=== PATIENT | male | born 1955 | race Caucasian/White ===

== ENCOUNTER 2017-01-02 06:38 | Inpatient (IN) | payer OTHER, MEDICAID ==
[~2017-01-02] VITALS: Ht 172.7 cm; Wt 54.0 kg
[2017-01-02 07:00] VITALS: BP 134/68; PULSE 109; RESP 20; TEMP 97.2; O2SAT 94
--- NOTE | 2017-01-02 07:00 | NUR ---
PT IN ROOM #6 WITH BARREL WASHER, TRIAGED. REPORT GIVEN TO SHE
[2017-01-02] MEDS ORDERED: NACL 0.9% 1,000 ML IV SCH (07:03)
[2017-01-02] MEDS ORDERED: ONDANSETRON HCL 4 MG/2 ML VIAL IVP ONE (07:15)
--- NOTE | 2017-01-02 07:15 | NUR ---
Pt brought to ED c/o Vomiting since last evening as reported by caregiver.
--- NOTE | 2017-01-02 07:30 | NUR ---
Pt has wound care nurse for coccyx wound on M and F.
[2017-01-02 07:33] LABS: HEMATOCRIT 40.9 % (36-54); HEMOGLOBIN 13.8 g/dL (14.0-18.0); MEAN CORPUSCULAR HEMOGLOBIN 33 pg (27-31); MEAN CORPUSCULAR HGB CONC 34 % (32-36); MEAN CORPUSCULAR VOLUME 97 fL (79.0-98.0); PLATELET COUNT (AUTO) 340 K/uL (130-430); RED BLOOD CELL COUNT(AUTO) 4.22 MIL/uL (4.2-6.2); RED CELL DISTRIBUTION WIDTH 12.7 % (9.0-15.0); WHITE BLOOD COUNT (AUTO) 7.8 K/uL (4.8-10.8)
[2017-01-02 07:43] LABS: CALCIUM 8.6 mg/dL (8.4-11.0); CREATININE 0.41 mg/dL (0.55-1.30)
[2017-01-02 07:45] LABS: INR 1.1 (0.80-1.20); PROTHROMBIN TIME 11.6 SECS (9.5-12.5)
--- NOTE | 2017-01-02 07:45 | NUR ---
# 24 gauge angiocath placed to LH. Use of asceptic technique. Opsite placed over site. Blood for lab drawn from site. Flushed with 10 cc of normal saline. No evidence of infiltration noted. Patient tolerated well.
--- NOTE | 2017-01-02 07:50 | NUR ---
Pt tolerated medication well.
[2017-01-02] MEDS ORDERED: POTASSIUM CHLORIDE 20 MEQ TAB.PRT.SR PO ONE (08:00)
[2017-01-02] MEDS ORDERED: KCL 10 mEq in 50 mL (PREMIX) 50 ML IV ONE (08:00)
[2017-01-02 08:02] LABS: ALBUMIN 3.2 g/dL (3.4-4.8); POTASSIUM 2.7 mmol/L (3.5-5.1); TOTAL BILIRUBIN 0.4 mg/dL (0.0-1.0); TOTAL PROTEIN, SERUM 7.4 g/dL (6.4-8.3)
[2017-01-02 08:13] LABS: ATYPICAL LYMPHOCYTES % 0 % (0-0); BAND % (MANUAL) 0 % (0-6); BASOPHILS % (MANUAL) 0 % (0-2); EOSINOPHILS % (MANUAL) 0 % (0-7); LYMPHOCYTES % (MANUAL) 12 % (20-46); MONOCYTES % (MANUAL) 11 % (0-11)
[2017-01-02] MEDS ORDERED: LORazepam 2 MG/ML VIAL (FOR ER USE) IVP ONE (08:15)
--- NOTE | 2017-01-02 08:55 | NUR ---
Pt to CT w/ rad staff
--- NOTE | 2017-01-02 09:00 | NUR ---
PT returned from rad dept tolerated well.
[2017-01-02 09:25] LABS: BILIRUBIN,URINE NEGATIVE (NEGATIVE); BLOOD, URINE NEGATIVE (NEGATIVE); CLARITY/URINE HAZY (CLEAR); COLOR,URINE YELLOW (YELLOW); GLUCOSE,URINE NEGATIVE (NEGATIVE); KETONES,URINE NEGATIVE (NEGATIVE); LEUKOCYTE ESTERASE ,URINE NEGATIVE (NEGATIVE); NITRITE, URINE POSITIVE (NEGATIVE); PROTEIN URINE TRACE (NEGATIVE); UROBILINOGEN,URINE 0.2 (0.2-1.0)
[2017-01-02 09:39] LABS: BACTERIA,URINE MANY /HPF (None Seen); RBC,URINE 0-3 /HPF (0-3); WBC,URINE 0-3 /HPF (0-3)
[2017-01-02 09:40] LABS: MUCUS,URINE None Seen /LPF (None Seen)
[2017-01-02] MEDS ORDERED: TAMS0.4C96 PO (09:56)
[2017-01-02] MEDS ORDERED: MIRT30TA PO (09:56)
[2017-01-02] MEDS ORDERED: FINA1TAB17 PO (09:56)
[2017-01-02] MEDS ORDERED: NUC50 PO (09:56)
[2017-01-02] MEDS ORDERED: GABA-531 PO (09:56)
[2017-01-02] MEDS ORDERED: LANS30CA10 PO (09:56)
[2017-01-02] MEDS ORDERED: CLON1TAB4 PO (09:56)
[2017-01-02] MEDS ORDERED: ARIP20TA5 PO (09:56)
--- NOTE | 2017-01-02 09:57 | NUR ---
Medication reconciliation completed with information provided by caregiver. Any prior medication reconciliation on file was reviewed and corrected.
[2017-01-02] MEDS ORDERED: ACETAMINOPHEN 325 MG TABLET PO PRN (10:00)
[2017-01-02] MEDS ORDERED: ALBUTEROL SULFATE 0.083% 2.5 MG/3 ML VIAL.NEB INH PRN (10:00)
[2017-01-02] MEDS ORDERED: KCL 20 mEq in 0.45% NS 1000 mL 1,000 ML IV SCH (10:09)
--- NOTE | 2017-01-02 10:11 | NUR ---
Patient will be admitted to care of Dr. Merino. Admitted to Med/Surg unit. Will go to room 113B. Summary report printed. Report given to Admission RN.
[2017-01-02] MEDS ORDERED: NA PHOS,M-B/NA PHOS,DI-BA 118 ML (FLEET ENEMA) RC ONE (10:15)
--- NOTE | 2017-01-02 10:24 | NUR ---
ADMISSION NOTE Received patient from ER via gurney. Patient admitted with diagnosis of BOWEL IMPACTION. Patient is awake, alert, oriented X 2-3. Patient oriented to hospital room, call light, toileting, pain management and safety-teach back done. Patient informed that SUSAN will be THE nurse and that their room number is 113B. Personal belongings checked and Belongings List documented. Call light within reach.
[2017-01-02 10:40] VITALS: BP 118/75; PULSE 104; RESP 16; TEMP 98.7; O2SAT 94
--- NOTE | 2017-01-02 11:00 | NUR ---
INITIAL NOTES RECEIVED PATIENT ON BED AWAKE WITH GARBLED SPEECH WITH 2 CAREGIVERS AT BEDSIDE.BREATHING EVEN AND UNLABORED.WITH IV SALINE LOCK TO LEFT HAND;INTACT AND PATENT;NO SIGNS AND SYMPTOMS OF INFILTRATION.WITH CONDOM CATHETER INTACT DRAINING VERY SMALL AMOUNT OF YELLOW URINE.SAFETY AND FALL PRECAUTIONS IN PLACE.CALL LIGHT WITHIN REACH. Addendum: 01/02/17 at 1236 by Rianna Bella RN BODY CHECK DONE;WITH WOUND TO SACRAL MEASURING 4X5CM;WITH YELLOW SLOUGH AT THE CENTER AND PINK AROUND THE CENTER.WITH VERY MINIMAL YELLOWISH DRAINAGE
[2017-01-02 11:08] VITALS: BP 118/75; PULSE 104; RESP 16; TEMP 98.7; O2SAT 94
[2017-01-02] MEDS: ONDANSETRON HCL 4 MG/2 ML VIAL IVP PRN (12:20)
--- NOTE | 2017-01-02 12:20 | NUR ---
NOTES PATIENT VOMITED DURING PERICARE WHEN THE HEAD OF BED WAS DOWN;MODERATE IN AMOUNT;LIGHT BROWN FLUID.PLACED PATIENT ON HIS SIDE;ORAL CARE DONE;ZOFRAN ADMINISTERED ORDERED
[2017-01-02] MEDS ORDERED: NALOXONE HCL 0.4 MG/ML AMP (NARCAN) IVP PRN (14:00)
[2017-01-02] MEDS: ALBUTEROL SULFATE 0.083% 2.5 MG/3 ML VIAL.NEB INH SCH ×2 (14:34→19:51)
--- NOTE | 2017-01-02 14:48 | NUR ---
GI consult Order received for a consult with Dr Rey for fecal impaction. Call was placed to his office [phone], spoke with Justine at his office. Will f/u as needed.
[2017-01-02 15:37] VITALS: BP 139/75; PULSE 101; RESP 16; TEMP 99.1; O2SAT 95
[2017-01-02] MEDS: GABAPENTIN 300 MG CAPSULE PO SCH ×2 (15:46→21:43)
--- NOTE | 2017-01-02 16:00 | NUR ---
NOTES PATIENT HAS HAD 3X BOWEL MOVEMENT;MODERATE IN AMOUNT;BROWN SOFT;FOUL-SMELLING;PERICARE PROVIDED
[2017-01-02] MEDS: KCL 20 mEq in 0.45% NS 1000 mL 1,000 ML IV SCH (16:19)
[2017-01-02] MEDS: KCL 20 mEq in 100 mL (PREMIX) 100 ML IV SCH ×2 (16:19→16:57)
[2017-01-02] MEDS: clonazePAM 0.5 MG TABLET PO SCH ×2 (16:58→21:43)
[2017-01-02] MEDS: TAPENTADOL HYDROCHLORIDE 50 MG TABLET PO SCH ×2 (16:58→21:43)
[2017-01-02] MEDS ORDERED: BISACODYL 5 MG TABLET.DR (DULCOLAX) PO ONE (17:00)
[2017-01-02] MEDS: MIRTAZAPINE 15 MG TABLET PO SCH (17:00)
--- NOTE | 2017-01-02 17:15 | NUR ---
WOUND EVALUATION: Wound Consult received from Dr. Merino. Thank you, Dr. Merino, for the consult. Patient received in a [place] Bed with an Atmos-Air 9000 mattress, awake, alert, confused, limited verbal interaction. Patient is unable to turn independently. Fantasma Score is a 13. Past Medical History: No history available at this time. Recent Labs: WBC 7.8, RBC 4.22, Hgb 13.8, Hct 40.9, K 2.7, BUN 10, Creat 0.41, Gluc 109, Alb 3.2. Intrinsic factors that delay wound healing: Hypoalbuminemia. Extrinsic factors that delay wound healing: Immobility. Microbiology: Wound Culture in progress. Wound Assessment: 1) Coccyx: Unstageable Pressure Ulcer, present on admission. Wound bed is 5% black, 60% yellow, 5% pink, 30% terrazas slough. No odor, scant yellow drainage. Hubert-wound intact. Measures 4.3 cm x 4.2 cm x 0.8 cm. Recommend: Cleanse wound with normal saline. Put moisture barrier cream onto hubert-wound. Put Venelex ointment onto wound bed. Put TenderWet dressing into wound cavity. Cover with Sacral foam dressing. Perform wound care daily, and as needed for dressing soiling or dislodgement. 2) Left Buttock: Chronic Wound, present on admission. Extension of Coccygeal wound. 90% pink tissue, 10% yellow skin. No odor, no drainage. Measures 0.7 cm x 1.6 cm. Recommend: Cleanse wound with normal saline. Pat dry. Put moisture barrier cream onto wound and hubert-wound. Cover with Sacral foam dressing. Perform wound care daily, and as needed for dressing soiling or dislodgement. 3) Left Lateral Hip: Chronic Pressure Ulcer, prior unknown stage, present on admission. Wound bed is 100% pink tissue. No odor, no drainage. Hubert-wound intact. Measures 3.0 cm x 2.5 cm. Recommend: Cleanse wound with normal saline. Put moisture barrier cream onto hubert-wound. Put Venelex ointment onto wound bed. Cover with Sacral foam dressing. Perform wound care daily, and as needed for dressing soiling or dislodgement. Also recommend: Reposition patient side to side only every 2 hours with pillow support, and off-load pressure areas with pillows for pressure re-distribution. Offload, elevate and float bilateral heels with pillows. Perform skin care and monitor skin integrity Q shift. Use moisture barrier cream on buttocks and other moisture susceptible areas QID and as needed for soiling. Place patient on a low air-loss mattress. Recommend surgical consult.
[2017-01-02] MEDS ORDERED: GOLYTELY / COLYTE SOLUTION 4 LITERS PO ONE (18:00)
--- NOTE | 2017-01-02 18:30 | NUR ---
CLOSING NOTES PATIENT ON BED AWAKE WITH SISTER LOLI AND CAREGIVER AT BEDSIDE.BREATHING EVEN AND UNLABORED.NO ACUTE DISTRESS.IVF INFUSING WELL;K-RIDER INFUSING WELL;TOLERATING WELL;NO SIGNS AND SYMPTOMS OF INFILTRATION.SAFETY AND FALL PRECAUTIONS IN PLACE.CALL LIGHT WITHIN REACH.WILL ENDORSE TO NEXT SHIFT ACCORDINGLY
[2017-01-02 20:00] VITALS: BP 149/81; PULSE 71; RESP 18; TEMP 98.9; O2SAT 94
--- NOTE | 2017-01-02 20:00 | NUR ---
OPENING NOTE PATIENT IS A/OX3. VITAL SIGNS ARE STABLE. NO SIGNS OF DISTRESS. BREATHING IS NON LABORED. IV IS PATENT AND SHOWS NO SIGNS OF COMPLICATIONS. WOUND TO THE COCCYX IS NOTED. PATIENT HAS NO COMPLAINTS OF PAIN. PATIENT INSTRUCTED TO CALL FOR ASSISTANCE. CALL LIGHT IS WITHIN REACH. BED ALARM IS ON. SISTER IS AT BEDSIDE. WILL CONTINUE TO MONITOR.
--- NOTE | 2017-01-02 20:50 | NUR ---
PATIENT REFUSING TO DRINK GOLYTELY PATIENT DRANK 5 8OZ CUPS OF GOLYTELY. PATIENT REFUSED TO DRINK ANYMORE. PATIENT STATED THAT IS MAKES HIM NAUSEATED. PATIENT WAS EDUCATED ON THE IMPORTANCE OF DRINKING THE LAXATIVE. PATIENT REFUSED. WILL CONTINUE TO TRY TO GET PATIENT TO DRINK THE SOLUTION.
[2017-01-02] MEDS ORDERED: NON-FORMULARY MEDICATION (Lansoprazole (Prevacid) 30 MG) PO SCH (21:00)
[2017-01-02] MEDS: ARIPiprazole 5 MG TAB PO SCH (21:42)
--- NOTE | 2017-01-02 22:10 | NUR ---
PATIENT DRINK 1 8OZ CUP OF GOLYTELY. PATIENT REFUSES TO DRINK ANYMORE. PATIENT EDUCATED ON THE IMPORTANCE OF THE LAXATIVE. PATIENT REFUSED.
--- NOTE | 2017-01-02 23:20 | NUR ---
WOUND CARE WOUND CARE WAS PREFORMED PER WOUND CARE ORDER. PATIENT TOLERATED IT WELL.
[2017-01-03] MEDS: ALBUTEROL SULFATE 0.083% 2.5 MG/3 ML VIAL.NEB INH SCH ×4 (00:32→19:24)
[2017-01-03] MEDS: ONDANSETRON HCL 4 MG/2 ML VIAL IVP PRN ×4 (00:59→22:04)
--- NOTE | 2017-01-03 01:00 | NUR ---
PATIENT VOMITED PATIENT VOMITED AND WAS CLEANED. NO SIGNS OF DISTRESS. WILL GIVE PRN NAUSEA/VOMITING MEDICATION.
[2017-01-03 01:14] VITALS: BP 141/82; PULSE 99; RESP 18; TEMP 99.3; O2SAT 93
--- NOTE | 2017-01-03 03:00 | NUR ---
ROUNDS PATIENT WAS MOUTH WAS SUCTIONED.
[2017-01-03] MEDS: KCL 20 mEq in 0.45% NS 1000 mL 1,000 ML IV SCH ×5 (03:12→23:00)
[2017-01-03 04:33] VITALS: BP 138/85; PULSE 98; RESP 17; TEMP 98.4; O2SAT 95
--- NOTE | 2017-01-03 05:20 | NUR ---
TAP WATER ENEMA UNSUCCESSFUL PERFORMED TAP WATER ENEMA AND STOOL IS STILL FORMED. WILL CALL .
--- NOTE | 2017-01-03 06:28 | NUR ---
PATIENT VOMITED PATIENT VOMITED. WILL GIVE PRN NAUSEA/VOMITING MEDICATION.
[2017-01-03 06:55] LABS: BASOPHILS % (AUTO) 0.3 % (0.0-2.0); EOSINOPHILS % (AUTO) 0.2 % (0.0-4.0); HEMATOCRIT 37.5 % (36-54); LYMPHOCYTES # (AUTO) 0.9 K/uL (1.0-5.5); LYMPHOCYTES % (AUTO) 11.9 % (20.5-51.5); MEAN CORPUSCULAR HEMOGLOBIN 34 pg (27-31); MEAN CORPUSCULAR HGB CONC 35 % (32-36); MEAN CORPUSCULAR VOLUME 97 fL (79.0-98.0); MONOCYTES # (AUTO) 0.6 K/uL (0.0-1.0); MONOCYTES % (AUTO) 7.5 % (1.7-9.3); NEUTROPHILS # (AUTO) 6.3 K/uL (1.8-7.7); NEUTROPHILS % (AUTO) 80.1 % (40.0-70.0); PLATELET COUNT (AUTO) 332 K/uL (130-430); RED BLOOD CELL COUNT(AUTO) 3.87 MIL/uL (4.2-6.2); WHITE BLOOD COUNT (AUTO) 7.8 K/uL (4.8-10.8)
[2017-01-03] MEDS ORDERED: MAGNESIUM CITRATE 300 ML ORAL SOLUTION PO ONE (07:00)
--- NOTE | 2017-01-03 07:02 | NUR ---
SPOKE TO DOCTOR MILES SPOKE TO DOCTOR MILES REGARDING PATIENT DRINKING 1LITER OF GOLYTELY AND TAP WATER ENEMA UNSUCCESSFUL. MD ORDER MAG CITRATE. MD ALSO AWARE OF PATIENT VOMITING.
[2017-01-03 07:04] LABS: INR 1.2 (0.80-1.20); PROTHROMBIN TIME 12.6 SECS (9.5-12.5)
--- NOTE | 2017-01-03 07:10 | NUR ---
CLOSING NOTES PATIENT IS IN BED RESTING. NO SIGNS OF DISTRESS. BREATHING IS NON LABORED. IV IS PATENT AND SHOWS NO SIGNS OF COMPLICATIONS. WILL ENDORSE ALL CARE TO MORNING NURSE.
[2017-01-03 07:20] LABS: CREATININE 0.53 mg/dL (0.55-1.30); POTASSIUM 3.2 mmol/L (3.5-5.1); TOTAL BILIRUBIN 0.5 mg/dL (0.0-1.0); TOTAL PROTEIN, SERUM 6.8 g/dL (6.4-8.3)
--- NOTE | 2017-01-03 07:45 | NUR ---
AM ROUNDS PATIENT RESTING IN BED, AWAKE, ALERT AND ORIENTED X2 REORIENTED TO EVENT AND PLACE, PATIENT DENIES PAIN, ASSESSMENT COMPLETE, EDUCATED BASKET SORTER LIGHT SYSTEM AND TO CALL FOR ANY ASSISTANCE, PATIENT VERBALIZED UNDERSTANDING, PATIENT HAS TROUBLE WITH SPEAKING, AND IS HAVING ACTIVE VOMITING AT THIS TIME, IV ZOFRAN WAS GIVEN AT 0623 BY [facility] SHIFT NURSE, WILL CONTINUE TO MONITOR, BED IN LOWEST POSITION, THREE SIDE RAILS UP, BED ALARM ON, BED CLOSE TO NURSE'S STATION, FALL AND ASPIRATION PRECAUTIONS IN PLACE.
[2017-01-03 08:00] VITALS: BP 122/73; PULSE 96; RESP 14; TEMP 97.2; O2SAT 95
[2017-01-03] MEDS: GABAPENTIN 300 MG CAPSULE PO SCH ×3 (08:25→22:06)
[2017-01-03] MEDS: TAMSULOSIN HCL 0.4 MG CAP PO SCH (08:25)
[2017-01-03] MEDS: clonazePAM 0.5 MG TABLET PO SCH ×4 (08:25→22:05)
[2017-01-03] MEDS: BALSAM PERU/CASTOR OIL 60 GM OINT...G. TP SCH (08:26)
[2017-01-03] MEDS: TAPENTADOL HYDROCHLORIDE 50 MG TABLET PO SCH ×4 (08:26→22:06)
--- NOTE | 2017-01-03 08:40 | NUR ---
Nutrition Update Fantasma Scale 11 noted. Pt admitted for fecal impaction, N/V, hypokalemia. Diet: NPO BMI: 18.2 kg/m2 RD to follow per nutrition care standards.
[2017-01-03] MEDS ORDERED: PANTOPRAZOLE SODIUM 40 MG TAB PO SCH (09:00)
--- NOTE | 2017-01-03 09:15 | NUR ---
RN ROUNDS PATIENT RESTING IN BED, NO ACTIVE VOMITING AT THIS TIME, FAMILY AT BEDSIDE, PLAN OF CARE DISCUSSED, PATIENT IS STILL NPO FOR PROCEDURES TODAY, STOOL IS STILL NOT CLEARED FOR COLONOSCOPY, WILL CONTINUE TO MONITOR, BED IN LOWEST POSITION, THREE SIDE RAILS UP, BED ALARM ON, BED CLOSE TO NURSE'S STATION, FALL AND ASPIRATION PRECAUTIONS IN PLACE.
--- NOTE | 2017-01-03 10:00 | NUR ---
PATIENT OFF THE UNIT FOR HIDA SCAN, STABLE CONDITION, NO VOMITING AT THIS TIME.
--- NOTE | 2017-01-03 12:21 | NUR ---
PATIENT BACK ON THE UNIT STABLE CONDITION AT THIS TIME. NO ACTIVE VOMITING.
--- NOTE | 2017-01-03 13:05 | NUR ---
CANCELLED COLONOSCOPY INFORMED BY TERRI VASQUEZ THAT DR AQUINO WILL CANCEL COLONOSCOPY FOR NOW BECAUSE THE PATIENT'S STOOL IS NOT YET CLEAR, INQUIRED ABOUT DIET ORDER, TERRI VASQUEZ TO FOLLOW UP WITH DR AQUINO.
--- NOTE | 2017-01-03 13:05 | NUR ---
DR MART ROUNDS UPDATES GIVEN, WILL FOLLOW UP WITH ANY NEW ORDERS.
--- NOTE | 2017-01-03 13:28 | NUR ---
DR AQUINO SPOKE WITH TERRI VASQUEZ, DR AQUINO IN GI LAB ON A CONFERENCE CALL AT THIS TIME, TERRI VASQUEZ TO NOTIFY HIM TO CALL BACK, WILL FOLLOW UP.
--- NOTE | 2017-01-03 14:20 | NUR ---
S.T. CLOTH WORKER WAS NOTIFIED THIS PM OF A REFERRAL FOR VIDEO SWALLOW. CHECKED ON PT'S STATUS. PT IS CURRENTLY NPO FOR PENDING COLONOSCOPY. UNABLE TO PERFORM VIDEO SWALLOW. WILL FOLLOW TOMORROW. NRSG AWARE.
[2017-01-03] MEDS ORDERED: PANTOPRAZOLE SODIUM 40 MG/VIAL (PROTONIX) IVP ONE (14:30)
--- NOTE | 2017-01-03 14:35 | NUR ---
RN ROUNDS INFORMED BY CHARGE NURSE, TAVIA VASQUEZ, THAT DR AQUINO CAME TO SEE THE PATIENT AND SPOKE WITH THE FAMILY, PATIENT WILL BE KEPT NPO FOR NOW, PATIENT IS RESTING IN BED, EYES CLOSED, BREATHING IS EVEN AND UNLABORED, NO SIGNS OF DISTRESS, BED IN LOWEST POSITION, THREE SIDE RAILS UP, BED ALARM ON, FALL AND ASPIRATION PRECAUTIONS IN PLACE, CALL LIGHT NEXT TO THE PATIENT'S HAND, FAMILY AT THE BEDSIDE.
[2017-01-03] MEDS ORDERED: POTASSIUM CHLORIDE 40 MEQ in NS 250 ML IV ONE (14:45)
[2017-01-03 16:30] VITALS: BP 121/80; PULSE 112; RESP 18; TEMP 97.8; O2SAT 96
--- NOTE | 2017-01-03 16:30 | NUR ---
RN ROUNDS PATIENT RESTING IN BED, STILL REMAINS NOTHING BY MOUTH AT THIS TIME, FAMILY AT THE BEDSIDE, HAD 2 SMALL EPISODES OF VOMITING ACCORDING TO THE FAMILY, EDUCATED ON CONTINUING ASPIRATION PRECAUTIONS, FAMILY VERBALIZED UNDERSTANDING AT THIS TIME, NO OTHER NEEDS AT THIS TIME, BED IN LOWEST POSITION, THREE SIDE RAILS UP, BED ALARM ON, BED CLOSE TO NURSE'S STATION, FALL AND ASPIRATION PRECAUTIONS IN PLACE.
[2017-01-03] MEDS: MIRTAZAPINE 15 MG TABLET PO SCH (17:01)
--- NOTE | 2017-01-03 17:02 | NUR ---
RN ROUNDS/WOUND NOTE PATIENT RESTING IN BED, COMPLAINING OF NAUSEA, EDUCATED ON MEDICATION AND POTENTIAL SIDE EFFECTS, PATIENT STATED OK, TOLERATED WELL, IV SITE IS PATENT WOUND ASSESSMENT NOTE: 1) Coccyx: Unstageable Pressure Ulcer, present on admission. Wound bed is 5% black, 60% yellow, 5% pink, 30% terrazas slough. No odor, scant yellow drainage. Neda-wound intact. Measures 4.3 cm x 4.2 cm x 0.8 cm. 2) Left Buttock: Chronic Wound, present on admission. Extension of Coccygeal wound. 90% pink tissue, 10% yellow skin. No odor, no drainage. Measures 0.7 cm x 1.6 cm. 3) Left Lateral Hip: Chronic Pressure Ulcer, prior unknown stage, present on admission. Wound bed is 100% pink tissue. No odor, no drainage. Neda-wound intact. Measures 3.0 cm x 2.5 cm. TURNING THE PATIENT EVERY TWO HOURS AND NEEDED, ASPIRATION PRECAUTIONS IN PLACE, WILL ENDORSE WOUND CARE TO NOC SHIFT NURSE.
--- NOTE | 2017-01-03 18:21 | NUR ---
CLOSING NOTE PATIENT RESTING IN BED, DENIES PAIN, NO SIGNS OF DISTRESS, ALL NEEDS MET, WILL ENDORSE REPORT TO NOC SHIFT NURSE, BED IN LOWEST POSITION, TWO SIDE RAILS UP, FALL AND ASPIRATION PRECAUTIONS IN PLACE, CALL LIGHT NEXT TO THE PATIENT'S HAND, FAMILY AT THE BEDSIDE.
[2017-01-03] MEDS: HYDROmorphone 1 MG INJ. 1 MG/ML AMPUL IVP PRN ×2 (18:27→22:05)
--- NOTE | 2017-01-03 18:27 | NUR ---
PAIN MEDICATION PATIENT RESTING IN BED, FAMILY MEMBER STATES THAT PAIN IS NOW INCREASING HOWEVER THE PATIENT DENIED BEFORE, INQUIRED TO THE PATIENT IF HE HAS PAIN AND PATIENT NODDED NOW AT THIS TIME, EDUCATED THE PATIENT AND FAMILY MEMBER ON PAIN MEDICATION, BOTH VERBALIZED UNDERSTANDING AT THIS TIME, PATIENT TOLERATED WELL, NEW IV FLUID BAG ALSO HUNG AT THIS TIME, INFUSING WELL, NO OTHER NEEDS AT THIS TIME, BED IN LOWEST POSITION, THREE SIDE RAILS UP, BED ALARM ON, BED CLOSE TO NURSE'S STATION, CALL LIGHT NEXT TO THE PATIENT'S HAND, FALL AND ASPIRATION PRECAUTIONS IN PLACE, FAMILY AT THE BEDSIDE.
--- NOTE | 2017-01-03 19:30 | NUR ---
OPENING NOTES PATIENT IS A/OX3. NO SIGNS OF DISTRESS. BREATHING IS NON LABORED. VITAL SIGNS ARE STABLE. IV IS PATENT AND SHOWS NO SIGNS OF COMPLICATIONS. PATIENT INSTRUCTED TO CALL FOR ASSISTANCE. FAMILY IS AT BEDSIDE. SAFETY MEASURES ARE IN PLACE. WILL CONTINUE TO MONITOR.
[2017-01-03 20:28] VITALS: BP 132/79; PULSE 100; RESP 19; TEMP 98.9; O2SAT 95
--- NOTE | 2017-01-03 20:30 | NUR ---
WOUND CARE WOUND CARE WAS PERFORMED PER WOUND CARE ORDERS. PATIENT TOLERATED IS WELL.
[2017-01-03] MEDS: ARIPiprazole 5 MG TAB PO SCH (22:05)
--- NOTE | 2017-01-03 22:52 | NUR ---
ROUNDS PATIENT IS IN BED RESTING. NO SIGNS OF DISTRESS. BREATHING IS NON LABORED. WILL CONTINUE TO MONITOR.
--- NOTE | 2017-01-03 22:53 | NUR ---
ADAPTIVE CALL LIGHT WAS PLACE FOR PATIENT.
[2017-01-04 00:07] VITALS: BP 132/69; PULSE 80; RESP 17; TEMP 97.5; O2SAT 95
[2017-01-04] MEDS: ALBUTEROL SULFATE 0.083% 2.5 MG/3 ML VIAL.NEB INH SCH ×4 (01:08→20:46)
--- NOTE | 2017-01-04 01:25 | NUR ---
ROUNDS PATIENT WAS GIVEN A WARM BLANKET.
--- NOTE | 2017-01-04 03:18 | NUR ---
ROUNDS PATIENT IS IN BED SLEEPING. NO SIGNS OF DISTRESS. BREATHING IS NON LABORED. SAFETY MEASURES ARE IN PLACE. WILL CONTINUE TO MONITOR.
--- NOTE | 2017-01-04 04:30 | NUR ---
NEW IV PATIENT IV TO LEFT HAND BECAME INFILTRATED. NEW IV TO THE LOWER LEFT FORE 24GAUGE WAS INSERTED. PATIENT TOLERATED IT WELL.
[2017-01-04 05:00] VITALS: BP 144/84; PULSE 96; RESP 17; TEMP 97.9; O2SAT 95
[2017-01-04] MEDS: KCL 20 mEq in 0.45% NS 1000 mL 1,000 ML IV SCH ×2 (05:35→16:24)
--- NOTE | 2017-01-04 06:50 | NUR ---
PATIENT HAD 2 BOWEL MOVEMENTS. IN BOTH BOWEL MOVEMENTS THE STOOL WAS STILL FORMED.
--- NOTE | 2017-01-04 06:54 | NUR ---
CLOSING NOTES PATIENT IS IN BED SLEEPING. NO SIGNS OF DISTRESS. BREATHING IS NON LABORED. NO COMPLAINTS OF NAUSEA/VOMITING. IV IS PATENT AND SHOWS NO SIGNS OF COMPLICATION. SAFETY MEASURES ARE IN PLACE. WILL ENDORSE CARE TO THE MORNING NURSE. PATIENT HAD NO EPISODES OF VOMITING.
[2017-01-04 07:47] LABS: CALCIUM 7.8 mg/dL (8.4-11.0); CREATININE 0.51 mg/dL (0.55-1.30); POTASSIUM 4.1 mmol/L (3.5-5.1)
[2017-01-04 08:00] VITALS: BP 147/93; PULSE 96; RESP 18; TEMP 98.6; O2SAT 95
--- NOTE | 2017-01-04 08:00 | NUR ---
NOTE PT RESTLESSLY MOANING DUE TO GAS PAIN/DISCOMFORT. PT ABDOMEN WAS RUBBED AND PT STOPPED MOANING OUT LOUD. NO SOB/RESP DISTRESS NOTED AT THIS TIME. IVF'S INFUSING WELL THROUGH LEFT HAND IV SITE. CALL LIGHT WITHIN REACH.
[2017-01-04] MEDS: TAPENTADOL HYDROCHLORIDE 50 MG TABLET PO SCH ×4 (09:31→20:30)
[2017-01-04] MEDS: clonazePAM 0.5 MG TABLET PO SCH ×4 (09:31→20:30)
[2017-01-04] MEDS: GABAPENTIN 300 MG CAPSULE PO SCH ×3 (09:31→20:29)
[2017-01-04] MEDS: PANTOPRAZOLE SODIUM 40 MG/VIAL (PROTONIX) IVP SCH (09:32)
[2017-01-04] MEDS: TAMSULOSIN HCL 0.4 MG CAP PO SCH (09:32)
[2017-01-04] MEDS: BALSAM PERU/CASTOR OIL 60 GM OINT...G. TP SCH (09:32)
--- NOTE | 2017-01-04 10:00 | NUR ---
NOTE PT'S GRAIN ELEVATOR WORKER AT BEDSIDE SINCE 09AM. PT QUIET NOW THAT CAREGIVER IS AT BEDSIDE. NO NEEDS NOTED. PT NEXT TO NURSES' STATION ALL SHIFT FOR CLOSE OBSERVATION.
--- NOTE | 2017-01-04 12:00 | NUR ---
NOTE PT'S CAREGIVER GAVE PT HIS BOTTLE OF MAG CITRATE, WHICH THE PT DRANK WITHOUT ANY DIFFICULTY. PT ALSO NOW DRINKING CUPS OF KEZIA. CAREGIVER NOW LEAVING FOR THE DAY. PT'S SON WILL BE IN AROUND 1400. PT RESTING COMFORTABLE AND PO MEDICATIONS WERE GIVEN TO PT BY CAREGIVER. RN NEXT TP PT AND OBSERVED PT TOOK ALL PT MEDS WITHOUT INCIDENT AT THIS TIME. CALL LIGHT WITHIN REACH.
[2017-01-04 12:22] VITALS: BP 127/77; PULSE 112; RESP 19; TEMP 97.1; O2SAT 93
--- NOTE | 2017-01-04 14:00 | NUR ---
NOTE PT'S SON JOSE AT BEDSIDE AT THIS TIME. PT NOW CALM AND QUIET AT THIS TIME.
--- NOTE | 2017-01-04 14:15 | NUR ---
S.T. CHECKED ON PT'S STATUS (R/T VIDEO SWALLOW ORDER). PT IS CURRENTLY STILL NPO W/ PENDING COLONOSCOPY. CONFIRMED W/ NURSE BEVERLEY RE: PT'S STATUS. UNABLE TO PERFORM VFSS TODAY. SPOKE W/ RADIOLOGY RE: HOLD VFSS. S.T. WILL FOLLOW.
[2017-01-04 14:28] VITALS: Ht 172.7 cm; Wt 54.0 kg
--- NOTE | 2017-01-04 16:00 | NUR ---
WOUND RE-EVALUATION: Patient received in a [place] Bed with an Atmos-Air 9000 mattress, awake, alert, confused, limited verbal interaction. Patient is unable to turn independently. Fantasma Score is an 11. Intrinsic factors that delay wound healing: Hypoalbuminemia. Extrinsic factors that delay wound healing: Immobility. Microbiology: Wound Culture positive for Pseudomonas Aeruginosa. Wound Assessment: 1) Coccyx: Unstageable Pressure Ulcer, present on admission. Wound bed is 90% yellow slough, 10% red tssue. No odor, scant yellow drainage. Hubert-wound intact. Recommend continue: Cleanse wound with normal saline. Put moisture barrier cream onto hubert-wound. Put Venelex ointment onto wound bed. Put TenderWet dressing into wound cavity. Cover with Sacral foam dressing. Perform wound care daily, and as needed for dressing soiling or dislodgement. 2) Left Buttock: Chronic Wound, present on admission. Extension of Coccygeal wound. 90% pink tissue, 10% yellow skin. No odor, no drainage. Recommend continue: Cleanse wound with normal saline. Pat dry. Put moisture barrier cream onto wound and hubert-wound. Cover with Sacral foam dressing. Perform wound care daily, and as needed for dressing soiling or dislodgement. 3) Left Lateral Hip: Chronic Pressure Ulcer, prior unknown stage, present on admission. Wound bed is 100% pink tissue. No odor, no drainage. Hubert-wound intact. Recommend continue: Cleanse wound with normal saline. Put moisture barrier cream onto hubert-wound. Put Venelex ointment onto wound bed. Cover with Sacral foam dressing. Perform wound care daily, and as needed for dressing soiling or dislodgement. Also recommend continue: Reposition patient side to side only every 2 hours with pillow support, and off-load pressure areas with pillows for pressure re-distribution. Offload, elevate and float bilateral heels with pillows. Perform skin care and monitor skin integrity Q shift. Use moisture barrier cream on buttocks and other moisture susceptible areas QID and as needed for soiling. Maintain patient on a low air-loss mattress. Recommend surgical consult.
--- NOTE | 2017-01-04 16:00 | NUR ---
NOTE ASSESSMENT AND CHANGE OF PT'S COCCYX WOUND DONE BY TAHIRA COTTON WRINGER AND RN. PT HAS BEEN TURNED Q2' FORM SIDE TO SIDE. RIGHT HIP WOUND WAS CLEANED AND Z-GUARD WAS APPLIED WITH DRESSING AT THIS TIME. PT TOLERATED ASSESSMENT OF WOUND WELL. PT'S CAREGIVER LEFT THE ROOM WHILE WOUND CARE WAS BEING DONE. WAITING FOR JOSE TO RETURN FROM LUNCH. PT BEING OBSERVED FROM NURSES' STATION.
[2017-01-04 16:45] VITALS: BP 125/72; PULSE 110; RESP 18; TEMP 97.6; O2SAT 94
--- NOTE | 2017-01-04 18:00 | NUR ---
NOTE PT RESTING IN BED. PT'S 3 CAREGIVERS ARE AT BEDSIDE AT THIS TIME. DR MART CAME TO SEE PT AT 1820. ORDERS WRITTEN AT THIS TIME. PT WAS CHECKED ON Q1' AND PRN FOR NEEDS AND CARE. PT WAS MAINTAINED WITH SAFETY PRECAUTIONS ALL SHIFT. NO SOB/RESP DISTRESS OR PAIN/DISCOMFORT NOTED. LEFT FOREARM IV INTACT AND INFUSING IVF'S ALL SHIFT. NO NEEDS NOTED. CALL LIGHT WITHIN REACH.
[2017-01-04] MEDS: MIRTAZAPINE 15 MG TABLET PO SCH (18:06)
--- NOTE | 2017-01-04 18:30 | NUR ---
CONSULTATION PAGED REASON FOR CONSULTATION:COCCYX WOUND WAS CONSULT CALLED?Y PERSON WHO WAS NOTIFIED:SONJA CONSULTING PHYSICIAN:SHOSHANA FABIAN BARGAIN TABLE CLERK SPECIALTY:SURGEON BARGAIN TABLE CLERK PHONE NUMBER:[phone]
--- NOTE | 2017-01-04 19:55 | NUR ---
OPENING NOTE PATIENT IS A/OX2. NO SIGNS OF DISTRESS. BREATHING IS NON LABORED. IV IS PATENT AND SHOWS NO SIGNS OF COMPLICATION. VITAL SIGNS ARE STABLE. FAMILY IS AT BEDSIDE. PATIENT INSTRUCTED TO CALL FOR ASSISTANCE. ADAPTIVE CALL LIGHT IS WITHIN REACH. BED ALARM IS ON. WILL CONTINUE TO MONITOR.
[2017-01-04] MEDS: ARIPiprazole 5 MG TAB PO SCH (20:29)
[2017-01-04 20:35] VITALS: BP 128/65; PULSE 101; RESP 19; TEMP 99.3; O2SAT 96
--- NOTE | 2017-01-04 22:00 | NUR ---
ROUNDS PATIENT HAD A BOWEL MOVEMENT AND WAS CLEANED. PATIENT IS RESTING COMFORTABLE.
[2017-01-05] VITALS (7 sets, daily range): BP systolic 81–155; BP diastolic 50–88; PULSE 63–115; RESP 11–22; TEMP 96.6–99.9; O2SAT 92–99
[2017-01-05] MEDS: KCL 20 mEq in D5/0.45NS 1000mL 1,000 ML IV SCH ×3 (00:04→07:49)
--- NOTE | 2017-01-05 00:32 | NUR ---
ROUNDS PATIENT IS IN BED RESTING COMFORTABLE. NO SIGNS OF DISTRESS BREATHING IS NON LABORED. CALL LIGHT IS WITHIN REACH. WILL CONTINUE TO MONITOR.
[2017-01-05] MEDS: HYDROmorphone 1 MG INJ. 1 MG/ML AMPUL IVP PRN ×3 (02:18→16:58)
--- NOTE | 2017-01-05 02:22 | NUR ---
WOUND CARE WOUND CARE WAS PERFORMED PER WOUND CARE ORDER. PATIENT TOLERATED IT WELL.
[2017-01-05] MEDS: ALBUTEROL SULFATE 0.083% 2.5 MG/3 ML VIAL.NEB INH SCH ×4 (03:27→21:04)
--- NOTE | 2017-01-05 04:04 | NUR ---
ROUNDS PATIENT IS IN BED RESTING COMFORTABLY. NO SIGNS OF DISTRESS. BREATHING IS NON LABORED. CALL LIGHT IS WITHIN REACH. BED ALARM IS ON. WILL CONTINUE TO MONITOR.
--- NOTE | 2017-01-05 05:45 | NUR ---
ROUNDS PATIENT IS IN BED SLEEPING. NO SIGNS OF DISTRESS. BREATHING IS NON LABORED. CALL LIGHT IS WITHIN REACH. BED ALARM IS ON. WILL CONTINUE TO MONITOR.
[2017-01-05 07:10] LABS: BASOPHILS % (AUTO) 0.5 % (0.0-2.0); EOSINOPHILS # (AUTO) 0.1 K/uL (0.0-0.4); EOSINOPHILS % (AUTO) 1.4 % (0.0-4.0); HEMATOCRIT 34.1 % (36-54); HEMOGLOBIN 11.6 g/dL (14.0-18.0); LYMPHOCYTES # (AUTO) 1.5 K/uL (1.0-5.5); LYMPHOCYTES % (AUTO) 20.3 % (20.5-51.5); MEAN CORPUSCULAR HEMOGLOBIN 33 pg (27-31); MEAN CORPUSCULAR HGB CONC 34 % (32-36); MEAN CORPUSCULAR VOLUME 97 fL (79.0-98.0); MONOCYTES # (AUTO) 0.6 K/uL (0.0-1.0); MONOCYTES % (AUTO) 7.5 % (1.7-9.3); NEUTROPHILS # (AUTO) 5.2 K/uL (1.8-7.7); NEUTROPHILS % (AUTO) 70.3 % (40.0-70.0); PLATELET COUNT (AUTO) 305 K/uL (130-430); RED BLOOD CELL COUNT(AUTO) 3.52 MIL/uL (4.2-6.2); RED CELL DISTRIBUTION WIDTH 13.2 % (9.0-15.0); WHITE BLOOD COUNT (AUTO) 7.4 K/uL (4.8-10.8)
[2017-01-05 07:14] LABS: ALBUMIN 2.7 g/dL (3.4-4.8); CALCIUM 7.7 mg/dL (8.4-11.0); CREATININE 0.47 mg/dL (0.55-1.30); POTASSIUM 4.1 mmol/L (3.5-5.1); TOTAL BILIRUBIN 0.5 mg/dL (0.0-1.0)
--- NOTE | 2017-01-05 08:03 | NUR ---
DILAUDID 1MG NOT GIVEN. IV IS INFILTRATED. INFORMED MORNING NURSE DERECK.
--- NOTE | 2017-01-05 08:05 | NUR ---
CLOSING NOTES PATIENT IN BED RESTING. NO SIGNS OF DISTRESS. BREATHING IS NON LABORED. IV IS INFILTRATED. MORNING NURSE DERECK IS AWARE. CHARGE NURSE CARMEN IS AT BEDSIDE INSERTING A NEW IV. REPORT GIVEN TO MORNING NURSE.
--- NOTE | 2017-01-05 08:47 | NUR ---
OPENING NOTE RECEIVED REPORT FROM NIGHT NURSE, PATIENT IS RESTING IN BED WITH COMPLAINTS OF PAIN, IV INFILTRATED AND CHARGE NURSE IS PUTTING ANOTHER IV IN TO GIVE PAIN MEDICATION. PATIENT IS ALERT AND ORIENTED WITH SOME CONFUSION, PATIENT IS BED REST AND DR CEBALLOS WAS IN TO SEE THE PATIENT AND NEW ORDER FOR DEBRIDEMENT WAS NOTED AND WILL BE CALLING FOR CONSENT. CALL LIGHT IS WITHIN REACH AND WILL CONTINUE TO MONITOR. STUDENT AND TEACHER ARE PERFORMING WOUND CARE ON THE PATIENT'S COCCYX.
[2017-01-05] MEDS: TAPENTADOL HYDROCHLORIDE 50 MG TABLET PO SCH ×4 (09:00→20:24)
[2017-01-05] MEDS: GABAPENTIN 300 MG CAPSULE PO SCH ×3 (09:00→20:24)
[2017-01-05] MEDS: TAMSULOSIN HCL 0.4 MG CAP PO SCH (09:00)
[2017-01-05] MEDS: clonazePAM 0.5 MG TABLET PO SCH ×4 (10:12→20:24)
[2017-01-05] MEDS: BALSAM PERU/CASTOR OIL 60 GM OINT...G. TP SCH (10:12)
--- NOTE | 2017-01-05 10:30 | NUR ---
NOTE PATIENT IS RESTING IN BED COMFORTABLY WITH NO NOTED DISTRESS, DISCOMFORT OR SOB. FAMILY IS AT BEDSIDE AND SISTER WILL BE COMING TO SIGN CONSENT FOR DEBRIDEMENT THIS AFTERNOON. BED IS IN LOWEST POSITION AND PATIENT WAS REPOSITIONED AND TOLERATED WELL. CALL LIGHT IS WITHIN REACH AND WILL CONTINUE TO MONITOR.
--- NOTE | 2017-01-05 12:34 | NUR ---
NOTE PATIENT IS RESTING IN BED COMFORTABLY WITH NO NOTED DISTRESS, DISCOMFORT OR SOB. BED IS IN LOWEST POSITION AND COOK STARCH IS AT BEDSIDE. PATIENT WAS REPOSITIONED AND TOLERATED WELL. CALL LIGHT IS WITHIN REACH AND BED IS IN LOWEST POSITION. WILL CONTINUE TO MONITOR
--- NOTE | 2017-01-05 13:56 | NUR ---
NOTE PATIENT IS GOING TO SURGERY AND PREOP CHEST XRAY, EKG AND PT/INR AND PTT WAS ORDERED. PATIENT IS AWARE.
[2017-01-05] MEDS ORDERED: NS IRRIG SOLN 1000 ML IR ONE (14:00)
[2017-01-05] MEDS ORDERED: LR 1,000 ML IV.SOLN IV ONE (14:00)
[2017-01-05] MEDS ORDERED: SEVOFLURANE 15 MIN GAS INH ONE (14:00)
[2017-01-05] MEDS ORDERED: MIDAZOLAM HCL 5 MG/5 ML VIAL ONE (14:00)
[2017-01-05 14:43] LABS: INR 1.2 (0.80-1.20); PROTHROMBIN TIME 12.9 SECS (9.5-12.5)
--- NOTE | 2017-01-05 14:50 | NUR ---
NOTE PATIENT WAS TAKEN TO OR FOR DEBRIDEMENT AND WOUND VAC PLACEMENT, WILL RE ASSESS WHEN THE PATIENT RETURNS.
--- NOTE | 2017-01-05 15:17 | NUR ---
CALLED ID CONSULT TO DR ROTHMAN RE: DECUBITUS ULCER COCCYX. SPOKE TO REN
--- NOTE | 2017-01-05 15:19 | NUR ---
ID Consult: for Dr. See, regarding decubitus ulcer coccyx, ordered by Dr. Merino, spoke with Elida.
--- NOTE | 2017-01-05 15:20 | NUR ---
S.T. CHECKED ON PT'S STATUS THIS AM. COLONOSCOPY STILL PENDING. UNABLE TO PROCEED W/ VFSS. S.T. WILL FOLLOW.
[2017-01-05] MEDS ORDERED: LR 1,000 ML IV SCH (15:52)
[2017-01-05] MEDS ORDERED: MEPERIDINE HCL/PF 50 MG/ML AMP IVP PRN ×2 (16:00)
[2017-01-05] MEDS ORDERED: MEPERIDINE HCL/PF 25 MG/ML DISP.SYRIN IVP PRN (16:00)
[2017-01-05] MEDS ORDERED: ONDANSETRON HCL 4 MG/2 ML VIAL IVP PRN (16:00)
--- NOTE | 2017-01-05 16:33 | NUR ---
NOTE PATIENT RETURNED FROM OR IN STABLE CONDITION AND THE WOUND VAC WAS PLACED BUT THE MACHINE CANNOT BE CHARGED, SO THE DEHYDROGENATION OPERATOR WAS CALLED AND A NEW ONE WILL BE SENT TO US, BUT AT THE TIME THE MACHINE IS WORKING ON BATTERY. VITAL SIGNS WERE STARTED AND THE PATIENT WAS MOANING IN PAIN, SO PAIN MEDICATION WAS GIVEN AND THE PATIENT SEEMED ANXIOUS AND SO THE 1700 KLONOPIN WILL BE GIVEN WELL, THE BP IS ON THE ELEVATED SIDE. BED IS IN LOWEST POSITION, CALL LIGHT IS WITHIN REACH AND WILL CONTINUE TO MONITOR.
[2017-01-05] MEDS ORDERED: BISACODYL 5 MG TABLET.DR (DULCOLAX) PO ONE (17:00)
[2017-01-05] MEDS: PANTOPRAZOLE SODIUM 40 MG/VIAL (PROTONIX) IVP SCH (17:22)
[2017-01-05] MEDS ORDERED: GOLYTELY / COLYTE SOLUTION 4 LITERS PO ONE (18:00)
[2017-01-05] MEDS: MIRTAZAPINE 15 MG TABLET PO SCH (18:00)
[2017-01-05] MEDS: ONDANSETRON HCL 4 MG/2 ML VIAL IVP PRN (18:17)
--- NOTE | 2017-01-05 18:18 | NUR ---
CLOSING NOTE PATIENT IS RESTING COMFORTABLY IN BED WITH NO NOTED DISTRESS, DISCOMFORT OR SOB. PATIENT'S SISTER IS AT BEDSIDE AND SIGNED CONSENT FOR COLONOSCOPY FOR TOMORROW. GOLYGHTLY WAS STARTED AND FAMILY WAS EDUCATED THAT THE GOLYGHTLY WAS THE ONLY THING THAT THE PATIENT COULD DRINK AT THIS TIME. BED IS IN LOWEST POSITION AND PATIENT WAS REPOSITIONED AND TOLERATED WELL. CALL LIGHT IS WITHIN REACH AND WILL GIVE REPORT TO NIGHT NURSE.
--- NOTE | 2017-01-05 19:20 | NUR ---
INITIAL NOTES; BREATHING TXM GIVEN -Pt is a/ox2, resting in bed. Vital signs 154/83, 115, 22, o2lst=32% r/a. No s/s any pain or resp distress noted. Family is at bedside. Iv site of left hand, patent, no s/s any infiltration noted. Abdomen soft & distended, bs present. Alexsander pedis present but weak upon palp. Lung sounds anterior alexsander upper clear, alexsander posterior lower lobes diminished. Wound vac left hip in place w/ gravity. IVF D5 1/2NS + 20 MEQ KCL @ 100ml/hr. Discussed poc,all safety measures, pain mgmt with family, verbalized understanding. Side rail x3, bed low position, bed alarmed, place near Nurses' station. Air mattress in place. Fall precaution in place. Call light /win reach. Continue to monitor pt. Addendum: 01/06/17 at 0723 by Jayden Rm RN ADDITIONAL NOTES; ENDORSED BY MARIEL--'' BACLOFEN PUMP IMPLANTED'' OF LEFT SIDE OF LOWER ABDOMEN PER FAMILY'S STATEMENT.
--- NOTE | 2017-01-05 20:23 | NUR ---
WOUND VAC VICE PRESIDENT [employer] INSIGHTS CAME TO CHANGE A NEW WOUND VAC -NOW, WOUND VAC OF LEFT HIP WORKS WELL WITH GRAVITY IN PLACE. CONTINUE TO MONITOR PT.
[2017-01-05] MEDS: ARIPiprazole 5 MG TAB PO SCH (20:24)
[2017-01-05] MEDS: CEFTAZIDIME 1 GM in D5W 50 ML IV SCH (21:34)
--- NOTE | 2017-01-05 21:50 | NUR ---
ROUNDS-INCONTINENT OF URINE AND SMALL SOFT FORM BOWEL MOVT -ASSISTING TO DRINK MORE GOLYTELY. -CLEANED PT AND PROVIDED PERINEAL CARE. NOW, PT IS CLEANED AND DRY. NO VISITOR IS AT BEDSIDE THIS TIME. CALL LIGHT W/IN REACH. CONTINUE TO MONITOR PT.
--- NOTE | 2017-01-05 22:55 | NUR ---
ROUNDS-DRINK MORE GOLYTELY -ASSISTING TO DRINK MORE GOLYTELY 150ML. PT DIDN'T TOLERATE WELL. CONTINUE TO ENCOURAGE TO DRINK MORE. CALL LIGHT W/IN REACH. CONTINUE TO MONITOR PT.
[2017-01-05] MEDS: ACETAMINOPHEN 325 MG TABLET PO PRN (23:08)
--- NOTE | 2017-01-05 23:08 | NUR ---
TYLENOL 650MG PO GIVEN -Pt is moaning and screaming. Gave Tylenol 650mg po.
--- NOTE | 2017-01-05 23:35 | NUR ---
ROUNDS-INCONTINENT OF URINE AND SMALL LOOSE DARK GREEN BOWEL MOVT -CLEANED PT AND PROVIDED PERINEAL CARE. NOW, PT IS CLEANED AND DRY. ASSISTING TO DRINK GOLYTELY. NO VISITOR IS AT BEDSIDE THIS TIME. CALL LIGHT W/IN REACH. CONTINUE TO MONITOR PT.
--- NOTE | 2017-01-05 23:39 | NUR ---
paged for Dr Merino, dialed . s/w Sonia.
--- NOTE | 2017-01-05 23:39 | NUR ---
PAGED DR. MART REGARDING PT IS MOANING, SCREAMING AFTER GIVEN TYLENOL 650MG PO AT 2308. NOW, WAITING FOR MD TO RETURN CALLBACK.
--- NOTE | 2017-01-06 00:03 | NUR ---
second page for Dr Merino, dialed . s/w Evonne.
[2017-01-06 00:10] VITALS: BP 133/85; PULSE 71; RESP 18; TEMP 98.2; O2SAT 93
[2017-01-06] MEDS ORDERED: clonazePAM 0.5 MG TABLET PO ONE (00:15)
--- NOTE | 2017-01-06 00:15 | NUR ---
NOTIFIED DR. MART REGARDING PT IS SCREAMING AND MOANING. INFORMED MD THAT PT IS NOT TOLERATED WELL WITH GOLYTELY,DRANK ONLY 1/4 OF BOTTLE. ASKED IF CAN GET SOME MEDICATION FOR AGITATION/ANXIOUS. MD ORDERED KLONIPIN 1MG X1 PO AND TO INFORM DR. AQUINO REGARDING PT DIDN'T TOLERATE GOLYTELY MEDICATION. WILL PAGE NOW.
--- NOTE | 2017-01-06 00:16 | NUR ---
paged for Dr Rey, dialed . s/w Evonne.
--- NOTE | 2017-01-06 00:26 | NUR ---
KLONOPIN 1MG PO GIVEN FOR AGITATION
[2017-01-06] MEDS: KCL 20 mEq in D5/0.45NS 1000mL 1,000 ML IV SCH ×3 (01:06→22:20)
--- NOTE | 2017-01-06 01:20 | NUR ---
INCONTINENT OF URINE AND LARGE LOOSE YELLOW LIQUID BOWEL MOVT -CLEANED PT AND PROVIDED PERINEAL CARE. NOW, PT IS CLEANED AND DRY. ASSISTING TO DRINK GOLYTELY. NO VISITOR IS AT BEDSIDE THIS TIME. CALL LIGHT W/IN REACH. CONTINUE TO MONITOR PT.
--- NOTE | 2017-01-06 01:23 | NUR ---
second page for Dr Rey, dialed . s/w Evonne.
--- NOTE | 2017-01-06 03:20 | NUR ---
ROUNDS; -Pt is moaning and screaming. NO s/s any resp distress noted. All safety measures in place. Call light /win reach. Continue to monitor pt.
[2017-01-06 04:15] VITALS: BP 138/66; PULSE 75; RESP 18; TEMP 97.6; O2SAT 95
--- NOTE | 2017-01-06 04:45 | NUR ---
ROUNDS; -Pt is sleeping. NO s/s any resp distress noted. All safety measures in place. Call light /win reach. Continue to monitor pt.
[2017-01-06] MEDS: CEFTAZIDIME 1 GM in D5W 50 ML IV SCH ×3 (05:08→22:19)
--- NOTE | 2017-01-06 06:20 | NUR ---
TAP WATER ENEMA PERFORMED -Gave tap water enema 5 bags of water, still yellow loose stool. Pt didn't tolerated procedure well. Suctioned pt when vomited yellow fluid. Maintain oxy, r9gvv=72% r/a.
[2017-01-06] MEDS: ONDANSETRON HCL 4 MG/2 ML VIAL IVP PRN (06:22)
--- NOTE | 2017-01-06 06:23 | NUR ---
VOMITING-Zofran 4mg IVP -Pt vomit during tap water enema. Gave Zofran 4mg ivp.
--- NOTE | 2017-01-06 06:25 | NUR ---
paged for Dr Rey, dialed . s/w Jessica.
--- NOTE | 2017-01-06 06:26 | NUR ---
PAGED DR. AQUINO PAGED DR. AQUINO REGARDING AFTER TAP WATER ENEMA, STOOL IS STILL NOT CLEAR. NOW, WAITING FOR MD TO RETURN CALLBACK.
--- NOTE | 2017-01-06 06:44 | NUR ---
CLOSING NOTES; Breathing txm given -Pt is restless entire night. l8gna=07% r/a. No s/s any pain or resp distress noted. Iv site of left hand, patent, no s/s any infiltration noted. Wound vac left hip in place w/ gravity drains brown color urine 50ml total entire shift. IVF D5 1/2NS + 20 MEQ KCL @ 100ml/hr. Side rail x3, bed low position, bed alarmed, place near Nurses' station. Air mattress in place. Fall precaution in place. Call light /win reach. Will endorse on coming nurse to inform Dr. Rey regarding stool is still not clear, paged x3 already,no return callbacks.
--- NOTE | 2017-01-06 07:35 | NUR ---
INFORMED AND AWARED REGARDING STOOL NOT CLEAR AND NOT TOLERATED GOLYTELY. -INFORMED DR. AQUINO ON CELLPHONE REGARDING PT DIDN'T TOLERATE GOLYTELY WELL, DRANK 1800ML. AFTER TAP WATER ENEMA GIVEN STILL YELLOW LOOSE STOOL,NOT CLEAR AND DR. MART IS INFORMED AND AWARED AT MIDNIGHT REGARDING NOT TOLERATED GOLYTELY. -DR. AQUINO STATED,'' IT'S OKAY.'' GIVE MAGNESIUM CITRATE PO X1 BOTTLE NOW. ENDORSED TO MORENO VASQUEZ TO CARRY OUT NEW ORDER.
[2017-01-06] MEDS ORDERED: MAGNESIUM CITRATE 300 ML ORAL SOLUTION PO ONE (07:45)
--- NOTE | 2017-01-06 07:54 | NUR ---
ID CONSULT FOLLOW-UP Spoke with Cynthia regarding follow-up consult with Dr. See ([phone]) for reason: decubitis ulcer coccyx.
[2017-01-06 08:00] VITALS: BP 142/78; PULSE 78; RESP 22; TEMP 97; O2SAT 96
--- NOTE | 2017-01-06 08:05 | NUR ---
PATIENT IS AWAKE ALERT, SLURRED SPEECH. INFORMED THAT HE HAD TO GO TO COLONOSCOPY AND PATIENT SHOOK HIS HEAD. TRANSPORTED WITH [facility]
[2017-01-06] MEDS: ALBUTEROL SULFATE 0.083% 2.5 MG/3 ML VIAL.NEB INH SCH ×3 (08:30→20:28)
[2017-01-06] MEDS: BALSAM PERU/CASTOR OIL 60 GM OINT...G. TP SCH (09:00)
[2017-01-06 09:43] LABS: INR 1.2 (0.80-1.20); PROTHROMBIN TIME 12.9 SECS (9.5-12.5)
[2017-01-06 09:44] LABS: BILIRUBIN,DIRECT 0.2 mg/dL (0.0-0.3); CALCIUM 7.8 mg/dL (8.4-11.0); CREATININE 0.49 mg/dL (0.55-1.30); POTASSIUM 3.5 mmol/L (3.5-5.1); TOTAL BILIRUBIN 0.5 mg/dL (0.0-1.0); TOTAL PROTEIN, SERUM 6.5 g/dL (6.4-8.3)
--- NOTE | 2017-01-06 10:20 | NUR ---
patient returned from gi lab, x ray techs at bedside to take pt for barium x ray study
[2017-01-06] MEDS ORDERED: fentaNYL CITRATE/PF 100 MCG/2 ML AMP IVP ONE (10:34)
[2017-01-06] MEDS ORDERED: fentaNYL CITRATE/PF 100 MCG/2 ML AMP ONE (10:35)
[2017-01-06] MEDS ORDERED: MIDAZOLAM HCL 5 MG/5 ML VIAL IVP ONE (10:36)
[2017-01-06] MEDS ORDERED: MIDAZOLAM HCL 5 MG/5 ML VIAL ONE ×2 (10:36)
--- NOTE | 2017-01-06 11:55 | NUR ---
pt returned from x ray, per tech pt was unable to sit still for exam. will retry after klonopin admin
[2017-01-06 12:10] VITALS: BP 137/78; PULSE 72; RESP 18; TEMP 97.9; O2SAT 95
[2017-01-06] MEDS: TAPENTADOL HYDROCHLORIDE 50 MG TABLET PO SCH ×4 (12:37→22:07)
[2017-01-06] MEDS: PANTOPRAZOLE SODIUM 40 MG/VIAL (PROTONIX) IVP SCH (12:37)
[2017-01-06] MEDS: clonazePAM 0.5 MG TABLET PO SCH ×4 (12:37→22:06)
[2017-01-06] MEDS: TAMSULOSIN HCL 0.4 MG CAP PO SCH (12:38)
[2017-01-06] MEDS: GABAPENTIN 300 MG CAPSULE PO SCH ×3 (12:38→22:06)
[2017-01-06] MEDS: HYDROmorphone 1 MG INJ. 1 MG/ML AMPUL IVP PRN (12:39)
--- NOTE | 2017-01-06 12:58 | NUR ---
patient nephew is at bedside. no order for video swallow eval is in computer. dr loretta mora.
--- NOTE | 2017-01-06 13:43 | NUR ---
family is at bedside. swallow eval reordered
--- NOTE | 2017-01-06 14:00 | NUR ---
WOUND RE-EVALUATION: Late note for 1400 secondary to patient care. Patient received in a Odem Bed with an IsoFlex DELORES mattress with low air-loss therapy initiated, awake, alert, confused, limited verbal interaction. Patient is unable to turn independently. Fantasma Score is a 9. Intrinsic factors that delay wound healing: Hypoalbuminemia. Extrinsic factors that delay wound healing: Immobility. Wound Assessment: 1) Coccyx: Unstageable Pressure Ulcer, present on admission, Now Stage IV post surgical debridement. Wound Vac placed yesterday, and not due to be changed until Monday. Wound not visualized secondary to removal of Wound Vac would decrease wound temperature and retard wound healing rate. Recommend: Cleanse wound with normal saline. Put SurePrep onto hubert-wound. Put Venelex ointment onto wound bed. Put Silver Granufoam dressing into wound cavity. Cover with Vac Drape. Lay Vac Drape from wound to non-bony portion of thigh. Lay down bridge of granufoam from wound to thigh, and cover with Vac Drape. Attach suction attachment and run Vac at 75 mmHg, continuous. Perform wound care q Monday/Monday/Monday, and as needed for dressing soiling or dislodgement. 2) Left Buttock: Chronic Wound, present on admission. Extension of Coccygeal wound. Wound not visualized secondary to Wound Vac in place. Recommend continue: Cleanse wound with normal saline. Pat dry. Put moisture barrier cream onto wound and hubert-wound. Cover with foam dressing, then Vac Drape. Perform wound care daily, and as needed for dressing soiling or dislodgement. 3) Left Lateral Hip: Chronic Pressure Ulcer, prior unknown stage, present on admission. Wound bed is 100% pink tissue. No odor, no drainage. Hubert-wound intact. Recommend continue: Cleanse wound with normal saline. Put moisture barrier cream onto hubert-wound. Put Venelex ointment onto wound bed. Cover with Sacral foam dressing. Perform wound care daily, and as needed for dressing soiling or dislodgement. Also recommend continue: Reposition patient side to side only every 2 hours with pillow support, and off-load pressure areas with pillows for pressure re-distribution. Offload, elevate and float bilateral heels with pillows. Perform skin care and monitor skin integrity Q shift. Use moisture barrier cream on buttocks and other moisture susceptible areas QID and as needed for soiling. Maintain patient on a low air-loss mattress. Dr. Merino present and explained Wound Vac and treatment plan of care to patient's family member.
[2017-01-06] MEDS ORDERED: POTASSIUM CHLORIDE 40 MEQ in NS 250 ML IV ONE (15:00)
[2017-01-06] MEDS ORDERED: GOLYTELY / COLYTE SOLUTION 4 LITERS PO ONE (15:00)
[2017-01-06] MEDS ORDERED: BARIUM SULFATE 135 ML SUSP.RECON (E-Z-HD) PO ONE (15:13)
--- NOTE | 2017-01-06 15:41 | NUR ---
S.T. VIDEOFLUOROSCOPIC SWALLOW STUDY (VFSS) ORDERED BY DR. MART ON 01/02. S.T. WAS NOTIFIED OF ORDER ON 01/03. ATTEMPTS MADE FOR VFSS ON 01/03, 01/04, AND 01/05 - PT WAS NPO PENDING COLONOSCOPY. COLONOSCOPY COMPLETED THIS AM. VFSS COMPLETED THIS PM. SISTER PRESENT. PT PRESENTS W/ MOD OROPHARYNGEAL DYSPHAGIA W/ DELAYED BOLUS TRANSFER, PROLONGED MASTICATION, AND DELAYED SWALLOW. NO ASPIRATION. REC: [facility] SOFT FINELY CHOPPED DIET. THIN LIQUIDS OK. SISTER IN AGREEMENT W/ RESULTS AND REC. NURSE MORENO NOTIFIED. [id number] CK G8997 CK G8998 CK NOMS LEVEL 4
[2017-01-06 15:53] VITALS: BP 139/77; PULSE 80; RESP 18; TEMP 98.1; O2SAT 95
--- NOTE | 2017-01-06 16:51 | NUR ---
Nutrition F/U Admitting Diagnosis Fecal impaction, N/V, hypokalemia, moderate protein-calorie malnutrition Reviewed Pertinent Medical/Surgical Hx Patient Other Medical Record Friend Medical History Comment: Spastic quadriparesis, severe GERD, mental delay per MD notes Subjective Information Pt seen resting in bed w/ caregiver, Chano, at bedside. Pt had colonoscopy today which revealed fecal impaction reached the transverse colon; GI MD recommended barium enema and laxatives. Pt also had video swallow study today; ST rec: mechanical soft, finely chopped diet. Per EMR, I/O: 3000/50 (+2950 ml) per 12 hours. New diet order in place to start at dinner today. Food preferences noted; pt reports desire chocolate-flavored foods. RD notified [facility] staff. Pt is not yet meeting optimal nutritional needs. Pt is not appropriate for nutrition education. Current Diet Order/Nutrition Support Pureed Patient/Significant Other Unable To Verbalize Able To Verbalize Education Provided Not Indicated Pertinent Medications Reviewed ceftazidime/D5% IV at 100 ml/hr (408 kcal/day), KCl/D5%/NaCl IV at 100 ml/hr (408 kcal/day) Pertinent Labs Reviewed Height (Feet) 5 feet Height (Inches) 8.00 inches Weight (Pounds) 119 pounds Weight (Calculated Kilograms) 53.806264 kilograms Patient Weight 53.977 kg Body Mass Index 18.09 kg/m2 Usual Weight 123 lbs %UBW 97 %IBW 77 Dolliver/Adjusted Body Weight IBW: 154 lb, 70 kg Recent Weight Change No Weight Status Underweight Gastrointestinal Symptoms Constipation Last BM Jan 06, 2017 x6 (bowel prep) Difficulty With: Swallowing Chewing Usual Diet At Home Soft, blended foods Skin Integrity Comment: Fantasma scale of 9. Per Would Specialist note 01/04/17: 1) Coccyx: Unstageable Pressure Ulcer, present on admission. 2) Left Buttock: Chronic Wound, present on admission. 3) Left Lateral Hip: Chronic Pressure Ulcer, prior unknown stage, present on admission. Current % PO Negligible <25% Estimated Energy Expenditure (kcals/day) 2498-3412 kcal/day (30-35 kcal/kg IBW for wt gain promotion) Estimated Protein Required (g/day) 88-140 gm/day (1.25-1.5 gm/kg IBW for wt gain promotion) Estimated Fluid Required (l/day) 2-2.5 L/day (1 ml/kcal/day for maintenance) Problem/Etiology/Signs/Symptoms Complicated GI function related to fecal impaction as evidenced by constipation and need for GI workups. *ongoing Expected Outcomes/Goals - Monitor appetite and PO intakes w/ goal of pt meeting at least 75% of estimated nutritional needs, labs trending WNL, normal GI function, and skin integrity/wt maintenance Dietitian Recommendations * Recommend continuing pureed diet per MD (pureed diet comes standard w/ Boost Plus TID, providing an additional 1080 kcal/day and 42 gm protein/day) Follow Up High Risk: F/U in 2-3 days
[2017-01-06] MEDS: ACETAMINOPHEN 325 MG TABLET PO PRN ×3 (17:08→22:17)
[2017-01-06] MEDS: MIRTAZAPINE 15 MG TABLET PO SCH (17:40)
--- NOTE | 2017-01-06 18:05 | NUR ---
CLARITA REMAINS AT BEDSIDE. ASSISTED PT WITH URINAL. 300ML OF YELLOW URIN IN TO URINAL
[2017-01-06 19:15] VITALS: BP 135/19; PULSE 76; RESP 18; TEMP 98; O2SAT 95
--- NOTE | 2017-01-06 19:15 | NUR ---
INITIAL ROUNDS RECVD PT IN BED, A/A/O X1 WITH NEPHEW @ BEDSIDE. NO C/O PAIN AND NO DISTRESS NOTED @ THIS TIME. V/S 139/77,98.4,87,18,99% RA. IV NOTED TO R F/A G 22, NO INFILTRATE, WITH GOOD BLOOD RETURN. ALL EXTREMITIES ARE STRONG EXCEPT CELLULITIS WOUND TO LLE, DRESSING IS INTACT. DISCUSSED PLAN OF CARE WITH PT AND VERBALIZED UNDERSTANDING. CALL LIGHT WITHIN REACH, WILL CONT TO MONITOR.
--- NOTE | 2017-01-06 21:15 | NUR ---
PARTIAL BED BATH PARTIAL BED BATH PERFORM WITH TRAVIS GONZALES. LEFT BED IN LOW POSITION WITH CALL LIGHT WITHIN REACH. WILL CONT TO MONITOR.
[2017-01-06] MEDS ORDERED: ARIPiprazole 5 MG TAB ONE ×2 (21:42→21:44)
[2017-01-06] MEDS: ARIPiprazole 5 MG TAB PO SCH (22:06)
--- NOTE | 2017-01-06 23:15 | NUR ---
ROUNDS PT IS AWAKE @ THIS TIME. NO S/S O PAIN OR ANY DISTRESS. PERFORMED STACEY CARE WITH JAPANESE TUTOR. LEFT BED IN LOW POSITION WITH CALL LIGHT WITHIN REACH. WILL CONT TO MONITOR.
[2017-01-07] MEDS: ALBUTEROL SULFATE 0.083% 2.5 MG/3 ML VIAL.NEB INH SCH ×4 (00:03→19:25)
[2017-01-07 01:04] VITALS: BP 112/60; PULSE 90; RESP 19; TEMP 98; O2SAT 96
--- NOTE | 2017-01-07 01:15 | NUR ---
REPOSITION IN BED TURNED PT IN BED FOR COMFORT AND CIRCULATION. NO S/S OF PAIN OR ANY DISTRESS NOTED. BED IN LOW POSITION WITH CALL LIGHT WITHIN REACH, WILL CONT TO MONITOR.
--- NOTE | 2017-01-07 03:15 | NUR ---
ROUNDS TURNED IN BED FOR COMFORT. NO S/S O PAIN OR ANY DISTRESS. LEFT BED IN LOW POSITION WITH CALL LIGHT WITHIN REACH. WILL CONT TO MONITOR.
[2017-01-07 04:00] VITALS: BP 115/74; PULSE 98; RESP 18; TEMP 98; O2SAT 96
--- NOTE | 2017-01-07 05:15 | NUR ---
AM CARE PARTIAL BED BATH RENDERED TO PT WITH ASSISTANCE FROM TRAVIS GONZALES. NO S/S OF PAIN AND NO DISTRESS NOTED. BED IN LOW POSITION WITH CALL LIGHT WITHIN REACH; WILL CONT TO MONITOR.
[2017-01-07] MEDS: CEFTAZIDIME 1 GM in D5W 50 ML IV SCH ×3 (05:28→22:29)
[2017-01-07] MEDS: KCL 20 mEq in D5/0.45NS 1000mL 1,000 ML IV SCH ×2 (06:05→16:08)
--- NOTE | 2017-01-07 06:54 | NUR ---
FINAL ROUNDS PT IS RESTING @ THIS TIME. NO S/S OF PAIN OR ANY DISTRESS NOTED. V/S ARE WNL. ALL NEEDS MET AND ANTICIPATED BY NOC NURSES. BED IN LOW POSITION WITH CALL SIDE RAILS UP X2 FOR SAFETY. CALL LIGHT WITHIN REACH, ENDORSED.
[2017-01-07 07:06] LABS: CALCIUM 7.6 mg/dL (8.4-11.0); CREATININE 0.55 mg/dL (0.55-1.30); POTASSIUM 4.3 mmol/L (3.5-5.1)
--- NOTE | 2017-01-07 07:54 | NUR ---
INITIAL NOTES RECEIVED PATIENT ON BED AWAKE.BREATHING EVEN AND UNLABORED.NO ACUTE DISTRESS.IVF INFUSING WELL;NO SIGNS AND SYMPTOMS OF INFILTRATION.WOUND VAC INTACT;DRAINING MINIMAL SEROSANGUIONOUS DRAINAGE.SAFETY AND FALL PRECAUTIONS IN PLACE.CALL LIGHT WITHIN REACH
[2017-01-07 07:56] VITALS: BP 103/67; PULSE 99; RESP 19; TEMP 98; O2SAT 94
[2017-01-07] MEDS ORDERED: GOLYTELY / COLYTE SOLUTION 4 LITERS PO ONE ×2 (09:00→21:00)
[2017-01-07] MEDS: GABAPENTIN 300 MG CAPSULE PO SCH ×3 (09:04→22:15)
[2017-01-07] MEDS: PANTOPRAZOLE SODIUM 40 MG/VIAL (PROTONIX) IVP SCH (09:04)
[2017-01-07] MEDS: clonazePAM 0.5 MG TABLET PO SCH ×4 (09:05→22:15)
[2017-01-07] MEDS: TAPENTADOL HYDROCHLORIDE 50 MG TABLET PO SCH ×4 (09:05→22:14)
[2017-01-07] MEDS: TAMSULOSIN HCL 0.4 MG CAP PO SCH (09:05)
[2017-01-07] MEDS: BALSAM PERU/CASTOR OIL 60 GM OINT...G. TP SCH (09:08)
--- NOTE | 2017-01-07 10:45 | NUR ---
NOTES CHECKED PATIENT;NO ACUTE DISTRESS
[2017-01-07 12:34] VITALS: BP 98/57; PULSE 89; RESP 16; TEMP 96.7; O2SAT 95
--- NOTE | 2017-01-07 14:50 | NUR ---
NOTES CHECKED PATIENT;ASLEEP;NO ACUTE DISTRESS
--- NOTE | 2017-01-07 16:50 | NUR ---
NOTES PERICARE DONE BY MANAGER RN;TOLERATED WELL
[2017-01-07 16:58] VITALS: BP 94/62; PULSE 84; RESP 17; TEMP 98.7; O2SAT 95
[2017-01-07] MEDS: MIRTAZAPINE 15 MG TABLET PO SCH (17:25)
--- NOTE | 2017-01-07 18:17 | NUR ---
CLOSING NOTES PATIENT ON BED ASLEEP WITH CAREGIVER AT BEDSIDE.BREATHING EVEN AND UNLABORED.NO ACUTE DISTRESS.IVF INFUSING WELL;NO SIGNS AND SYMPTOMS OF INFILTRATION.WOUND VAC INTACT AND FUNCTIONING WELL.SAFETY AND FALL PRECAUTIONS IN PLACE.CALL LIGHT WITHIN REACH.WILL ENDORSE TO NEXT SHIFT ACCORDINGLY
[2017-01-07 19:10] VITALS: BP 107/62; PULSE 95; RESP 18; TEMP 97.8; O2SAT 99
--- NOTE | 2017-01-07 19:10 | NUR ---
INITIAL ROUNDS RECVD PT IN BED, A/A/O X1 WITH NEPHEW @ BEDSIDE. NO C/O PAIN AND NO DISTRESS NOTED @ THIS TIME. VS 107/62,97.8,95,18,99% RA. IV NOTED TO R F/A G 22, NO INFILTRATE, WITH GOOD BLOOD RETURN. ALL EXTREMITIES ARE WEAK IWTH CONTRACTIONS. NOTED WOUND VAC TO SACRAL WOUND, PATENT SEROSANGUINOUS FLUID IN THE BAG. DISCUSSED PLAN OF CARE WITH PT/FAMILY,AND VERBALIZED UNDERSTANDING. CALL LIGHT WITHIN REACH, WILL CONT TO MONITOR.
[2017-01-07] MEDS ORDERED: ARIPiprazole 5 MG TAB ONE ×2 (22:14→22:15)
[2017-01-07] MEDS: ARIPiprazole 5 MG TAB PO SCH (22:15)
[2017-01-07] MEDS: ACETAMINOPHEN 325 MG TABLET PO PRN (22:21)
[2017-01-07] MEDS: HYDROmorphone 1 MG INJ. 1 MG/ML AMPUL IVP PRN (22:49)
--- NOTE | 2017-01-07 22:50 | NUR ---
ADMIN DILAUDID ADMIN DILAUDID D/T PT SCREAMING OF BACK PAIN. WILL REASSESS AFTER 1 HOUR.
[2017-01-08] VITALS (7 sets, daily range): BP systolic 98–148; BP diastolic 63–95; PULSE 67–95; RESP 16–20; TEMP 97.5–98.4; O2SAT 91–98
[2017-01-08] MEDS: ALBUTEROL SULFATE 0.083% 2.5 MG/3 ML VIAL.NEB INH SCH ×4 (01:00→20:30)
--- NOTE | 2017-01-08 01:10 | NUR ---
ROUNDS PT IS RESTING COMFORTABLY IN BED @ THIS TIME. NO S/S OF PAIN AND NO DISTRESS NOTED. BED IN LOW POSITION WITH CALL LIGHT WITHIN REACH. WILL CONT TO MONITOR.
[2017-01-08] MEDS: KCL 20 mEq in D5/0.45NS 1000mL 1,000 ML IV SCH ×3 (02:42→23:00)
--- NOTE | 2017-01-08 03:15 | NUR ---
PARTIAL BED BATH PARTIAL BED BATH PERFORMED. NO C/O PAIN AND NO SOB NOTED. BED IN LOW POSITION WITH CALL LIGHT WITHIN REACH. WILL CONT TO MONITOR.
[2017-01-08] MEDS: HYDROmorphone 1 MG INJ. 1 MG/ML AMPUL IVP PRN (05:20)
[2017-01-08] MEDS: CEFTAZIDIME 1 GM in D5W 50 ML IV SCH ×4 (05:21→22:00)
[2017-01-08 07:28] LABS: ALBUMIN 2.5 g/dL (3.4-4.8); CALCIUM 7.9 mg/dL (8.4-11.0); CREATININE 0.42 mg/dL (0.55-1.30); POTASSIUM 4.5 mmol/L (3.5-5.1); TOTAL BILIRUBIN 0.2 mg/dL (0.0-1.0)
--- NOTE | 2017-01-08 07:45 | NUR ---
INITIAL ROUNDS RECEIVED PATIENT LYING IN BED, PATIENT IS A&0 1, PATIENT SHOWS NO SIGNS OF DISTRESS AT THIS TIME, ASSESSMENT COMPLETE, PATIENT HAS IV ON LEFT WRIST GAUGE 22 WITH FLUIDS RUNNING, NO SIGNS OF INFILTRATION, WOUND VAC TO SACRAL WOUND NOTED WITH DRAINAGE, HEELS ARE ELEVATED, HOB ELEVATED, BED IN LOWEST POSITION, BED ALARM ON, CALL LIGHT WITHIN REACH, FALL AND ASPIRATION PRECAUTIONS IN PLACE, WILL CONTINUE TO MONITOR PATIENT
[2017-01-08 07:59] LABS: HEMATOCRIT 36.2 % (36-54); HEMOGLOBIN 12.1 g/dL (14.0-18.0); MEAN CORPUSCULAR HEMOGLOBIN 33 pg (27-31); MEAN CORPUSCULAR HGB CONC 33 % (32-36); MEAN CORPUSCULAR VOLUME 99 fL (79.0-98.0); PLATELET COUNT (AUTO) 237 K/uL (130-430); RED BLOOD CELL COUNT(AUTO) 3.66 MIL/uL (4.2-6.2); RED CELL DISTRIBUTION WIDTH 13.6 % (9.0-15.0); WHITE BLOOD COUNT (AUTO) 6.7 K/uL (4.8-10.8)
[2017-01-08] MEDS: PANTOPRAZOLE SODIUM 40 MG/VIAL (PROTONIX) IVP SCH (08:55)
[2017-01-08] MEDS: TAMSULOSIN HCL 0.4 MG CAP PO SCH (08:55)
[2017-01-08] MEDS: GABAPENTIN 300 MG CAPSULE PO SCH ×3 (08:55→21:06)
[2017-01-08] MEDS: TAPENTADOL HYDROCHLORIDE 50 MG TABLET PO SCH ×4 (08:56→21:06)
[2017-01-08] MEDS: clonazePAM 0.5 MG TABLET PO SCH ×4 (08:56→21:05)
[2017-01-08] MEDS: BALSAM PERU/CASTOR OIL 60 GM OINT...G. TP SCH (09:00)
--- NOTE | 2017-01-08 09:10 | NUR ---
MEDICATIONS MORNING MEDICATIONS GIVEN TO PATIENT, PATIENT TOLERATED WELL, NO OTHER NEEDS AT THIS TIME, HOB ELEVATED, BED IN LOWEST POSITION, BED ALARM ON, CALL LIGHT WITHIN REACH, FALL AND ASPIRATION PRECAUTIONS IN PLACE, WILL CONTINUE TO MONITOR PATIENT
--- NOTE | 2017-01-08 10:00 | NUR ---
WOUND CARE WOUND RE-EVALUATION: Wound Assessment: 1) Coccyx: Stage IV pressure ulcer, wound vac in place, dressing due to be changed tomorrow, 01/09/17, wound not visualized 2) Left Buttock: Chronic Wound, wound vac in place, wound not visualized 3) Left Lateral Hip: Chronic Pressure Ulcer, Wound bed is 100% pink tissue. No odor, no drainage. Hubert-wound intact. Cleansed wound with normal saline. Put moisture barrier cream onto hubert-wound. Will continue to reposition patient side to side every 2 hours with pillow support, and will off-load pressure areas with pillows for pressure re-distribution. Offloaded, elevated and floated bilateral heels with pillows. Performed skin care and monitored skin integrity. Used moisture barrier cream on buttocks and other moisture susceptible areas, will maintain patient on a low air-loss mattress.
--- NOTE | 2017-01-08 10:25 | NUR ---
RN ROUNDS PATIENT IS CURRENTLY RESTING IN BED, NEPHEW IS AT BESIDE WITH PATIENT, NO SIGNS OF DISTRESS AT THIS TIME, EDUCATED FAMILY MEMBER ON IMPORTANCE OF PATIENT TAKING BOWEL PREP, PATIENT'S FAMILY VERBALIZED UNDERSTANDING, WILL CONTINUE TO ASSIST PATIENT TO DRINK BOWL PREP DRINK, HOB ELEVATED, BED IN LOWEST POSITION, BED ALARM ON, FALL, ASPIRATION, WILL CONTINUE TO MONITOR PATIENT.
[2017-01-08 11:03] LABS: ATYPICAL LYMPHOCYTES % 0 % (0-0); BAND % (MANUAL) 0 % (0-6); BASOPHILS % (MANUAL) 0 % (0-2); EOSINOPHILS % (MANUAL) 5 % (0-7); LYMPHOCYTES % (MANUAL) 28 % (20-46); MONOCYTES % (MANUAL) 7 % (0-11)
--- NOTE | 2017-01-08 12:15 | NUR ---
RN ROUNDS PATIENT IS CURRENTLY RESTING IN BED, NO SIGNS OF DISTRESS, CAREGIVER IS AT BEDSIDE, INSTRUCTED CAREGIVER ON IMPORTANCE OF HAVING BOWL PREP, CAREGIVER VERBALIZED UNDERSTANDING, DR. MART IS CURRENTLY ROUNDING ON PATIENT, ALSO SPOKE WITH PATIENT AND CAREGIVER ON IMPORTANCE OF PATIENT HAVING BOWL PREP, WILL CONTINUE TO ASSIST PATIENT TO DRINK BOWL PREP, HOB ELEVATED, BED IN LOWEST POSITION, THREE SIDE RAILS UP, BED ALARM ON, CALL SCHROEDER IN REACH, FALL AND ASPIRATION PRECAUTIONS IN PLACE, WILL CONTINUE TO MONITOR PLACE.
[2017-01-08 13:50] LABS: INR 1.2 (0.80-1.20); PROTHROMBIN TIME 12.7 SECS (9.5-12.5)
--- NOTE | 2017-01-08 14:10 | NUR ---
RN ROUNDS PATIENT IS CURRENTLY RESTING IN BED WITH EYES CLOSED, NO SIGNS OF DISTRESS, BREATHING IS EVEN AND UNLABORED, NEPHEW IS CURRENTLY AT BEDSIDE, HOB ELEVATED, BED IN LOWEST POSITION, THREE SIDE RAILS UP, BED ALARM ON, CALL SCHROEDER IN REACH, FALL AND ASPIRATION PRECAUTIONS IN PLACE, WILL CONTINUE TO MONITOR PLACE.
[2017-01-08] MEDS: GENTAMICIN 100 MG/ ISO-OSM 50 ML PREMIX IV SCH (14:36)
--- NOTE | 2017-01-08 16:35 | NUR ---
RN ROUNDS PATIENT IS CURRENTLY RESTING IN BED, NO SIGNS OF DISTRESS, CAREGIVER IS CURRENTLY AT BEDSIDE, CAREGIVER IS CURRENTLY HELPING PATIENT DRINK GOLYTELY, HOB ELEVATED, BED IN LOWEST POSITION, THREE SIDE RAILS UP, BED ALARM ON, CALL SCHROEDER IN REACH, FALL AND ASPIRATION PRECAUTIONS IN PLACE, WILL CONTINUE TO MONITOR PLACE.
--- NOTE | 2017-01-08 16:50 | NUR ---
PICC LINE CONSENT CALLED PATIENT'S SISTER, NOR[place] MAHER TO GET VERBAL CONSENT TO PATIENT TO RECEIVED PICC LINE PER MD REQUEST, PATIENT VERBALIZED THAT IT IS OKAY FOR PATIENT TO RECEIVED PICC LINE, VERBAL CONSENT VERIFIED WITH CHARGE NURSE IFTIKHAR VASQUEZ
--- NOTE | 2017-01-08 16:55 | NUR ---
NOTIFIED DR. FOX THAT PER DR. MART, PATIENT MAY NEED ADDITIONAL BOWEL PREP WHEN FINISHED WITH GOLYTELY, NOTIFIED HIM THAT PATIENT IS CURRENTLY NOT FINISHED WITH GOLYTELY, DR. FOX ORDERED FOR PATIENT TO HAVE 1 BOTTLE OF MAGNESIUM CITRATE AFTER GOLYTELY IF FINISHED,
[2017-01-08] MEDS: MIRTAZAPINE 15 MG TABLET PO SCH (17:31)
--- NOTE | 2017-01-08 18:50 | NUR ---
CLOSING NOTE PATIENT IS CURRENTLY RESTING IN BED, NO SIGNS OF DISTRESS, SISTER IS CURRENTLY AT BEDSIDE, SISTER IS ALSO HELPING CURRENTLY PATIENT DRINK GOLYTELY, WILL ENDORSE TO BATCH STILL OPERATOR NURSE TO CONTINUE GOLYTELY AND TO START PATIENT ON MAG CITRATE SOON HE FINISHES, HOB ELEVATED, BED IN LOWEST POSITION, THREE SIDE RAILS UP, BED ALARM ON, CALL SCHROEDER IN REACH, FALL AND ASPIRATION PRECAUTIONS IN PLACE.
--- NOTE | 2017-01-08 19:07 | NUR ---
OPENING NOTES CHANGE OF SHIFT REPORT GIVEN AT BEDSIDE. PATIENT SLEEPING COMFORTABLY. NO SIGNS OR SYMPTOMS OF RESPIRATORY DISTRESS NOTED. SISTER AT BEDSIDE. BED IN LOWEST POSITION, BED ALARM ON, ASPIRATION PRECAUTIONS IN PLACE. CALL LIGHT WITHIN REACH, PATIENTS ROOM ACROSS FROM NURSING STATION. WILL CONTINUE TO MONITOR FREQUENTLY.
[2017-01-08] MEDS ORDERED: MAGNESIUM CITRATE 300 ML ORAL SOLUTION PO ONE (21:00)
[2017-01-08] MEDS: ARIPiprazole 5 MG TAB PO SCH (21:07)
--- NOTE | 2017-01-08 21:25 | NUR ---
IV INFILTRATION NOTED LEFT HAND SWOLLEN, IV INFILTRATED. ANTIBIOTIC COULD NOT BE ADMINISTERED. FLUIDS STOPPED. PATIENT IS SCHEDULED FOR A PICC LINE TOMORROW MORNING.
--- NOTE | 2017-01-08 21:30 | NUR ---
REPOSITIONING PATIENT WAS CHANGED AFTER A SMALL BOWEL MOVEMENT AND REPOSITIONED. PATIENT WAS PROVIDED WITH PAIN MEDICATIONS PRIOR TO CHANGE AND REPOSITIONING. PATIENT GRIMACED THROUGHOUT. WHEN ASKED FOR PAIN LEVEL PATIENT RESPONDED A 9/10, ADDITIONAL PAIN MEDICATION WAS GIVEN. WILL CONTINUE TO MONITOR FREQUENTLY. HEAD OF THE BED IN SEMI-FOWLERS, ASPIRATION AND FALL PRECAUTIONS IN PLACE. WILL CONTINUE TO MONITOR CLOSELY.
[2017-01-08] MEDS: ACETAMINOPHEN 325 MG TABLET PO PRN (21:44)
--- NOTE | 2017-01-08 23:06 | NUR ---
ROUNDS PATIENT IS SLEEPING COMFORTABLY. HEAD OF THE BED IN SEMI-FOWLERS POSITION. ASPIRATION AND FALL PRECAUTIONS IN PLACE. PATIENT IN VIEW OF NURSES STATION. WILL CONTINUE TO MONITOR.
[2017-01-09 00:16] VITALS: BP 114/65; PULSE 93; RESP 17; TEMP 97.5; O2SAT 96
--- NOTE | 2017-01-09 01:00 | NUR ---
ROUNDS PATIENT SLEEPING, IN SEMI-FOWLERS POSITION. VISIBLE RISE AND FALL OF CHEST NOTED. NO SIGNS OR SYMPTOMS OF DISTRESS NOTED. ASPIRATION AND FALL RISK PRECAUTIONS IN PLACE. BED IN LOWEST POSITION, BED ALARM ON, CALL LIGHT WITHIN REACH. WILL CONTINUE TO MONITOR.
[2017-01-09] MEDS: ALBUTEROL SULFATE 0.083% 2.5 MG/3 ML VIAL.NEB INH SCH ×4 (01:30→19:39)
--- NOTE | 2017-01-09 02:20 | NUR ---
ROUNDS PATIENT CALLING OUT, ALL NEEDS WERE MET, REPOSITIONED, AND SUCTIONED MOUTH. FALL AND ASPIRATION PRECAUTIONS IN PLACE. WILL CONTINUE TO MONITOR.
[2017-01-09] MEDS: GENTAMICIN 100 MG/ ISO-OSM 50 ML PREMIX IV SCH ×2 (02:49→14:37)
--- NOTE | 2017-01-09 04:20 | NUR ---
ROUNDS PATIENT COUGHING IN SEMI-FOWLERS POSITION, MOUTH SUCTIONED. PATIENT RESTING. NO SIGNS OR SYMPTOMS OF DISTRESS NOTED. BED IN LOWEST POSITION, BED ALARM ON, CALL LIGHT WITHIN REACH. WILL CONTINUE TO MONITOR FREQUENTLY.
[2017-01-09 04:23] VITALS: BP 109/73; PULSE 99; RESP 16; TEMP 96.8; O2SAT 96
[2017-01-09] MEDS: CEFTAZIDIME 1 GM in D5W 50 ML IV SCH ×3 (05:37→23:48)
--- NOTE | 2017-01-09 06:54 | NUR ---
CLOSING NOTES PATIENT AWAKE AND ALERT. ASPIRATION AND FALL PRECAUTIONS IN PLACE. NO SIGNS OR SYMPTOMS OF DISTRESS NOTED. WILL ENDORSE CARE TO DAY SHIFT.
[2017-01-09 07:21] LABS: CALCIUM 8.7 mg/dL (8.4-11.0); CREATININE 0.56 mg/dL (0.55-1.30); POTASSIUM 4.4 mmol/L (3.5-5.1)
--- NOTE | 2017-01-09 08:00 | NUR ---
OPENING NOTE PATIENT IS AGITATED AND COMPLAINING OF BEING DIRTY, CLEANED OF STOOL AND URINE BY GROUP SOCIAL WORKER. FAMILY IS AT BEDSIDE.
[2017-01-09] MEDS: BALSAM PERU/CASTOR OIL 60 GM OINT...G. TP SCH (09:00)
--- NOTE | 2017-01-09 09:40 | NUR ---
PICC NURSE AT BEDSIDE FOR PICC INSERTION. FAMILY REMAINS AT BEDSIDE.
[2017-01-09] MEDS: TAMSULOSIN HCL 0.4 MG CAP PO SCH (11:07)
[2017-01-09] MEDS: clonazePAM 0.5 MG TABLET PO SCH ×4 (11:08→21:00)
[2017-01-09] MEDS: GABAPENTIN 300 MG CAPSULE PO SCH ×3 (11:08→21:00)
[2017-01-09] MEDS: PANTOPRAZOLE SODIUM 40 MG/VIAL (PROTONIX) IVP SCH (11:08)
[2017-01-09] MEDS: TAPENTADOL HYDROCHLORIDE 50 MG TABLET PO SCH ×4 (11:08→21:00)
--- NOTE | 2017-01-09 11:16 | NUR ---
DISCHARGE PLANNING DC Planning order for [facility] evaluation. Faxed DC Planning order to [facility] office [phone].
[2017-01-09] MEDS: KCL 20 mEq in D5/0.45NS 1000mL 1,000 ML IV SCH ×2 (11:36→23:48)
--- NOTE | 2017-01-09 11:40 | NUR ---
DC PLANNING Called & spoke w Dr Merino to discuss dc planning, states discussed w pt & sister. Plans for LTAC, gave ph order for LTAC Eval. Spoke w pt & cousin @ bedside, explained LTAC & gave list of LTAC's in area including: [facility], [facility], [place], [place], & [place]. Pt hard to understand able to nod head yes or no, cousin interpreted questions when I could not understand. Per pt agreeable w LTAC to call sister w location. Per cousin stated to call sister. Called & spoke w sister Brii, home ph [phone], agreeable w LTAC, states will go look @ [facility] [place]. 1st choice @ this time would be [facility] but wants to go see it first. Informed lillian Jain data processing systems project planner.
--- NOTE | 2017-01-09 12:00 | NUR ---
COUSIN AT BEDSIDE.
[2017-01-09 12:16] VITALS: BP 118/75; PULSE 101; RESP 16; TEMP 97.1; O2SAT 95
--- NOTE | 2017-01-09 13:48 | NUR ---
DR ALMENDAREZIL IN FOR CONSULT FOR POSSIBLE ILEOSTOMY. DR MART AT BEDSIDE.
[2017-01-09 16:37] VITALS: BP 147/7; PULSE 108; RESP 16; TEMP 97.2; O2SAT 94
[2017-01-09] MEDS: MIRTAZAPINE 15 MG TABLET PO SCH (18:00)
--- NOTE | 2017-01-09 18:02 | NUR ---
CAREGIVER REMAINS AT BEDSIDE. SISTER NOW AT BEDSIDE WELL.
--- NOTE | 2017-01-09 18:53 | NUR ---
WOUND VAC AND DRESSING CHANGED PER ORDERS. FAMILY ASSISTED. PATIENT TOLERATED WELL. REPOSITIONED TO RT WITH PILLOW UNDER LEFT HIP. FAMILY REMAINS AT BEDSIDE. AWAITING DR CEBALLOS TO SIGN CONSENT FOR ILEOSTOMY
[2017-01-09 20:20] VITALS: BP 112/79; PULSE 90; RESP 16; TEMP 97.8; O2SAT 92
--- NOTE | 2017-01-09 20:20 | NUR ---
OPENING NOTES PATIENT IS IN BED SLEEPING. RESPONDS TO LIGHT STIMULI AND PAIN, AND NAME VITAL SIGNS ARE STABLE. PICC LINE SHOWS NO SIGNS OF COMPLICATION. SCD'S ARE ON. PATIENT IS DROWSY. WOUND VAC IS NOTED. CALL LIGHT IS WITHIN REACH. SAFETY MEASURES ARE IN PLACE. WILL CONTINUE TO MONITOR.
--- NOTE | 2017-01-09 20:45 | NUR ---
DR. CEBALLOS ROUNDS DR. CEBALLOS AT BEDSIDE EXPLAIN DIVERTING ILEOSTOMY TO PATIENT SISTER.
[2017-01-09] MEDS: ARIPiprazole 5 MG TAB PO SCH (21:00)
--- NOTE | 2017-01-09 21:50 | NUR ---
CONSENT SIGNED BY SISTER FOR DIVERTING ILEOSTOMY.
[2017-01-10 00:05] VITALS: BP 125/56; PULSE 91; RESP 15; TEMP 98.2; O2SAT 93
--- NOTE | 2017-01-10 00:20 | NUR ---
INCONTINENT CARE PATIENT HAD BOWEL MOVEMENT. PATIENT WAS CLEANED AND IS RESTING COMFORTABLY.
[2017-01-10] MEDS: HYDROmorphone 1 MG INJ. 1 MG/ML AMPUL IVP PRN ×3 (01:04→13:48)
[2017-01-10] MEDS: ALBUTEROL SULFATE 0.083% 2.5 MG/3 ML VIAL.NEB INH SCH ×4 (01:20→19:50)
--- NOTE | 2017-01-10 02:45 | NUR ---
ROUNDS PATIENT IS IN BED SLEEPING. NO SIGNS OF DISTRESS. BREATHING IS NON LABORED. WILL CONTINUE TO MONITOR.
[2017-01-10] MEDS: GENTAMICIN 100 MG/ ISO-OSM 50 ML PREMIX IV SCH ×2 (02:57→16:42)
[2017-01-10 04:00] VITALS: BP 139/94; PULSE 91; RESP 17; TEMP 99; O2SAT 92
--- NOTE | 2017-01-10 04:50 | NUR ---
ROUNDS PATIENT IS IN BED SLEEPING. NO SIGNS OF DISTRESS. BREATHING IS NON LABORED. CALL LIGHT IS WITHIN REACH. WILL SAFETY MEASURES ARE IN PLACE. WILL CONTINUE TO MONITOR.
[2017-01-10] MEDS: CEFTAZIDIME 1 GM in D5W 50 ML IV SCH ×3 (05:11→22:33)
--- NOTE | 2017-01-10 06:40 | NUR ---
CLOSING NOTES PATIENT IS IN BED. NO SIGNS OF DISTRESS. BREATHING IS NON LABORED. PICC IS PATENT AND SHOWS NO SIGNS OF COMPLICATION. WILL ENDORSE ALL CARE TO THE MORNING NURSE.
[2017-01-10 07:06] LABS: EOSINOPHILS # (AUTO) 0.2 K/uL (0.0-0.4); HEMOGLOBIN 12.4 g/dL (14.0-18.0); LYMPHOCYTES # (AUTO) 1.7 K/uL (1.0-5.5); MONOCYTES # (AUTO) 0.5 K/uL (0.0-1.0); RED BLOOD CELL COUNT(AUTO) 3.72 MIL/uL (4.2-6.2)
[2017-01-10 07:15] LABS: BASOPHILS % (AUTO) 0.5 % (0.0-2.0); EOSINOPHILS % (AUTO) 2.7 % (0.0-4.0); HEMATOCRIT 36.7 % (36-54); LYMPHOCYTES % (AUTO) 23.6 % (20.5-51.5); MEAN CORPUSCULAR HEMOGLOBIN 33 pg (27-31); MEAN CORPUSCULAR HGB CONC 34 % (32-36); MEAN CORPUSCULAR VOLUME 99 fL (79.0-98.0); MONOCYTES % (AUTO) 6.9 % (1.7-9.3); NEUTROPHILS % (AUTO) 66.3 % (40.0-70.0); PLATELET COUNT (AUTO) 287 K/uL (130-430); RED CELL DISTRIBUTION WIDTH 13.6 % (9.0-15.0); WHITE BLOOD COUNT (AUTO) 7.4 K/uL (4.8-10.8)
--- NOTE | 2017-01-10 07:45 | NUR ---
AM ROUNDS Pt agitated, unable to comprehend what pt is saying..Pt has Cerebral palsy..Picc to YOKO w/IVF infusing well..Wound Vac to coccyx...Pt scheduled for procedure this morning...Will cont to monitor
--- NOTE | 2017-01-10 08:15 | NUR ---
CAREGIVER AT BEDSIDE..PT CALM AT THIS TIME
[2017-01-10 08:36] LABS: CALCIUM 8.4 mg/dL (8.4-11.0); CREATININE 0.48 mg/dL (0.55-1.30); POTASSIUM 4.5 mmol/L (3.5-5.1)
[2017-01-10 08:55] LABS: ALBUMIN 2.7 g/dL (3.4-4.8); TOTAL BILIRUBIN 0.3 mg/dL (0.0-1.0); TOTAL PROTEIN, SERUM 6.5 g/dL (6.4-8.3)
[2017-01-10] MEDS: GABAPENTIN 300 MG CAPSULE PO SCH ×3 (09:00→20:52)
[2017-01-10] MEDS: TAPENTADOL HYDROCHLORIDE 50 MG TABLET PO SCH ×4 (09:00→20:52)
[2017-01-10] MEDS: clonazePAM 0.5 MG TABLET PO SCH ×4 (09:00→20:53)
[2017-01-10] MEDS: TAMSULOSIN HCL 0.4 MG CAP PO SCH (09:00)
[2017-01-10] MEDS: PANTOPRAZOLE SODIUM 40 MG/VIAL (PROTONIX) IVP SCH (09:14)
--- NOTE | 2017-01-10 09:15 | NUR ---
SISTER AND FAMILY AT BEDSIDE
--- NOTE | 2017-01-10 10:57 | NUR ---
PT TRANSPORTED TO O.R. FOR PROCEDURE FAMILY ACCOMPANIED PT TO DEPARTMENT
[2017-01-10 12:00] VITALS: BP 124/74; PULSE 117; RESP 20; TEMP 97.6; O2SAT 95
[2017-01-10] MEDS ORDERED: HYDROmorphone 1 MG INJ. 1 MG/ML AMPUL IVP PRN (12:15)
[2017-01-10] MEDS ORDERED: fentaNYL CITRATE/PF 100 MCG/2 ML AMP IVP PRN (12:15)
[2017-01-10] MEDS ORDERED: MORPHINE SULFATE 10 MG/ML VIAL IVP ONE (13:00)
[2017-01-10] MEDS ORDERED: SEVOFLURANE 15 MIN GAS INH ONE (13:00)
[2017-01-10] MEDS ORDERED: ONDANSETRON HCL 4 MG/2 ML VIAL IVP ONE (13:00)
[2017-01-10] MEDS ORDERED: SUCCINYLCHOLINE CHLORIDE 20 MG/ML(QUELICIN) IVP ONE (13:00)
[2017-01-10] MEDS ORDERED: ROCURONIUM BROMIDE 10 MG/ML (ZEMURON) IV ONE (13:00)
[2017-01-10] MEDS ORDERED: DEXAMETHASONE SOD PHOSPHATE 4 MG/ML VIAL IVP ONE ×2 (13:00)
[2017-01-10] MEDS ORDERED: HYDROmorphone 1 MG INJ. 1 MG/ML AMPUL ONE (13:05)
--- NOTE | 2017-01-10 13:14 | NUR ---
PT STILL IN O.R...FAMILY WAITING IN PTS ROOM
--- NOTE | 2017-01-10 13:25 | NUR ---
WOUND RE-EVALUATION: Patient received in a [place] Bed with an IsoFlex DELORES mattress with low air-loss therapy initiated, awake, alert, confused, limited verbal interaction. Patient is unable to turn independently. Fantasma Score is a 12. Intrinsic factors that delay wound healing: Hypoalbuminemia. Extrinsic factors that delay wound healing: Immobility. Wound Assessment: 1) Coccyx: Unstageable Pressure Ulcer, present on admission, Now Stage IV post surgical debridement. Wound Vac not due to be changed until Monday. Wound not visualized secondary to removal of Wound Vac would decrease wound temperature and retard wound healing rate. Recommend continue: Cleanse wound with normal saline. Put SurePrep onto hubert-wound. Put Venelex ointment onto wound bed. Put Silver Granufoam dressing into wound cavity. Cover with Vac Drape. Lay Vac Drape from wound to non-bony portion of thigh. Lay down bridge of granufoam from wound to thigh, and cover with Vac Drape. Attach suction attachment and run Vac at 75 mmHg, continuous. Perform wound care q Monday/Monday/Monday, and as needed for dressing soiling or dislodgement. 2) Left Buttock: Chronic Wound, present on admission. Extension of Coccygeal wound. Wound not visualized secondary to Wound Vac in place. Recommend continue: Cleanse wound with normal saline. Pat dry. Put moisture barrier cream onto wound and hubert-wound. Cover with foam dressing, then Vac Drape. Perform wound care daily, and as needed for dressing soiling or dislodgement. 3) Left Lateral Hip: Chronic Pressure Ulcer, prior unknown stage, present on admission. Wound site not visualized, secondary to patient is in O.R for a procedure. Recommend continue: Cleanse wound with normal saline. Put moisture barrier cream onto hubert-wound. Put Venelex ointment onto wound bed. Cover with Sacral foam dressing. Perform wound care daily, and as needed for dressing soiling or dislodgement. Also recommend continue: Reposition patient side to side only every 2 hours with pillow support, and off-load pressure areas with pillows for pressure re-distribution. Offload, elevate and float bilateral heels with pillows. Perform skin care and monitor skin integrity Q shift. Use moisture barrier cream on buttocks and other moisture susceptible areas QID and as needed for soiling. Maintain patient on a low air-loss mattress. Spoke with family member this morning, she wanted to know how long it would take for wound to heal.
--- NOTE | 2017-01-10 13:30 | NUR ---
BACK TO ROOM FROM O.R
--- NOTE | 2017-01-10 13:45 | NUR ---
ROUNDS PT QUIET...ILEOSTOMY TO RLQ WITH SMALL AMOUNT OF WATERY FLUID IN BAG...FAMILY AT BEDSIDE...WILL MONITOR
[2017-01-10 13:55] VITALS: BP 137/86; PULSE 103; RESP 19; TEMP 98.3; O2SAT 92
[2017-01-10] MEDS ORDERED: LORazepam 2 MG/ML VIAL (FOR ER USE) IVP PRN (14:15)
--- NOTE | 2017-01-10 16:00 | NUR ---
ROUNDS PT STABLE..NO CHANGES...WOUND VAC REMAINS IN PLACE WITH GOOD SUCTION...SISTER AT BEDSIDE...WILL CONT TO MONITOR
[2017-01-10] MEDS: KCL 20 mEq in D5/0.45NS 1000mL 1,000 ML IV SCH (16:11)
[2017-01-10] MEDS ORDERED: COMMUNICATION ORDER XX ONE (16:15)
--- NOTE | 2017-01-10 16:25 | NUR ---
Nutrition F/U Admitting Diagnosis Fecal impaction, N/V, hypokalemia, moderate protein-calorie malnutrition Reviewed Pertinent Medical/Surgical Hx Patient Primary RN Medical History Comment: Spastic quadriparesis, severe GERD, mental delay per MD notes Subjective Information Pt seen resting in bed w/ sisterBrii at bedside. Pt had Sx today for diverting ileostomy; incidental appendectomy performed. Per SENIOR RELIABILITY ENGINEER, pt will remain NPO until tomorrow for clear liquid breakfast as per surgeon orders. Per EMR, abd is soft and non-distended w/ active bowel sounds. Pt is not yet meeting optimal nutritional needs. Pt is not appropriate for nutrition education. Current Diet Order/Nutrition Support NPO x1 day Patient/Significant Other Unable To Verbalize Able To Verbalize Education Provided Not Indicated Pertinent Medications Reviewed ceftazidime/D5% IV at 100 ml/hr (408 kcal/day), KCl/D5%/NaCl IV at 100 ml/hr (408 kcal/day) Pertinent Labs Reviewed Height (Feet) 5 feet Height (Inches) 8.00 inches Weight (Pounds) 119 pounds (admission) BEDSCALE WT: 131.5 kg/m2, 60 kg (01/10/17; unsure of accuracy) Weight (Calculated Kilograms) 53.994486 kilograms Patient Weight 53.977 kg Body Mass Index 18.09 kg/m2 Usual Weight 123 lbs %UBW 97 %IBW 77 [place]/Adjusted Body Weight IBW: 154 lb, 70 kg Recent Weight Change No Weight Status Underweight Gastrointestinal Symptoms Constipation Last BM Jan 10, 2017 x1 Difficulty With: Swallowing Chewing Usual Diet At Home Soft, blended foods Skin Integrity Comment: Fantasma scale of 9. Per Would Specialist note 01/06/17: 1) Coccyx: Unstageable Pressure Ulcer, present on admission, Now Stage IV post surgical debridement. Wound Vac placed yesterday, and not due to be changed until Monday. 2) Left Buttock: Chronic Wound, present on admission. Extension of Coccygeal wound. 3) Left Lateral Hip: Chronic Pressure Ulcer, prior unknown stage, present on admission. Current % PO Negligible <25% Estimated Energy Expenditure (kcals/day) 8258-2976 kcal/day (30-35 kcal/kg IBW for wt gain promotion and wound healing) Estimated Protein Required (g/day) 88-140 gm/day (1.25-1.5 gm/kg IBW for wt gain promotion and wound healing) Estimated Fluid Required (l/day) 2-2.5 L/day (1 ml/kcal/day for maintenance) Problem/Etiology/Signs/Symptoms Complicated GI function related to fecal impaction as evidenced by constipation and need for GI workups. *ongoing Expected Outcomes/Goals - Monitor appetite and PO intakes w/ goal of pt meeting at least 75% of estimated nutritional needs, labs trending WNL, normal GI function, and skin integrity/wt maintenance Dietitian Recommendations * Consider advance diet if/when medically appropriate (pureed diet) (pureed diet comes standard w/ Boost Plus TID, providing an additional 1080 kcal/day and 42 gm protein/day) Follow Up High Risk: F/U in 2-3 days
[2017-01-10] MEDS: MIRTAZAPINE 15 MG TABLET PO SCH (19:00)
--- NOTE | 2017-01-10 19:09 | NUR ---
ROUNDS PT STABLE...NO CHANGES...QUIET AND CALM...FAMILY AT BEDSIDE...WILLC ONT TO MONITOR
--- NOTE | 2017-01-10 19:40 | NUR ---
OPENING NOTES PATIENT IS A/OX2. RESPONSE TO PAIN AND LIGHT STIMULI. PATIENT IS AWAKE AND TALKING WITH FAMILY. VITAL SIGNS ARE STABLE. NO SIGNS OF DISTRESS. BREATHING IS NON LABORED. PICC LINE IS PATENT AND SHOWS NO SIGNS OF COMPLICATIONS. DRESSING TO THE ABDOMEN IS SLIGHTLY SOILED. OSTOMY BAG IS INTACT. PATIENT HAS NO COMPLAINTS OF PAIN. BED ALARM IS ON. WILL CONTINUE TO MONITOR.
[2017-01-10 19:42] VITALS: BP 123/77; PULSE 97; RESP 18; TEMP 98.9; O2SAT 93
[2017-01-10] MEDS: ARIPiprazole 5 MG TAB PO SCH (20:52)
--- NOTE | 2017-01-10 21:50 | NUR ---
STACEY CARE STACEY CARE WAS PERFORMED. PATIENT IS RESTING COMFORTABLY.
[2017-01-11] VITALS (7 sets, daily range): BP systolic 90–118; BP diastolic 55–71; PULSE 80–120; RESP 18; TEMP 96–98.4; O2SAT 94–97
--- NOTE | 2017-01-11 00:05 | NUR ---
ROUNDS PATIENT IS IN BED SLEEPING. NO SIGNS OF DISTRESS. BREATHING IS NON LABORED. WILL CONTINUE TO MONITOR.
[2017-01-11] MEDS: ALBUTEROL SULFATE 0.083% 2.5 MG/3 ML VIAL.NEB INH SCH ×4 (00:08→21:28)
[2017-01-11] MEDS: HYDROmorphone 1 MG INJ. 1 MG/ML AMPUL IVP PRN ×5 (01:29→20:31)
--- NOTE | 2017-01-11 02:10 | NUR ---
ROUNDS PATIENT IS IN BED SLEEPING. NO SIGNS OF DISTRESS. BREATHING IS NON LABORED. BED ALARM IS ON. CALL LIGHT IS WITHIN REACH. WILL CONTINUE TO MONITOR.
[2017-01-11] MEDS: KCL 20 mEq in D5/0.45NS 1000mL 1,000 ML IV SCH ×2 (03:01→13:31)
[2017-01-11] MEDS: GENTAMICIN 100 MG/ ISO-OSM 50 ML PREMIX IV SCH ×2 (03:02→17:08)
--- NOTE | 2017-01-11 04:15 | NUR ---
ROUNDS PATIENT WAS TURNED AND REPOSITIONED. PATIENT IS RESTING COMFORTABLY. NO SIGNS OF DISTRESS. BREATHING IS NON LABORED. WILL CONTINUE TO MONITOR.
[2017-01-11] MEDS: CEFTAZIDIME 1 GM in D5W 50 ML IV SCH ×3 (05:15→22:20)
--- NOTE | 2017-01-11 05:47 | NUR ---
ROUNDS PATIENT HAS COMPLAINTS OF PAIN. WILL GIVE PRN PAIN MEDICATION.
--- NOTE | 2017-01-11 06:36 | NUR ---
CLOSING NOTES PATIENT IS IN BED RESTING. BREATHING IS NON LABORED. NO SIGNS OF DISTRESS. PICC LINE IS PATENT AND SHOWS NO SIGNS OF COMPLICATIONS. WOUND VAC IS IN PLACE AND IS DRAINING. OSTOMY BAG IS IN PLACE. DRESSING TO THE ABDOMEN IS SLIGHTLY SOILED. WILL GIVE REPORT TO THE MORNING NURSE.
[2017-01-11 07:21] LABS: ALBUMIN 2.5 g/dL (3.4-4.8); CALCIUM 8.2 mg/dL (8.4-11.0); CREATININE 0.48 mg/dL (0.55-1.30); TOTAL BILIRUBIN 0.3 mg/dL (0.0-1.0); TOTAL PROTEIN, SERUM 6.1 g/dL (6.4-8.3)
--- NOTE | 2017-01-11 07:30 | NUR ---
AM ROUNDS Pt agitated, calms down when someone is in room with him..Pt with difficulty speaking due to Cerebral palsy..IVF infusing well to YOKO PICC..Ileostomy bag to RLQ with thin brown liquid..Wound Vac to coccyx working well with good suction...Call light w/in reach...Will cont to monitor
--- NOTE | 2017-01-11 08:00 | NUR ---
TOLERATED CLEAR LIQUIDS WELL WILL ADVANCE DIET PER MD ORDER
[2017-01-11 08:01] LABS: BASOPHILS % (AUTO) 0.2 % (0.0-2.0); EOSINOPHILS % (AUTO) 0.7 % (0.0-4.0); HEMATOCRIT 32.7 % (36-54); LYMPHOCYTES # (AUTO) 1.4 K/uL (1.0-5.5); LYMPHOCYTES % (AUTO) 21.3 % (20.5-51.5); MEAN CORPUSCULAR HEMOGLOBIN 33 pg (27-31); MEAN CORPUSCULAR HGB CONC 34 % (32-36); MONOCYTES # (AUTO) 0.6 K/uL (0.0-1.0); MONOCYTES % (AUTO) 9.2 % (1.7-9.3); NEUTROPHILS # (AUTO) 4.6 K/uL (1.8-7.7); NEUTROPHILS % (AUTO) 68.6 % (40.0-70.0); PLATELET COUNT (AUTO) 259 K/uL (130-430); RED BLOOD CELL COUNT(AUTO) 3.37 MIL/uL (4.2-6.2); RED CELL DISTRIBUTION WIDTH 13.6 % (9.0-15.0); WHITE BLOOD COUNT (AUTO) 6.6 K/uL (4.8-10.8)
[2017-01-11 08:09] LABS: MEAN CORPUSCULAR VOLUME 97 fL (79.0-98.0)
--- NOTE | 2017-01-11 08:30 | NUR ---
CAREGIVER AT BEDSIDE
[2017-01-11] MEDS: TAPENTADOL HYDROCHLORIDE 50 MG TABLET PO SCH ×3 (08:37→18:12)
[2017-01-11] MEDS: GABAPENTIN 300 MG CAPSULE PO SCH ×3 (08:38→20:32)
[2017-01-11] MEDS: clonazePAM 0.5 MG TABLET PO SCH ×4 (08:38→20:33)
[2017-01-11] MEDS: TAMSULOSIN HCL 0.4 MG CAP PO SCH (08:38)
[2017-01-11] MEDS: PANTOPRAZOLE SODIUM 40 MG/VIAL (PROTONIX) IVP SCH (08:59)
--- NOTE | 2017-01-11 09:00 | NUR ---
INCONTINENT OF URINE STACEY-CARE DONE
--- NOTE | 2017-01-11 09:15 | NUR ---
Pain medication given at this time. Pt educated on the medication and side effects, though he is unable to teach back, due to his condition cerebral palsy , but he nod his head yes in understanding. curing press maintainer at bedside, educated as well and verbalizes understanding.
--- NOTE | 2017-01-11 10:29 | NUR ---
SLEEPING PT SLEEPING..RESPIRATIONS EVEN AND UNLABORED...GOOD CHEST RISE...WILL CONT TO MONITR
--- NOTE | 2017-01-11 12:11 | NUR ---
STABLE. CALM PT QUIET AND CALM AT THIS TIME...COATER OPERATOR AT BEDSIDE....WILL CONT TO MONITOR
--- NOTE | 2017-01-11 14:43 | NUR ---
DISCHARGE PLANNING Received call from Kimberly patient accepted [facility]. Bed assignment will be requested upon discharge order. Charge Nurse Roxane made aware. Ordered Radiology CD. Placed transportation packet in nurses station. Spoke with patient daughter Brii Sebastian who was agreeable with discharge plan to [facility]. Brii requested for discharge to take place before dinner if going to discharge today or tomorrow morning. Brii made aware DCP will keep her informed upon MD discharge order and time ambulance will be arranged. Addendum: 01/11/17 at 1601 by Susy FREEDMAN DC order received. Notified Kimberly at [facility] who will obtain bed assignment. Kimberly made aware family request for early discharge.
--- NOTE | 2017-01-11 15:26 | NUR ---
DR MART AT BEDSIDE
--- NOTE | 2017-01-11 17:00 | NUR ---
PT STABLE..CALM QUIET CAREGIVER AT BEDSIDE...WILL CONT TO MONTIOR
[2017-01-11] MEDS: MIRTAZAPINE 15 MG TABLET PO SCH (18:12)
--- NOTE | 2017-01-11 19:00 | NUR ---
ROUNDS PT STABLE...AWAITING TRANSFER TO [facility]...FAMILY AT BEDSIDE
--- NOTE | 2017-01-11 20:00 | NUR ---
ROUNDS PATIENT RESTING COMFORTABLY IN BED, NOT IN DISTRESS, VITALS STABLE. NO PAIN AND DISCOMFORT AT THIS TIME. ASSESSMENT DONE AND DOCUMENTED. SEE FLOWSHEET. NEEDS ATTENDED TO. REPOSITIONED AND MADE COMFORTABLE. SAFETY MEASURES IN PLACED. WILL CONTINUE TO MONITOR.
[2017-01-11] MEDS: ARIPiprazole 5 MG TAB PO SCH (20:32)
--- NOTE | 2017-01-11 21:00 | NUR ---
MEDICATION DUE MEDICATIONS GIVEN ORDERED, TOLERATED WELL. WILL CONTINUE TO MONITOR.
[2017-01-12] VITALS (7 sets, daily range): BP systolic 97–132; BP diastolic 55–86; PULSE 77–118; RESP 17–20; TEMP 97.3–98.6; O2SAT 64–98
--- NOTE | 2017-01-12 | NUR ---
PATIENT RESTING: Patient resting quietly. No acute distress noted. Vital signs within normal range.
[2017-01-12] MEDS: KCL 20 mEq in D5/0.45NS 1000mL 1,000 ML IV SCH ×3 (00:15→23:00)
[2017-01-12] MEDS: ALBUTEROL SULFATE 0.083% 2.5 MG/3 ML VIAL.NEB INH SCH ×4 (00:49→20:35)
--- NOTE | 2017-01-12 04:15 | NUR ---
PATIENT RESTING: Patient resting quietly. No acute distress noted. Vital signs within normal range.
[2017-01-12] MEDS: GENTAMICIN 100 MG/ ISO-OSM 50 ML PREMIX IV SCH ×2 (05:26→14:44)
[2017-01-12] MEDS: HYDROmorphone 1 MG INJ. 1 MG/ML AMPUL IVP PRN ×4 (05:33→20:46)
[2017-01-12] MEDS: CEFTAZIDIME 1 GM in D5W 50 ML IV SCH ×2 (06:26→20:21)
--- NOTE | 2017-01-12 06:50 | NUR ---
CLOSING NOTES PATIENT STABLE, ALL NEEDS ATTENDED TO. SAFETY AND FALL PRECAUTION MEASURES MAINTAINED. WILL ENDORSE TO INCOMING SHIFT NURSE.
--- NOTE | 2017-01-12 08:00 | NUR ---
OPENING NOTES RECEIVED PT IN BED, PT IS AWAKE, ALERT, NO SOB, NO DISTRESS, PT ON SCD, WOUND VAC CONNECTED, PAPER CONE MAKER AT BEDSIDE, IV FLUIDS RUNNING WELL IN LEFT UA PICC, NO SWELLING IN THE AREA, BED IS ON LOW POSITON.
[2017-01-12] MEDS: ACETAMINOPHEN 325 MG TABLET PO PRN (08:43)
[2017-01-12] MEDS: GABAPENTIN 300 MG CAPSULE PO SCH ×3 (08:43→20:21)
[2017-01-12] MEDS: PANTOPRAZOLE SODIUM 40 MG/VIAL (PROTONIX) IVP SCH (08:43)
[2017-01-12] MEDS: TAMSULOSIN HCL 0.4 MG CAP PO SCH (08:44)
[2017-01-12] MEDS: clonazePAM 0.5 MG TABLET PO SCH ×4 (08:44→20:21)
[2017-01-12] MEDS: BALSAM PERU/CASTOR OIL 60 GM OINT...G. TP SCH (08:55)
--- NOTE | 2017-01-12 09:14 | NUR ---
DISCHARGE PLANNING Received voice message from patient sister Brii Sebastian who was requesting bed at [facility] that has window. Spoke with Kimberly who was given family request and currently working bed assignment to accommodate family requested. Addendum: 01/12/17 at 0922 by Susy Bhatti DP Returned call to patient sister Brii who was made aware pending bed availability next to window at [facility]. [facility] will keep Brii informed when bed will be available and time ambulance will be arranged.
--- NOTE | 2017-01-12 10:00 | NUR ---
NOTES PT REMAIN IN BED, NO SOB, NO DISTRESS, WOUND VAC GOING WELL, IV FLUIDS ONGOING, NO INFILTRATION NOTED. CALL LIGHT W/IN REACH, BED IN LOW POSITION, DOUGHNUT BATTER MIXER AT BEDSIDE, INSTRUCTED TO CALL FOR ASSIST OR PAIN MED.
--- NOTE | 2017-01-12 12:00 | NUR ---
NOTES PT IN BED, FIREWORKS ASSEMBLY SUPERVISOR AT BEDSIDE, PT C/O PAIN, VITALS WNL. BED IN LOW POSITION. TURNED AND REPOSITIONED PT. WILL PROVIDE PAIN MED REQUESTED BY PT.
--- NOTE | 2017-01-12 14:00 | NUR ---
NOTES, PT IN BED, NO C/O PAIN, NO SOB, NO DISTRESS, MEDICAL CHARGE ENTRY SPECIALIST AT BEDSIDE. BED ON LOW POSITION, CALL LIGHT IN REACH, WOUND VACC GOING WELL.
--- NOTE | 2017-01-12 16:00 | NUR ---
NOTES PT IN BED, NO DISTRESS, NO SOB, FOAM GUN OPERATOR AT BEDSIDE, PT ALERT, IV FLUIDS RUNNING OK, PICC INTACT. WOUND VAC RUNNING WELL. BED IN LOW POSITION. CALL LIGHT IN REACH.
--- NOTE | 2017-01-12 18:00 | NUR ---
CLOSING NOTES PT IN BED, NO DISTRESS, NO SOB, STITCH BONDING MACHINE OPERATOR AT BEDSIDE, PT ALERT, IV FLUIDS RUNNING OK, PICC INTACT. WOUND VAC RUNNING WELL. BED IN LOW POSITION. CALL LIGHT IN REACH. WILL ENDORSE TO NIGHT RN. Addendum: 01/12/17 at 1949 by Philip Stanley RN RECEIVED CALL FROM FOOD QUALITY TECHNICIAN AT 1815 WITH UPDATE NO BED AVAILABLE AFTER ALL. WOUND CARE ENDORSED TO VENDOR ANALYST DUE TO RECEIVING LATE NOTIFICATION.
[2017-01-12] MEDS: MIRTAZAPINE 15 MG TABLET PO SCH (18:20)
--- NOTE | 2017-01-12 19:50 | NUR ---
ROUNDS PATIENT AWAKE, NOT IN DISTRESS, VITALS STABLE, QUIET, NO SIGNS OF ANY PAIN AND DISCOMFORT NOTED. FAMILIES AT THE BEDSIDE. ASSESSMENT DONE AND DOCUMENTED. SEE FLOWSHEET. NEEDS ATTENDED TO. REPOSITIONED AND MADE COMFORTABLE. SAFETY AND FALL PRECAUTION MEASURES IN PLACED. BED IN LOW AND LOCKED POSITION. CALL LIGHT PLACED WITHIN REACH.
[2017-01-12] MEDS: ARIPiprazole 5 MG TAB PO SCH (20:21)
--- NOTE | 2017-01-12 21:15 | NUR ---
MEDICATIONS DUE MEDICATIONS GIVEN SCHEDULED, TOLERATED WELL. WILL CONTINUE TO MONITOR.
--- NOTE | 2017-01-12 22:39 | NUR ---
WOUND VAC PATIENT AWAKE, NOT IN DISTRESS, WOUND VAC DRESSING CHANGE DONE SCHEDULED. NO LEAKING NOTED, WOUND VAC PATENT. WILL CONTINUE TO MONITOR.
[2017-01-13] MEDS: ALBUTEROL SULFATE 0.083% 2.5 MG/3 ML VIAL.NEB INH SCH ×3 (01:00→13:19)
--- NOTE | 2017-01-13 02:00 | NUR ---
PATIENT RESTING: Patient resting quietly. No acute distress noted. Vital signs within normal range.
[2017-01-13] MEDS: GENTAMICIN 100 mg/50 mL NS 50 ML IV SCH ×2 (03:21→15:52)
[2017-01-13 03:42] VITALS: BP 104/54; PULSE 99; RESP 18; TEMP 98; O2SAT 94
--- NOTE | 2017-01-13 04:11 | NUR ---
PATIENT RESTING: Patient resting quietly. No acute distress noted. Vital signs within normal range.
--- NOTE | 2017-01-13 06:46 | NUR ---
CLOSING NOTES PATIENT STABLE, NEEDS ATTENDED TO, REPOSITIONED AND MADE COMFORTABLE. SAFETY AND FALL PRECAUTION MEASURES MAINTAINED. WILL ENDORSE TO INCOMING SHIFT NURSE.
[2017-01-13] MEDS: KCL 20 mEq in D5/0.45NS 1000mL 1,000 ML IV SCH ×2 (08:27→19:04)
[2017-01-13] MEDS: TAMSULOSIN HCL 0.4 MG CAP PO SCH (08:27)
[2017-01-13] MEDS: clonazePAM 0.5 MG TABLET PO SCH ×4 (08:27→20:57)
[2017-01-13] MEDS: PANTOPRAZOLE SODIUM 40 MG/VIAL (PROTONIX) IVP SCH (08:27)
[2017-01-13] MEDS: CEFTAZIDIME 1 GM in D5W 50 ML IV SCH ×2 (08:27→20:57)
[2017-01-13] MEDS: GABAPENTIN 300 MG CAPSULE PO SCH ×3 (08:28→20:57)
--- NOTE | 2017-01-13 08:30 | NUR ---
ROUNDS AND REPOSITION WITH MED PASS THIS HOUR. PATIENT ASSIST WITH MEAL. EMPTIED OSTOMY SITE AT THIS TIME, 300ML BROWN LIQUID IN BAG.
[2017-01-13] MEDS: BALSAM PERU/CASTOR OIL 60 GM OINT...G. TP SCH (08:38)
[2017-01-13 08:45] VITALS: BP 135/81; PULSE 109; RESP 18; TEMP 97.4; O2SAT 96
--- NOTE | 2017-01-13 08:48 | NUR ---
DISCHARGE PLANNING Spoke with [facility] who will follow up on window bed availability per family request. Kimberly will return call to [facility]/Nursing station once bed becomes available. Addendum: 01/13/17 at 1159 by Susy Bhatti DP spoke with Kimberly who stated waiting list at [facility] and will follow continue to follow up on bed availability even if not by window. [facility] will follow up.
--- NOTE | 2017-01-13 11:45 | NUR ---
CALL FROM CAREGIVER FOR SOMETHING FOR PAIN FOR PATIENT. DISCUSSED ATIVAN ANXIETY MAY BE SOME OF THE SYMPTOMS. PATIENT AND CAREGIVER AGREE ABLE WITH TYLENOL.
--- NOTE | 2017-01-13 12:10 | NUR ---
TYLENOL ADMIN TO PATIENT. CAREGIVER REQUEST FOR SOMETHING FOR COUGH. PRN NOT AVAILABLE WILL CALL .
[2017-01-13] MEDS: ACETAMINOPHEN 325 MG TABLET PO PRN (12:11)
--- NOTE | 2017-01-13 12:15 | NUR ---
EMPTIED OSTOMY BAG FOR 100 ML OF BROWN LIQUID WITH SEDIMENTS OF WHITE.
--- NOTE | 2017-01-13 12:26 | NUR ---
PROVIDER REQUESTS PATIENT TO BE TRANSFERED TO [facility]. NO ONE CALLED TO TELL HIM PATIENT DID NOT TRANSFER.
[2017-01-13 12:40] VITALS: BP 103/71; PULSE 96; RESP 19; TEMP 97.2; O2SAT 95
--- NOTE | 2017-01-13 12:50 | NUR ---
Nutrition F/U Nutrition F/U Admitting Diagnosis Fecal impaction, N/V, hypokalemia, moderate protein-calorie malnutrition Reviewed Pertinent Medical/Surgical Hx Medical record Patient's caregiver Medical History Comment: Spastic quadriparesis, severe GERD, mental delay per MD notes Subjective Information Pt seen resting in bed, +eyes closed, and caregiver at bedside. Lunch tray seen on bedside table, untouched. Caregiver stated that the cream soup was too hot for pt, and was allowing it to cool. Caregiver reported that pt has been eating better. Per nursing notes, ostomy bag had 100 ml of brown liquid w/ sediments. Per MD orders, pending transfer to [facility]. Per EMR, PO Intakes: 35% average x5 meals. Abd is soft and non-distended w/ active bowel sounds. I/O: 120/0 (+120 ml) per 12 hours. Pt is not yet meeting optimal nutritional needs. Consider advance to pureed diet. Pt is not appropriate for nutrition education. Current Diet Order/Nutrition Support Full liquid x2 days *Note that full liquid diet comes standard w/ Boost Plus TID, providing an additional 1080 kcal/day and 42 gm protein/day Patient/Significant Other Unable To Verbalize Education Provided Not Indicated Pertinent Medications Reviewed ceftazidime/D5% IV at 100 ml/hr (408 kcal/day), KCl/D5%/NaCl IV at 100 ml/hr (408 kcal/day) Pertinent Labs Reviewed Height (Feet) 5 feet Height (Inches) 8.00 inches Weight (Pounds) 119 pounds (admission) BEDSCALE WT: 131.5 kg/m2, 60 kg (01/10/17; unsure of accuracy) Weight (Calculated Kilograms) 53.684114 kilograms Patient Weight 53.977 kg Body Mass Index 18.09 kg/m2 Usual Weight 123 lbs %UBW 97 %IBW 77 [place]/Adjusted Body Weight IBW: 154 lb, 70 kg Recent Weight Change No Weight Status Underweight Last BM Jan 10, 2017 x1 Difficulty With: Swallowing Chewing Usual Diet At Home Soft, blended foods Skin Integrity Comment: Fantasma scale of 13. Per Would Specialist note 01/10/17: 1) Coccyx: Unstageable Pressure Ulcer, present on admission, Now Stage IV post surgical debridement. Wound Vac not due to be changed until Monday. 2) Left Buttock: Chronic Wound, present on admission. Extension of Coccygeal wound. 3) Left Lateral Hip: Chronic Pressure Ulcer, prior unknown stage, present on admission. Current % PO Poor Estimated Energy Expenditure (kcals/day) 9456-0285 kcal/day (30-35 kcal/kg IBW for wt gain promotion and wound healing) Estimated Protein Required (g/day) 88-140 gm/day (1.25-1.5 gm/kg IBW for wt gain promotion and wound healing) Estimated Fluid Required (l/day) 2-2.5 L/day (1 ml/kcal/day for maintenance) Problem/Etiology/Signs/Symptoms Complicated GI function related to fecal impaction as evidenced by constipation and need for GI workups. *ongoing Expected Outcomes/Goals - Monitor appetite and PO intakes w/ goal of pt meeting at least 75% of estimated nutritional needs, labs trending WNL, normal GI function, and skin integrity/wt maintenance Dietitian Recommendations * Consider advance to pureed diet if/when medically appropriate (pureed diet comes standard w/ Boost Plus TID, providing an additional 1080 kcal/day and 42 gm protein/day) Follow Up High Risk: F/U in 2-3 days
[2017-01-13] MEDS: PROMETHAZINE-DM 6.25 MG-15 MG/5 ML UDC PO PRN ×2 (14:07→20:58)
--- NOTE | 2017-01-13 15:10 | NUR ---
Patient rounds. Napping at this time.
--- NOTE | 2017-01-13 16:02 | NUR ---
Doctor Merino rounds to patient. IVPB up at this time. Patient tolerated po med. Radiology at bedside for portable oxygen. Diet will advance this pm.
[2017-01-13 16:09] VITALS: BP 108/60; PULSE 93; RESP 20; TEMP 97.7; O2SAT 95
[2017-01-13] MEDS: MIRTAZAPINE 15 MG TABLET PO SCH (17:48)
--- NOTE | 2017-01-13 17:54 | NUR ---
DC planning patient to be followed by Doctor Moisés Lopes at [facility] facility.
--- NOTE | 2017-01-13 17:57 | NUR ---
Patient rounds and patient sleeping at this time.
--- NOTE | 2017-01-13 18:50 | NUR ---
IV FLUID BAG CHANGE AT THIS TIME. NEEDS MET.
[2017-01-13] MEDS ORDERED: ACETAMINOPHEN 650 MG SUPP.RECT RC PRN (19:00)
--- NOTE | 2017-01-13 19:30 | NUR ---
OPENING NOTES RECEIVED REPORT AT BEDSIDE FROM DAY SHIFT NURSE. FAMILY AT BEDSIDE. PATIENT IN SEMI-BURNETT'S POSITION. IV FLUIDS RUNNING. WOUND VAC OPERATING CORRECTLY. ILEOSTOMY BAG CLEAN AND SECURED. NO SIGNS OR SYMPTOMS OF ACUTE DISTRESS NOTED. ASPIRATION AND FALL PRECAUTIONS IN PLACE. CALL LIGHT WITHIN REACH. WILL CONTINUE TO MONITOR FREQUENTLY.
[2017-01-13] MEDS: ARIPiprazole 5 MG TAB PO SCH (20:57)
--- NOTE | 2017-01-13 21:30 | NUR ---
ROUNDS FAMILY AT BEDSIDE WITH PATIENT. PATIENT IN SEMI-BURNETT'S POSITION. IV FLUIDS RUNNING. ILEOSTOMY BAG AFFIXED AND ONE-QUARTER OF THE WAY FULL AND SECURED. NO SIGNS OR SYMPTOMS OF ACUTE DISTRESS NOTED. ASPIRATION AND FALL PRECAUTIONS IN PLACE. CALL LIGHT WITHIN REACH. WILL CONTINUE TO MONITOR FREQUENTLY.
[2017-01-13 23:04] VITALS: BP 109/59; PULSE 106; RESP 22; TEMP 98.1; O2SAT 97
--- NOTE | 2017-01-13 23:30 | NUR ---
ROUNDS PATIENT SLEEPING COMFORTABLY IN SEMI-BURNETT'S POSITION. IV FLUIDS RUNNING. ILEOSTOMY BAG AFFIXED AND ONE-HALF OF THE WAY FULL AND SECURED. NO SIGNS OR SYMPTOMS OF ACUTE DISTRESS NOTED. ASPIRATION AND FALL PRECAUTIONS IN PLACE. CALL LIGHT WITHIN REACH. WILL CONTINUE TO MONITOR FREQUENTLY.
[2017-01-14] VITALS (7 sets, daily range): BP systolic 110–142; BP diastolic 70–92; PULSE 87–113; RESP 16–20; TEMP 97.4–98.4; O2SAT 94–96
[2017-01-14] MEDS: ALBUTEROL SULFATE 0.083% 2.5 MG/3 ML VIAL.NEB INH SCH ×4 (01:00→19:54)
--- NOTE | 2017-01-14 01:49 | NUR ---
ROUNDS EMPTIED PATIENTS ILEOSTOMY BAG, 450ML. PATIENT TOLERATED WELL. PATIENT REPOSITIONED. ASPIRATION AND FALL PRECAUTIONS IN PLACE. WILL CONTINUE TO MONITOR FREQUENTLY.
--- NOTE | 2017-01-14 03:45 | NUR ---
ROUNDS PATIENT IN SEMI-BURNETT'S POSITION RESTING, AWAKE. PATIENT CLEANED AND LINENS CHANGED. NO SIGNS OR SYMPTOMS OF ACUTE DISTRESS NOTED. ASPIRATION AND FALL PRECAUTIONS IN PLACE. CALL LIGHT WITHIN REACH. WILL CONTINUE TO MONITOR FREQUENTLY.
[2017-01-14] MEDS: GENTAMICIN 100 mg/50 mL NS 50 ML IV SCH ×2 (03:53→15:08)
[2017-01-14] MEDS: KCL 20 mEq in D5/0.45NS 1000mL 1,000 ML IV SCH (06:24)
--- NOTE | 2017-01-14 07:00 | NUR ---
CLOSING NOTES WILL ENDORSE CARE TO DAY SHIFT NURSE. PATIENT IS AWAKE AND RESTING IN SEMI-BURNETT'S POSITION. IV FLUIDS RUNNING. FALL AND ASPIRATION PRECAUTIONS IN PLACE. BED ALARM ON, CALL LIGHT WITHIN REACH.
[2017-01-14 07:23] LABS: BASOPHILS % (AUTO) 0.5 % (0.0-2.0); EOSINOPHILS # (AUTO) 0.2 K/uL (0.0-0.4); EOSINOPHILS % (AUTO) 2.8 % (0.0-4.0); HEMATOCRIT 34.3 % (36-54); HEMOGLOBIN 12.2 g/dL (14.0-18.0); LYMPHOCYTES # (AUTO) 1.2 K/uL (1.0-5.5); MEAN CORPUSCULAR HEMOGLOBIN 34 pg (27-31); MEAN CORPUSCULAR HGB CONC 36 % (32-36); MEAN CORPUSCULAR VOLUME 95 fL (79.0-98.0); MONOCYTES # (AUTO) 0.5 K/uL (0.0-1.0); MONOCYTES % (AUTO) 6.6 % (1.7-9.3); NEUTROPHILS # (AUTO) 5.3 K/uL (1.8-7.7); NEUTROPHILS % (AUTO) 73.1 % (40.0-70.0); PLATELET COUNT (AUTO) 283 K/uL (130-430); RED CELL DISTRIBUTION WIDTH 13.3 % (9.0-15.0); WHITE BLOOD COUNT (AUTO) 7.2 K/uL (4.8-10.8)
[2017-01-14 07:33] LABS: ALBUMIN 2.4 g/dL (3.4-4.8); CALCIUM 8.3 mg/dL (8.4-11.0); CREATININE 0.44 mg/dL (0.55-1.30); POTASSIUM 3.9 mmol/L (3.5-5.1); TOTAL BILIRUBIN 0.4 mg/dL (0.0-1.0); TOTAL PROTEIN, SERUM 6.4 g/dL (6.4-8.3)
[2017-01-14] MEDS: ACETAMINOPHEN 325 MG TABLET PO PRN (07:40)
[2017-01-14] MEDS: TAMSULOSIN HCL 0.4 MG CAP PO SCH (07:40)
[2017-01-14] MEDS: GABAPENTIN 300 MG CAPSULE PO SCH ×3 (07:40→20:55)
[2017-01-14] MEDS: CEFTAZIDIME 1 GM in D5W 50 ML IV SCH ×2 (07:41→21:06)
[2017-01-14] MEDS: clonazePAM 0.5 MG TABLET PO SCH ×4 (07:41→20:55)
[2017-01-14] MEDS: PANTOPRAZOLE SODIUM 40 MG/VIAL (PROTONIX) IVP SCH (07:41)
[2017-01-14] MEDS: BALSAM PERU/CASTOR OIL 60 GM OINT...G. TP SCH (07:42)
--- NOTE | 2017-01-14 07:55 | NUR ---
Request for patient pain med. Pain in FLACC score 2/10. Given prn and am meds.
--- NOTE | 2017-01-14 08:27 | NUR ---
Rounds for reposition. Talking with patient. Offered words of encouragement. Put care channel on for soothing music in the background.
--- NOTE | 2017-01-14 09:40 | NUR ---
Complete bedbath, reposition of patient. Patient oral care. Caregivers at bedside.
[2017-01-14] MEDS: PROMETHAZINE-DM 6.25 MG-15 MG/5 ML UDC PO PRN ×2 (09:47→14:07)
--- NOTE | 2017-01-14 12:04 | NUR ---
Patient tolerated 25% of meal and said he was full. Caregiver with patient at this time. Emptied ostomy bag for 300ml this am.
--- NOTE | 2017-01-14 13:51 | NUR ---
Patient assist in emptying ostomy bag and reposition. Monitored for skin breakdown. Heels floating on pillows.
--- NOTE | 2017-01-14 14:30 | NUR ---
Rounds with Doctor Merino to the patient bedside.
[2017-01-14] MEDS: BENZONATATE 100 MG CAPSULE (TESSALON) PO SCH ×2 (15:08→20:55)
[2017-01-14] MEDS: LORATADINE 10 MG TABLET PO SCH (15:08)
--- NOTE | 2017-01-14 15:38 | NUR ---
Given new medication regimen and IV fluids d/c. Will monitor for needs. Emptied 100ml from ostomy site.
--- NOTE | 2017-01-14 15:49 | NUR ---
DC PLANNING: CALLED KRISTAL-EDGARDOISON FROM [place], STILL NO BED AVAILABLE FROM [facility], WHERE FAMILY WANTS. SHE WILL CALL THE NURSE'S STATION IF THERE WILL BE A BED AVAILABLE TONIGHT.
[2017-01-14] MEDS: MIRTAZAPINE 15 MG TABLET PO SCH (17:02)
--- NOTE | 2017-01-14 17:44 | NUR ---
Rounds to patient for med pass. Caregiver present with patient. Emptied ostomy, 100mL. Wound vac intact no leaks detected. Suction at 75mmHg.
[2017-01-14] MEDS: ARIPiprazole 5 MG TAB PO SCH (20:54)
--- NOTE | 2017-01-14 21:00 | NUR ---
Medications Due medications administered as ordered. Tolerated po meds well.
--- NOTE | 2017-01-14 23:14 | NUR ---
Rounds Sleeping quietly, no apparent distress. Repositioned with pillow support. Call light within reach.
[2017-01-15] VITALS (7 sets, daily range): BP systolic 105–124; BP diastolic 73–93; PULSE 68–108; RESP 18–20; TEMP 97–99.4; O2SAT 94–99
[2017-01-15] MEDS: ALBUTEROL SULFATE 0.083% 2.5 MG/3 ML VIAL.NEB INH SCH ×4 (01:00→19:37)
--- NOTE | 2017-01-15 01:30 | NUR ---
Hygiene Incontinent of urine. Complete bed bath given by kiln furniture caster, turned and repositioned with pillow support. Ostomy bag changed, 250 cc liquid stool emptied.
--- NOTE | 2017-01-15 03:15 | NUR ---
Rounds Sleeping quietly, no apparent distress. No c/o pain or discomfort. Repositioned with pillow support. Call light within reach.
[2017-01-15] MEDS: GENTAMICIN 100 mg/50 mL NS 50 ML IV SCH ×2 (03:57→15:05)
[2017-01-15] MEDS: ACETAMINOPHEN 325 MG TABLET PO PRN (05:16)
--- NOTE | 2017-01-15 05:50 | NUR ---
Pain c/o abdominal pain. Tylenol given. Turned and repositioned with pillow support. Emptied ostomy bag with 100 cc liquid stool. Tolerated well.
--- NOTE | 2017-01-15 07:00 | NUR ---
Closing note Resting quietly, no apparent distress. No c/o pain. Requested repositioning. Turned and repositioned with pillow support. Wound vac in place, ostomy bag intact. All needs attended to. Call light within reach. Bed alarm on. Endorsed care to PEDRO Stanton via SBAR method.
--- NOTE | 2017-01-15 08:00 | NUR ---
NOTE PT RESTING IN BED. NO SOB/RESP DISTRESS OR PAIN/ NOTED AT THIS TIME. PICC IN LEFT UPPER ARM INTACT AND PATENT AT THIS TIME. WOUND VAC ATTACHED AND DRAINING AT THIS TIME. PT IS ON AN AIR MATTRESS. PT'S RIGHT SIDED COLOSTOMY INTACT AND DRAINING WELL. CALL LIGHT WITHIN REACH. PT NEXT TO NURSES' STATION AT THIS TIME.
[2017-01-15] MEDS: CEFTAZIDIME 1 GM in D5W 50 ML IV SCH ×2 (09:07→20:42)
[2017-01-15] MEDS: PANTOPRAZOLE SODIUM 40 MG/VIAL (PROTONIX) IVP SCH (09:08)
[2017-01-15] MEDS: TAMSULOSIN HCL 0.4 MG CAP PO SCH (09:08)
[2017-01-15] MEDS: GABAPENTIN 300 MG CAPSULE PO SCH ×3 (09:08→20:41)
[2017-01-15] MEDS: LORATADINE 10 MG TABLET PO SCH (09:08)
[2017-01-15] MEDS: BALSAM PERU/CASTOR OIL 60 GM OINT...G. TP SCH (09:08)
[2017-01-15] MEDS: clonazePAM 0.5 MG TABLET PO SCH ×4 (09:08→20:41)
[2017-01-15] MEDS: BENZONATATE 100 MG CAPSULE (TESSALON) PO SCH ×3 (10:15→20:41)
--- NOTE | 2017-01-15 12:00 | NUR ---
NOTE PT TURNED AND HYGIENE CARE GIVEN NEEDED BY NURSING STUDENTS AND DEBATE DIRECTOR AT THIS TIME. OSTOMY BAG EMPTIED AND CLEANED FREQUENTLY REQUESTED. NO NEEDS NOTED AT THIS TIME. PT'S CARE GIVERS ARE AT BEDSIDE ASSISTING PT TO EAT HIS PUREED DIET FOR BREAKFAST AND LUNCH. NO NEEDS NOTED AT THIS TIME.
--- NOTE | 2017-01-15 14:56 | NUR ---
DC PLANNING: CALLED KRISTAL-LIAISON FROM [facility], STILL NO BED AVAILABLE FROM [facility].
--- NOTE | 2017-01-15 16:00 | NUR ---
NOTE PT RESTING IN BED. PT TURNED AND PULLED UP IN BED FREQUENTLY AND NEEDED. PT'S COLOSTOMY BAG EMPTIED AND CLEANED AT THIS TIME WELL. PT TAKES HIS PO MEDICATIONS WHOLE AND ONE AT A TIME THIS SHIFT, WITHOUT DIFFICULTY. DR MART CAME TO FLOOR AND ASSESSMENT COMPLETED AT THIS TIME. CARE GIVERS AT BEDSIDE AT THIS TIME. CALL LIGHT WITHIN REACH.
[2017-01-15] MEDS: MIRTAZAPINE 15 MG TABLET PO SCH (17:25)
--- NOTE | 2017-01-15 18:10 | NUR ---
NOTE PT RESTING IN BED. PT'S OSTOMY BAG WAS EMPTIED AND CLEANED THROUGHOUT THE SHIFT. PT'S DRAINAGE WAS MOSTLY LOOSE AND FULL OF GAS. NO SOB/RESP DISTRESS OR PAIN/DISCOMFORT NOTED AT THIS TIME. PT HAS NON PRODUCTIVE COUGH, NO PHELEM NOTED. LEFT UPPER ARM INTACT AND PATENT AT THIS TIME. NO NEEDS NOTED. PT WAS CHECKED ON Q1' AND PRN FOR NEEDS AND CARE. PT WAS MAINTAINED WITH SAFETY PRECAUTIONS ALL SHIFT. CALL LIGHT WITHIN REACH. PT HAS BEEN ON AIR MATTRESS ALL SHIFT.
--- NOTE | 2017-01-15 20:00 | NUR ---
Initial note A/O x 1, no SOB, no chest pain, c/o general body ache, 2/10 but refused pain med at this time. Crackles lung souns upper lobes and diminished lung sounds lower lobes. Patient had some non-productive cough. Skin warm to touch, PICC line at L upper arm. Ileostomy at R ABD with some liquid stool noted. One incision at mid ABD, one lump (per family is Baclofen pump) at L ABD. Pressure ulcer III at coccxy, wound VAC in use, about 200 ml brown drainage in the canister. Quadriparesis, painful to move his arms/legs. SCD in use. Bed at lowest, bed alarm in use, closed to nursing station, call light within reach, will continue to monitor patient.
[2017-01-15] MEDS: ARIPiprazole 5 MG TAB PO SCH (21:11)
[2017-01-15] MEDS: PROMETHAZINE-DM 6.25 MG-15 MG/5 ML UDC PO PRN (21:14)
--- NOTE | 2017-01-15 21:15 | NUR ---
Phenergan PO given for cough.
--- NOTE | 2017-01-15 22:00 | NUR ---
Rounds Resting in bed, no SOB, no chest pain, no grimacing. Skin warm to touch, PICC line at L upper arm. Ileostomy at R ABD with some liquid stool noted. One incision at mid ABD, one lump (per family is Baclofen pump) at L ABD. Pressure ulcer III at coccxy, wound VAC in use, 200 ml brown drainage in the canister. SCD in use. Bed at lowest, bed alarm in use, closed to nursing station, call light within reach, will continue to monitor patient.
--- NOTE | 2017-01-16 | NUR ---
Rounds Resting/sleeping in bed, no SOB, no chest pain, no grimacing. Skin warm to touch, PICC line at L upper arm. Ileostomy at R ABD with some liquid stool noted. Wound VAC running at 125 mmHg continuously for pressure ulcer at coccyx. 200 ml brown drainage in the canister. SCD in use. Bed at lowest, bed alarm in use, closed to nursing station, call light within reach, will continue to monitor patient.
[2017-01-16] MEDS: ALBUTEROL SULFATE 0.083% 2.5 MG/3 ML VIAL.NEB INH SCH ×2 (00:20→19:48)
--- NOTE | 2017-01-16 02:00 | NUR ---
Rounds Awake in bed, no SOB, no chest pain, no grimacing. Skin warm to touch. Emptied 175 ml liquid stool from ileostomy. Performed perineal care. Wound VAC in use. SCD in use. Bed at lowest, bed alarm in use, closed to nursing station, call light within reach, will continue to monitor patient.
[2017-01-16] MEDS: GENTAMICIN 100 mg/50 mL NS 50 ML IV SCH ×2 (02:58→15:06)
[2017-01-16 04:07] VITALS: BP 107/63; PULSE 97; RESP 18; TEMP 97.2; O2SAT 94
--- NOTE | 2017-01-16 04:10 | NUR ---
Rounds Sleeping in bed, no SOB, no chest pain, no grimacing. Skin warm to touch. Ileostomy bag in place. Wound VAC in use. SCD in place. Bed at lowest, bed alarm in use, closed to nursing station, call light within reach, will continue to monitor patient.
--- NOTE | 2017-01-16 06:30 | NUR ---
Rounds Sleeping in bed, no SOB, no chest pain, no grimacing. Skin warm to touch. Ileostomy bag in place, emptied 400 ml liquid BM. Wound VAC in use. SCD in place. Bed at lowest, bed alarm in use, closed to nursing station, call light within reach, will give report to incoming nurse.
--- NOTE | 2017-01-16 07:30 | NUR ---
AM ROUNDS: PATIENT ON THE BED. SPEECH LANGUAGE SPECIALIST AT BEDSIDE. WITH IV TO TKO AT LEFT UPPER ARM PICCLINE DRESSING DRY AND IN SITU. ON AIR LOSS MATTRESS BED. WITH BILATERAL SCD,S ON LE. SACRAL WOUND ATTACHED TO WOUND VAC INTACT. NO DISTRESS. STABLE.
[2017-01-16 09:33] VITALS: BP 108/71; PULSE 110; RESP 19; TEMP 97.2; O2SAT 96
[2017-01-16] MEDS: PANTOPRAZOLE SODIUM 40 MG/VIAL (PROTONIX) IVP SCH (09:36)
[2017-01-16] MEDS: TAMSULOSIN HCL 0.4 MG CAP PO SCH (09:36)
[2017-01-16] MEDS: CEFTAZIDIME 1 GM in D5W 50 ML IV SCH ×2 (09:36→21:35)
[2017-01-16] MEDS: GABAPENTIN 300 MG CAPSULE PO SCH ×3 (09:36→21:22)
[2017-01-16] MEDS: clonazePAM 0.5 MG TABLET PO SCH ×4 (09:36→21:22)
[2017-01-16] MEDS: BENZONATATE 100 MG CAPSULE (TESSALON) PO SCH ×3 (09:37→21:22)
--- NOTE | 2017-01-16 09:51 | NUR ---
meds: well tolerated po meds with assistance. customer care specialist at bedside.
[2017-01-16] MEDS: BALSAM PERU/CASTOR OIL 60 GM OINT...G. TP SCH (09:58)
[2017-01-16] MEDS: LORATADINE 10 MG TABLET PO SCH (09:58)
--- NOTE | 2017-01-16 10:30 | NUR ---
DC PLANNING: F/U on bed assignment with Kimberly at [facility]: she stated still no bed available in any [facility] facilities today. Requested Kimberly to provide bed as soon as possible since the pt. has been waiting for 6 days already. Duyen made aware and Cm to f/u again in pm.
--- NOTE | 2017-01-16 11:00 | NUR ---
ROUNDS: RESTING. WOUND VAC IN SITU.
--- NOTE | 2017-01-16 12:05 | NUR ---
Nutrition F/U Admitting Diagnosis Fecal impaction, N/V, hypokalemia, moderate protein-calorie malnutrition Reviewed Pertinent Medical/Surgical Hx Medical record Patient's caregiver Medical History Comment: Spastic quadriparesis, severe GERD, mental delay per MD notes Subjective Information Pt seen resting in bed w/ caregiver at bedside. She reported that pt has been eating better, and no c/o difficulty chewing/swallowing current pureed diet. Pt noted on low air loss mattress. Per EMR, PO Intakes: 33% average x6 meals. I/O: 390/575 (-185 ml) per 12 hours. Current pureed diet is appropriate, though pt is not yet meeting optimal nutritional needs. Pt is not appropriate for nutrition education. Current Diet Order/Nutrition Support Pureed, high protein x3 day Patient/Significant Other Unable To Verbalize Education Provided Not Indicated Pertinent Medications Reviewed ceftazidime/D5% IV at 100 ml/hr (408 kcal/day) Pertinent Labs Reviewed Height (Feet) 5 feet Height (Inches) 8.00 inches Weight (Pounds) 119 pounds (admission) BEDSCALE WT: 131.5 kg/m2, 60 kg (01/10/17; unsure of accuracy); 125.7 lb, 57 kg (01/16/17; unsure of accuracy) Weight (Calculated Kilograms) 53.622263 kilograms Patient Weight 53.977 kg Body Mass Index 18.09 kg/m2 Usual Weight 123 lbs %UBW 97 %IBW 77 Hutchinson/Adjusted Body Weight IBW: 154 lb, 70 kg Recent Weight Change No Weight Status Underweight Last BM January 16, 2017; Output (stool): 575 ml 01/16/17 Difficulty With: Swallowing Chewing Usual Diet At Home Soft, blended foods Skin Integrity Comment: Fantasma scale of 11. Per Would Specialist note 01/10/17: 1) Coccyx: Unstageable Pressure Ulcer, present on admission, Now Stage IV post surgical debridement. Wound Vac not due to be changed until Monday. 2) Left Buttock: Chronic Wound, present on admission. Extension of Coccygeal wound. 3) Left Lateral Hip: Chronic Pressure Ulcer, prior unknown stage, present on admission. Current % PO Poor Estimated Energy Expenditure (kcals/day) 5181-5402 kcal/day (30-35 kcal/kg IBW for wt gain promotion and wound healing) Estimated Protein Required (g/day) 88-140 gm/day (1.25-1.5 gm/kg IBW for wt gain promotion and wound healing) Estimated Fluid Required (l/day) 2-2.5 L/day (1 ml/kcal/day for maintenance) Problem/Etiology/Signs/Symptoms Complicated GI function related to fecal impaction as evidenced by constipation and need for GI workups. *ongoing Expected Outcomes/Goals - Monitor appetite and PO intakes w/ goal of pt meeting at least 75% of estimated nutritional needs, labs trending WNL, normal GI function, and skin integrity/wt maintenance Dietitian Recommendations * Recommend pureed, 100 gm protein diet (pureed diet comes standard w/ Boost Plus TID, providing an additional 1080 kcal/day and 42 gm protein/day) * Recommend encourage increase PO intakes Follow Up Moderate Risk: F/U in 3-5 days
[2017-01-16 12:31] VITALS: BP 113/77; PULSE 109; RESP 16; TEMP 97.2; O2SAT 93
--- NOTE | 2017-01-16 13:20 | NUR ---
ROUNDS: DUE PO MEDS GIVEN. WELL TOLERATED. SE PT ON UP RIGHT POSITION PRIOR TO GIVING MEDS.
--- NOTE | 2017-01-16 13:52 | NUR ---
DISCHARGE PLANNING NOTE: OXYGEN EQUIPMENT TECHNICIAN called and left a voice mail for Kimberly White ([phone]), to follow up regarding pt's acceptance. OXYGEN EQUIPMENT TECHNICIAN requested a call back.
--- NOTE | 2017-01-16 15:00 | NUR ---
WOUND RE-EVALUATION: Patient received in a Aida Bed with an IsoFlex DELORES mattress with low air-loss therapy initiated, awake, alert, confused, limited verbal interaction. Patient is unable to turn independently. Fantasma Score is an 11. Intrinsic factors that delay wound healing: Hypoalbuminemia. Extrinsic factors that delay wound healing: Immobility. Wound Assessment: 1) Coccyx: Unstageable Pressure Ulcer, present on admission, Now Stage IV post surgical debridement. Wound bed is 65% yellow tissue, 35% red tissue. No odor, no drainage. 100% undermining present, deepest 2.4 cm at 7 o'clock. Wound measures 3.7 cm x 5.0 cm x 2.5 cm. Recommend continue: Cleanse wound with normal saline. Put SurePrep onto neda-wound. Put Venelex ointment onto wound bed. Put Black Granufoam dressing into wound cavity. Cover with Vac Drape. Lay Vac Drape from wound to non-bony portion of thigh. Lay down bridge of granufoam from wound to thigh, and cover with Vac Drape. Attach suction attachment and run Vac at 75 mmHg, continuous. Perform wound care q Monday/Monday/Monday, and as needed for dressing soiling or dislodgement. 2) Left Buttock: Chronic Wound, present on admission. Extension of Coccygeal wound. 100% red tissue. No odor, no drainage. Neda-wound intact. Recommend continue: Cleanse wound with normal saline. Pat dry. Put moisture barrier cream onto wound and neda-wound. Cover with foam dressing, then Vac Drape. Perform wound care daily, and as needed for dressing soiling or dislodgement. 3) Left Lateral Hip: Chronic Pressure Ulcer, prior unknown stage, present on admission. Scar tissue present. No odor, no drainage. Recommend continue: Cleanse wound with normal saline. Put moisture barrier cream onto site. Cover with foam dressing. Perform site care daily, and as needed for dressing soiling or dislodgement. Also recommend continue: Reposition patient side to side only every 2 hours with pillow support, and off-load pressure areas with pillows for pressure re-distribution. Offload, elevate and float bilateral heels with pillows. Perform skin care and monitor skin integrity Q shift. Use moisture barrier cream on buttocks and other moisture susceptible areas QID and as needed for soiling. Maintain patient on a low air-loss mattress.
--- NOTE | 2017-01-16 15:00 | NUR ---
WOUND VAC CARE: CLEANSE NS SACRAL AREA,VENELEX OINTMENT APPLIED TO WOUND BED,SURE PREP ON STACEY WOUND AREA,BLACK FOAM DRESSING ATTACHED AND CONNECTED TO WOUND VAC. PLACED OPTI FOAM GENTLE ON BONY PROMINENCE AT LEFT HIP.
[2017-01-16] MEDS: HYDROmorphone 1 MG INJ. 1 MG/ML AMPUL IVP PRN (15:02)
[2017-01-16 16:49] VITALS: BP 122/71; PULSE 106; RESP 17; TEMP 97.8; O2SAT 93
[2017-01-16] MEDS: MIRTAZAPINE 15 MG TABLET PO SCH (17:50)
--- NOTE | 2017-01-16 17:51 | NUR ---
MEAL: CAREGIVER FEEDING THE PATIENT DURING ROUNDS.
--- NOTE | 2017-01-16 18:44 | NUR ---
CLOSING NOTES: STABLE. SHIP'S CAPTAIN AT BEDSIDE. SACRAL WOUND VAC IN PLACED. ILEOSTOMY INTACT. CONTINUE TO MONITOR.
[2017-01-16 20:00] VITALS: BP 93/65; PULSE 111; RESP 18; TEMP 97.4; O2SAT 94
--- NOTE | 2017-01-16 20:07 | NUR ---
Rounds Received patient lying in bed resting, denies of any pain, no acute distress noted. IV site checked intact, IV fluid TKO. Wound vac in place, intact and patent. water filter cleaner at the bedside.
[2017-01-16] MEDS: ARIPiprazole 5 MG TAB PO SCH (21:40)
--- NOTE | 2017-01-16 22:10 | NUR ---
Rounds Patient resting quietly, no s/s of any pain, no acute distress noted. repositioned patient to side with pillow support. call light within reach.
[2017-01-17] VITALS: BP 102/65; PULSE 100; RESP 16; TEMP 97; O2SAT 96
[2017-01-17] MEDS: ALBUTEROL SULFATE 0.083% 2.5 MG/3 ML VIAL.NEB INH SCH ×3 (00:39→13:48)
--- NOTE | 2017-01-17 00:48 | NUR ---
Rounds Patient resting quietly, no s/s of any pain, no acute distress noted. repositioned patient to side with pillow support. call light within reach.
[2017-01-17] MEDS: HYDROmorphone 1 MG INJ. 1 MG/ML AMPUL IVP PRN ×4 (01:57→18:10)
[2017-01-17] MEDS: GENTAMICIN 100 mg/50 mL NS 50 ML IV SCH (01:57)
--- NOTE | 2017-01-17 02:52 | NUR ---
Rounds Patient resting quietly, no s/s of any pain, no acute distress noted. repositioned patient to side with pillow support. pain medication given earlier with effective result noted. call light within reach.
[2017-01-17 04:00] VITALS: BP 100/55; PULSE 91; RESP 16; TEMP 96.9; O2SAT 95
--- NOTE | 2017-01-17 05:08 | NUR ---
Rounds Patient resting quietly, no s/s of any pain, no acute distress noted. repositioned patient to side with pillow support. call light within reach.
--- NOTE | 2017-01-17 06:32 | NUR ---
Closing notes Patient resting quietly, pain medication given with effective result noted. call light within reach.
[2017-01-17 07:30] LABS: CALCIUM 8.6 mg/dL (8.4-11.0); CREATININE 0.53 mg/dL (0.55-1.30); POTASSIUM 4.3 mmol/L (3.5-5.1)
--- NOTE | 2017-01-17 07:30 | NUR ---
am rounds: patient awake during rounds. report given at bedside. wound vac at sacral area in placed. with ileostomy at right quadrant area ,moderate yellowish soft stools noted. piccline at left upper arm intact. no distress.
[2017-01-17 07:46] LABS: BASOPHILS % (AUTO) 0.4 % (0.0-2.0); EOSINOPHILS # (AUTO) 0.3 K/uL (0.0-0.4); HEMATOCRIT 38.5 % (36-54); HEMOGLOBIN 12.7 g/dL (14.0-18.0); LYMPHOCYTES # (AUTO) 1.7 K/uL (1.0-5.5); LYMPHOCYTES % (AUTO) 18.2 % (20.5-51.5); MEAN CORPUSCULAR HEMOGLOBIN 32 pg (27-31); MEAN CORPUSCULAR HGB CONC 33 % (32-36); MEAN CORPUSCULAR VOLUME 98 fL (79.0-98.0); MONOCYTES # (AUTO) 0.7 K/uL (0.0-1.0); MONOCYTES % (AUTO) 7.2 % (1.7-9.3); NEUTROPHILS # (AUTO) 6.5 K/uL (1.8-7.7); NEUTROPHILS % (AUTO) 71.2 % (40.0-70.0); PLATELET COUNT (AUTO) 280 K/uL (130-430); RED BLOOD CELL COUNT(AUTO) 3.95 MIL/uL (4.2-6.2); RED CELL DISTRIBUTION WIDTH 13.3 % (9.0-15.0); WHITE BLOOD COUNT (AUTO) 9.2 K/uL (4.8-10.8)
[2017-01-17 08:38] VITALS: BP 97/53; RESP 22; TEMP 98.4; O2SAT 93
[2017-01-17] MEDS: TAMSULOSIN HCL 0.4 MG CAP PO SCH (08:40)
[2017-01-17] MEDS: LORATADINE 10 MG TABLET PO SCH (08:40)
[2017-01-17] MEDS: BENZONATATE 100 MG CAPSULE (TESSALON) PO SCH ×2 (08:40→15:14)
[2017-01-17] MEDS: CEFTAZIDIME 1 GM in D5W 50 ML IV SCH (08:40)
[2017-01-17] MEDS: GABAPENTIN 300 MG CAPSULE PO SCH ×2 (08:40→15:14)
[2017-01-17] MEDS: clonazePAM 0.5 MG TABLET PO SCH ×3 (08:41→18:07)
[2017-01-17] MEDS: PANTOPRAZOLE SODIUM 40 MG/VIAL (PROTONIX) IVP SCH (08:41)
[2017-01-17] MEDS: BALSAM PERU/CASTOR OIL 60 GM OINT...G. TP SCH (08:54)
--- NOTE | 2017-01-17 09:07 | NUR ---
DC PLANNING: F/U on bed assignment with Kimberly at [facility]: she stated still no bed available in any [facility] facilities. She will be meeting with her administration regarding this matter. She will call back by noon with the answer. CM/ASSET PROTECTION OFFICER to f/u. Addendum: 01/17/17 at 1343 by Nicholas Rodriguez RN >> F/u with Kimberly, stated " Dr. Javier accepted the pt and is waiting for bed assignment for the pt. which she will get it today." >> Spoke with the pt's sister, Brii via phone # [phone] that the pt. is possibly be transfer to [facility] today to any available bed. The pt. can be moved to a bed closer to window later when there is one available. Brii is agreeable with the transfer, possibly after 7 pm to any bed at [facility] today. >> LM the above info with US Jay Jay for Liyah VASQUEZ , and to make sure to update the pt.'s dc package, and to call the ambulance when ready to transfer.
--- NOTE | 2017-01-17 09:20 | NUR ---
rounds: no problem. sacral wound vac in placed.
--- NOTE | 2017-01-17 11:40 | NUR ---
pain meds: patient moaning and due iv pain meds given per request.
[2017-01-17 12:25] VITALS: BP 98/67; PULSE 117; RESP 18; TEMP 97.4; O2SAT 93
[2017-01-17 13:50] VITALS: BP 98/67; PULSE 110
[2017-01-17] MEDS ORDERED: GENTAMICIN 100 mg/50 mL NS 50 ML IV SCH (15:00)
--- NOTE | 2017-01-17 15:46 | NUR ---
DC planning: Rec'd call from Kimberly at [facility]--pt can go to Rm 206B [facility] at 7pm tonight--call [phone] for report--MIGUELINA Rothman will arrange S transport for [id number] tonight--UNA VASQUEZ
--- NOTE | 2017-01-17 16:00 | NUR ---
rounds: with primary care coordinator at bedside. no distress.
--- NOTE | 2017-01-17 16:19 | NUR ---
As per Duyen CASE, arranged S ambulance transport with [facility] ([phone]) for 6:30pm to [facility] room 206B. Nurse to nurse # is [phone]. SUGARCANE PLANTER phoned and notified patient's sister, Brii [phone], of above. Up to date packet placed in nurses' station.
[2017-01-17 17:13] VITALS: BP 100/68; PULSE 114; RESP 18; TEMP 97.2; O2SAT 93
--- NOTE | 2017-01-17 17:40 | NUR ---
piccline dressing: piccline dressing changed aseptically.
[2017-01-17] MEDS: MIRTAZAPINE 15 MG TABLET PO SCH (18:07)
--- NOTE | 2017-01-17 19:07 | NUR ---
wound care/photos: stopped wound vac at sacral wound area.cleanse ns sacral wound area,venelex and tender wets x1 applied and cover with optifoam gentle.photos taken at sacral wound prior to wound care.
--- NOTE | 2017-01-17 19:20 | NUR ---
add notes: will endorsed to night nurse,rn needs to give report to [facility] lindo.
--- NOTE | 2017-01-17 19:22 | NUR ---
closing notes: patient ready for transfer. sister at bedside. alfredo piccline dressing dry and intact. ileostomy emptied.called for report but [facility] staff not available this time will call back for the report.patient stable.
--- NOTE | 2017-01-17 19:35 | NUR ---
AMBULANCE TRANSFER PATIENT LEFT THE UNIT WITH [facility]. GAVE REPORT TO AMBULANCE PERSONNEL. LAST VITALS WERE BP 107/67, HR 113, O2 95%, R18, T 97.1F. PATIENT WAS STABLE, NO ACUTE SIGNS OR SYMPTOMS OF DISTRESS NOTED. FAMILY AT BEDSIDE. 1939 ATTEMPTED TO CALL IN REPORT TO COMFORT HERNANDEZ TO GIVE REPORT. NO ANSWER AT THIS TIME. WILL ATTEMPT TO CALL AGAIN.
[2017-01-17] MEDS ORDERED: CEFTAZIDIME 1 GM in D5W 50 ML IV SCH (21:00)
[2017-01-18] MEDS ORDERED: PANTOPRAZOLE SODIUM 40 MG TAB PO SCH (09:00)
== END 2017-01-17 19:58 | DRG 329 ==
LOC: SED 06:38 → SMU 09:57
PROVIDERS: ADMIT Internal Medicine; ATTEND Internal Medicine
PROC: 0DJD8ZZ Inspection of Lower Intestinal Tract, Via Natural or Artificial Opening Endoscopic (ICD-10-PCS; principal; 2017-01-06 10:30)
PROC: 02H633Z Insertion of Infusion Device into Right Atrium, Percutaneous Approach (ICD-10-PCS; 2017-01-09)
PROC: B244ZZZ Ultrasonography of Right Heart (ICD-10-PCS; 2017-01-09)
PROC: 0DTJ0ZZ Resection of Appendix, Open Approach (ICD-10-PCS; 2017-01-10)
PROC: 0D1B0Z4 Bypass Ileum to Cutaneous, Open Approach (ICD-10-PCS; 2017-01-10)
PROC: 0QB10ZZ Excision of Sacrum, Open Approach (ICD-10-PCS; 2017-01-10)
DX: K56.41 Fecal impaction (principal); L89.154 Pressure ulcer of sacral region, stage 4; G82.50 Quadriplegia, unspecified; E44.1 Mild protein-calorie malnutrition; M46.28 Osteomyelitis of vertebra, sacral and sacrococcygeal region; N39.0 Urinary tract infection, site not specified; E87.6 Hypokalemia; R13.10 Dysphagia, unspecified; F41.1 Generalized anxiety disorder; K21.9 Gastro-esophageal reflux disease without esophagitis; J45.909 Unspecified asthma, uncomplicated; K80.20 Calculus of gallbladder without cholecystitis without obstruction; G80.9 Cerebral palsy, unspecified; B96.5 Pseudomonas (aeruginosa) (mallei) (pseudomallei) as the cause of diseases classified elsewhere; Z86.010 Personal history of colon polyps; Z93.2 Ileostomy status; Z87.01 Personal history of pneumonia (recurrent); Z79.899 Other long term (current) drug therapy
CPT/HCPCS: 36415; 45378; 71010; 72192-TC; 74000-TC; 74020-TC; 74230; 76700-TC; 78226; 80048; 80053; 80076; 80170-TC; 81000-TC; 83605; 83690-TC; 84484; 85007; 85025; 85027; 85610-TC; 85730-TC; 87070-TC; 87081; 87186-TC; 88302; 88304; 92611-GN; 93005; 94640; 94760; 96374; 96375; 99285; A5061; A6550; A9537; C1751; C9113; J0330; J0713; J1100; J1170; J1580; J2060; J2250; J2270; J2405; J3010; J3480; J7030; J7050; J7060; J7120

== ENCOUNTER 2017-03-06 19:42 | Inpatient (IN) | payer OTHER, MEDICAID ==
[~2017-03-06] VITALS: Ht 162.6 cm; Wt 44.5 kg
[~2017-03-06 19:42] MED LIST: ARIP20TA5 PO; CLON1TAB4 PO; FINA1TAB17 PO; GABA-531 PO; LANS30CA10 PO; MIRT30TA PO; NUC50 PO; TAMS0.4C96 PO
--- NOTE | 2017-03-06 23:10 | NUR ---
ADMIT NOTE Late entry due to pt. care. Pt. received via tammieer/manuel from ambulance. Belongings accounted for. Family present at bedside. Will continue to monitor.
--- NOTE | 2017-03-06 23:12 | NUR ---
WOUND CARE/PHOTOS Late entry due to pt. care. Wounds cleansed with NS and foam dressings applied to sacral, bilateral hip, and bilateral knees for protection of bony prominences. Ostomy bags placed to lower mid abdominal areas due to yellow greenish leakage. Photos taken and placed in chart. Seizure pads placed for safety. Will continue to monitor.
[2017-03-07] VITALS (10 sets, daily range): BP systolic 85–126
--- NOTE | 2017-03-07 00:21 | NUR ---
OPENING NOTE Pt. received as a direct admit from [facility] via stretcher/gurney from ambulance. Pt. and sister, Brii and cousin, Zenon with patient. Received pt. with left upper arm PICC, botello catheter, wound to sacrum, bilateral hips. Bruise noted to right upper arm. Abdomen oozing with yellow-green drainage connected to botello bag for drainage. Safety precautions in place. Room near nurses station. Bed alarm on. Will continue to monitor.
--- NOTE | 2017-03-07 00:29 | NUR ---
PAGED PAGED MARC JASON AT [phone] SPOKE WITH TRI.
--- NOTE | 2017-03-07 00:33 | NUR ---
PAGING DR. MART Paging Dr. Mart to obtain orders. Will wait for MD to call back.
--- NOTE | 2017-03-07 01:03 | NUR ---
SPOKE TO DR. MART Spoke to Dr. Mart. Pt. to be admitted, [facility] inpatient. New orders received.
[2017-03-07] MEDS ORDERED: NACL 0.9% 1,000 ML IV SCH (01:15)
--- NOTE | 2017-03-07 01:15 | NUR ---
CONSULTATION PAGED REASON FOR CONSULTATION:SEPSIS WAS CONSULT CALLED?Y PERSON WHO WAS NOTIFIED:TRI CONSULTING PHYSICIAN:ERVIN ARREDONDO BISQUE KILN PLACER SPECIALTY:INFECTIOUS DISEASE BISQUE KILN PLACER PHONE NUMBER:[phone]
--- NOTE | 2017-03-07 01:19 | NUR ---
CONSULTATION PAGED REASON FOR CONSULTATION:FISTULA WAS CONSULT CALLED?Y PERSON WHO WAS NOTIFIED:TRI CONSULTING PHYSICIAN:SHOSHANA FABIAN BUS DRIVER SUPERVISOR SPECIALTY:SURGEON BUS DRIVER SUPERVISOR PHONE NUMBER:[phone]
[2017-03-07] MEDS: HYDROmorphone 1 MG INJ. 1 MG/ML AMPUL IVP PRN ×3 (01:50→21:45)
--- NOTE | 2017-03-07 01:57 | NUR ---
PAIN Pt. given Dilaudid 1mg IVP as ordered PRN for severe pain by PEDRO Raphael, charge nurse. See EMAR. Educated pt. regarding medication and s/e but unable to assess pt.'s response to teaching. Safety precautions in place. Bed alarm on. Room near nurses station. Will continue to monitor.
--- NOTE | 2017-03-07 02:04 | NUR ---
SPOKE TO LAB Spoke to Maria R from lab regarding pt.'s orders for lactic acid and blood cultures. Maria R said she was aware.
[2017-03-07] MEDS ORDERED: ONDA4TAB5 IVP (02:23)
[2017-03-07] MEDS ORDERED: LOVI40 SQ (02:25)
[2017-03-07] MEDS ORDERED: ONDANSETRON 4 MG ODT TAB JT SCH (02:30)
[2017-03-07] MEDS ORDERED: METOCLOPRAMIDE HCL 10 MG TABLET JT PRN (02:30)
[2017-03-07] MEDS ORDERED: ALBUTEROL SULFATE 0.083% 2.5 MG/3 ML VIAL.NEB INH PRN (02:30)
[2017-03-07] MEDS ORDERED: POLY15DR56 OP (02:51)
[2017-03-07] MEDS ORDERED: PROM5SYR PO (02:51)
[2017-03-07] MEDS ORDERED: BENZ150C4 PO (02:51)
[2017-03-07] MEDS ORDERED: METO-290 IVP (02:51)
[2017-03-07] MEDS ORDERED: HYDR-3109 PO (02:51)
[2017-03-07] MEDS ORDERED: PROI40 IV (02:51)
[2017-03-07] MEDS ORDERED: PIPE3.379 IV (02:51)
[2017-03-07] MEDS ORDERED: ATII2 IVP (02:51)
[2017-03-07] MEDS ORDERED: ACET325C PO (02:51)
[2017-03-07] MEDS ORDERED: ALBU2.5V7 INH (02:51)
[2017-03-07] MEDS ORDERED: ARIP20TA10 PO (02:51)
[2017-03-07] MEDS ORDERED: TAMS0.4C96 PO (02:51)
[2017-03-07] MEDS ORDERED: MIRT30TA7 PO (02:51)
[2017-03-07] MEDS ORDERED: HYDR1AMP2 INJ (02:51)
[2017-03-07] MEDS ORDERED: GABA300S PO (02:51)
[2017-03-07] MEDS ORDERED: VANC750P5 IV (02:51)
[2017-03-07] MEDS ORDERED: MINE473O2 PO (02:51)
[2017-03-07] MEDS ORDERED: CLON0.5T4 PO (02:51)
[2017-03-07] MEDS ORDERED: HYDROcodone/ACETAMIN 10-325 MG TAB PO PRN (03:45)
[2017-03-07] MEDS ORDERED: PROMETHAZINE 6.25 MG/ CODEINE 10 MG/ 5 ML PO PRN (03:45)
[2017-03-07 04:05] LABS: BILIRUBIN,URINE NEGATIVE (NEGATIVE); BLOOD, URINE 3+ (NEGATIVE); CLARITY/URINE CLOUDY (CLEAR); COLOR,URINE YELLOW (YELLOW); GLUCOSE,URINE NEGATIVE (NEGATIVE); KETONES,URINE NEGATIVE (NEGATIVE); LEUKOCYTE ESTERASE ,URINE 1+ (NEGATIVE); NITRITE, URINE NEGATIVE (NEGATIVE); PROTEIN URINE 1+ (NEGATIVE); UROBILINOGEN,URINE 0.2 (0.2-1.0)
[2017-03-07] MEDS ORDERED: ACETAMINOPHEN 325 MG TABLET PO PRN (04:30)
[2017-03-07] MEDS ORDERED: ONDA2VIA2 IVP (04:36)
[2017-03-07] MEDS ORDERED: REGI10 IVP (04:36)
[2017-03-07] MEDS: LORazepam 2 MG/ML VIAL IVP PRN (04:49)
[2017-03-07 05:05] LABS: BACTERIA,URINE MANY /HPF (None Seen); WBC,URINE >100 /HPF (0-3)
[2017-03-07 05:06] LABS: MUCUS,URINE None Seen /LPF (None Seen); YEAST,URINE Moderate /HPF (None Seen)
--- NOTE | 2017-03-07 05:38 | NUR ---
TYLENOL/ATIVAN Ativan given as ordered PRN for agitation d/t pt. yelling and being restless. Tylenol 650mg given crushed with applesauce, as ordered PRN for fever. Pt.'s temp 102F. Pt. tolerated well. Aspiration precautions in place. Will continue to monitor.
[2017-03-07] MEDS ORDERED: PIPERACILLIN/TAZOBACTAM 3.375 GM/VIAL (ZOSYN) IV ONE (05:59)
[2017-03-07] MEDS: PIPERACILLIN/TAZO 3.375/DEX-IS 50 ML IV SCH ×4 (06:00→23:38)
[2017-03-07 06:26] LABS: BASOPHILS # (AUTO) 0.1 K/uL (0.0-0.2); EOSINOPHILS % (AUTO) 0.3 % (0.0-4.0)
[2017-03-07 06:44] LABS: ALBUMIN 2.9 g/dL (3.4-4.8); CALCIUM 8.9 mg/dL (8.4-11.0); CREATININE 1.28 mg/dL (0.55-1.30); POTASSIUM 3.5 mmol/L (3.5-5.1); TOTAL BILIRUBIN 0.9 mg/dL (0.0-1.0); TOTAL PROTEIN, SERUM 8.1 g/dL (6.4-8.3)
[2017-03-07 06:45] LABS: BASOPHILS % (AUTO) 0.5 % (0.0-2.0); HEMATOCRIT 41.3 % (36-54); HEMOGLOBIN 13.2 g/dL (14.0-18.0); LYMPHOCYTES % (AUTO) 7.6 % (20.5-51.5); MEAN CORPUSCULAR HEMOGLOBIN 31 pg (27-31); MEAN CORPUSCULAR HGB CONC 32 % (32-36); MEAN CORPUSCULAR VOLUME 98 fL (79.0-98.0); MONOCYTES # (AUTO) 0.6 K/uL (0.0-1.0); MONOCYTES % (AUTO) 4.8 % (1.7-9.3); NEUTROPHILS # (AUTO) 11.4 K/uL (1.8-7.7); NEUTROPHILS % (AUTO) 86.8 % (40.0-70.0); PLATELET COUNT (AUTO) 298 K/uL (130-430); RED BLOOD CELL COUNT(AUTO) 4.24 MIL/uL (4.2-6.2); RED CELL DISTRIBUTION WIDTH 13.1 % (9.0-15.0); WHITE BLOOD COUNT (AUTO) 13.1 K/uL (4.8-10.8)
--- NOTE | 2017-03-07 06:56 | NUR ---
CLOSING NOTES All needs met. Pt. is resting quietly in bed with eyes closed. Respirations are even and unlabored with visible chest rise and fall. Safety and fall precautions in place. Bed alarm on. Call light to right hand. Will endorse care to oncoming day shift nurse.
--- NOTE | 2017-03-07 07:44 | NUR ---
Nutrition Update Fantasma Scale 11 noted. Pt admitted for abd pain r/o leaking fistula sepsis. Diet: NPO BMI: 20.1 kg/m2 RD to follow per nutrition care standards.
--- NOTE | 2017-03-07 07:45 | NUR ---
AM ROUNDS PATIENT RESTING IN BED, AWAKE, ALERT AND ORIENTED X1- REORIENTED TO PLACE, TIME AND EVENT, PATIENT NODDED IN UNDERSTANDING, PATIENT DENIES PAIN, ASSESSMENT COMPLETE, PATIENT HAS TWO OSTOMY BAGS ON THE RIGHT LOWER ABDOMEN, HOYT CATHETER IN PLACE, DRAINING TO GRAVITY, PICC LINE ON THE LEFT UPPER ARM, FLUSHING WELL, PATIENT BED CLOSE TO NURSE'S STATION, BED ALARM ON, BED IN LOWEST POSITION, THREE SIDE RAILS UP, WILL CONTINUE TO MONITOR.
--- NOTE | 2017-03-07 07:48 | NUR ---
DR. TUCKER Burden called with new orders for CBC, CMP, PT/INR, PTT, CXR AND EKG. Oncoming nurse, Cameron, RN also made aware.
[2017-03-07 08:26] LABS: INR 1.3 (0.80-1.20); PROTHROMBIN TIME 14.2 SECS (9.5-12.5)
[2017-03-07] MEDS ORDERED: *TPN PER PHARMACY XX PRN (08:45)
[2017-03-07] MEDS: ENOXAPARIN SODIUM 40 MG/0.4 ML SYRINGE SQ SCH (08:46)
[2017-03-07] MEDS ORDERED: KCL 20 mEq in D5W 1000 mL 1,000 ML IV SCH (08:46)
[2017-03-07] MEDS: PANTOPRAZOLE SODIUM 40 MG/VIAL (PROTONIX) IV SCH ×2 (08:51→21:36)
[2017-03-07] MEDS: GABAPENTIN 300 MG CAPSULE PO SCH ×3 (08:51→21:00)
[2017-03-07] MEDS: BENZONATATE 100 MG CAPSULE (TESSALON) PO SCH ×2 (08:51→14:53)
--- NOTE | 2017-03-07 08:51 | NUR ---
RN ROUNDS PATIENT RESTING IN BED, AWAKE, DENIES PAIN, EDUCATED ON MEDICATION AND POTENTIAL SIDE EFFECTS, PATIENT NODDED IN UNDERSTANDING AT THIS TIME, FAMILY IS AT THE BEDSIDE, CRUSHED MEDICATIONS AND PLACED IN APPLE SAUCE, PATIENT TOLERATED WELL AT THIS TIME, BED IN LOWEST POSITION, THREE SIDE RAILS UP, BED ALARM ON, FALL AND ASPIRATION PRECAUTIONS IN PLACE, BED CLOSE TO NURSE'S STATION, WILL CONTINUE TO MONITOR.
[2017-03-07] MEDS: MINERAL OIL 30 ML UDC PO SCH ×2 (09:00→21:00)
[2017-03-07] MEDS ORDERED: [UNRECOGNIZED DRUG - OTHER] IV SCH (09:00)
[2017-03-07] MEDS ORDERED: VANCOMYCIN HCL IN DEXTROSE IV SCH (09:00)
[2017-03-07] MEDS ORDERED: VANCOMYCIN HCL 750 MG in NS 250 ML IV SCH (09:00)
[2017-03-07] MEDS ORDERED: FLUCONAZOLE 200 mg/ NS 100 ML IV SCH (09:00)
[2017-03-07] MEDS ORDERED: clonazePAM 0.5 MG TABLET PO SCH ×2 (09:00)
[2017-03-07] MEDS ORDERED: TAMSULOSIN HCL 0.4 MG CAP PO SCH (09:00)
--- NOTE | 2017-03-07 09:08 | NUR ---
GI CONSULT Spoke with Justine regarding request for consultation with Dr. Ochoa ([phone]) for reason: vomiting.
--- NOTE | 2017-03-07 10:56 | NUR ---
RN ROUNDS PATIENT RESTING IN BED, COMPLAINING OF SEVERE PAIN, EDUCATED THE PATIENT AND FAMILY ON PAIN MEDICATION, IV FLUIDS, AND IV ANTIBIOTIC AND POTENTIAL SIDE EFFECTS, PATIENT VERBALIZED UNDERSTANDING AT THIS TIME, PICC LINE IS PATENT AND INFUSING WELL, BED IN LOWEST POSITION, THREE SIDE RAILS UP, BED ALARM ON, BED CLOSE TO NURSE'S STATION, FALL AND ASPIRATION PRECAUTIONS IN PLACE, WILL CONTINUE TO MONITOR.
--- NOTE | 2017-03-07 11:26 | NUR ---
DR HUGHES ASSESSING THE PATIENT AT BEDSIDE, STATED TO TAKE OUT THE HOYT CATHETER THAT THE PATIENT CAME UP AND REPLACE WITH A NEW CONDOM CATHETER, WILL FOLLOW UP.
--- NOTE | 2017-03-07 11:30 | NUR ---
RN ROUNDS/DC HOYT PATIENT RESTING IN BED, FAMILY AT BEDSIDE, INFORMED THE FAMILY THAT DR HUGHES WOULD LIKE US TO REMOVE THE [facility]T THAT WAS [facility] AND REPLACE IT WITH A CONDOM CATHETER, FAMILY MEMBER VERBALIZED UNDERSTANDING, PATIENT TOLERATED PROCEDURE WELL.
--- NOTE | 2017-03-07 12:38 | NUR ---
DR MART SPOKE WITH DR HOPSON, FAMILY MEMBER STATED THEY DO NOT WANT DR CEBALLOS TO DO THE SURGERY ON THE PATIENT, DR MART STATED THAT DR CEBALLOS WILL NEED TO SPEAK WITH THE FAMILY IN REGARDS TO THIS, WILL FOLLOW UP.
--- NOTE | 2017-03-07 13:58 | NUR ---
DR CEBALLOS/DR MART BOTH HERE TO SEE THE PATIENT, SPOKE WITH FAMILY REGARDING SURGERY, FAMILY IS AGREEABLE.
--- NOTE | 2017-03-07 14:34 | NUR ---
PULMONARY CONSULT Spoke with Elizabeth regarding request for consultation with Dr. Gupta ([phone]) for reason: Post OP management - surgery 4 PM.
--- NOTE | 2017-03-07 14:47 | NUR ---
SPOKE WITH DR HUGHES TO CLARIFY IF THERE ARE ANY ANTIBIOTICS THE PATIENT NEEDS PRIOR TO SURGERY, PER DR MART, NO NEW ORDERS.
--- NOTE | 2017-03-07 14:58 | NUR ---
DR SHAH HERE TO SEE THE PATIENT AT THIS TIME, WILL FOLLOW UP WITH ANY NEW ORDERS.
[2017-03-07] MEDS ORDERED: MIDAZOLAM HCL 5 MG/5 ML VIAL IVP ONE (15:20)
[2017-03-07] MEDS ORDERED: KETOROLAC TROMETHAMINE 30 MG VIAL IVP ONE (15:20)
[2017-03-07] MEDS ORDERED: ONDANSETRON HCL 4 MG/2 ML VIAL IVP ONE (15:20)
[2017-03-07] MEDS ORDERED: PROPOFOL 200MG/ 20ML VIAL (DIPRIVAN) IV ONE (15:20)
[2017-03-07] MEDS ORDERED: DEXAMETHASONE SOD PHOSPHATE 4 MG/ML VIAL IVP ONE (15:20)
[2017-03-07] MEDS ORDERED: KETAMINE HCL 500 MG/10 ML VIAL IVP ONE (15:20)
[2017-03-07] MEDS ORDERED: ROCURONIUM BROMIDE 10 MG/ML (ZEMURON) IV ONE (15:20)
[2017-03-07] MEDS ORDERED: fentaNYL CITRATE 250 MCG/5 ML AMP IV ONE (15:20)
[2017-03-07] MEDS ORDERED: NS IRRIG SOLN 1000 ML IR ONE (15:20)
[2017-03-07] MEDS ORDERED: NS 1000 ML BAG IV ONE (15:20)
--- NOTE | 2017-03-07 15:30 | NUR ---
PATIENT OFF THE UNIT TO OPERATING ROOM, STABLE CONDITION AT THIS TIME.
[2017-03-07] MEDS ORDERED: MEPERIDINE HCL/PF 25 MG/ML DISP.SYRIN IVP PRN (15:45)
[2017-03-07] MEDS ORDERED: LR 1,000 ML IV SCH (15:45)
[2017-03-07] MEDS ORDERED: HYDROmorphone 1 MG INJ. 1 MG/ML AMPUL IVP PRN (15:45)
[2017-03-07] MEDS ORDERED: HYDROmorphone 2 MG/ML VIAL IVP PRN ×2 (15:45)
--- NOTE | 2017-03-07 15:45 | NUR ---
Wound Evaluation: Attempted to evaluate patient's wounds, but patient was in the operating room and is going to have surgical debridement. Will follow up on next treatment day for wound care orders. Per PEDRO Barnes, Dr. Burden was planning on surgical debridement with wound VAC placement.
[2017-03-07 16:48] LABS: PHOSPHORUS 5.7 mg/dL (2.7-4.5)
--- NOTE | 2017-03-07 17:02 | NUR ---
REPORT TO ICU NURSE PEDRO BARTLETT TO RECEIVE PATIENT AFTER SURGERY.
[2017-03-07] MEDS ORDERED: POTASSIUM CHLORIDE IV SCH ×8 (18:00)
[2017-03-07] MEDS ORDERED: TPN CENTRAL IV SCH ×8 (18:00)
[2017-03-07] MEDS ORDERED: [UNRECOGNIZED DRUG - OTHER] IV SCH ×8 (18:00)
[2017-03-07] MEDS ORDERED: SODIUM ACETATE IV SCH ×8 (18:00)
--- NOTE | 2017-03-07 18:30 | NUR ---
ADMISSION: RECEIVED PT FROM PACU IN STABLE CONDITION, S/P EX LAP REPAIR OF ENTERO-CUTANEOUS FISTULA WITH BOWEL RESECTION, RIGHT SIDE COLOSTOMY, ORLY DRAIN WITH MODERATE AMT OF SEROSANGUINEOUS DRAINAGE, DEBRIDEMENT OF SACRAL WOUND WITH WOUND VAC IN PLACE, PICC LINE TO RIGHT UPPER ARM PATENT, CLEAN DRY AND INTACT, 4L O2 VIA T-BAR, BREATH SOUNDS CLEAR, BREATHING UNLABORED, VS WNL, NO INDICATION OF PAIN OR DISCOMFORT, WILL CONT' TO MONITOR AND ASSESS.
--- NOTE | 2017-03-07 18:45 | NUR ---
GLUCOSE MONITORING: BLOOD SUGAR [id number], NO COVERAGE REQUIRED.
--- NOTE | 2017-03-07 18:45 | NUR ---
HOYT CATH INSERTED 16 FR, USING ASEPTIC TECHNIQUE, TOLERATED WELL, WILL CONT' WITH PLAN OF CARE.
[2017-03-07] MEDS: FAT EMULSIONS 250 ML IV SCH (18:58)
[2017-03-07 19:21] LABS: BLOOD GAS PH 7.373 (7.350-7.450)
[2017-03-07 19:22] LABS: ABG TOTAL HEMOGLOBIN 12.5 G/dL (12.0-18.0); BLOOD GAS BASE EXCESS -2.8 mmol/L (-3.0-3.0); BLOOD GAS COHb% 0.6 % (0.5-1.5); BLOOD GAS HHB 1.2 % (0.0-6.0); BLOOD O2Hb% 97.8 % (94.0-97.0)
--- NOTE | 2017-03-07 19:30 | NUR ---
Call dr. Gupta exchange [address] Gupta
--- NOTE | 2017-03-07 19:54 | NUR ---
1845 PLACED PT ON T-PIECE @ 4LPM. ABG AFTER 30 MINS. RESULTS REPORTED TO TANJA. AWAITING CALL FROM PULM CONSULT.
--- NOTE | 2017-03-07 20:00 | NUR ---
PM round Pt eye closed. Pt on T-bar 36%. Breathing symmetrically. Non labored breathing. PICC noted on the left upper arm, dressing need to changed on the 03/08/17 every Monday. IV infusing 20meq potassium D5 80ml/hr, lipid at 10ml/hr, and TPN at 42ml/hr. patent. DVT prophylaxis bilateral scd's on the lower extremities. HOB elevated for aspiration precaution. Wound vac on the sacral noted, intact. multiple wounds noted, covered with dressing. Repositioned to comfort. on the left. Safety precaution in place. Bed in the lowest positioned, locked. Will continue to monitor
--- NOTE | 2017-03-07 20:29 | NUR ---
Dr. hinds called back spoke to charge nurse to place pt on SIMV 10, TV 450, FIO2 40%, PS 10.
--- NOTE | 2017-03-07 20:40 | NUR ---
Pt was placed on vent. Pt spo2 at 100%.
[2017-03-07] MEDS ORDERED: ARIPiprazole 5 MG TAB PO SCH (21:00)
[2017-03-07] MEDS ORDERED: ARIPIPRAZOLE 20 MG PO SCH (21:00)
[2017-03-07] MEDS ORDERED: MIRTAZAPINE 15 MG TABLET PO SCH (21:00)
[2017-03-07] MEDS ORDERED: NS 500 ML IV ONE (21:30)
--- NOTE | 2017-03-07 21:31 | NUR ---
DR ROYCE Brown notified regarding low systolic BP, orders received. Normal Saline IV 500ML bolus
--- NOTE | 2017-03-07 23:10 | NUR ---
Spoke to Dr. Merino. aware of blood pressure levels. New order given for bolus 1000ml and 0.45% NS at 120ml/hr. carried out
[2017-03-07] MEDS ORDERED: NACL 0.9% 1,000 ML IV ONE (23:15)
[2017-03-07] MEDS: 0.45% NACL 1,000 ML IV SCH (23:27)
[2017-03-08] VITALS (25 sets, daily range): BP systolic 90–155
[2017-03-08] MEDS: LORazepam 2 MG/ML VIAL IVP PRN ×3 (02:30→20:41)
--- NOTE | 2017-03-08 02:30 | NUR ---
Pt appeared to be distressed. Facial grimacing noted. Ativan 0.5 IVP administered. will monitor
[2017-03-08] MEDS: HYDROmorphone 1 MG INJ. 1 MG/ML AMPUL IVP PRN ×3 (03:13→19:48)
[2017-03-08 06:29] LABS: BASOPHILS % (AUTO) 0.1 % (0.0-2.0); HEMATOCRIT 28.4 % (36-54); HEMOGLOBIN 9.2 g/dL (14.0-18.0); LYMPHOCYTES # (AUTO) 0.5 K/uL (1.0-5.5); LYMPHOCYTES % (AUTO) 4.8 % (20.5-51.5); MEAN CORPUSCULAR HEMOGLOBIN 32 pg (27-31); MEAN CORPUSCULAR HGB CONC 33 % (32-36); MEAN CORPUSCULAR VOLUME 98 fL (79.0-98.0); MONOCYTES # (AUTO) 0.2 K/uL (0.0-1.0); MONOCYTES % (AUTO) 2.2 % (1.7-9.3); NEUTROPHILS # (AUTO) 10.1 K/uL (1.8-7.7); NEUTROPHILS % (AUTO) 92.9 % (40.0-70.0); PLATELET COUNT (AUTO) 172 K/uL (130-430); RED BLOOD CELL COUNT(AUTO) 2.88 MIL/uL (4.2-6.2); RED CELL DISTRIBUTION WIDTH 13.6 % (9.0-15.0); WHITE BLOOD COUNT (AUTO) 10.8 K/uL (4.8-10.8)
[2017-03-08] MEDS: PIPERACILLIN/TAZO 3.375/DEX-IS 50 ML IV SCH ×4 (06:29→23:56)
--- NOTE | 2017-03-08 06:55 | NUR ---
closing note Pt eye closed. Pt awake to voice stimuli. Pt Blood pressure 94/57, pulse 81, 98% spo2. will enodrsed to the day shift to continue care.
[2017-03-08 07:02] LABS: ALBUMIN 1.8 g/dL (3.4-4.8); CALCIUM 7.4 mg/dL (8.4-11.0); CREATININE 1.15 mg/dL (0.55-1.30); PHOSPHORUS 2.5 mg/dL (2.7-4.5); POTASSIUM 3.7 mmol/L (3.5-5.1); TOTAL BILIRUBIN 0.2 mg/dL (0.0-1.0); TOTAL PROTEIN, SERUM 5.3 g/dL (6.4-8.3)
--- NOTE | 2017-03-08 07:25 | NUR ---
MD ROUNDING: Dr. Angelique MCADAMS at bedside examining patient, updated on patient condition.New orders received.
--- NOTE | 2017-03-08 07:30 | NUR ---
BEGINNING OF SHIFT: Received patient awake,alert,oriented x 3, appears anxious, non-verbal, intubated. Clear lung sounds heard on auscultation. PICC line on left upper arm is patent,flushable with blood return,dressing clean,dry and intact.Currently he is receiving 1/2 NS at rate of 120 mls/hr, TPN @ rate of 42 mls/hr and Lipids at rate of 10 mls/hr.Wound vac seal tight and ORLY, no drainage noted. Dressings are clean and intact. No signs of distress, vss noted at this time. Patient bed in locked, lowest position, upper side rails x 2 up, call light within easy reach. Dr. Skinner at bedside examining patient. Patient continues to be monitored closely.
--- NOTE | 2017-03-08 08:00 | NUR ---
MD COMMUNICATION: Dr. Gupta Patient appears restless, facial grimacing noted. Spoke with MD, received order for Lorazepam 1mg/0.5 ml IVP x 1 now.
[2017-03-08] MEDS ORDERED: METOCLOPRAMIDE HCL 10 MG/2 ML VIAL IVP PRN (08:15)
[2017-03-08] MEDS ORDERED: ONDANSETRON HCL 4 MG/2 ML VIAL IVP PRN (08:15)
[2017-03-08] MEDS ORDERED: ACETAMINOPHEN 325 MG TABLET NG PRN (08:15)
[2017-03-08 08:22] LABS: ABG TOTAL HEMOGLOBIN 10.4 G/dL (12.0-18.0); BLOOD GAS BASE EXCESS -3.7 mmol/L (-3.0-3.0); BLOOD GAS COHb% 0.3 % (0.5-1.5); BLOOD O2Hb% 96.3 % (94.0-97.0)
[2017-03-08] MEDS ORDERED: LORazepam 2 MG/ML VIAL IVP ONE (08:45)
--- NOTE | 2017-03-08 08:45 | NUR ---
MD ROUNDING: DR. MILES MCADAMS at bedside examining patient, updated on patient condition.
[2017-03-08] MEDS: 0.45% NACL 1,000 ML IV SCH (09:10)
[2017-03-08] MEDS: PANTOPRAZOLE SODIUM 40 MG/VIAL (PROTONIX) IV SCH ×2 (09:11→20:41)
[2017-03-08] MEDS: ENOXAPARIN SODIUM 40 MG/0.4 ML SYRINGE SQ SCH (09:11)
--- NOTE | 2017-03-08 10:10 | NUR ---
MD ROUNDING: Dr. Candy MCADAMS at bedside examining patient, updated on patient condition.
[2017-03-08] MEDS: D5/0.45 NS 1,000 ML IV SCH (10:37)
--- NOTE | 2017-03-08 10:40 | NUR ---
IV FLUIDS CHANGED IV fluids changed to D5 1/2 NS at rate of 50 mls/hr as ordered. No signs of distress, vss. Patient turned, repositioned and suctioned. Patient continues to be monitored closely.
[2017-03-08 10:55] LABS: ABG TOTAL HEMOGLOBIN 10.3 G/dL (12.0-18.0); BLOOD GAS BASE EXCESS -2.5 mmol/L (-3.0-3.0); BLOOD GAS COHb% 0.3 % (0.5-1.5); BLOOD GAS HHB 2.2 % (0.0-6.0); BLOOD GAS PH 7.419 (7.350-7.450)
[2017-03-08] MEDS: ALBUTEROL SULFATE 0.083% 2.5 MG/3 ML VIAL.NEB INH SCH ×4 (11:01→23:54)
--- NOTE | 2017-03-08 12:30 | NUR ---
PT UPDATE: Patient suctioned, turned and repositioned, provided oral care.No signs of distress, vss noted.
--- NOTE | 2017-03-08 13:00 | NUR ---
PT CARE: CHG bath given, changed linen, patient tolerated well, no signs of distress, vss. Will continue to monitor closely.
--- NOTE | 2017-03-08 13:30 | NUR ---
DRESSING CHANGE PICC line dressing changed using sterile technique.Dressing is clean,dry and intact. Addendum: 03/08/17 at 1419 by Emile Santana RN Patient tolerated well.No signs of distress, vss. Patient turned, repositioned, and suctioned.
--- NOTE | 2017-03-08 14:30 | NUR ---
MD COMMUNICATION: DR. ELLEN MCADAMS paged for lab value results. Waiting for MD to return call.
--- NOTE | 2017-03-08 16:10 | NUR ---
Extubation Pt awake alert and shaking head side to side. VSS. SR on monitor. HOB up. RT at bedside and extubated pt. Lots of celar oral secretions suctioned prior to extubation. Pt moaning upon extubation. 02 2L NC applied. Sats 99% and RR 26. Will monitor.
--- NOTE | 2017-03-08 16:10 | NUR ---
PT EXTUBATED AT THIS TIME AND PLACED ON 2LPM OF O2 VIA NASAL CANNULA WITH CAPNOGRAPHY ATTACHED TO MONITOR PT RESPIRATIONS AFTER EXTUBATION, NO RESP DISTRESS NTD, SAT LEVELS OF 100% NOTED ON MONITOR
--- NOTE | 2017-03-08 16:31 | NUR ---
Dr Cheek Second call out to Dr. Cheek regarding yeast in urine. No call back yet.
--- NOTE | 2017-03-08 17:10 | NUR ---
MD ROUNDING: DR. ELLEN MCADAMS at bedside examining patient, updated on patient condition.Received new orders.
[2017-03-08] MEDS: FAT EMULSIONS 250 ML IV SCH (17:35)
[2017-03-08] MEDS ORDERED: TPN CENTRAL IV SCH ×19 (18:00)
[2017-03-08] MEDS ORDERED: POTASSIUM CHLORIDE IV SCH ×19 (18:00)
[2017-03-08] MEDS ORDERED: SODIUM ACETATE IV SCH ×19 (18:00)
[2017-03-08] MEDS ORDERED: [UNRECOGNIZED DRUG - OTHER] IV SCH ×19 (18:00)
--- NOTE | 2017-03-08 19:15 | NUR ---
CLOSING NOTE: Endorsed care to PEDRO Bishop. Report given at bedside.Diflucan not given during shift, not available in pyxsis.Endorsed to PEDRO Bishop to give Medication when available.
--- NOTE | 2017-03-08 19:45 | NUR ---
PM ASSESSMENT Patient alert and oriented. Patient with PICC line on [place], intact and no sign of infection noted. D5 1/2 NS running @ 50ml/hr; TPN @ 42ml/hr and lipid at 10ml/hr. Ileostomy on RLQ intact. No redness or swelling noted on surrounding area. Wound Vac on sacrum with dressing, clean, dry and intact. Craig Catheter in place, draining yellow,clear urine. Patient in 2L O2 via NC. O2 sat at 98%. ORLY drain on LLQ, draining serosanguineous fluid. No sign of distress noted. Will continue to monitor.
--- NOTE | 2017-03-08 19:50 | NUR ---
PAIN Patient shouting, restless and facial grimacing noted. RN asked patient if he was having pain and the patient nodded. Dilaudid given to address pain. Will continue to monitor.
[2017-03-08] MEDS: FLUCONAZOLE 200 mg/ NS 100 ML IV SCH (19:54)
--- NOTE | 2017-03-08 20:30 | NUR ---
RESTLESS Pt. restless. Repositioned for comfort and all needs met. Will continue to monitor.
[2017-03-09] VITALS (17 sets, daily range): BP systolic 96–147
--- NOTE | 2017-03-09 | NUR ---
RESTLESS: Patient very restless and agitated. Repositioned for comfort. All needs met. Call light within reach. Encouraged to rest. Vital signs stable. Will continue to monitor.
[2017-03-09] MEDS: LORazepam 2 MG/ML VIAL IVP PRN ×4 (00:11→12:06)
--- NOTE | 2017-03-09 03:24 | NUR ---
Patient agitated and restless. All needs met. Repositioned for comfort. Ativan given. Will continue to monitor.
[2017-03-09] MEDS: ALBUTEROL SULFATE 0.083% 2.5 MG/3 ML VIAL.NEB INH SCH ×6 (03:56→23:00)
[2017-03-09] MEDS: HYDROmorphone 1 MG INJ. 1 MG/ML AMPUL IVP PRN ×3 (04:23→21:20)
--- NOTE | 2017-03-09 05:30 | NUR ---
XRAY XRAY TAKEN AT THIS TIME.
[2017-03-09] MEDS: PIPERACILLIN/TAZO 3.375/DEX-IS 50 ML IV SCH ×3 (06:20→17:20)
[2017-03-09 06:33] LABS: BASOPHILS % (AUTO) 0.3 % (0.0-2.0); EOSINOPHILS % (AUTO) 0.3 % (0.0-4.0); HEMATOCRIT 30.4 % (36-54); HEMOGLOBIN 9.8 g/dL (14.0-18.0); LYMPHOCYTES # (AUTO) 0.8 K/uL (1.0-5.5); LYMPHOCYTES % (AUTO) 9.4 % (20.5-51.5); MEAN CORPUSCULAR HEMOGLOBIN 32 pg (27-31); MEAN CORPUSCULAR HGB CONC 32 % (32-36); MEAN CORPUSCULAR VOLUME 99 fL (79.0-98.0); MONOCYTES # (AUTO) 0.2 K/uL (0.0-1.0); MONOCYTES % (AUTO) 2.8 % (1.7-9.3); NEUTROPHILS # (AUTO) 7.9 K/uL (1.8-7.7); NEUTROPHILS % (AUTO) 87.2 % (40.0-70.0); PLATELET COUNT (AUTO) 156 K/uL (130-430); RED BLOOD CELL COUNT(AUTO) 3.08 MIL/uL (4.2-6.2); RED CELL DISTRIBUTION WIDTH 13.1 % (9.0-15.0); WHITE BLOOD COUNT (AUTO) 8.9 K/uL (4.8-10.8)
[2017-03-09] MEDS: D5/0.45 NS 1,000 ML IV SCH (06:56)
[2017-03-09 07:00] LABS: CALCIUM 7.7 mg/dL (8.4-11.0); CREATININE 0.81 mg/dL (0.55-1.30); TOTAL BILIRUBIN 0.2 mg/dL (0.0-1.0); TOTAL PROTEIN, SERUM 5.8 g/dL (6.4-8.3)
--- NOTE | 2017-03-09 07:30 | NUR ---
AM ROUNDS RECEIVED PT UP IN BED. AWAKE, ALERT, RESPONDS TO NAME. GARBLES WORDS. RESPONDS TO SIMPLE COMMANDS APPROPRIATELY. BREATHING IS EVEN AND UNLABORED ON RA. F/C DRAINING CLEAR LAKISHA URINE. DRESSING TO ABD IS CDI. ILEOSTOMY WITH SMALL AMT DARK BROWN LIQUID. ORLY DRAIN TO LEFT ABD WITH SCANT SEROSANGUINEOUS DRAINAGE. PICC TO YOKO WITH IVF AND TPN INFUSING. PT IS ON AIR MATTRESS WITH WD VAC TO SACRUM.
[2017-03-09] MEDS: PANTOPRAZOLE SODIUM 40 MG/VIAL (PROTONIX) IV SCH ×2 (08:54→21:20)
[2017-03-09] MEDS: ENOXAPARIN SODIUM 40 MG/0.4 ML SYRINGE SQ SCH (08:54)
[2017-03-09] MEDS ORDERED: POTASSIUM CHLORIDE 40 MEQ in NS 250 ML IV ONE (11:30)
--- NOTE | 2017-03-09 12:10 | NUR ---
Wound Evaluation: Attempted to evaluate patient's wound, but wound VAC was in place and not due to be changed until 03/10/17. Dressing not removed for assessment, because doing so would wound temperature and retard wound healing rate. Wound was staged as a Stage IV Pressure Ulcer by Dr. Burden post surgical debridement. Will assess on next available visit.
--- NOTE | 2017-03-09 12:40 | NUR ---
MD VISIT: DR. TUCKER CEBALLOS HERE TO SEE PATIENT, WITH ORDERS CARRIED OUT.
--- NOTE | 2017-03-09 13:15 | NUR ---
MD VISIT: DR. MART SEEN AND EXAMINED BY DR. MART, WITH ORDERS CARRIED OUT. SPOKE WITH FAMILY RE: PLAN OF CARE.
--- NOTE | 2017-03-09 13:35 | NUR ---
MD VISIT: DR. ALYSSA SHAH HERE TO SEE PATIENT.
[2017-03-09] MEDS ORDERED: HYDROcodone/ACETAMIN 10-325 MG TAB PO PRN (13:45)
[2017-03-09] MEDS ORDERED: TAMSULOSIN HCL 0.4 MG CAP PO ONE (14:00)
[2017-03-09] MEDS: clonazePAM 0.5 MG TABLET PO SCH ×2 (14:43→21:19)
--- NOTE | 2017-03-09 15:58 | NUR ---
TRANSFER PT TRANSFERRED TO TELEMETRY BED 106-B. REPORT GIVEN TO PEDRO BATEMAN. PCG HERE, AWARE OF TRANSFER.
--- NOTE | 2017-03-09 16:01 | NUR ---
ICU TRANSFER: REPORT GIVEN BY BARI ICU NURSE.RECEIVED PATIENT FROM ICU- TO ROOM 106B,VIA GURNEY. PLACED ON TELEMETRY. VITAL SIGNS TAKEN,AFEBRILE.SPORTS MEDIA AT BEDSIDE. PATIENT SITUATED.
[2017-03-09] MEDS: GABAPENTIN 300 MG CAPSULE PO SCH ×2 (16:57→21:19)
[2017-03-09] MEDS: FLUCONAZOLE 200 mg/ NS 100 ML IV SCH (17:20)
[2017-03-09] MEDS: FAT EMULSIONS 250 ML IV SCH (17:21)
--- NOTE | 2017-03-09 17:46 | NUR ---
ACCUCHECK NOTES: BLOOD SUGAR TAKEN,NO INSULIN COVERAGE ORDERED.CHECK BLOOD SUGAR WHILE ON TPN ORDERED.
[2017-03-09] MEDS ORDERED: SODIUM ACETATE IV SCH ×10 (18:00)
[2017-03-09] MEDS ORDERED: TPN CENTRAL IV SCH ×10 (18:00)
[2017-03-09] MEDS ORDERED: CALCIUM GLUCONATE IV SCH ×10 (18:00)
[2017-03-09] MEDS ORDERED: [UNRECOGNIZED DRUG - OTHER] IV SCH ×10 (18:00)
[2017-03-09] MEDS ORDERED: K PHOS IV SCH ×10 (18:00)
--- NOTE | 2017-03-09 18:59 | NUR ---
CLOSING NOTES: PATIENT RESTING. STUDENT ASSISTANT AT BEDSIDE AND FED PATIENT DURING DINNER. EMPTIED ORLY DRAIN AND ILEOSTOMY,RECORDED.WOUND VAC IN PLACED.HOYT IN SITU.MID ABD INCISION,TRANSPARENT DRESSING INTACT.WITH LEFT ARM PICCLINE INTACT.TPN AND LIPIDS RUNNING.MAIN IVF WITH IVPB ANTIBIOTICS GIVEN ORDERED. CONTINUE TO MONITOR.
--- NOTE | 2017-03-09 20:15 | NUR ---
OPENING NOTES PATIENT IS A/OX2. NO SIGNS OF DISTRESS. VITAL SIGNS ARE STABLE. BREATHING IS NON LABORED. PICC LINE TO LEFT UPPER ARM IS PATENT AND CLEAN, DRY, AND INTACT. DRESSING TO THE MID ABDOMEN IS CLEAN, DRY, AND INTACT. HOYT CATHETER IS PATENT. WOUND VAC IS NOTED. PATIENT IS IN BED RESTING COMFORTABLY. PATIENT SISTER IS AT BEDSIDE. CALL LIGHT IS WITHIN REACH. SAFETY MEASURES ARE IN PLACE. WILL CONTINUE TO MONITOR.
[2017-03-09] MEDS: ARIPiprazole 5 MG TAB PO SCH (21:18)
[2017-03-09] MEDS: MIRTAZAPINE 15 MG TABLET PO SCH (21:20)
--- NOTE | 2017-03-09 21:45 | NUR ---
ROUNDS PATIENT IS IN BED SLEEPING COMFORTABLY. NO SIGNS OF DISTRESS. BREATHING IS NON LABORED. SAFETY MEASURES ARE IN PLACE. WILL CONTINUE TO MONITOR.
[2017-03-10] VITALS (7 sets, daily range): BP systolic 94–107
[2017-03-10] MEDS: PIPERACILLIN/TAZO 3.375/DEX-IS 50 ML IV SCH ×3 (00:15→11:04)
--- NOTE | 2017-03-10 01:45 | NUR ---
HYGIENE PATIENT WAS GIVEN A BED BATH. JANET BHAT ASSISTED. PATIENT TOLERATED IT WELL. PATIENT IS IN RESTING COMFORTABLY. WILL CONTINUE TO MONITOR.
[2017-03-10] MEDS: ALBUTEROL SULFATE 0.083% 2.5 MG/3 ML VIAL.NEB INH SCH ×6 (03:00→23:00)
--- NOTE | 2017-03-10 03:09 | NUR ---
ROUNDS PATIENT IS IN BED SLEEPING. NO SIGNS OF DISTRESS. BREATHING IS NON LABORED. SAFETY MEASURES ARE IN PLACE. CALL LIGHT IS WITHIN REACH. WILL CONTINUE TO MONITOR.
--- NOTE | 2017-03-10 04:51 | NUR ---
ROUNDS PATIENT IS IN BED SLEEPING. NO SIGNS OF DISTRESS. BREATHING IS NON LABORED. CALL LIGHT IS WITHIN REACH. SAFETY MEASURES ARE IN PLACE. WILL CONTINUE TO MONITOR.
[2017-03-10] MEDS: D5/0.45 NS 1,000 ML IV SCH (05:07)
[2017-03-10] MEDS: HYDROmorphone 1 MG INJ. 1 MG/ML AMPUL IVP PRN ×4 (05:31→21:13)
--- NOTE | 2017-03-10 06:43 | NUR ---
OSTOMY CARE OSTOMY BAG WAS CHANGED. PATIENT TOLERATED IT WELL.
--- NOTE | 2017-03-10 07:30 | NUR ---
Am assessment Received Pt awake, alert, orientated x2 to self and . Pt has episode of forgetfulness and confusion. Reorientated Pt to place, time, and situation. Pt breathing even and unlabored. O2 sat @ 99% room air. Pt denies pain or discomfort. Abd auscultated, bowel sounds noted throughout all quadrant. Abd soft and non distended. Abd. incision noted. Dressing has green drainage noted. Lung sounds auscultated, lung sounds clear throughout all lobes. IV access noted left upper arm double lumen PICC line, patent with blood return. No s/s of infiltration or inflammation noted. Craig cath noted. Craig cath draining clear yellow urine. Safety measures and fall precaution in placed. Pt is Assessment done, plan of care discussed with Pt, call light within easy reach, bed at lowest position, will continue to monitor.
--- NOTE | 2017-03-10 08:18 | NUR ---
CLOSING NOTES PATIENT IS IN BED SLEEPING. NO SIGNS OF DISTRESS. BREATHING IS NON LABORED. PICC LINE IS PATENT. CATHETER IS PATENT. CALL LIGHT WITHIN REACH. SAFETY MEASURES ARE IN PLACE. REPORT GIVEN TO MORNING NURSE.
[2017-03-10] MEDS: PANTOPRAZOLE SODIUM 40 MG/VIAL (PROTONIX) IV SCH ×2 (08:33→21:04)
[2017-03-10] MEDS: clonazePAM 0.5 MG TABLET PO SCH ×3 (08:33→21:05)
[2017-03-10] MEDS: TAMSULOSIN HCL 0.4 MG CAP PO SCH (08:33)
[2017-03-10] MEDS: GABAPENTIN 300 MG CAPSULE PO SCH ×3 (08:33→21:05)
[2017-03-10] MEDS: ENOXAPARIN SODIUM 40 MG/0.4 ML SYRINGE SQ SCH (08:33)
[2017-03-10 09:36] LABS: BASOPHILS % (AUTO) 0.2 % (0.0-2.0); EOSINOPHILS # (AUTO) 0.3 K/uL (0.0-0.4); EOSINOPHILS % (AUTO) 3.7 % (0.0-4.0); HEMATOCRIT 27.9 % (36-54); HEMOGLOBIN 9.1 g/dL (14.0-18.0); LYMPHOCYTES # (AUTO) 1.2 K/uL (1.0-5.5); LYMPHOCYTES % (AUTO) 13.9 % (20.5-51.5); MEAN CORPUSCULAR HEMOGLOBIN 32 pg (27-31); MEAN CORPUSCULAR HGB CONC 33 % (32-36); MEAN CORPUSCULAR VOLUME 98 fL (79.0-98.0); MONOCYTES # (AUTO) 0.4 K/uL (0.0-1.0); MONOCYTES % (AUTO) 4.4 % (1.7-9.3); NEUTROPHILS % (AUTO) 77.8 % (40.0-70.0); PLATELET COUNT (AUTO) 150 K/uL (130-430); RED BLOOD CELL COUNT(AUTO) 2.84 MIL/uL (4.2-6.2); RED CELL DISTRIBUTION WIDTH 12.7 % (9.0-15.0); WHITE BLOOD COUNT (AUTO) 8.9 K/uL (4.8-10.8)
[2017-03-10 09:50] LABS: ALBUMIN 1.8 g/dL (3.4-4.8); CALCIUM 7.6 mg/dL (8.4-11.0); CREATININE 0.67 mg/dL (0.55-1.30); POTASSIUM 3.5 mmol/L (3.5-5.1); TOTAL BILIRUBIN 0.2 mg/dL (0.0-1.0); TOTAL PROTEIN, SERUM 5.5 g/dL (6.4-8.3)
--- NOTE | 2017-03-10 12:00 | NUR ---
Pt awake. Pt eating lunch with assistance. HOB elevated 90 degrees. Pt tolerating meals. No s/s of pain, discomfort, or SOB. Call light within easy reach, bed at lowest position, will continue to monitor.
--- NOTE | 2017-03-10 16:24 | NUR ---
DISCHARGE PLANNING Per Gerry Harris liaison [phone] will accept patient back and will need to evaluate patient for bed assignment. Note left for weekend CM to follow up. Pending discharge order.
--- NOTE | 2017-03-10 16:31 | NUR ---
Nutrition F/U: Admitting Diagnosis Abd pain, r/o leaking fistula, sepsis Reviewed Pertinent Medical/Surgical Hx Patient Other Medical Record Family Member Medical History Comment: Cerebral palsy, spastic quadriparesis, severe GERD per MD notes 03/09/17 per MD notes: BLL pneumonia, aspiration induced, GNR, Enterocutaneous Fistula s/p repair, UTI, Candiduria, MR, Balanitis, Infected sacral decub ulcer Subjective Information Pt seen resting in bed, +intubated on vent w/ TPN infusing as per MD orders. Pt appeared to have thin upper and lower extremities, indicative of possible fat/muscle wasting. Pt is POD 2 s/p total colectomy, revision of ileostomy, resection of jejunal fistula with [id number] anastomosis, lysis of dense adhesions, excisional debridement of sacral decubitus ulcer stage 4 w/ wound VAC application per surgeon. Pt's caregiver/nephew at bedside provided reported pt consumed 40% from lunch. Per nursing notes: pt refused to eat breakfast today. Per EMR, TPN Intakes: 572 ml 03/09/17. Abd is soft and non-distended w/ active bowel sounds. I/O: 1222/1150 (+72ml) per 12 hours 03/09/17 Current TPN support is adequate and appropriate at this time. Pt is not appropriate for nutrition education. Current Diet Order/Nutrition Support Full Liquid diet day & TPN D40%, AA8.5% at 42 ml/hr, IL20% at 10 ml/hr daily Patient/Significant Other Unable To Verbalize Education Provided Not Indicated Pertinent Medications reglan, zofran, piperacillin/tazobactam, norco, ativan inj Pertinent Labs BG 136 H, POC BG 127H, ALB 1.8L (03/10), H/H 9.1L/27.9L Height (Feet) 5 feet Height (Inches) 4.00 inches Weight (Pounds) 98 pounds Weight (Calculated Kilograms) 44.613508 kilograms Patient Weight 44.452 kg Body Mass Index 16.82 kg/m2 Usual Weight 117 lbs %UBW 100 %IBW 90 [place]/Adjusted Body Weight IBW: 130 lb, 59 kg Recent Weight Change Yes - Possible 19 lb wt loss based on last week's wt compared to admission wt Weight Status Underweight Food Allergies No Usual Diet At Home Pureed diet w/ occasional Ensure Last BM: March 09, 2017 x1 Skin Integrity Comment: Fantasma scale: 13 (03/10/17). Per nursing notes, pt w/ multiple wounds to L/R hip, R buttocks, and sacrum Estimated Energy Expenditure (kcals/day) 1314 kcal/day ([place] equation d/t critical illness on vent support) Estimated Protein Required (g/day) 89-118 gm/day (1.5-2 gm/jg IBW for sepsis, surgical healing) Estimated Fluid Required (l/day) 1.6-1.9 L/day (30-35 ml/kg IBW for maintenance) Problem/Etiology/Signs/Symptoms Increased nutritional needs related to metabolic demands as evidenced by elevated lactic acid level and estimated nutritional requirements for sepsis. Expected Outcomes/Goals - Monitor tolerance to TPN support w/ goal of pt meeting at least 75% of estimated nutritional needs, labs trending WNL, normal GI function, and skin integrity/wt maintenance Dietitian Recommendations * Continue: TPN D40%, AA10% at 42 ml/hr, IL20% at 10 ml/hr daily via central line Final Concentration: D20%, AA5% at 42 ml/hr (goal rate), IL20% at 10 ml/hr daily via central line Provides: 1369 kcal/day, 50 gm protein/day, 1248 ml total volume/day, and GIR: 2.6 gm CHO/kg/min Meets: 104% of estimated caloric needs and 56% of lower end of estimated protein needs * Consider advancement of diet to Pureed if/when medically appropriate Monitor/Evaluation Comment RD called and s/w pharmacy at 03/10/17 1600 regarding continuation of TPN prescription. Follow Up High Risk: F/U in 2-3days Follow Up By March 13, 2017 Alert Indicated Body Fat Depletion (Non-Severe) Mild Depletion Muscle Mass (Non-Severe) Mild Depletion (Moderate) Is there a minimum of two criteria selected? Yes
--- NOTE | 2017-03-10 17:00 | NUR ---
Wound care, wound pic documentation, wound vac changed, abd incision dressing changed, colostomy bag changed. Pt awake. Pt breathing even and unlabored. Dr. Burden at the bedside evaluating surgical incision site. Pain medication was administered prior to care. Pt denies pain or discomfort. Abd. dressing changed. Abd incision is well approximated. No s/s of drainage, inflammation, or odor noted. Incision was cleanse with NS, pat dry with 4x4 applied dry 4x4 and Tegaderm, ORLY drainage intact. ORLY bulb closed to suction. Colostomy bag changed. Dark greenish bile noted. Stoma is beefy red. Stoma site is intact. New ostomy bag placed on Pt. Sacral wound vac changed. Wound bed is 5% white, 5% red, 90% pinkish, Tunneling noted at 2 o'clock and 11 o'clock, Edge/ boarder of wound is 70% white, 20% pink, 10% dark brownish/ terrazas, around wound skin is 5% white, 5% red, and 90% pinkish. No s/s of drainage or odor noted. Wound cleans with NS, pat dry with 4x4 and wound vac placed. No leakage noted on wound vac. Right healed hip wound noted. Skin is intact. Wound is 70% pink, 20 % dark terrazas brownish color, and 10% white. Wound was cleanse with NS, pat dry with 4x4, applied z guard, and foam dressing. Pt tolerated care. Call light within easy reach, bed at lowest position, will continue to monitor.
[2017-03-10] MEDS: FAT EMULSIONS 250 ML IV SCH (18:29)
[2017-03-10] MEDS: TPN CENTRAL IV SCH ×10 (18:33)
[2017-03-10] MEDS: [UNRECOGNIZED DRUG - OTHER] IV SCH ×10 (18:33)
[2017-03-10] MEDS: SODIUM ACETATE IV SCH ×10 (18:33)
[2017-03-10] MEDS: CALCIUM GLUCONATE IV SCH ×10 (18:33)
[2017-03-10] MEDS: K PHOS IV SCH ×10 (18:33)
[2017-03-10] MEDS: LEVOFLOXACIN 500 MG/D5W 100 ML IV SCH (18:34)
--- NOTE | 2017-03-10 19:45 | NUR ---
Pt awake. Pt's family at the bedside. No s/s of pain, discomfort, or SOB. IVF, TPN, Lipids currently infusing. V/S stable, will endorse all care to oncoming RN.
[2017-03-10] MEDS: FLUCONAZOLE 200 mg/ NS 100 ML IV SCH (20:21)
[2017-03-10] MEDS: ARIPiprazole 5 MG TAB PO SCH (21:05)
[2017-03-10] MEDS: MIRTAZAPINE 15 MG TABLET PO SCH (21:06)
--- NOTE | 2017-03-10 21:30 | NUR ---
INITIAL NOTES: RECEIVED REPORT FROM ([facility] [place] .PATIENT IS AWAKE , ALERT , CONFUSED. NO SIGNS OF DISTRESS NOTED . VITAL SIGNS ARE STABLE. BREATHING IS NON LABORED. PICC LINE TO LEFT UPPER ARM IS PATENT AND CLEAN, DRY, AND INTACT, GOOD BLOOD RETURN NOTED . DRESSING TO THE MID ABDOMEN IS CLEAN, DRY, AND INTACT.ORLY DRAIN NOTED TO THE LEFT LOWER ABDOMEN , DRAINING SANGUINOUS DRAINAGE ;ILEOSTOMY NOTED TO THE R ABDOMEN , BAG WITH LOOSE BROWN BM ; HOYT CATHETER IS PATENT AND DRAINING TO GRAVITY . WOUND VAC IS NOTED TO THE SACRUM AT 125 . PATIENT IS IN BED RESTING COMFORTABLY. PATIENT SISTER IS AT BEDSIDE. CALL LIGHT IS WITHIN REACH. SAFETY MEASURES ARE IN PLACE. WILL CONTINUE TO MONITOR.
[2017-03-10] MEDS: LORazepam 2 MG/ML VIAL IVP PRN (23:29)
--- NOTE | 2017-03-10 23:30 | NUR ---
ATIVAN: PT IS AGITATED AND MAKING SOUNDS; ATIVAN GIVEN PER ORDER . BS 117 . NO INSULIN COVERAGE NEEDED . WILL CONTINUE TO MONITOR.
[2017-03-11] VITALS (7 sets, daily range): BP systolic 95–137
--- NOTE | 2017-03-11 01:00 | NUR ---
RN ROUNDS: PT IS SLEEPING COMFORTABLY ; NOT IN ANY ACUTE DISTRESS; WILL CONTINUE TO MONITOR.
[2017-03-11] MEDS: ALBUTEROL SULFATE 0.083% 2.5 MG/3 ML VIAL.NEB INH SCH ×6 (03:00→23:17)
--- NOTE | 2017-03-11 03:42 | NUR ---
RN ROUNDS: PT IS SLEEPING , NOT IN ANY ACUTE DISTRESS; TPN AND LIPIDS ARE INFUSING PER ORDER . PT IS COMFORTABLE . WILL CONTINUE TO MONITOR.
[2017-03-11] MEDS: D5/0.45 NS 1,000 ML IV SCH (05:26)
[2017-03-11] MEDS: HYDROmorphone 1 MG INJ. 1 MG/ML AMPUL IVP PRN ×4 (07:02→21:38)
--- NOTE | 2017-03-11 07:05 | NUR ---
CLOSING NOTES: PT WAS MOANING , GIVEN DILAUDID PER ORDER ; NO SIGNIFICANT CHANGES IN THE CONDITION . TPN AT 44.33CC/HR , LIPIDS AT 10 CC /HR AND IV FLUID AT 30 CC /HR IS INFUSING WELL; WILL CONTINUE TO MONITOR AND WILL ENDORSE TO NEXT SHIFT RN .
[2017-03-11 08:05] LABS: CALCIUM 7.7 mg/dL (8.4-11.0); CREATININE 0.73 mg/dL (0.55-1.30); POTASSIUM 4.1 mmol/L (3.5-5.1)
--- NOTE | 2017-03-11 08:35 | NUR ---
Opening Note Report received form Andressa VASQUEZ. Patient is in bed. He is nonverbal, however, responds to light stimuli. RUE PICC line is running D51/2NS@30, TPN@44.3, and lipids@10. Wound vac is attached to sacral wound and is draining green fluid. Abdominal incision is nathaniel and intact. ORLY drain is draining red fluid. Ileostomy bag is in place. Will continue to monitor.
[2017-03-11] MEDS: GABAPENTIN 300 MG CAPSULE PO SCH ×3 (09:46→21:38)
[2017-03-11] MEDS: PANTOPRAZOLE SODIUM 40 MG/VIAL (PROTONIX) IV SCH ×2 (09:46→21:39)
[2017-03-11] MEDS: TAMSULOSIN HCL 0.4 MG CAP PO SCH (09:47)
[2017-03-11] MEDS: ENOXAPARIN SODIUM 40 MG/0.4 ML SYRINGE SQ SCH (09:47)
[2017-03-11] MEDS: clonazePAM 0.5 MG TABLET PO SCH ×3 (09:47→21:38)
--- NOTE | 2017-03-11 10:40 | NUR ---
Rounds Patient is currently resting in bed. Family is at the bedside.
--- NOTE | 2017-03-11 12:41 | NUR ---
Rounds Patient is currently resting in bed. Family is at the bedside.
--- NOTE | 2017-03-11 14:10 | NUR ---
Called Dr. Merino called for low BP. Dr. Hodges is consulting sales manager. Waiting for a call back.
--- NOTE | 2017-03-11 14:23 | NUR ---
PAGED DR MART [phone], CYNDI ELIZABETH
--- NOTE | 2017-03-11 14:43 | NUR ---
[address]ND PAGE FOR DR MART [phone], CYNDI AKINS
--- NOTE | 2017-03-11 15:44 | NUR ---
Rounds Son is at the bedside. Son was upset because he wanted his father to be turned to the left side. it was explained to him that his father was just turned from the left side to the right side and that it is imperative hor him to be turned to prevent skin breakdown. He still was very upset and he turned his father himself. Will continue to monitor.
[2017-03-11 16:04] LABS: BASOPHILS # (AUTO) 0.1 K/uL (0.0-0.2); BASOPHILS % (AUTO) 0.9 % (0.0-2.0); EOSINOPHILS # (AUTO) 0.4 K/uL (0.0-0.4); EOSINOPHILS % (AUTO) 3.8 % (0.0-4.0); HEMATOCRIT 30.2 % (36-54); HEMOGLOBIN 9.8 g/dL (14.0-18.0); LYMPHOCYTES % (AUTO) 10.3 % (20.5-51.5); MEAN CORPUSCULAR HEMOGLOBIN 32 pg (27-31); MEAN CORPUSCULAR HGB CONC 32 % (32-36); MEAN CORPUSCULAR VOLUME 99 fL (79.0-98.0); MONOCYTES # (AUTO) 0.3 K/uL (0.0-1.0); MONOCYTES % (AUTO) 2.6 % (1.7-9.3); NEUTROPHILS # (AUTO) 8.1 K/uL (1.8-7.7); NEUTROPHILS % (AUTO) 82.4 % (40.0-70.0); PLATELET COUNT (AUTO) 178 K/uL (130-430); RED BLOOD CELL COUNT(AUTO) 3.06 MIL/uL (4.2-6.2); RED CELL DISTRIBUTION WIDTH 13.1 % (9.0-15.0); WHITE BLOOD COUNT (AUTO) 9.9 K/uL (4.8-10.8)
[2017-03-11] MEDS: SODIUM ACETATE IV SCH ×10 (16:09)
[2017-03-11] MEDS: TPN CENTRAL IV SCH ×10 (16:09)
[2017-03-11] MEDS: [UNRECOGNIZED DRUG - OTHER] IV SCH ×10 (16:09)
[2017-03-11] MEDS: K PHOS IV SCH ×10 (16:09)
[2017-03-11] MEDS: CALCIUM GLUCONATE IV SCH ×10 (16:09)
[2017-03-11] MEDS: FAT EMULSIONS 250 ML IV SCH (17:05)
[2017-03-11] MEDS: LEVOFLOXACIN 500 MG/D5W 100 ML IV SCH (17:15)
[2017-03-11] MEDS: FLUCONAZOLE 200 mg/ NS 100 ML IV SCH (17:23)
--- NOTE | 2017-03-11 18:08 | NUR ---
Closing Note Patient is in stable condition and currently resting in bed. Relative is at the bedside. PICC line is on the LUE running D51/2NS@30, TPN@44.3, and Lipids@10ml/hr. Craig catheter is to gravity draining clear yellow urine. ORLY is draining red fluid. Ileostomy bag is draining loose stool. Will give report to the oncoming nurse.
--- NOTE | 2017-03-11 19:10 | NUR ---
OPENING NOTES PATIENT IS AWAKE, ALERT, AND ORIENTED X3. PT IS IN SEMI-BURNETT'S POSITION, RESPIRATIONS EVEN AND UNLABORED. TPN, LIPIDS, AND IV FLUIDS RUNNING. PICC LINE SHOWS NO SIGNS OF INFILTRATION. BLOOD PRESSURE IS LOW, 96/47, WILL CONTINUE TO MONITOR. ASPIRATION, SEIZURE, AND FALL PRECAUTIONS IN PLACE. SISTER AT BEDSIDE. CALL LIGHT WITHIN REACH.
--- NOTE | 2017-03-11 21:00 | NUR ---
PAIN PATIENT COMPLAINED OF PAIN 8/10. NO S/S OF ACUTE DISTRESS NOTED. ASPIRATION, FALL, AND SEIZURE PRECAUTIONS IN PLACE. CALL LIGHT WITHIN REACH WILL CONTINUE TO MONITOR.
[2017-03-11] MEDS: metroNIDAZOLE 250 mg/NS 50 ML IV SCH (21:37)
[2017-03-11] MEDS: ARIPiprazole 5 MG TAB PO SCH (21:38)
[2017-03-11] MEDS: MIRTAZAPINE 15 MG TABLET PO SCH (21:38)
--- NOTE | 2017-03-11 23:00 | NUR ---
OPENING NOTES PATIENT IS AWAKE, ALERT, AND ORIENTED X3. PT IS IN SEMI-BURNETT'S POSITION, RESPIRATIONS EVEN AND UNLABORED. TPN, LIPIDS, AND IV FLUIDS RUNNING. PICC LINE SHOWS NO SIGNS OF INFILTRATION. ASPIRATION, SEIZURE, AND FALL PRECAUTIONS IN PLACE. CALL LIGHT WITHIN REACH.
--- NOTE | 2017-03-12 01:00 | NUR ---
RN NOTES PATIENT IS AWAKE AND GROANING. PT IS IN SEMI-BURNETT'S POSITION, RESPIRATIONS EVEN AND UNLABORED. TPN, LIPIDS, AND IV FLUIDS RUNNING. PICC LINE SHOWS NO SIGNS OF INFILTRATION. BLOOD PRESSURE CONTINUES TO RUN LOW AT 94/54. MET THE NEEDS OF THE PATIENT. WILL CONTINUE TO MONITOR. ASPIRATION, SEIZURE, AND FALL PRECAUTIONS IN PLACE. SISTER AT BEDSIDE. CALL LIGHT WITHIN REACH.
[2017-03-12 01:24] VITALS: BP_SYST 90
--- NOTE | 2017-03-12 02:00 | NUR ---
ORLY DRAIN EMPTIED 50ML, RED IN COLOR WITH SEDIMENT.
--- NOTE | 2017-03-12 02:00 | NUR ---
ILEOSTOMY BAG NOTED THAT IT HAD 50ML OF WASTE, BUT FULL OF GAS. WILL ENDORSE TO DAYSHIFT NURSE.
[2017-03-12] MEDS: D5/0.45 NS 1,000 ML IV SCH (02:30)
[2017-03-12] MEDS: ALBUTEROL SULFATE 0.083% 2.5 MG/3 ML VIAL.NEB INH SCH ×6 (02:43→23:00)
[2017-03-12] MEDS: HYDROmorphone 1 MG INJ. 1 MG/ML AMPUL IVP PRN (03:22)
--- NOTE | 2017-03-12 04:00 | NUR ---
RN ROUNDS PATIENT IS SLEEPING COMFORTABLY, RESPIRATIONS EVEN AND UNLABORED. TPN, LIPIDS, AND IV FLUIDS RUNNING. PICC LINE SHOWS NO SIGNS OF INFILTRATION. BLOOD PRESSURE REMAINS LOW, 91/48. WILL CONTINUE TO MONITOR. ASPIRATION, SEIZURE, AND FALL PRECAUTIONS IN PLACE. CALL LIGHT WITHIN REACH.
--- NOTE | 2017-03-12 05:00 | NUR ---
ORLY DRAIN EMPTIED 25ML, RED IN COLOR WITH SEDIMENT.
[2017-03-12 06:28] VITALS: BP_SYST 87
--- NOTE | 2017-03-12 06:30 | NUR ---
RN ROUNDS PATIENT IS SLEEPING COMFORTABLY, RESPIRATIONS EVEN AND UNLABORED. ANTIBIOTICS ADMINISTERED THROUGH PIGGYBACK ,TPN, LIPIDS, AND IV FLUIDS RUNNING. PICC LINE SHOWS NO SIGNS OF INFILTRATION. BLOOD SUGAR CHECKED. BLOOD PRESSURE REMAINS LOW, 81/45. WILL CONTINUE TO MONITOR. ASPIRATION, SEIZURE, AND FALL PRECAUTIONS IN PLACE. CALL LIGHT WITHIN REACH.
[2017-03-12] MEDS: metroNIDAZOLE 250 mg/NS 50 ML IV SCH ×3 (06:33→22:04)
--- NOTE | 2017-03-12 07:00 | NUR ---
CLOSING NOTES PROVIDED REPORT TO DAYSHIFT NURSE AT BEDSIDE. BP REMAINS LOW AT 81/45. WILL ENDORSE CONTINUING LOW TREND OF BP TO DAYSHIFT NURSE TO PAGE THE DR. PATIENT IS ALERT AND AWAKE MOTIONING AND GROANING TO BE READJUSTED ON THE PILLOW. PATIENTS NEEDS WERE MET THROUGHOUT THE SHIFT. WILL ENDORSE CARE TO DAYSHIFT NURSE.
--- NOTE | 2017-03-12 07:09 | NUR ---
ATTENDING MD, DR PANDYA, CALLED RE: LOW, DROPPING BP. SPOKE TO JACK
--- NOTE | 2017-03-12 07:18 | NUR ---
Opening Note Report received from Hannah VASQUEZ. Current BP is 72/48, 100%O2 2l. Patient is very lethargic and difficult to arouse. Dr. Hodges called. Will continue to monitor.
[2017-03-12 07:21] VITALS: BP_SYST 74
[2017-03-12 07:31] LABS: CALCIUM 7.9 mg/dL (8.4-11.0); CREATININE 0.59 mg/dL (0.55-1.30); POTASSIUM 4.4 mmol/L (3.5-5.1)
--- NOTE | 2017-03-12 07:31 | NUR ---
DR. PANDYA RETURNED CALL RECEIVED ORDERS FOR 1L BOLUS NS AND TO RESUME FLUIDS OF D5 1/2NS AT 150ML/HR. WILL ENDORSE TO DAYSHIFT NURSE.
--- NOTE | 2017-03-12 07:32 | NUR ---
Spoke with Spoke with Dr. Hodges. Orders to bolus with one liter of NS were received. Will continue to monitor.
[2017-03-12 07:43] VITALS: BP_SYST 94
[2017-03-12] MEDS ORDERED: D5/0.45 NS 1,000 ML IV SCH (07:45)
[2017-03-12] MEDS ORDERED: NACL 0.9% 1,000 ML IV ONE (07:45)
[2017-03-12] MEDS: clonazePAM 0.5 MG TABLET PO SCH ×3 (09:00→22:05)
[2017-03-12] MEDS: ENOXAPARIN SODIUM 40 MG/0.4 ML SYRINGE SQ SCH (09:52)
[2017-03-12] MEDS: PANTOPRAZOLE SODIUM 40 MG/VIAL (PROTONIX) IV SCH ×2 (09:52→22:05)
[2017-03-12] MEDS: TAMSULOSIN HCL 0.4 MG CAP PO SCH (09:52)
[2017-03-12] MEDS: GABAPENTIN 300 MG CAPSULE PO SCH ×3 (09:53→22:05)
--- NOTE | 2017-03-12 10:00 | NUR ---
Rounds Patient continues to have a low blood pressure, however, he is more awake at the moment.
--- NOTE | 2017-03-12 12:20 | NUR ---
Rounds Patient is awake. No changes in blood pressure.
[2017-03-12 12:30] VITALS: BP_SYST 130
--- NOTE | 2017-03-12 14:37 | NUR ---
Rounds Patient is awake. Current blood pressure is 107/48. Will give routine medications.
[2017-03-12] MEDS: NACL 0.9% 1,000 ML IV SCH (15:55)
[2017-03-12] MEDS: CALCIUM GLUCONATE IV SCH ×10 (15:59)
[2017-03-12] MEDS: [UNRECOGNIZED DRUG - OTHER] IV SCH ×10 (15:59)
[2017-03-12] MEDS: K PHOS IV SCH ×10 (15:59)
[2017-03-12] MEDS: TPN CENTRAL IV SCH ×10 (15:59)
[2017-03-12] MEDS: SODIUM ACETATE IV SCH ×10 (15:59)
[2017-03-12 16:38] VITALS: BP_SYST 107
--- NOTE | 2017-03-12 16:40 | NUR ---
Rounds Patient is resting in bed. Family is at the bedside. Patient seems less agitated.
[2017-03-12] MEDS: FLUCONAZOLE 200 mg/ NS 100 ML IV SCH (17:19)
[2017-03-12] MEDS: LEVOFLOXACIN 500 MG/D5W 100 ML IV SCH (17:19)
[2017-03-12] MEDS: FAT EMULSIONS 250 ML IV SCH (17:33)
--- NOTE | 2017-03-12 18:55 | NUR ---
Closing Note Patient is awake. RUE PICC line is running NS@70, TPN@44.3, lipids@10. Wound vac is in place. Sacral dressing was changed. Craig catheter is to gravity draining clear yellow urine. ORLY is draining red fluid. Ileostomy is draining liquid stool. Current blood pressure is within range. Will give report to the oncoming nurse.
--- NOTE | 2017-03-12 19:10 | NUR ---
OPENING NOTES RECEIVED REPORT AT BEDSIDE FROM DAY SHIFT NURSE. PATIENT IS IN SEMI-BURNETT'S. IV, TPN, LIPIDS RUNNING. PICC LINE DRESSING DRY AND INTACT. RESPIRATIONS EVEN AND UNLABORED. BLOOD PRESSURE IS 111/70. NO S/S OF ACUTE DISTRESS NOTED. WOUND VAC WITH PROPER SUCTION, ORLY DRAIN AND ILEOSTOMY BAG FROM ABDOMEN IN PLACE, DRESSING ON ABDOMEN DRY AND INTACT. HOYT CATHETER IN PLACE AND DRAINING. BED IN LOWEST POSITION, CALL LIGHT WITHIN REACH. SISTER AT BEDSIDE.
--- NOTE | 2017-03-12 21:57 | NUR ---
RN ROUNDS PT BLOOD PRESSURE IS 111/70. WILL PROVIDE PAIN MEDICATION FOR PAIN 07/25.
--- NOTE | 2017-03-12 21:59 | NUR ---
PAIN MEDICATION HELD BEFORE ADMINISTRATION OF PAIN MEDICATION BP WAS CHECKED AGAIN AND WAS 96/48. PAIN MEDICATION WAS WITHELD AND WASTED.
[2017-03-12] MEDS: ARIPiprazole 5 MG TAB PO SCH (22:05)
[2017-03-12] MEDS: MIRTAZAPINE 15 MG TABLET PO SCH (22:05)
--- NOTE | 2017-03-12 23:00 | NUR ---
RN ROUNDS PATIENT IS SLEEPING COMFORTABLY, RISE AND FALL OF CHEST NOTED. FLUIDS, TPN, LIPIDS, ANTIBIOTICS INFUSING. WOUND VAC HAS GOOD SUCTION. HOYT CATHETER DRAINING, CHOLY BAG EMPTIED WITH 250ML. ORLY DRAINED, 10ML. PLAN OF CARE DISCUSSED WITH PATIENT. BED IN LOWEST POSITION, FALL, ASPIRATION, AND SEIZURE PRECAUTIONS IN PLACE.CALL LIGHT WITHIN REACH.
[2017-03-13] VITALS (7 sets, daily range): BP systolic 92–112
--- NOTE | 2017-03-13 00:15 | NUR ---
RN ROUNDS PT WAS GROANING AND CRYING OUT FOR HELP. PT WAS ADJUSTED, ALL NEEDS MET. WILL CONTINUE TO MONITOR.
--- NOTE | 2017-03-13 02:15 | NUR ---
PT. MOANING LOUDLY. CHOLY BAG FULL AND FILLED WITH GAS. BAG EMPTIED AND PATIENT ADJUSTED IN BED. PATIENT RENTING COMFORTABLY. FALL, ASPIRATION, AND SEIZURE PRECAUTIONS IN PLACE. WILL CONTINUE TO MONITOR. CALL LIGHT WITHIN REACH.
[2017-03-13] MEDS: ALBUTEROL SULFATE 0.083% 2.5 MG/3 ML VIAL.NEB INH SCH ×6 (02:24→23:00)
[2017-03-13] MEDS: NACL 0.9% 1,000 ML IV SCH ×2 (02:33→11:47)
--- NOTE | 2017-03-13 04:50 | NUR ---
PAIN PATIENT IS GROANING IN PAIN AND REQUESTING PAIN MEDICATION. BLOOD PRESSURE WAS TAKEN AND STILL AT 95/43. PAIN MEDICATION WITHELD. PATIENT WAS EDUCATED ON THE POSSIBLE COMPLICATIONS OF PROVIDING PAIN MEDICATION IV WITH A BLOOD PRESSURE SO LOW.
[2017-03-13] MEDS: metroNIDAZOLE 250 mg/NS 50 ML IV SCH ×3 (06:31→22:42)
--- NOTE | 2017-03-13 06:47 | NUR ---
CLOSING NOTES PATIENT IS SLEEPING COMFORTABLY, RISE AND FALL OF CHEST NOTED. PICC LINE DRESSING DRY AND INTACT, PATENT WITH GOOD BLOOD RETURN. FLUIDS, TPN, LIPIDS, ANTIBIOTICS INFUSING. WOUND VAC HAS GOOD SUCTION. HOYT CATHETER DRAINING, CHOLY BAG EMPTIED WITH 250ML. ORLY DRAINED, 50ML. DRESSING ON ABDOMEN DRY AND INTACT. NO S/S OF ACUTE DISTRESS NOTED. PLAN OF CARE DISCUSSED WITH PATIENT. BED IN LOWEST POSITION, CALL LIGHT WITHIN REACH. ALL NEEDS MET THROUGHOUT THE SHIFT. FALL, ASPIRATION, AND SEIZURE PRECAUTIONS IN PLACE. WILL ENDORSE CARE TO DAYSHIFT NURSE.
[2017-03-13 07:02] LABS: ALBUMIN 1.7 g/dL (3.4-4.8); CALCIUM 8.2 mg/dL (8.4-11.0); CREATININE 0.72 mg/dL (0.55-1.30); PHOSPHORUS 3.2 mg/dL (2.7-4.5); POTASSIUM 4.4 mmol/L (3.5-5.1); TOTAL BILIRUBIN 0.1 mg/dL (0.0-1.0); TOTAL PROTEIN, SERUM 6.6 g/dL (6.4-8.3)
--- NOTE | 2017-03-13 08:00 | NUR ---
OPENING NOTE: RECEIVED REPORT FROM NIGHT NURSE. PATIENT IS RESTING COMFORTABLY IN BED. NO S/S OF DISTRESS OR SOB. PATIENT IS SLEEPING. VITAL SIGNS WNL, ASSESSMENT COMPLETE. WOUND VAC IS IN PLACE. ORLY DRAIN WITH NO DRAINAGE. PICC LINE IS PATENT AND INFUSING. PATIENT ON LOW AIR MATTRESS. CALL LIGHT IN REACH, BED IN LOWEST POSITION, AND WILL CONTINUE TO MONITOR.
--- NOTE | 2017-03-13 08:34 | NUR ---
DR. TUCKER CEBALLOS MAKING ROUNDS; REMOVED ORLY DRAIN. NO DRAINAGE NOTED.
[2017-03-13] MEDS: TAMSULOSIN HCL 0.4 MG CAP PO SCH (09:28)
[2017-03-13] MEDS: PANTOPRAZOLE SODIUM 40 MG/VIAL (PROTONIX) IV SCH ×2 (09:28→22:43)
[2017-03-13] MEDS: GABAPENTIN 300 MG CAPSULE PO SCH ×3 (09:28→22:43)
[2017-03-13] MEDS: ENOXAPARIN SODIUM 40 MG/0.4 ML SYRINGE SQ SCH (09:28)
[2017-03-13] MEDS: clonazePAM 0.5 MG TABLET PO SCH ×3 (09:28→22:43)
--- NOTE | 2017-03-13 10:00 | NUR ---
NOTE: PATIENT IS RESTING COMFORTABLY IN BED. NO S/S OF DISTRESS OR SOB. BLOOD PRESSURE IS STABLE. BROTHER WAS VISITING AND FED HIM BREAKFAST. NO DRAINING NOTED FROM REMOVAL OF ORLY DRAIN. CALL LIGHT IN REACH, BED IN LOWEST POSITION, AND WILL CONTINUE TO MONITOR.
--- NOTE | 2017-03-13 12:00 | NUR ---
NOTE: PATIENT IS RESTING COMFORTABLY IN BED. NO S/S OF DISTRESS OR SOB. PATIENT IS AWAKE AND ALERT. PATIENTS NEPHEW IS IN THE ROOM. CALL LIGHT IN REACH, BED IN LOWEST POSITION, AND WILL CONTINUE TO MONITOR.
--- NOTE | 2017-03-13 14:00 | NUR ---
NOTE: PATIENT IS RESTING COMFORTABLY IN BED. NO S/S OF DISTRESS OR SOB. PATIENT IS AWAKE AND ALERT. FAMILY IS AT BEDSIDE. CALL LIGHT IN REACH, BED IN LOWEST POSITION, AND WILL CONTINUE TO MONITOR.
[2017-03-13] MEDS: HYDROmorphone 1 MG INJ. 1 MG/ML AMPUL IVP PRN (14:49)
--- NOTE | 2017-03-13 15:52 | NUR ---
WOUND VAC CHANGE WOUND VAC DRESSING WAS CHANGED. PAIN MEDICATION ADMINISTERED BEFORE PROCEDURE. PATIENT AWAKE. WOUND IS 3.3 CM WIDE AND 3.4 CM LONG. UNDERMINING PRESENT AT 6 OCLOCK WITH 2.5 CM DEPTH. WOUND BED IS 5% WHITE, 95% PINK. PERIWOUND IS WHITE. NO DRAINAGE OR ODOR NOTED. WOUND WAS CLEANED WITH NORMAL SALINE AND PAT DRY WITH STERILE GAUZE, AND BRIDGE WAS CREATED. WOUND VAC RESTARTED, NO DRAINAGE OR LEAKS NOTED.
[2017-03-13] MEDS: SODIUM ACETATE IV SCH ×10 (16:46)
[2017-03-13] MEDS: CALCIUM GLUCONATE IV SCH ×10 (16:46)
[2017-03-13] MEDS: K PHOS IV SCH ×10 (16:46)
[2017-03-13] MEDS: [UNRECOGNIZED DRUG - OTHER] IV SCH ×10 (16:46)
[2017-03-13] MEDS: TPN CENTRAL IV SCH ×10 (16:46)
[2017-03-13] MEDS: FLUCONAZOLE 200 mg/ NS 100 ML IV SCH (17:42)
--- NOTE | 2017-03-13 18:00 | NUR ---
CLOSING NOTE: PATIENT IS RESTING COMFORTABLY IN BED. NO S/S OF DISTRESS OR SOB. PATIENT IS AWAKE AND ALERT. FAMILY IS AT BEDSIDE. IV IS PATENT AND INFUSING. WOUND VAC IS ONE. ALL NEEDS MET DURING SHIFT. CALL LIGHT IN REACH, BED IN LOWEST POSITION, AND WILL GIVE REPORT TO NIGHT NURSE.
[2017-03-13] MEDS: FAT EMULSIONS 250 ML IV SCH (18:01)
[2017-03-13] MEDS: LEVOFLOXACIN 500 MG/D5W 100 ML IV SCH (18:46)
--- NOTE | 2017-03-13 19:20 | NUR ---
OPENING NOTES PATIENT IS AWAKE, ALERT, AND ORIENTED X3. PT IS IN SEMI-BURNETT'S POSITION, RESPIRATIONS EVEN AND UNLABORED. TPN, LIPIDS, AND IV FLUIDS RUNNING. PICC LINE SHOWS NO SIGNS OF INFILTRATION. SISTER AT BEDSIDE. ASPIRATION, SEIZURE, AND FALL PRECAUTIONS IN PLACE. CALL LIGHT WITHIN REACH.
--- NOTE | 2017-03-13 21:20 | NUR ---
RN ROUNDS NO CHANGE IN CONDITION, SISTER AT BEDSIDE. CALL LIGHT WITHIN REACH.
[2017-03-13] MEDS: MIRTAZAPINE 15 MG TABLET PO SCH (22:42)
[2017-03-13] MEDS: ARIPiprazole 5 MG TAB PO SCH (22:43)
--- NOTE | 2017-03-13 23:00 | NUR ---
RN ROUNDS SISTER AT BEDSIDE. PATIENT IS ASKING FOR PAIN MEDICATION, BP IS 96/47, PAIN MEDICATION WITHHELD. EDUCATED PATIENT AND SISTER ON THE DANGER OF GIVING PAIN MEDICATION WITH BP THAT LOW. PT'S FAMILY MEMBER VERBALIZED UNDERSTANDING. RESPIRATIONS EVEN AND UNLABORED. TPN, LIPIDS, AND IV FLUIDS RUNNING. PICC LINE SHOWS NO SIGNS OF INFILTRATION. ASPIRATION, SEIZURE, AND FALL PRECAUTIONS IN PLACE. CALL LIGHT WITHIN REACH.
[2017-03-14] VITALS: BP_SYST 111
--- NOTE | 2017-03-14 00:30 | NUR ---
BLOOD PRESSURE PT'S BLOOD PRESSURE WAS 110/72, PATIENT IS REQUESTING PAIN MEDICATION.
--- NOTE | 2017-03-14 00:56 | NUR ---
OUTPUT PATIENT'S CHOLY BAG WAS EMPTIED, 275ML. BAG WAS 50% FULL OF GAS.
--- NOTE | 2017-03-14 01:42 | NUR ---
RN ROUNDS PATIENT SLEEPING COMFORTABLY. NO S/S OF ACUTE DISTRESS NOTED. FALL, ASPIRATION, SEIZURE PRECAUTIONS IN PLACE.
[2017-03-14] MEDS: ALBUTEROL SULFATE 0.083% 2.5 MG/3 ML VIAL.NEB INH SCH ×5 (02:31→23:25)
[2017-03-14] MEDS: NACL 0.9% 1,000 ML IV SCH (03:16)
--- NOTE | 2017-03-14 03:35 | NUR ---
RN ROUNDS PATIENT SLEEPING COMFORTABLY. NO S/S OF ACUTE DISTRESS NOTED. FALL, ASPIRATION, SEIZURE PRECAUTIONS IN PLACE.
[2017-03-14 04:42] VITALS: BP_SYST 108
[2017-03-14] MEDS: HYDROmorphone 1 MG INJ. 1 MG/ML AMPUL IVP PRN ×3 (04:56→17:36)
[2017-03-14] MEDS: metroNIDAZOLE 250 mg/NS 50 ML IV SCH ×3 (06:39→21:45)
[2017-03-14 07:08] LABS: BASOPHILS % (AUTO) 0.4 % (0.0-2.0); EOSINOPHILS # (AUTO) 0.4 K/uL (0.0-0.4); EOSINOPHILS % (AUTO) 3.7 % (0.0-4.0); HEMATOCRIT 30.6 % (36-54); HEMOGLOBIN 10.2 g/dL (14.0-18.0); LYMPHOCYTES # (AUTO) 1.8 K/uL (1.0-5.5); LYMPHOCYTES % (AUTO) 18.1 % (20.5-51.5); MEAN CORPUSCULAR HEMOGLOBIN 32 pg (27-31); MEAN CORPUSCULAR HGB CONC 34 % (32-36); MEAN CORPUSCULAR VOLUME 96 fL (79.0-98.0); MONOCYTES # (AUTO) 0.5 K/uL (0.0-1.0); MONOCYTES % (AUTO) 5.1 % (1.7-9.3); NEUTROPHILS # (AUTO) 7.1 K/uL (1.8-7.7); NEUTROPHILS % (AUTO) 72.7 % (40.0-70.0); PLATELET COUNT (AUTO) 286 K/uL (130-430); RED BLOOD CELL COUNT(AUTO) 3.18 MIL/uL (4.2-6.2); RED CELL DISTRIBUTION WIDTH 13.1 % (9.0-15.0); WHITE BLOOD COUNT (AUTO) 9.8 K/uL (4.8-10.8)
[2017-03-14 07:21] LABS: CREATININE 0.64 mg/dL (0.55-1.30); POTASSIUM 4.3 mmol/L (3.5-5.1)
--- NOTE | 2017-03-14 07:45 | NUR ---
CLOSING NOTES PATIENT IS AWAKE, ALERT, AND ORIENTED X3. PT IS IN SEMI-BURNETT'S POSITION, RESPIRATIONS EVEN AND UNLABORED. TPN, LIPIDS, AND IV FLUIDS RUNNING. PICC LINE SHOWS NO SIGNS OF INFILTRATION. ILEOSTOMY BAG CLEAN AND DRY. ABDOMINAL DRESSING CLEAN, DRY, AND INTACT. WOUND VAC SEALED WITH NO AIR LEAKS. BANDAGES ON BILATERAL HIPS DRY AND INTACT. ASPIRATION, SEIZURE, AND FALL PRECAUTIONS IN PLACE. WILL ENDORSE CARE TO DAYSHIFT NURSE.
[2017-03-14 08:00] VITALS: BP_SYST 121
--- NOTE | 2017-03-14 08:00 | NUR ---
delma initial notes rec patient awake , alert and moaning . noted with contracted upper and lower extremities. piccline on the left upper arm intact. double lumen. no infiltration noted. tpn lipids and ns infusing well. resp easy and unlabored. abdominal dressing intact. pt also with ileostomy and draining to liquid mucoid stool. resp easy and unlabored. bed in low position and side rails up and locked. caregiver at the bedside.
--- NOTE | 2017-03-14 08:19 | NUR ---
RN ROUNDS PATIENT IS SLEEPING, NO S/S OF ACUTE DISTRESS NOTED. RESPIRATIONS EVEN AND UNLABORED. FALL AND ASPIRATION PRECAUTIONS IN PLACE. CALL LIGHT WITHIN REACH.
[2017-03-14] MEDS: TAMSULOSIN HCL 0.4 MG CAP PO SCH (09:03)
[2017-03-14] MEDS: GABAPENTIN 300 MG CAPSULE PO SCH ×3 (09:03→21:34)
[2017-03-14] MEDS: clonazePAM 0.5 MG TABLET PO SCH ×3 (09:03→21:40)
[2017-03-14] MEDS: ENOXAPARIN SODIUM 40 MG/0.4 ML SYRINGE SQ SCH (09:04)
[2017-03-14] MEDS: PANTOPRAZOLE SODIUM 40 MG/VIAL (PROTONIX) IV SCH (09:05)
[2017-03-14] MEDS: 0.45% NACL 1,000 ML IV SCH ×2 (09:30→19:43)
[2017-03-14 11:29] VITALS: BP_SYST 94
--- NOTE | 2017-03-14 12:00 | NUR ---
rounds no hypo hyperglycemic reaction noted. resting comfortably. no acute distress noted.
--- NOTE | 2017-03-14 13:36 | NUR ---
rounds dr burgos at the bedside and took out dressing on the abdomen. looks dry and clean except for a small drainage on the lower part of the incision. will observe for any further drainage.
--- NOTE | 2017-03-14 14:31 | NUR ---
consult for dr. marques called spoke to becky dialed [phone]
--- NOTE | 2017-03-14 14:57 | NUR ---
DISCHARGE PLANNING DC planning order to arrange home health and DME for air loss mattress and seat cushion. Called patient residential child care counselor leeanne [phone] who advised DCP to call patient sister Brii. Called Brii Sebastian [phone] left voice message requesting return call back. Per SSW Lorna Teresa is on her way to visit with patient today, DCP will discuss DCP upon her arrival. Addendum: 03/14/17 at 1529 by Susy FREEDMAN Called and spoke with Karley in intake dept at [facility] confirmed able to staff wound care w/vac and TPN. Karley stated hospital will need to arrange TPN and unable to staff same day patient would need Picc placement. Addendum: 03/14/17 at 1550 by Susy FREEDMAN Faxed [facility] order to [phone] [phone]. Addendum: 03/14/17 at 1708 by Susy FREEDMAN Met with patient sister Brii Sebastian at patient bedside regarding discharge plan. Brii stated patient request to return home and confirmed patient has been on home health services with [facility]. Brii confirmed patient has [place] size hospital bed at home and is needing Air Loss Mattress and will pay privately should there be difference in Twin/Jenkins size mattress. Brii also stated Cushion is for patient to use with his wheelchair. [facility] provided Brii with list Non-Medical transport list and will get lovelace quotes and make transport arrangements. Brii was agreeable with patient to be evaluated by [facility] due to patient needed 24Hr licensed nurse care. Brii also made [facility] aware patient receives care thru [facility] and she will notify them of patient needs for 24Hr licensed nurse care. Spoke with Risa at [facility] [phone] scheduled evaluation to take place tomorrow between 11-11:30am which is when Brii is available. Brii did not have any further questions or concerns.
[2017-03-14 15:46] VITALS: BP_SYST 100
--- NOTE | 2017-03-14 16:00 | NUR ---
rounds sleeping at intervals. caregiver at the bedside and will call for assistance when needing help.pt able to verbalize needs even with his slurred speech. no acute distress noted.
[2017-03-14] MEDS: LEVOFLOXACIN 500 MG/D5W 100 ML IV SCH (17:33)
[2017-03-14] MEDS: [UNRECOGNIZED DRUG - OTHER] IV SCH ×10 (17:42)
[2017-03-14] MEDS: TPN CENTRAL IV SCH ×10 (17:42)
[2017-03-14] MEDS: CALCIUM GLUCONATE IV SCH ×10 (17:42)
[2017-03-14] MEDS: K PHOS IV SCH ×10 (17:42)
[2017-03-14] MEDS: SODIUM ACETATE IV SCH ×10 (17:42)
[2017-03-14] MEDS: FAT EMULSIONS 250 ML IV SCH (17:43)
[2017-03-14] MEDS: FLUCONAZOLE 200 mg/ NS 100 ML IV SCH (17:44)
--- NOTE | 2017-03-14 18:45 | NUR ---
closing notes sleeping at this time. no sob noted. will endorsed re condom cath. picc line intact on the l arm double lumen and no infiltration noted. turned repositioned for comfort. stable, needs attended.
[2017-03-14 20:00] VITALS: BP_SYST 95
--- NOTE | 2017-03-14 20:00 | NUR ---
Assumed care of pt this pm/shift mechanic;Assess as charted,no signs/symptoms of acute distress observed
[2017-03-14] MEDS: PANTOPRAZOLE SODIUM 40 MG TAB PO SCH (21:34)
[2017-03-14] MEDS: ARIPiprazole 5 MG TAB PO SCH (21:39)
[2017-03-14] MEDS: MIRTAZAPINE 15 MG TABLET PO SCH (21:45)
--- NOTE | 2017-03-14 22:30 | NUR ---
Pt care rounds conducted;pt awake,denies pain,no signs/symptoms of acute distress evident
[2017-03-15] VITALS (7 sets, daily range): BP systolic 92–109
[2017-03-15] MEDS: HYDROmorphone 1 MG INJ. 1 MG/ML AMPUL IVP PRN ×3 (00:31→22:36)
--- NOTE | 2017-03-15 01:20 | NUR ---
RESUMED CARE FROM [facility]-REGISTRY NURSE -Pt is resting. No s/s any acute distress noted. PICC Line of YOKO patent,no s/s any infiltration noted. IVF 1/2NS @ 30ml/hr, Lipid 20% @ 10ml/hr, and TPN @ 42ml/hr infusing. Wound vac in place light brownish drainage output from sacral site. Pain pump of left lower abdominal site. Alexsander hips drsg cdi with optifoam. Condom catheter in place drains yellow urine output. Surgical site of midline abdomen dry and well approx. Ileostomy site of rt lower abdominal site drains liquid stool output-250ml emptied. All safety measures in place. Call light w/in reach. Continue to monitor pt.
--- NOTE | 2017-03-15 01:25 | NUR ---
Report given & care surrendered to PEDRO Zimmer
[2017-03-15] MEDS: ALBUTEROL SULFATE 0.083% 2.5 MG/3 ML VIAL.NEB INH SCH ×6 (03:00→23:00)
--- NOTE | 2017-03-15 03:03 | NUR ---
ROUNDS; -Pt is resting. No s/s any acute distress noted. PICC Line of YOKO patent,no s/s any infiltration noted. IVF 1/2NS @ 30ml/hr, Lipid 20% @ 10ml/hr, and TPN @ 42ml/hr infusing. Wound vac in place light brownish drainage output from sacral site. All safety measures in place. Call light w/in reach. Continue to monitor pt.
[2017-03-15] MEDS: metroNIDAZOLE 250 mg/NS 50 ML IV SCH ×3 (05:18→20:55)
--- NOTE | 2017-03-15 05:21 | NUR ---
ROUNDS;BLOOD SUGAR-121 -Pt is resting. No s/s any acute distress noted. PICC Line of YOKO patent,no s/s any infiltration noted. IVF 1/2NS @ 30ml/hr, Lipid 20% @ 10ml/hr, and TPN @ 42ml/hr infusing. Infusing Antibotic. Wound vac in place light brownish drainage output from sacral site. All safety measures in place. Call light w/in reach. Continue to monitor pt.
[2017-03-15 06:33] LABS: ANION GAP 5 (5-15); CALCIUM 7.8 mg/dL (8.4-11.0); CHLORIDE 103 mmol/L (98-107); CREATININE 0.66 mg/dL (0.55-1.30); GLUCOSE 129 mg/dL (70-99); POTASSIUM 4.3 mmol/L (3.5-5.1); SODIUM SERUM 137 mmol/L (136-145); UREA NITROGEN, BLOOD 14 mg/dL (8-21)
--- NOTE | 2017-03-15 06:50 | NUR ---
CLOSING NOTES; -Pt is resting. Pt's condition remains stable. No s/s any acute distress noted. PICC Line of YOKO patent,no s/s any infiltration noted. IVF 1/2NS @ 30ml/hr, Lipid 20% @ 10ml/hr, and TPN @ 42ml/hr infusing. Wound vac in place light brownish drainage output from sacral site. Pain pump of left lower abdominal site. Alexsander hips drsg cdi with optifoam. Condom catheter in place drains yellow urine output. Surgical site of midline abdomen dry and well approx. Ileostomy site of rt lower abdominal site drains liquid stool output. All safety measures in place. Call light w/in reach. Will endorse to oncoming nurse to continue care.
--- NOTE | 2017-03-15 08:00 | NUR ---
Opening notes Seen patient in bed, pt is alert and awake, maria luisa speech, no sob, no distress. bedbound, condom cath out and replaced, turned and reposition. noted pt is wet with yellow urine on chucks, wound vac draining well, no leak, pic line on r upper arm intact and patent, infusing well. no sob, no distress. safety precaution in place, bed alarm on, call light in reach, bed in low position. will cont to monitor.
[2017-03-15] MEDS: PANTOPRAZOLE SODIUM 40 MG TAB PO SCH ×2 (09:47→20:55)
[2017-03-15] MEDS: TAMSULOSIN HCL 0.4 MG CAP PO SCH (09:47)
[2017-03-15] MEDS: clonazePAM 0.5 MG TABLET PO SCH ×3 (09:47→20:54)
[2017-03-15] MEDS: GABAPENTIN 300 MG CAPSULE PO SCH ×3 (09:47→20:55)
[2017-03-15] MEDS: ENOXAPARIN SODIUM 40 MG/0.4 ML SYRINGE SQ SCH (09:50)
--- NOTE | 2017-03-15 10:00 | NUR ---
rounding notes, patient in bed, no sob no distress, all am meds offered and taken by patient. safety precaution in place. will cont to monitor.
--- NOTE | 2017-03-15 11:30 | NUR ---
WOUND EVALUATION: Wound Consult received from Dr. Merino. Thank you, Dr. Merino, for the consult. Patient received in a [place] Bed with an Atmos-Air 9000 mattress, awake, alert, confused, limited verbal interaction. Patient is unable to turn independently. Fantasma Score is a 13. Past Medical History: Spastic Quadriparesis, severe Gastroesophageal Reflux Disease, chronic Constipation, history of Colon Polyps, Bowel Obstruction, Esophagitis, Laparotomy and right bowel obstructions, Colostomy, Colostomy takedown, history of Stage IV Decubitus Ulcer (still needs definitive Plastic Surgery), Bronchitis, Pneumonia, and BPH. Recent Labs: WBC 9.8, RBC 3.18, Hgb 10.2, Hct 30.6, Gluc 129, Ca 7.8, Alb 1.7, PT 14.2, INR 1.3. Intrinsic factors that delay wound healing: Hypoalbuminemia. Extrinsic factors that delay wound healing: Immobility. Microbiology: Blood culture 2 negative, MRSA screen negative, Trach culture positive for Pseudomonas Aeruginosa. Wound Assessment: 1) Sacral-Coccygeal Are: Stage IV Pressure Ulcer, present on admission. Wound was recently debrided by Dr. Burden with subsequent negative pressure wound therapy treatment. Wound bed is 30% yellow tissue, 70% red tissue. No odor, no drainage. Hubert-wound macerated, and has 100% undermining, deepest 2.7 cm at 5:00. Surrounding tissue has scar tissue. Measures 4.0 cm x 2.5 cm x 1.0 cm. Recommend: Cleanse wound with normal saline. Put sure prep onto hubert-wound and surrounding tissue. Put hydrogel onto wound bed. Put black granufoam dressing into wound bed. Place a nonadhesive foam dressing over scar tissue inferior to wound. Cover with all dressing materials with VAC drape. Place VAC drape on skin from wound to non-bony portion of thigh. Cut a hole in wound granufoam and attach black granufoam dressing. Lay granufoam dressing over VAC drape. Cover with more VAC drape. Attached to suction attachment, and set wound VAC for 125 mmHg, continuous. Perform wound care daily Monday, Monday, Monday, and as needed for dressing soiling or dislodgement. 2) Left Lateral Hip: Scar tissue, present on admission. 100% pink tissue. No odor, no drainage. 3) Left Lateral Hip: Scar tissue, present on admission. 100% pink tissue. No odor, no drainage. Recommend: Cover with foam dressing. Perform site care daily, and as needed for dressing soiling or dislodgement. Also recommend: Reposition patient side to side only every 2 hours with pillow support, and off-load pressure areas with pillows for pressure re-distribution. Offload, elevate and float bilateral heels with pillows. Perform skin care and monitor skin integrity Q shift. Use moisture barrier cream on buttocks and other moisture susceptible areas QID and as needed for soiling. Maintain patient on a low air-loss mattress.
--- NOTE | 2017-03-15 12:05 | NUR ---
Rounding notes ; fs bs = 133 Pt in bed, awake, family at bedside, no s/sx pain, no sob, no distress. call light in reach, bed in low position. safety precautiion in place. furniture refinisher Kristian , changed wound vac dressing earlier (1130am).
--- NOTE | 2017-03-15 12:30 | NUR ---
DC PLANNING: Met with Brii at bedside while she was talking with Risa and Glen, representatives from [employer] Per Glen, the equipment and shift care arrangement will take 2 to 6 weeks set up and home safety inspection and approval by [facility] district office . With Brii acknowledgement and agreement that the pt. will be transferrd to a [facility] facility while waiting for the set up. Choice of vendor / 2nd Medicare IM discussed, the forms to sign later. Brii want to visit [facility] facilities:[facility]. [facility], [facility]. [facility]. Brii made aware that for pain consultation was notified to see the pt. serenity >> Kimberly made aware and she will see Brii today for reassessment. Addendum: 03/15/17 at 1427 by Nicholas Rodriguez RN >> Notified via phone of the above info. The okayed with transfer pt. to [facility] when bed available after the dr. Morley consultation and recommendation about the pain pump: to refill the pump as out patient vs to do it prior to transferring. -- PEDRO Palacios made aware and to f/u with Dr. Morley plan.
--- NOTE | 2017-03-15 14:00 | NUR ---
Rounding notes; patient in bed, resting comfortably in bed. safety precaution in place. will cont to monitor.
--- NOTE | 2017-03-15 16:24 | NUR ---
Nutrition F/U Admitting Diagnosis Abd pain, r/o leaking fistula, sepsis Reviewed Pertinent Medical/Surgical Hx Patient Medical Record Family Member Medical History Comment: Cerebral palsy, spastic quadriparesis, severe GERD per MD notes 03/09/17 per MD notes: BLL pneumonia, aspiration induced, GNR, Enterocutaneous Fistula s/p repair, UTI, Candiduria, MR, Balanitis, Infected sacral decub ulcer Subjective Information Pt seen resting in bed, +nasal cannula w/ TPN infusing as per MD orders. Pt is POD 8 s/p total colectomy, revision of ileostomy, resection of jejunal fistula with oynb-mw-sylf anastomosis, lysis of dense adhesions, excisional debridement of sacral decubitus ulcer stage 4 w/ wound VAC application per surgeon. Pt's nephew/caregiver at bedside stated that pt's appetite has been improving, and pt tends to eat at least 50% of each meal tray, alongside 100% of Boost Plus supplement drink. Per EMR, PO Intakes: 30% average x12 meals. TPN Intakes: 260 ml 03/15/17. Abd is soft and non-distended w/ active bowel sounds. I/O: 120/120 (+0 ml) per 12 hours. Current PO diet and TPN support is adequate and appropriate at this time. Pt is not appropriate for nutrition education. Current Diet Order/Nutrition Support Puree diet x4 days & TPN D40%, AA10% at 42 ml/hr, IL20% at 10 ml/hr daily via central line Patient/Significant Other Able To Verbalize Education Provided Not Indicated Pertinent Medications reglan, zofran Pertinent Labs BG 129 H, POC BG 133 H, ALB 1.7 L, H/H 10.2 L/30.6 L Height (Feet) 5 feet Height (Inches) 4.00 inches Weight (Pounds) 98 pounds (admission) BEDSCALE WT: 119 lb, 54 kg (03/15/17) -- likely inaccurate as bedscale may not have been calibrated Weight (Calculated Kilograms) 44.859717 kilograms Patient Weight 44.452 kg Body Mass Index 16.82 kg/m2 Usual Weight 117 lbs %UBW 100 %IBW 90 [place]/Adjusted Body Weight IBW: 130 lb, 59 kg Recent Weight Change Yes - Possible 19 lb wt loss based on last week's wt compared to admission wt (refer to initial assessment notes) Weight Status Underweight Food Allergies No Usual Diet At Home Pureed diet w/ occasional Ensure Last BM Output (stool): 1300 03/14/17 Skin Integrity Comment: Fantasma scale: 13 (03/10/17). Per nursing notes, pt w/ multiple wounds to L/R hip, R buttocks, and sacrum NEW Estimated Energy Expenditure (kcals/day) 4080-2649 kcal/day (30-35 kcal/kg CBW for surgical healing) NEW Estimated Protein Required (g/day) 66-88 gm/day (1.5-2 gm/kg CBW for surgical healing) Estimated Fluid Required (l/day) 1.3-1.5 L/day (1 ml/kcal/day for maintenance) Problem/Etiology/Signs/Symptoms (modified) Increased nutritional needs related to metabolic demands as evidenced by elevated lactic acid level and estimated nutritional requirements for sepsis, and surgical healing. *ongoing -- met w/ current PO diet and TPN regimen Expected Outcomes/Goals - Monitor tolerance to TPN support w/ goal of pt meeting at least 75% of estimated nutritional needs, labs trending WNL, normal GI function, and skin integrity/wt maintenance Dietitian Recommendations * Recommend continuing TPN D40%, AA10% at 42 ml/hr, IL20% at 10 ml/hr daily via central line Final Concentration: D20%, AA5% at 42 ml/hr (goal rate), IL20% at 10 ml/hr daily via central line Provides: 1369 kcal/day, 50 gm protein/day, 1248 ml total volume/day, and GIR: 2.6 gm CHO/kg/min Meets: 104% of estimated caloric needs and 76% of lower end of estimated protein needs * Recommend continuing pureed diet per MD (oral supplement comes standard w/ diet; provides an additional 1080 kcal/day and 42 gm protein/day) Monitor/Evaluation Comment RD spoke w/ pharmacist regarding continuation of current TPN support Follow Up High Risk: F/U in 3-5 days Addendum: 03/15/17 at [address] CORRECTION: Follow Up Moderate: F/U in 3-5 days
[2017-03-15] MEDS: CALCIUM GLUCONATE IV SCH ×10 (17:08)
[2017-03-15] MEDS: TPN CENTRAL IV SCH ×10 (17:08)
[2017-03-15] MEDS: [UNRECOGNIZED DRUG - OTHER] IV SCH ×10 (17:08)
[2017-03-15] MEDS: K PHOS IV SCH ×10 (17:08)
[2017-03-15] MEDS: SODIUM ACETATE IV SCH ×10 (17:08)
[2017-03-15] MEDS: FAT EMULSIONS 250 ML IV SCH (17:21)
[2017-03-15] MEDS: FLUCONAZOLE 200 mg/ NS 100 ML IV SCH (17:22)
--- NOTE | 2017-03-15 18:00 | NUR ---
ROUNDING NOTES, PT IN BED, EATING DINNER WITH CARE TAKE. PT IS ALERT ORIENTED WITH NO PAIN. NO SOB, CALL LIGHT IN REACH. BED IN LOW POSITION. WILL ENDORSE TO NIGHT NURSE.
--- NOTE | 2017-03-15 18:48 | NUR ---
SPOKE TO DR CHERYL RAMIREZ PAIN PUMP, SAID HE WILL ABLE TO SEE PATIENT IN AM ONLY AND IF PT IS DC TO [facility] HE CAN SEE PATIENT THERE AND PROBABLU TAKE CARE OF THE PAIN PUMP THERE. SAID HE WILL CALL DR MART .
[2017-03-15] MEDS: LEVOFLOXACIN 500 MG/D5W 100 ML IV SCH (18:56)
--- NOTE | 2017-03-15 19:20 | NUR ---
CLOSING NOTES, CARE ENDORSED TO NIGHT RN. FAMILY REMAINED AT BEDSIDE. NO UNTOWARD INCIDENT THIS SHIFT. ENDORSED TO NIGHT RN TO PLEASE CHANGE DRESSING OF PICC.
--- NOTE | 2017-03-15 19:30 | NUR ---
ROUNDS; -Pt awakes, resting. Sister is at bedside. No s/s any pain,sob,or any acute distress noted. PICC Line of YOKO patent,no s/s any infiltration noted. IVF 1/2NS @ 30ml/hr, Lipid 20% @ 10ml/hr, and TPN @ 42ml/hr infusing. Wound vac in place light brownish drainage output from sacral site. Pain pump of left lower abdominal site. Alexsander hips drsg cdi with optifoam. Condom catheter in place drains yellow urine output. Surgical site of midline abdomen dry and well approx. Ileostomy site of rt lower abdominal site drains liquid stool output with a bag in place. All safety measures in place. Call light w/in reach. Continue to monitor pt.
--- NOTE | 2017-03-15 19:30 | NUR ---
CORRECTION-IT'S INITIAL NOTES; NOT ROUNDS;
--- NOTE | 2017-03-15 20:54 | NUR ---
NOTES; -Pt awakes, resting. Cousin is at bedside. Gave all night scheduled po medications with sips of water, pt tolerated well. No s/s any pain,sob,or any acute distress noted. PICC Line of YOKO patent,no s/s any infiltration noted. IVF 1/2NS @ 30ml/hr, Lipid 20% @ 10ml/hr, and TPN @ 42ml/hr infusing. Wound vac in place light brownish drainage output from sacral site. Pain pump of left lower abdominal site. Alexsander hips drsg cdi with optifoam. Condom catheter in place drains yellow urine output. Surgical site of midline abdomen dry and well approx. Ileostomy site of rt lower abdominal site drains liquid stool output with a bag in place. All safety measures in place. Call light w/in reach. Continue to monitor pt.
[2017-03-15] MEDS: MIRTAZAPINE 15 MG TABLET PO SCH (20:55)
[2017-03-15] MEDS: ARIPiprazole 5 MG TAB PO SCH (20:55)
--- NOTE | 2017-03-15 22:10 | NUR ---
G BATH PROVIDED -Pt tolerated well. -Pt awakes, no s/s any acute distress noted. All safety measures in place. Call light w/in reach. Continue to monitor pt.
--- NOTE | 2017-03-15 22:15 | NUR ---
PICC LINE DRSG CHANGED UNDER STERILE TECHNIQUE
--- NOTE | 2017-03-15 22:36 | NUR ---
PAIN MEDICATION GIVEN -Pt is restless, moaning, and screaming. Gave Dilaudid 1mg IVP. See EMAR for pain reassessment. Call light w/in reach. Continue to monitor pt.
[2017-03-16] VITALS (7 sets, daily range): BP systolic 94–108
--- NOTE | 2017-03-16 01:37 | NUR ---
ROUNDS; -Pt is resting. No s/s any pain,sob,or any acute distress noted. All safety measures in place. Call light w/in reach. Continue to monitor pt.
[2017-03-16] MEDS: ALBUTEROL SULFATE 0.083% 2.5 MG/3 ML VIAL.NEB INH SCH ×4 (03:00→20:18)
--- NOTE | 2017-03-16 03:04 | NUR ---
ROUNDS; -Pt is resting. No s/s any pain,sob,or any acute distress noted. IVF 1/2NS @ 30ml/hr, Lipid 20% @ 10ml/hr, and TPN @ 42ml/hr infusing. Wound vac in place light brownish drainage output from sacral site. Condom catheter in place drains yellow urine output. Ileostomy site of rt lower abdominal site drains liquid stool output with a bag in place. All safety measures in place. Call light w/in reach. Continue to monitor pt.
[2017-03-16] MEDS: metroNIDAZOLE 250 mg/NS 50 ML IV SCH ×3 (05:04→21:15)
[2017-03-16] MEDS: HYDROmorphone 1 MG INJ. 1 MG/ML AMPUL IVP PRN ×4 (05:05→21:18)
--- NOTE | 2017-03-16 05:06 | NUR ---
ROUNDS;PAIN MEDICATION ADMINISTERED -Pt is c/o abdominal pain sharp, gave Dilaudid 2mg IVP. All safety measures in place. Call light w/in reach. Continue to monitor pt.
[2017-03-16] MEDS: 0.45% NACL 1,000 ML IV SCH (05:49)
--- NOTE | 2017-03-16 06:58 | NUR ---
DR. KRISHNA CALLED AND INFORMED THAT HE WILL COME TO WRITE A PRESCRIPTION OF BACLOFEN PUMP FOR PHARMACIST -ALSO, HE STATED THAT ONCE PHARMACY HAS THIS MEDICATION AVAILABLE, TO HAVE PHARMACIST TO NOTIFY HIM. -HE STATED,''DON'T CALL DR. KRISHNA, JUST CALL DR. MART OR ANIMAL SCIENCE INSTRUCTOR.''
[2017-03-16 07:03] LABS: ALBUMIN 1.9 g/dL (3.4-4.8); CREATININE 0.65 mg/dL (0.55-1.30); POTASSIUM 4.2 mmol/L (3.5-5.1); TOTAL BILIRUBIN 0.1 mg/dL (0.0-1.0); TOTAL PROTEIN, SERUM 6.6 g/dL (6.4-8.3)
--- NOTE | 2017-03-16 07:10 | NUR ---
CLOSING NOTES; -Pt is resting. No s/s any pain,sob,or any acute distress noted. PICC Line of YOKO patent,no s/s any infiltration noted. IVF 1/2NS @ 30ml/hr, Lipid 20% @ 10ml/hr, and TPN @ 42ml/hr infusing. Wound vac in place light brownish drainage output from sacral site. Pain pump of left lower abdominal site. Condom catheter in place drains yellow urine output. Surgical site of midline abdomen dry and well approx. Ileostomy site of rt lower abdominal site drains liquid stool output with a bag in place. All safety measures in place. Call light w/in reach. Endorsed to [facility]-nurse to continue care.
--- NOTE | 2017-03-16 07:12 | NUR ---
DR. KRISHNA IS AT NURSE'S STATION -DR. KRISHNA IS AT NURSE'S STATION AND IS GIVING A PRESCRIPTION BACLOFEN FOR BACLOFEN PUMP TO GIVE A PHARMACIST. ENDORSED TO APOLINAR-NURSE TO GIVE TO [facility]-PHARMACIST ONCE AVAILABLE, TO INFORM PHARMACIST TO NOTIFY DR. KRISHNA.
[2017-03-16 07:58] LABS: IRON (SERUM) 55 mcg/dL (59-158); TOTAL IRON BIND. CAPACITY 183 ug/dL (250-450)
--- NOTE | 2017-03-16 08:00 | NUR ---
RN opening note patient lying on bed open eyes, vital signs are stable, patient was assessed< IVF and TPN and lipids runs are prescribed will follow up
[2017-03-16] MEDS: GABAPENTIN 300 MG CAPSULE PO SCH ×3 (08:37→21:15)
[2017-03-16] MEDS: clonazePAM 0.5 MG TABLET PO SCH ×3 (08:38→21:15)
[2017-03-16] MEDS: ENOXAPARIN SODIUM 40 MG/0.4 ML SYRINGE SQ SCH (08:38)
[2017-03-16] MEDS: PANTOPRAZOLE SODIUM 40 MG TAB PO SCH ×2 (08:38→21:15)
[2017-03-16] MEDS: TAMSULOSIN HCL 0.4 MG CAP PO SCH (08:38)
--- NOTE | 2017-03-16 08:47 | NUR ---
DISCHARGE PLANNING Spoke with Gerry Harris who was made aware of family requested for placement at [facility] or [facility]. Marline will follow up and request for bed assignment once approved. EVIE Peterson made aware. Addendum: 03/16/17 at 1011 by Susy Bhatti DP Ordered Radiology CD. Placed transportation packet in nurses station. Addendum: 03/16/17 at 1207 by Susy Bhatti DP Spoke with Gerry Harris patient denied at [facility], and [facility] has a long waiting list with no estimated discharges. EVIE Peterson was updated and will discuss [place] location and again Junito Payton. Addendum: 03/16/17 at 1242 by Nicholas Rodriguez RN >> Notified Brii via phone regarding pt. not accepting at [facility], and [facility]. Brii expressed that "it is absolutely not going to the [place] location.The pt. is fearful returning there." Brii stated she will visit the [place] location today. -- CM will f/u.
--- NOTE | 2017-03-16 10:00 | NUR ---
RN Rounds patient lying on bed, ileostomy bag was emptied, patient skin was cleaned will follow up
--- NOTE | 2017-03-16 15:00 | NUR ---
DC PLANNING: Met with Brii and the pt. 's social media project manager/Angelica from [facility] office # [phone] . F/U on her visiting to [facility], per Brii, she did not visit the facility [facility] has 1 star rating found on internet. She does not want the pt. to transfer there. Since Brii does not like any of the [place] facility except [facility] and [place] locations where are not accepting the patient, this cm offered more [facility] facilities for her consideration as follows, [facility] @ [facility], [place] and [place], [facility], [facility] or other locations of her finding. Cm will assist with the referral process. Brii acknowledged and received the above [facility] address and phone list. Brii stated she would like the pt. transferring to LTAC closer to [facility] because of the conveniences for family and the pt travelling for md appointments there. Also, informed again to Brii about the IM letter from medicare which she understood and signed. The copy put on the pt.'s chart. Discussed with Brii about a possible payment may not cover by her insurance for ambulance transportation to [place]. Brii stated she will assume responsibility as necessary. >> Brii requested to speak with Kimberly again for second consideration for the pt. transferring to [facility] or [facility]. This cm arranged for them to speak over the phone which concluded that Kimberly would speak with her administration and would give Brii the answer in am.
[2017-03-16] MEDS: [UNRECOGNIZED DRUG - OTHER] IV SCH ×10 (17:29)
[2017-03-16] MEDS: TPN CENTRAL IV SCH ×10 (17:29)
[2017-03-16] MEDS: K PHOS IV SCH ×10 (17:29)
[2017-03-16] MEDS: SODIUM ACETATE IV SCH ×10 (17:29)
[2017-03-16] MEDS: CALCIUM GLUCONATE IV SCH ×10 (17:29)
[2017-03-16] MEDS: FAT EMULSIONS 250 ML IV SCH (17:35)
[2017-03-16] MEDS: FLUCONAZOLE 200 mg/ NS 100 ML IV SCH (17:37)
[2017-03-16] MEDS: LEVOFLOXACIN 500 MG/D5W 100 ML IV SCH (17:38)
--- NOTE | 2017-03-16 19:40 | NUR ---
INITIAL NOTES; -Pt awakes, resting. Sister is at bedside. No s/s any pain,sob,or any acute distress noted. PICC Line of YOKO patent,no s/s any infiltration noted. IVF 1/2NS @ 30ml/hr, Lipid 20% @ 10ml/hr, and TPN @ 42ml/hr infusing. Wound vac in place light brownish drainage output from sacral site. Pain pump of left lower abdominal site. Alexsander hips drsg cdi with optifoam. Condom catheter in place drains yellow urine output. Surgical site of midline abdomen dry and well approx. Ileostomy site of rt lower abdominal site drains liquid stool output with a bag in place. All safety measures in place. Discussed poc,all safety measures, daughter verbalized understanding. Call light w/in reach. Continue to monitor pt.
[2017-03-16] MEDS: ARIPiprazole 5 MG TAB PO SCH (21:15)
[2017-03-16] MEDS: MIRTAZAPINE 15 MG TABLET PO SCH (21:15)
--- NOTE | 2017-03-16 21:22 | NUR ---
ROUNDS;PAIN MEDICATION ADMINISTERED -Pt is c/o abdominal pain sharp, gave Dilaudid 2mg IVP. All safety measures in place. Call light w/in reach. Continue to monitor pt. Addendum: 03/16/17 at 2255 by Jayden Rm RN CORRECTION-DILAUDID 1MG IVP GIVEN; NOT DILAUDID 2MG
[2017-03-17] MEDS: LORazepam 2 MG/ML VIAL IVP PRN (00:21)
--- NOTE | 2017-03-17 00:22 | NUR ---
ANXIOUS/AGITATION -Gave ativan 0.5mg ivp. Pt is screaming and restless. Continue to monitor pt.
--- NOTE | 2017-03-17 01:35 | NUR ---
ROUNDS;EMPTIED 300 ML OF ILEOSTOMY BAG -Pt is resting. No s/s any pain,sob,or any acute distress noted. IVF 1/2NS @ 30ml/hr, Lipid 20% @ 10ml/hr, and TPN @ 42ml/hr infusing. Wound vac in place light brownish drainage output from sacral site. Condom catheter in place drains yellow urine output. Ileostomy site of rt lower abdominal site drains liquid stool output with a bag in place. All safety measures in place. Call light w/in reach. Continue to monitor pt.
--- NOTE | 2017-03-17 03:21 | NUR ---
ROUNDS; -Pt is resting. No s/s any pain,sob,or any acute distress noted. IVF 1/2NS @ 30ml/hr, Lipid 20% @ 10ml/hr, and TPN @ 42ml/hr infusing. Wound vac in place light brownish drainage output from sacral site. Condom catheter in place drains yellow urine output. All safety measures in place. Call light w/in reach. Continue to monitor pt.
[2017-03-17 03:44] VITALS: BP_SYST 100
[2017-03-17] MEDS: metroNIDAZOLE 250 mg/NS 50 ML IV SCH ×2 (05:23→13:55)
--- NOTE | 2017-03-17 05:25 | NUR ---
ROUNDS;BLOOD ECTWA=[id number] -Pt is resting. No s/s any pain,sob,or any acute distress noted. IVF 1/2NS @ 30ml/hr, Lipid 20% @ 10ml/hr, and TPN @ 42ml/hr infusing. Wound vac in place light brownish drainage output from sacral site. Condom catheter in place drains yellow urine output. All safety measures in place. Call light w/in reach. Continue to monitor pt. Addendum: 03/17/17 at 0528 by Jayden Rm RN EMPTIED ILEOSTOMY BHI=[id number]
--- NOTE | 2017-03-17 06:43 | NUR ---
CLOSING NOTES; -Pt is resting. No s/s any acute distress noted. PICC Line of YOKO patent,no s/s any infiltration noted. IVF 1/2NS @ 30ml/hr, Lipid 20% @ 10ml/hr, and TPN @ 42ml/hr infusing. Wound vac in place light brownish drainage output from sacral site. Pain pump of left lower abdominal site. Condom catheter in place drains yellow urine output. Surgical site of midline abdomen dry and well approx. Ileostomy site of rt lower abdominal site drains liquid stool output with a bag in place. All safety measures in place. Call light w/in reach. Will endorse to oncoming nurse to continue care.
[2017-03-17] MEDS: ALBUTEROL SULFATE 0.083% 2.5 MG/3 ML VIAL.NEB INH SCH ×4 (07:33→19:00)
[2017-03-17 08:00] VITALS: BP_SYST 102
--- NOTE | 2017-03-17 08:00 | NUR ---
NOTE PT RESTING IN BED. NO SOB/RESP DISTRESS OR PAIN/DISCOMFORT NOTED AT THIS TIME. IVF'S, TPN AND LIPIDS INFUSING WELL THROUGH LEFT UPPER ARM PICC AT THIS TIME. WOUND VAC ON RIGHT BUTTOCK REGION INTACT AND DRAINING WELL. RIGHT ILEOSTOMY ATTACHED AND DRAINING AT THIS TIME. CONDOM CATH LEAKING AND PENIS IS IRRITATED AT THIS TIME. CONDOM CATH SLIPPED OFF AND KEPT OFF. PT NEAR NURSES' STATION FOR CLOSE OBSERVATION.
[2017-03-17] MEDS: PANTOPRAZOLE SODIUM 40 MG TAB PO SCH (09:35)
[2017-03-17] MEDS: ENOXAPARIN SODIUM 40 MG/0.4 ML SYRINGE SQ SCH (09:35)
[2017-03-17] MEDS: TAMSULOSIN HCL 0.4 MG CAP PO SCH (09:36)
[2017-03-17] MEDS: clonazePAM 0.5 MG TABLET PO SCH ×2 (09:36→15:12)
[2017-03-17] MEDS: GABAPENTIN 300 MG CAPSULE PO SCH ×2 (09:36→15:12)
[2017-03-17] MEDS: 0.45% NACL 1,000 ML IV SCH (09:43)
--- NOTE | 2017-03-17 10:00 | NUR ---
NOTE PT'S RIGHT ILEOSTOMY CHANGED AND CLEANED AT THIS TIME. PT TURNED WITH PILLOW SUPPORT AT THIS TIME WELL. PT WAS ASSISTED WITH EATING HIS PUREED DIET BY SALES REPRESENTATIVE RURAL [employer]OWER. NO NEEDS NOTED. CALL LIGHT WITHIN REACH AND PT CHECKED Q1' AND PRN FOR NEEDS AND CARE.
--- NOTE | 2017-03-17 11:00 | NUR ---
DC Planning: Per Kimberly after she consulted with her administration for reconsideration for admitting at [place] or [place] location, [place] denied the request. The pt. may go to [facility] where is accepting the pt. Kimberly will notify Brii today. Addendum: 03/17/17 at 1423 by Nicholas Rodriguez RN >> Called Brii at # [phone], f/u on her decision and finding a new LTAC of choice. Brii stated that she went to visit [facility] and was very happy about the facility with the updated equipment, nice and clean. She was happy about the nutrition plan and wound care plan would be provided for the pt. Brii consented and agreed to transfer the pt. to [facility]. She stated she should listen to the recommendation and visit the facility so we can avoid this frustration. She was appreciative for the case management team for being patient and accommodating with her needs. Brii made aware that the pt may be transferred this evening or possible after 8 pm. She was informed that dr. Braswell will be the pcp at [place] per dr. Merino's recommendation. Dr. Braswell made olivares and accepting the pt. kavita Bright [place] [facility] made aware.
[2017-03-17 12:00] VITALS: BP_SYST 104
--- NOTE | 2017-03-17 12:00 | NUR ---
NOTE PT'S CHIEF ACCOUNTANT AT BEDSIDE AT THIS TIME. PT HAS CALMED DOWN AND FELL ASLEEP FOR SOMETIME. PT'S CAREGIVER WILL ASSIST PT IN EATING HIS LUNCH. PT ABLE TO TAKE HIS PO MEDICATIONS CRUSHED WITH APPLE SAUCE WITH NO DIFFICULTY THIS AM. PT SITTING UP IN BED FOR LUNCH TRAY ACROSS HIM AT THIS TIME. CALL LIGHT WITHIN REACH.
--- NOTE | 2017-03-17 14:30 | NUR ---
NOTE CAREGIVER JELANI INFORMED RN THAT PT WAS ACCEPTED BY [facility] AND PT'S SISTER WAS NOTIFIED AND PT'S SISTER AGREED [facility]. PT AND CAREGIVER ALSO INFORMED OF TRANSFER AT THIS TIME. CALL LIGHT WITHIN REACH.
--- NOTE | 2017-03-17 16:03 | NUR ---
DISCHARGE PLANING Spoke with Gerry Horan patient assigned to room 237A at [facility] RN to report [phone] bed available after 7pm today. PEDRO Stanton made aware. Called [facility] [phone] spoke with Vicente torres BLS transport chicken picker 9pm. EVIE Peterson made aware and will updated patient family. Addendum: 03/17/17 at 1625 by Nicholas Rodriguez RN >> Spoke with Esau, telephone clerks supervisor RN at [facility] to reassure that the pt. will be there at 9 pm and to make sure there is TPN and Lipid ready for the pt. Per Esau, pharmacy at [place] open 24 hr that there will be the formula available for the pt tonight. Teresa made aware of the discharge time and the arrangement of TPN/Lipid infusion.
--- NOTE | 2017-03-17 16:15 | NUR ---
WOUND RE-EVALUATION: Patient received in a Aida Bed with an Isoflex DELORES mattress with low air loss therapy initiated, awake, alert, confused, limited verbal interaction. Patient is unable to turn independently. Fantasma Score is a 13. Intrinsic factors that delay wound healing: Hypoalbuminemia. Extrinsic factors that delay wound healing: Immobility. Wound VAC dressing not removed for assessment. Discharge planning for 2100 p.m. tonight. Per PEDRO Stanton, discharge is pending facility's ability to provide TPN and lipids upon receipt of patient. Romy said she would do wound care, or endorse to night auditor Wound Assessment: 1) Sacral-Coccygeal Area: Stage IV Pressure Ulcer, present on admission. Wound was recently debrided by Dr. Burden. Recommend continue at transfer facility and today if patient is not transferred: Cleanse wound with normal saline. Put sure prep onto hubert-wound and surrounding tissue. Put hydrogel onto wound bed. Put black granufoam dressing into wound bed. Place a nonadhesive foam dressing over scar tissue inferior to wound. Cover with all dressing materials with VAC drape. Place VAC drape on skin from wound to non-bony portion of thigh. Cut a hole in wound granufoam and attach black granufoam dressing. Lay granufoam dressing over VAC drape. Cover with more VAC drape. Attached to suction attachment, and set wound VAC for 125 mmHg, continuous. Perform wound care daily Monday, Monday, Monday, and as needed for dressing soiling or dislodgement. For today if patient is transferred: Moist wound dressing to be applied including hydrogel and tender wet dressings and Z guard on periwound and foam dressing. Photos will be taken prior to discharge. 2) Left Lateral Hip: Scar tissue, present on admission. 3) Left Lateral Hip: Scar tissue, present on admission. Recommend continue: Cover with foam dressing. Perform site care daily, and as needed for dressing soiling or dislodgement. Also recommend continue: Reposition patient side to side only every 2 hours with pillow support, and off-load pressure areas with pillows for pressure re-distribution. Offload, elevate and float bilateral heels with pillows. Perform skin care and monitor skin integrity Q shift. Use moisture barrier cream on buttocks and other moisture susceptible areas QID and as needed for soiling. Maintain patient on a low air-loss mattress.
[2017-03-17] MEDS: HYDROmorphone 1 MG INJ. 1 MG/ML AMPUL IVP PRN ×2 (16:24→21:26)
[2017-03-17 16:29] VITALS: BP_SYST 105
--- NOTE | 2017-03-17 16:55 | NUR ---
NOTE PT'S CAREGIVER AT BEDSIDE ATTENDING TO PT'S NEEDS. PT IS GOING TO BE SHAVED BY HIS STAFF NURSE AT BEDSIDE. PT WAS GIVEN PAIN MEDICATION IVP, PT STATED HE WAS IN PAIN AND CAREGIVER NOTIFIED RN WHO AT BEDSIDE AND PAIN MEIDCATION WAS GIVEN. PT'S SISTER SHARMILA WAS NOTIFIED BY [employer] LIFT ATTENDANT JELANI AND PT'S PRIVATE TRAIN PLANNER OF PT'S DISCHARGE TO [facility]. PT RESTING COMFORTABLY AT THIS TIME. NO NEEDS NOTED. CALL LIGHT WITHIN REACH.
[2017-03-17] MEDS: TPN CENTRAL IV SCH ×10 (17:00)
[2017-03-17] MEDS: SODIUM ACETATE IV SCH ×10 (17:00)
[2017-03-17] MEDS: K PHOS IV SCH ×10 (17:00)
[2017-03-17] MEDS: CALCIUM GLUCONATE IV SCH ×10 (17:00)
[2017-03-17] MEDS: [UNRECOGNIZED DRUG - OTHER] IV SCH ×10 (17:00)
[2017-03-17] MEDS: FAT EMULSIONS 250 ML IV SCH (17:51)
[2017-03-17] MEDS: FLUCONAZOLE 200 mg/ NS 100 ML IV SCH (17:52)
--- NOTE | 2017-03-17 18:30 | NUR ---
NOTE PT RESTING IN BED. RIGHT ILEOSTOMY CHANGED AGAIN, THERE WAS LEAKAGE AND COLOSTOMY BAG WAS COMING OFF. PT HAS HIS SISTER AND GANG KNIFE FISH CHOPPER AT BEDSIDE AT THIS TIME. IVF'S AND TPN/LIPIDS INFUSING WELL THROUGH LEFT UPPER ARM PICC. PT WAS CHECKED ON Q1' AND PRN FOR NEEDS AND CARE. NO NEEDS NOTED. CALL LIGHT WITHIN REACH. WOUND VAC INTACT AND DRAINING WELL.
[2017-03-17 20:00] VITALS: BP_SYST 104
--- NOTE | 2017-03-17 21:47 | NUR ---
D/C [facility] TOOK PATIENT AT 2147, TO [facility].
--- NOTE | 2017-03-17 21:49 | NUR ---
D/C Patient Patient given medication reconciliation form and D/C instructions. Exit Care provided. Patient verbalized understanding. MD discussed with patient the results and treatment provided. Patient in stable condition, ID band removed. PICC flushed and locked. no active bleeding. Wound vac removed and wound dressed. Ileostomy drained and intact. Patient educated on pain management. All belongings sent with patient.
== END 2017-03-17 22:24 | DRG 853 ==
LOC: SMU 23:15 → SIC 03-07 17:05 → STU 03-09 16:00 → SMU 03-14 14:54
PROVIDERS: ADMIT Internal Medicine; ATTEND Internal Medicine
PROC: 0DNE0ZZ Release Large Intestine, Open Approach (ICD-10-PCS; 2017-03-07)
PROC: 0DN80ZZ Release Small Intestine, Open Approach (ICD-10-PCS; 2017-03-07)
PROC: 0WJP0ZZ Inspection of Gastrointestinal Tract, Open Approach (ICD-10-PCS; 2017-03-07)
PROC: 0WJJ0ZZ Inspection of Pelvic Cavity, Open Approach (ICD-10-PCS; 2017-03-07)
PROC: 0JB70ZZ Excision of Back Subcutaneous Tissue and Fascia, Open Approach (ICD-10-PCS; 2017-03-07)
PROC: 0DBA0ZZ Excision of Jejunum, Open Approach (ICD-10-PCS; 2017-03-07)
PROC: 0D1B0Z4 Bypass Ileum to Cutaneous, Open Approach (ICD-10-PCS; 2017-03-07)
PROC: 0DTE0ZZ Resection of Large Intestine, Open Approach (ICD-10-PCS; principal; 2017-03-07 14:45)
PROC: 5A1935Z Respiratory Ventilation, Less than 24 Consecutive Hours (ICD-10-PCS; 2017-03-08)
DX: A41.9 Sepsis, unspecified organism (principal); E43 Unspecified severe protein-calorie malnutrition; G80.0 Spastic quadriplegic cerebral palsy; J69.0 Pneumonitis due to inhalation of food and vomit; L89.154 Pressure ulcer of sacral region, stage 4; G82.50 Quadriplegia, unspecified; E87.0 Hyperosmolality and hypernatremia; F11.20 Opioid dependence, uncomplicated; K59.31 Toxic megacolon; K63.2 Fistula of intestine; M46.28 Osteomyelitis of vertebra, sacral and sacrococcygeal region; N39.0 Urinary tract infection, site not specified; Z68.1 Body mass index [BMI] 19.9 or less, adult; F79 Unspecified intellectual disabilities; K21.9 Gastro-esophageal reflux disease without esophagitis; K66.0 Peritoneal adhesions (postprocedural) (postinfection); N48.1 Balanitis; Z86.010 Personal history of colon polyps; Z87.01 Personal history of pneumonia (recurrent); Z74.01 Bed confinement status
CPT/HCPCS: 36415; 36600; 71010; 80048; 80053; 81000-TC; 82803-TC; 82962; 83540-TC; 83550-TC; 83605; 83735-TC; 84100-TC; 84478-TC; 85025; 85610-TC; 85730-TC; 87040-TC; 87070-TC; 87081; 87086; 87186-TC; 87205-TC; 88307; 88309; 93005; 94002; 94003; 94640; 94760; A5061; A6550; C9113; J0610; J1100; J1170; J1450; J1650; J1885; J1956; J2060; J2250; J2405; J2543; J2704; J2765; J3010; J3370; J3475; J3480; J3490; J7030; J7040; J7042; J7050

== ENCOUNTER 2017-05-21 18:52 | Inpatient (IN) | payer OTHER, MEDICAID ==
[~2017-05-21] VITALS: Ht 172.7 cm; Wt 41.3 kg
[2017-05-21 18:52] VITALS: BP_SYST 113
[~2017-05-21 18:52] MED LIST changes: +ACET325C PO; +ALBU2.5V7 INH; +ARIP20TA10 PO; +ATII2 IVP; +BENZ150C4 PO; +CLON0.5T4 PO; -CLON1TAB4 PO; +GABA300S PO; +HYDR-3109 PO; +HYDR1AMP2 INJ; +LOVI40 SQ; +MINE473O2 PO; +MIRT30TA7 PO; +ONDA2VIA2 IVP; +PIPE3.379 IV; +POLY15DR56 OP; +PROI40 IV; +PROM5SYR PO; +REGI10 IVP; +VANC750P5 IV
[2017-05-21 19:19] LABS: BASOPHILS # (AUTO) 0.1 K/uL (0.0-0.2); BASOPHILS % (AUTO) 0.8 % (0.0-2.0); EOSINOPHILS # (AUTO) 0.2 K/uL (0.0-0.4); HEMATOCRIT 36.1 % (36-54); HEMOGLOBIN 11.7 g/dL (14.0-18.0); LYMPHOCYTES # (AUTO) 1.3 K/uL (1.0-5.5); LYMPHOCYTES % (AUTO) 18.9 % (20.5-51.5); MEAN CORPUSCULAR HEMOGLOBIN 31 pg (27-31); MEAN CORPUSCULAR HGB CONC 32 % (32-36); MEAN CORPUSCULAR VOLUME 96 fL (79.0-98.0); MONOCYTES # (AUTO) 0.2 K/uL (0.0-1.0); MONOCYTES % (AUTO) 3.1 % (1.7-9.3); NEUTROPHILS # (AUTO) 5.3 K/uL (1.8-7.7); NEUTROPHILS % (AUTO) 74.2 % (40.0-70.0); PLATELET COUNT (AUTO) 441 K/uL (130-430); RED BLOOD CELL COUNT(AUTO) 3.76 MIL/uL (4.2-6.2); RED CELL DISTRIBUTION WIDTH 15.4 % (9.0-15.0); WHITE BLOOD COUNT (AUTO) 7.1 K/uL (4.8-10.8)
[2017-05-21 19:22] LABS: ABG TOTAL HEMOGLOBIN 12.4 G/dL (12.0-18.0); BLOOD GAS BASE EXCESS 2.6 mmol/L (-3.0-3.0); BLOOD GAS COHb% 0.1 % (0.5-1.5); BLOOD GAS HHB 6.8 % (0.0-6.0); BLOOD GAS PH 7.463 (7.350-7.450); BLOOD O2Hb% 92.9 % (94.0-97.0)
[2017-05-21] MEDS ORDERED: QUET400T PO (19:24)
[2017-05-21 19:28] LABS: CALCIUM 8.9 mg/dL (8.4-11.0); CREATININE 0.58 mg/dL (0.55-1.30); POTASSIUM 4.3 mmol/L (3.5-5.1)
[2017-05-21] MEDS ORDERED: NACL 0.9% 1,000 ML IV ONE (19:30)
[2017-05-21 19:32] LABS: INR 1.1 (0.80-1.20); PROTHROMBIN TIME 11.8 SECS (9.5-12.5)
[2017-05-21 19:33] LABS: ALBUMIN 2.5 g/dL (3.4-4.8); TOTAL BILIRUBIN 0.2 mg/dL (0.0-1.0); TOTAL PROTEIN, SERUM 7.6 g/dL (6.4-8.3)
[2017-05-21 20:32] LABS: BILIRUBIN,URINE NEGATIVE (NEGATIVE); CLARITY/URINE CLEAR (CLEAR); COLOR,URINE YELLOW (YELLOW); GLUCOSE,URINE NEGATIVE (NEGATIVE); KETONES,URINE NEGATIVE (NEGATIVE); LEUKOCYTE ESTERASE ,URINE NEGATIVE (NEGATIVE); NITRITE, URINE POSITIVE (NEGATIVE); PH,URINE 5.5 (5.0-8.0); PROTEIN URINE NEGATIVE (NEGATIVE); UROBILINOGEN,URINE 0.2 (0.2-1.0)
[2017-05-21 20:36] LABS: BLOOD, URINE TRACE (NEGATIVE)
[2017-05-21 21:00] LABS: BACTERIA,URINE MODERATE /HPF (None Seen)
[2017-05-21] MEDS ORDERED: LEVOFLOXACIN 500 MG/D5W 100 ML IV ONE (21:00)
[2017-05-21 22:30] VITALS: BP_SYST 103
[2017-05-21] MEDS: D5NS 1,000 ML IV SCH (23:55)
[2017-05-22 03:49] VITALS: BP_SYST 94
[2017-05-22 07:29] LABS: POTASSIUM 3.6 mmol/L (3.5-5.1)
[2017-05-22 07:30] LABS: CREATININE 0.47 mg/dL (0.55-1.30)
[2017-05-22 08:00] VITALS: BP_SYST 105
[2017-05-22] MEDS: ALBUTEROL SULFATE 0.083% 2.5 MG/3 ML VIAL.NEB INH SCH ×3 (09:00→21:43)
[2017-05-22 09:25] VITALS: BP_SYST 94
[2017-05-22] MEDS: clonazePAM 0.5 MG TABLET PO SCH ×4 (09:29→21:43)
[2017-05-22] MEDS: OXYCODONE/ACETAMINOPHEN *10*mg/325 mg TABLET PO SCH ×2 (09:29→21:49)
[2017-05-22] MEDS: TAMSULOSIN HCL 0.4 MG CAP PO SCH (09:29)
[2017-05-22] MEDS: GABAPENTIN 300 MG CAPSULE PO SCH ×2 (09:29→21:43)
[2017-05-22] MEDS: PANTOPRAZOLE SODIUM 40 MG TAB PO SCH (09:29)
[2017-05-22] MEDS: D5NS 1,000 ML IV SCH ×3 (09:30→18:11)
[2017-05-22] MEDS: TOBRAMYCIN SULFATE 0.3% EYE DROPS 5 ML OP SCH ×4 (11:00→22:31)
[2017-05-22] MEDS: FLUTICASONE PROPIONATE 50 mCg/SPRAY 16 GM NS SCH (11:00)
[2017-05-22 11:26] VITALS: BP_SYST 110
[2017-05-22 15:53] VITALS: BP_SYST 93
[2017-05-22] MEDS: MIRTAZAPINE 15 MG TABLET PO SCH (17:23)
[2017-05-22 20:00] VITALS: BP_SYST 93
[2017-05-22] MEDS: QUEtiapine FUMARATE 100 MG TABLET PO SCH (21:00)
[2017-05-22] MEDS ORDERED: LEVOFLOXACIN 500 MG/D5W 100 ML IV ONE (22:24)
[2017-05-22] MEDS: KCL 20 mEq in D5NS 1000 mL 1,000 ML IV SCH (22:33)
[2017-05-22] MEDS: LEVOFLOXACIN 500 MG/D5W 100 ML IV SCH (22:34)
[2017-05-23] VITALS (7 sets, daily range): BP systolic 93–104
[2017-05-23] MEDS: TOBRAMYCIN SULFATE 0.3% EYE DROPS 5 ML OP SCH ×5 (05:16→21:59)
[2017-05-23 06:20] LABS: CALCIUM 8.2 mg/dL (8.4-11.0); CREATININE 0.52 mg/dL (0.55-1.30); POTASSIUM 3.9 mmol/L (3.5-5.1)
[2017-05-23 06:58] LABS: IRON (SERUM) 52 mcg/dL (59-158); TOTAL IRON BIND. CAPACITY 189 ug/dL (250-450)
[2017-05-23] MEDS: ALBUTEROL SULFATE 0.083% 2.5 MG/3 ML VIAL.NEB INH SCH ×3 (07:24→23:15)
[2017-05-23] MEDS: clonazePAM 0.5 MG TABLET PO SCH ×4 (08:37→21:59)
[2017-05-23] MEDS: PANTOPRAZOLE SODIUM 40 MG TAB PO SCH (08:37)
[2017-05-23] MEDS: OXYCODONE/ACETAMINOPHEN *10*mg/325 mg TABLET PO SCH ×2 (08:40→21:58)
[2017-05-23] MEDS: FLUTICASONE PROPIONATE 50 mCg/SPRAY 16 GM NS SCH (08:42)
[2017-05-23] MEDS: GABAPENTIN 300 MG CAPSULE PO SCH ×2 (08:42→21:58)
[2017-05-23] MEDS: TAMSULOSIN HCL 0.4 MG CAP PO SCH (08:45)
[2017-05-23] MEDS: KCL 20 mEq in D5NS 1000 mL 1,000 ML IV SCH ×4 (08:50→22:29)
[2017-05-23] MEDS: MIRTAZAPINE 15 MG TABLET PO SCH (17:28)
[2017-05-23] MEDS: LEVOFLOXACIN 500 MG/D5W 100 ML IV SCH (20:57)
[2017-05-23] MEDS: QUEtiapine FUMARATE 100 MG TABLET PO SCH (21:58)
[2017-05-24] VITALS (7 sets, daily range): BP systolic 86–105
[2017-05-24] MEDS: TOBRAMYCIN SULFATE 0.3% EYE DROPS 5 ML OP SCH ×5 (05:56→23:21)
[2017-05-24 07:33] LABS: BASOPHILS % (AUTO) 0.3 % (0.0-2.0); EOSINOPHILS # (AUTO) 0.2 K/uL (0.0-0.4); EOSINOPHILS % (AUTO) 2.8 % (0.0-4.0); HEMATOCRIT 27.1 % (36-54); HEMOGLOBIN 8.8 g/dL (14.0-18.0); LYMPHOCYTES % (AUTO) 15.1 % (20.5-51.5); MEAN CORPUSCULAR HEMOGLOBIN 32 pg (27-31); MEAN CORPUSCULAR HGB CONC 33 % (32-36); MEAN CORPUSCULAR VOLUME 97 fL (79.0-98.0); MONOCYTES # (AUTO) 0.3 K/uL (0.0-1.0); MONOCYTES % (AUTO) 4.2 % (1.7-9.3); NEUTROPHILS # (AUTO) 5.3 K/uL (1.8-7.7); NEUTROPHILS % (AUTO) 77.6 % (40.0-70.0); PLATELET COUNT (AUTO) 267 K/uL (130-430); RED CELL DISTRIBUTION WIDTH 16.3 % (9.0-15.0); WHITE BLOOD COUNT (AUTO) 6.8 K/uL (4.8-10.8)
[2017-05-24 07:43] LABS: CALCIUM 8.3 mg/dL (8.4-11.0); CREATININE 0.56 mg/dL (0.55-1.30); POTASSIUM 3.9 mmol/L (3.5-5.1)
[2017-05-24] MEDS: ALBUTEROL SULFATE 0.083% 2.5 MG/3 ML VIAL.NEB INH SCH ×3 (08:02→21:07)
[2017-05-24] MEDS: FLUTICASONE PROPIONATE 50 mCg/SPRAY 16 GM NS SCH (09:17)
[2017-05-24] MEDS: GABAPENTIN 300 MG CAPSULE PO SCH ×2 (09:17→22:44)
[2017-05-24] MEDS: clonazePAM 0.5 MG TABLET PO SCH ×4 (09:17→22:43)
[2017-05-24] MEDS: PANTOPRAZOLE SODIUM 40 MG TAB PO SCH (09:17)
[2017-05-24] MEDS: TAMSULOSIN HCL 0.4 MG CAP PO SCH (09:17)
[2017-05-24] MEDS: OXYCODONE/ACETAMINOPHEN *10*mg/325 mg TABLET PO SCH ×2 (09:18→22:45)
[2017-05-24] MEDS: KCL 20 mEq in D5NS 1000 mL 1,000 ML IV SCH (17:29)
[2017-05-24] MEDS: MIRTAZAPINE 15 MG TABLET PO SCH (17:50)
[2017-05-24] MEDS: QUEtiapine FUMARATE 100 MG TABLET PO SCH (22:45)
[2017-05-24] MEDS ORDERED: cefTRIAXone 1 GM IVPB PREMIX 0 ML IV ONE (23:41)
[2017-05-24] MEDS ORDERED: cefTRIAXone 1 GM VIAL ONE (23:52)
[2017-05-25 04:31] VITALS: BP_SYST 84
[2017-05-25] MEDS: TOBRAMYCIN SULFATE 0.3% EYE DROPS 5 ML OP SCH ×5 (06:21→21:41)
[2017-05-25 07:22] LABS: BASOPHILS % (AUTO) 0.3 % (0.0-2.0); EOSINOPHILS # (AUTO) 0.2 K/uL (0.0-0.4); EOSINOPHILS % (AUTO) 3.6 % (0.0-4.0); HEMATOCRIT 26.4 % (36-54); HEMOGLOBIN 8.4 g/dL (14.0-18.0); LYMPHOCYTES # (AUTO) 1.3 K/uL (1.0-5.5); LYMPHOCYTES % (AUTO) 19.5 % (20.5-51.5); MEAN CORPUSCULAR HEMOGLOBIN 31 pg (27-31); MEAN CORPUSCULAR HGB CONC 32 % (32-36); MEAN CORPUSCULAR VOLUME 98 fL (79.0-98.0); MONOCYTES # (AUTO) 0.3 K/uL (0.0-1.0); MONOCYTES % (AUTO) 5.2 % (1.7-9.3); NEUTROPHILS # (AUTO) 4.8 K/uL (1.8-7.7); NEUTROPHILS % (AUTO) 71.4 % (40.0-70.0); PLATELET COUNT (AUTO) 225 K/uL (130-430); RED CELL DISTRIBUTION WIDTH 16.9 % (9.0-15.0); WHITE BLOOD COUNT (AUTO) 6.6 K/uL (4.8-10.8)
[2017-05-25] MEDS: ALBUTEROL SULFATE 0.083% 2.5 MG/3 ML VIAL.NEB INH SCH ×3 (07:25→20:23)
[2017-05-25 08:00] VITALS: BP_SYST 98
[2017-05-25] MEDS: FLUTICASONE PROPIONATE 50 mCg/SPRAY 16 GM NS SCH (08:20)
[2017-05-25] MEDS: clonazePAM 0.5 MG TABLET PO SCH ×4 (08:20→21:22)
[2017-05-25] MEDS: PANTOPRAZOLE SODIUM 40 MG TAB PO SCH (08:20)
[2017-05-25] MEDS: GABAPENTIN 300 MG CAPSULE PO SCH ×2 (08:21→21:17)
[2017-05-25] MEDS: TAMSULOSIN HCL 0.4 MG CAP PO SCH (08:21)
[2017-05-25] MEDS: OXYCODONE/ACETAMINOPHEN *10*mg/325 mg TABLET PO SCH ×2 (08:21→21:19)
[2017-05-25] MEDS: KCL 20 mEq in D5NS 1000 mL 1,000 ML IV SCH ×3 (08:22→21:37)
[2017-05-25 08:26] LABS: CALCIUM 8.3 mg/dL (8.4-11.0); CREATININE 0.53 mg/dL (0.55-1.30); TOTAL BILIRUBIN 0.1 mg/dL (0.0-1.0); TOTAL PROTEIN, SERUM 5.9 g/dL (6.4-8.3)
[2017-05-25 12:33] VITALS: BP_SYST 90
[2017-05-25 16:50] VITALS: BP_SYST 91
[2017-05-25] MEDS: MIRTAZAPINE 15 MG TABLET PO SCH (17:03)
[2017-05-25] MEDS ORDERED: CEFAZOLIN 1 GM IVPB PREMIX 50 ML IV ONE (18:30)
[2017-05-25 19:50] VITALS: BP_SYST 96
[2017-05-25] MEDS: QUEtiapine FUMARATE 100 MG TABLET PO SCH (21:22)
[2017-05-26 02:00] VITALS: BP_SYST 86
[2017-05-26 03:59] VITALS: BP_SYST 92
[2017-05-26] MEDS: TOBRAMYCIN SULFATE 0.3% EYE DROPS 5 ML OP SCH ×5 (06:29→22:13)
[2017-05-26] MEDS: ALBUTEROL SULFATE 0.083% 2.5 MG/3 ML VIAL.NEB INH SCH ×3 (07:00→21:30)
[2017-05-26 07:15] LABS: INR 1.1 (0.80-1.20)
[2017-05-26 08:45] VITALS: BP_SYST 102
[2017-05-26] MEDS: TAMSULOSIN HCL 0.4 MG CAP PO SCH (09:00)
[2017-05-26] MEDS: GABAPENTIN 300 MG CAPSULE PO SCH (09:00)
[2017-05-26] MEDS: clonazePAM 0.5 MG TABLET PO SCH ×2 (09:00→13:00)
[2017-05-26] MEDS: PANTOPRAZOLE SODIUM 40 MG TAB PO SCH (09:00)
[2017-05-26] MEDS: OXYCODONE/ACETAMINOPHEN *10*mg/325 mg TABLET PO SCH (09:00)
[2017-05-26] MEDS: KCL 20 mEq in D5NS 1000 mL 1,000 ML IV SCH (10:10)
[2017-05-26] MEDS: MIDAZOLAM HCL 5 MG/5 ML VIAL ONE ×5 (11:50→11:58)
[2017-05-26] MEDS: MEPERIDINE HCL/PF 100 MG/ML AMP ONE ×3 (11:50→12:00)
[2017-05-26 16:37] VITALS: BP_SYST 98
[2017-05-26] MEDS: FLUTICASONE PROPIONATE 50 mCg/SPRAY 16 GM NS SCH (17:55)
[2017-05-26] MEDS: MIRTAZAPINE 15 MG TABLET GT SCH (18:00)
[2017-05-26 20:00] VITALS: BP_SYST 115
[2017-05-26] MEDS: MULTIVITAMINS,THERAPEUTIC 5 ML UDC GT SCH (21:00)
[2017-05-26] MEDS: FERROUS SULFATE 300 MG/5 ML UDC GT SCH (21:40)
[2017-05-26] MEDS: clonazePAM 0.5 MG TABLET GT SCH (21:41)
[2017-05-26] MEDS: OXYCODONE/ACETAMINOPHEN *10*mg/325 mg TABLET GT SCH (21:45)
[2017-05-26] MEDS: GABAPENTIN 300 MG CAPSULE GT SCH (21:45)
[2017-05-26] MEDS: QUEtiapine FUMARATE 100 MG TABLET GT SCH (21:45)
[2017-05-26] MEDS ORDERED: APIXABAN 2.5 MG TABLET PO ONE (22:00)
[2017-05-27] MEDS: KCL 20 mEq in D5NS 1000 mL 1,000 ML IV SCH ×3 (00:13→14:01)
[2017-05-27 00:56] VITALS: BP_SYST 94
[2017-05-27 05:24] VITALS: BP_SYST 88
[2017-05-27 06:31] LABS: BASOPHILS # (AUTO) 0.1 K/uL (0.0-0.2); BASOPHILS % (AUTO) 0.8 % (0.0-2.0); EOSINOPHILS # (AUTO) 0.3 K/uL (0.0-0.4); EOSINOPHILS % (AUTO) 4.9 % (0.0-4.0); HEMATOCRIT 25.2 % (36-54); HEMOGLOBIN 8.5 g/dL (14.0-18.0); LYMPHOCYTES # (AUTO) 1.3 K/uL (1.0-5.5); LYMPHOCYTES % (AUTO) 19.9 % (20.5-51.5); MEAN CORPUSCULAR HEMOGLOBIN 33 pg (27-31); MEAN CORPUSCULAR HGB CONC 34 % (32-36); MEAN CORPUSCULAR VOLUME 97 fL (79.0-98.0); MONOCYTES # (AUTO) 0.3 K/uL (0.0-1.0); MONOCYTES % (AUTO) 4.4 % (1.7-9.3); NEUTROPHILS # (AUTO) 4.4 K/uL (1.8-7.7); PLATELET COUNT (AUTO) 216 K/uL (130-430); RED BLOOD CELL COUNT(AUTO) 2.61 MIL/uL (4.2-6.2); RED CELL DISTRIBUTION WIDTH 16.5 % (9.0-15.0); WHITE BLOOD COUNT (AUTO) 6.4 K/uL (4.8-10.8)
[2017-05-27 07:20] LABS: ALBUMIN 1.9 g/dL (3.4-4.8); CALCIUM 8.2 mg/dL (8.4-11.0); CREATININE 0.53 mg/dL (0.55-1.30); POTASSIUM 3.9 mmol/L (3.5-5.1); TOTAL BILIRUBIN 0.1 mg/dL (0.0-1.0)
[2017-05-27] MEDS: ALBUTEROL SULFATE 0.083% 2.5 MG/3 ML VIAL.NEB INH SCH ×3 (07:46→22:30)
[2017-05-27 08:00] VITALS: BP_SYST 99
[2017-05-27] MEDS: FERROUS SULFATE 300 MG/5 ML UDC GT SCH ×3 (09:35→21:01)
[2017-05-27] MEDS: clonazePAM 0.5 MG TABLET GT SCH ×4 (09:36→21:03)
[2017-05-27] MEDS: GABAPENTIN 300 MG CAPSULE GT SCH ×2 (09:36→21:03)
[2017-05-27] MEDS: OXYCODONE/ACETAMINOPHEN *10*mg/325 mg TABLET GT SCH ×2 (09:37→21:03)
[2017-05-27] MEDS: PANTOPRAZOLE GRANULES PACKET 40 MG GT SCH (09:37)
[2017-05-27] MEDS: FLUTICASONE PROPIONATE 50 mCg/SPRAY 16 GM NS SCH (09:38)
[2017-05-27] MEDS: APIXABAN 2.5 MG TABLET PO SCH ×2 (09:39→21:01)
[2017-05-27] MEDS: TOBRAMYCIN SULFATE 0.3% EYE DROPS 5 ML OP SCH ×4 (09:45→21:05)
[2017-05-27] MEDS: MULTIVITAMINS,THERAPEUTIC 5 ML UDC GT SCH ×2 (10:00→21:01)
[2017-05-27 12:52] VITALS: BP_SYST 81
[2017-05-27 16:53] VITALS: BP_SYST 91
[2017-05-27] MEDS: MIRTAZAPINE 15 MG TABLET GT SCH (17:49)
[2017-05-27 20:00] VITALS: BP_SYST 113
[2017-05-27] MEDS: QUEtiapine FUMARATE 100 MG TABLET GT SCH (21:01)
[2017-05-27] MEDS: MUPIROCIN 2% TOPICAL OINTMENT 22 GM TP SCH (21:03)
[2017-05-27] MEDS ORDERED: cefTRIAXone 1 GM VIAL ONE (21:05)
[2017-05-28] VITALS (7 sets, daily range): BP systolic 87–115
[2017-05-28] MEDS: KCL 20 mEq in D5NS 1000 mL 1,000 ML IV SCH (02:55)
[2017-05-28] MEDS: TOBRAMYCIN SULFATE 0.3% EYE DROPS 5 ML OP SCH ×5 (06:20→20:42)
[2017-05-28] MEDS: ALBUTEROL SULFATE 0.083% 2.5 MG/3 ML VIAL.NEB INH SCH ×3 (07:45→22:28)
[2017-05-28] MEDS: PANTOPRAZOLE GRANULES PACKET 40 MG GT SCH (09:24)
[2017-05-28] MEDS: GABAPENTIN 300 MG CAPSULE GT SCH ×2 (09:24→20:41)
[2017-05-28] MEDS: FERROUS SULFATE 300 MG/5 ML UDC GT SCH ×3 (09:24→20:39)
[2017-05-28] MEDS: APIXABAN 2.5 MG TABLET PO SCH ×2 (09:24→20:40)
[2017-05-28] MEDS: MULTIVITAMINS,THERAPEUTIC 5 ML UDC GT SCH ×2 (09:24→20:40)
[2017-05-28] MEDS: clonazePAM 0.5 MG TABLET GT SCH ×4 (09:25→20:41)
[2017-05-28] MEDS: MUPIROCIN 2% TOPICAL OINTMENT 22 GM TP SCH ×2 (09:25→20:42)
[2017-05-28] MEDS: FLUTICASONE PROPIONATE 50 mCg/SPRAY 16 GM NS SCH (09:25)
[2017-05-28] MEDS: OXYCODONE/ACETAMINOPHEN *10*mg/325 mg TABLET GT SCH ×2 (09:25→20:41)
[2017-05-28] MEDS: MIRTAZAPINE 15 MG TABLET GT SCH (18:13)
[2017-05-28] MEDS: QUEtiapine FUMARATE 100 MG TABLET GT SCH (20:41)
[2017-05-29] VITALS (7 sets, daily range): BP systolic 91–118
[2017-05-29] MEDS: KCL 20 mEq in D5NS 1000 mL 1,000 ML IV SCH ×2 (00:45→16:25)
[2017-05-29] MEDS: TOBRAMYCIN SULFATE 0.3% EYE DROPS 5 ML OP SCH ×5 (05:14→22:45)
[2017-05-29] MEDS: ALBUTEROL SULFATE 0.083% 2.5 MG/3 ML VIAL.NEB INH SCH ×3 (07:42→21:30)
[2017-05-29] MEDS: FERROUS SULFATE 300 MG/5 ML UDC GT SCH ×3 (09:11→22:43)
[2017-05-29] MEDS: MULTIVITAMINS,THERAPEUTIC 5 ML UDC GT SCH ×2 (09:11→22:44)
[2017-05-29] MEDS: PANTOPRAZOLE GRANULES PACKET 40 MG GT SCH (09:11)
[2017-05-29] MEDS: OXYCODONE/ACETAMINOPHEN *10*mg/325 mg TABLET GT SCH ×2 (09:13→22:45)
[2017-05-29] MEDS: APIXABAN 2.5 MG TABLET PO SCH ×2 (09:13→22:44)
[2017-05-29] MEDS: clonazePAM 0.5 MG TABLET GT SCH ×4 (09:13→22:45)
[2017-05-29] MEDS: FLUTICASONE PROPIONATE 50 mCg/SPRAY 16 GM NS SCH (09:14)
[2017-05-29] MEDS: GABAPENTIN 300 MG CAPSULE GT SCH ×2 (09:14→22:45)
[2017-05-29] MEDS: MUPIROCIN 2% TOPICAL OINTMENT 22 GM TP SCH ×2 (09:15→22:46)
[2017-05-29] MEDS: MIRTAZAPINE 15 MG TABLET GT SCH (18:43)
[2017-05-29] MEDS: QUEtiapine FUMARATE 100 MG TABLET GT SCH (22:44)
[2017-05-30] MEDS: KCL 20 mEq in D5NS 1000 mL 1,000 ML IV SCH ×2 (03:20→05:51)
[2017-05-30 03:42] VITALS: BP_SYST 92
[2017-05-30] MEDS: TOBRAMYCIN SULFATE 0.3% EYE DROPS 5 ML OP SCH ×3 (05:21→14:45)
[2017-05-30 06:29] LABS: CALCIUM 8.3 mg/dL (8.4-11.0); CREATININE 0.59 mg/dL (0.55-1.30); POTASSIUM 3.8 mmol/L (3.5-5.1)
[2017-05-30 06:37] LABS: BASOPHILS % (AUTO) 0.7 % (0.0-2.0); EOSINOPHILS # (AUTO) 0.3 K/uL (0.0-0.4); EOSINOPHILS % (AUTO) 4.7 % (0.0-4.0); HEMATOCRIT 26.2 % (36-54); HEMOGLOBIN 8.6 g/dL (14.0-18.0); LYMPHOCYTES # (AUTO) 1.6 K/uL (1.0-5.5); LYMPHOCYTES % (AUTO) 27.5 % (20.5-51.5); MEAN CORPUSCULAR HEMOGLOBIN 32 pg (27-31); MEAN CORPUSCULAR HGB CONC 33 % (32-36); MEAN CORPUSCULAR VOLUME 97 fL (79.0-98.0); MONOCYTES # (AUTO) 0.4 K/uL (0.0-1.0); MONOCYTES % (AUTO) 6.3 % (1.7-9.3); NEUTROPHILS # (AUTO) 3.5 K/uL (1.8-7.7); NEUTROPHILS % (AUTO) 60.8 % (40.0-70.0); PLATELET COUNT (AUTO) 227 K/uL (130-430); WHITE BLOOD COUNT (AUTO) 5.8 K/uL (4.8-10.8)
[2017-05-30] MEDS: ALBUTEROL SULFATE 0.083% 2.5 MG/3 ML VIAL.NEB INH SCH ×2 (07:17→15:30)
[2017-05-30 08:00] VITALS: BP_SYST 101
[2017-05-30] MEDS: OXYCODONE/ACETAMINOPHEN *10*mg/325 mg TABLET GT SCH (08:17)
[2017-05-30] MEDS: GABAPENTIN 300 MG CAPSULE GT SCH (08:17)
[2017-05-30] MEDS: FERROUS SULFATE 300 MG/5 ML UDC GT SCH ×2 (08:17→15:00)
[2017-05-30] MEDS: APIXABAN 2.5 MG TABLET PO SCH (08:18)
[2017-05-30] MEDS: clonazePAM 0.5 MG TABLET GT SCH ×3 (08:18→16:46)
[2017-05-30] MEDS: PANTOPRAZOLE GRANULES PACKET 40 MG GT SCH (08:19)
[2017-05-30] MEDS: MUPIROCIN 2% TOPICAL OINTMENT 22 GM TP SCH (08:19)
[2017-05-30] MEDS: FLUTICASONE PROPIONATE 50 mCg/SPRAY 16 GM NS SCH (08:31)
[2017-05-30] MEDS: MULTIVITAMINS,THERAPEUTIC 5 ML UDC GT SCH (09:00)
[2017-05-30 11:54] VITALS: BP_SYST 114
[2017-05-30 16:56] VITALS: BP_SYST 101
[2017-05-30 17:04] VITALS: BP_SYST 112
[2017-05-30] MEDS: MIRTAZAPINE 15 MG TABLET GT SCH (17:09)
== END 2017-05-30 18:40 | disposition home health service (06) | DRG 682 ==
LOC: SED 18:52 → SMU 21:30
PROVIDERS: ADMIT Internal Medicine; ATTEND Internal Medicine
PROC: 0DH63UZ Insertion of Feeding Device into Stomach, Percutaneous Approach (ICD-10-PCS; principal; 2017-05-26 14:50)
DX: N17.9 Acute kidney failure, unspecified (principal); E43 Unspecified severe protein-calorie malnutrition; G93.41 Metabolic encephalopathy; R64 Cachexia; L89.159 Pressure ulcer of sacral region, unspecified stage; K56.7 Ileus, unspecified; E86.0 Dehydration; N39.0 Urinary tract infection, site not specified; F33.9 Major depressive disorder, recurrent, unspecified; F11.20 Opioid dependence, uncomplicated; F13.20 Sedative, hypnotic or anxiolytic dependence, uncomplicated; Z68.1 Body mass index [BMI] 19.9 or less, adult; K21.9 Gastro-esophageal reflux disease without esophagitis; L08.89 Other specified local infections of the skin and subcutaneous tissue; B95.62 Methicillin resistant Staphylococcus aureus infection as the cause of diseases classified elsewhere; F41.9 Anxiety disorder, unspecified; L08.9 Local infection of the skin and subcutaneous tissue, unspecified; B96.1 Klebsiella pneumoniae [K. pneumoniae] as the cause of diseases classified elsewhere; H10.9 Unspecified conjunctivitis; N40.0 Benign prostatic hyperplasia without lower urinary tract symptoms; G80.9 Cerebral palsy, unspecified; F41.1 Generalized anxiety disorder; D64.9 Anemia, unspecified; N31.9 Neuromuscular dysfunction of bladder, unspecified; Z87.440 Personal history of urinary (tract) infections; Z88.6 Allergy status to analgesic agent; Z93.2 Ileostomy status; Z86.010 Personal history of colon polyps; Z90.49 Acquired absence of other specified parts of digestive tract; Z88.8 Allergy status to other drugs, medicaments and biological substances
CPT/HCPCS: 36415; 36600; 43246; 71010; 74000-TC; 76770; 80048; 80053; 81000-TC; 82803-TC; 83540-TC; 83550-TC; 83605; 84134; 84484; 85025; 85610-TC; 85730-TC; 87040-TC; 87070-TC; 87075-TC; 87081; 87086; 87186-TC; 87230-TC; 93005; 93971; 94640; 94760; 96361; 96365; 99285; A4409; A5061; J0690; J0696; J1956; J2175; J2250; J7030; J7042; J7060

== ENCOUNTER 2017-07-23 07:46 | Inpatient (IN) | payer OTHER, MEDICAID ==
[~2017-07-23] VITALS: Ht 172.7 cm; Wt 40.8 kg
[~2017-07-23 07:46] MED LIST changes: -ACET325C PO; -ALBU2.5V7 INH; -ARIP20TA10 PO; -ARIP20TA5 PO; -ATII2 IVP; -BENZ150C4 PO; -FINA1TAB17 PO; -GABA300S PO; -HYDR-3109 PO; -HYDR1AMP2 INJ; -LOVI40 SQ; -MINE473O2 PO; -MIRT30TA7 PO; -NUC50 PO; -ONDA2VIA2 IVP; -PIPE3.379 IV; -POLY15DR56 OP; -PROI40 IV; -PROM5SYR PO; +QUET400T PO; -REGI10 IVP; -VANC750P5 IV
[2017-07-23 07:56] VITALS: BP_SYST 128
[2017-07-23] MEDS ORDERED: MORPHINE 4 MG/ML INJ. SYRINGE IVP ONE ×2 (08:45→11:15)
[2017-07-23] MEDS ORDERED: ONDANSETRON HCL 4 MG/2 ML VIAL IVP ONE (08:45)
[2017-07-23] MEDS ORDERED: LORazepam 2 MG/ML VIAL (FOR ER USE) IVP ONE (08:45)
[2017-07-23 08:53] LABS: BASOPHILS % (AUTO) 0.3 % (0.0-2.0); EOSINOPHILS % (AUTO) 0.1 % (0.0-4.0); HEMATOCRIT 42.1 % (36-54); HEMOGLOBIN 13.1 g/dL (14.0-18.0); LYMPHOCYTES # (AUTO) 0.8 K/uL (1.0-5.5); LYMPHOCYTES % (AUTO) 10.5 % (20.5-51.5); MEAN CORPUSCULAR HEMOGLOBIN 29 pg (27-31); MEAN CORPUSCULAR HGB CONC 31 % (32-36); MEAN CORPUSCULAR VOLUME 94 fL (79.0-98.0); MONOCYTES # (AUTO) 0.3 K/uL (0.0-1.0); MONOCYTES % (AUTO) 3.7 % (1.7-9.3); NEUTROPHILS # (AUTO) 6.8 K/uL (1.8-7.7); NEUTROPHILS % (AUTO) 85.4 % (40.0-70.0); PLATELET COUNT (AUTO) 302 K/uL (130-430); RED BLOOD CELL COUNT(AUTO) 4.47 MIL/uL (4.2-6.2); WHITE BLOOD COUNT (AUTO) 7.9 K/uL (4.8-10.8)
[2017-07-23 08:58] LABS: CALCIUM 9.4 mg/dL (8.4-11.0); CREATININE 0.53 mg/dL (0.55-1.30); POTASSIUM 3.8 mmol/L (3.5-5.1)
[2017-07-23 09:02] LABS: INR 1.1 (0.80-1.20); PROTHROMBIN TIME 11.2 SECS (9.5-12.5)
[2017-07-23 09:03] LABS: ALBUMIN 3.3 g/dL (3.4-4.8); TOTAL BILIRUBIN 0.4 mg/dL (0.0-1.0)
[2017-07-23 09:30] LABS: BILIRUBIN,URINE NEGATIVE (NEGATIVE); BLOOD, URINE 2+ (NEGATIVE); CLARITY/URINE CLEAR (CLEAR); COLOR,URINE YELLOW (YELLOW); GLUCOSE,URINE NEGATIVE (NEGATIVE); KETONES,URINE NEGATIVE (NEGATIVE); LEUKOCYTE ESTERASE ,URINE 2+ (NEGATIVE); NITRITE, URINE NEGATIVE (NEGATIVE); PROTEIN URINE 1+ (NEGATIVE); UROBILINOGEN,URINE 0.2 (0.2-1.0)
[2017-07-23 09:47] LABS: BACTERIA,URINE MODERATE /HPF (None Seen); MUCUS,URINE None Seen /LPF (None Seen)
[2017-07-23 11:47] VITALS: BP_SYST 115
[2017-07-23] MEDS ORDERED: FLU VACC QS 2017-18(36MOS+)/PF 0.5 ML/SYR SYRINGE I.M. PRN (12:15)
[2017-07-23] MEDS ORDERED: LEVOFLOXACIN 500 MG/D5W 100 ML IV ONE (14:00)
[2017-07-23] MEDS ORDERED: ONDANSETRON HCL 4 MG/2 ML VIAL IVP PRN (14:45)
[2017-07-23] MEDS ORDERED: FAMOTIDINE PF 20 MG/2 ML VIAL IVP ONE (14:45)
[2017-07-23] MEDS: POTASSIUM CHLORIDE 10 MEQ in NACL 0.9% 1,000 ML IV SCH (14:52)
[2017-07-23] MEDS: cefTRIAXone 1 GM in D5W 50 ML IV SCH (14:53)
[2017-07-23] MEDS: DIPHENHYDRAMINE INJ 50 MG/ML VIAL IVP SCH ×2 (15:11→21:39)
[2017-07-23] MEDS: MORPHINE 4 MG/ML INJ. SYRINGE IVP PRN ×2 (15:13→19:45)
[2017-07-23 16:08] VITALS: BP_SYST 108
[2017-07-23] MEDS: clonazePAM 0.5 MG TABLET PO SCH ×2 (18:33→21:41)
[2017-07-23] MEDS: MIRTAZAPINE 15 MG TABLET PO SCH (18:33)
[2017-07-23 19:39] VITALS: BP_SYST 145
[2017-07-23] MEDS: QUEtiapine FUMARATE 100 MG TABLET PO SCH (21:40)
[2017-07-23] MEDS: GABAPENTIN 300 MG CAPSULE PO SCH (21:40)
[2017-07-23] MEDS: FAMOTIDINE PF 20 MG/2 ML VIAL IVP SCH (21:40)
[2017-07-23] MEDS: MORPHINE 2 MG/ML INJ. SYRINGE IVP PRN (23:07)
[2017-07-24] VITALS (8 sets, daily range): BP systolic 94–142
[2017-07-24] MEDS: MORPHINE 4 MG/ML INJ. SYRINGE IVP PRN (00:17)
[2017-07-24] MEDS: POTASSIUM CHLORIDE 10 MEQ in NACL 0.9% 1,000 ML IV SCH ×3 (00:17→21:49)
[2017-07-24] MEDS: DIPHENHYDRAMINE INJ 50 MG/ML VIAL IVP SCH ×4 (02:39→21:46)
[2017-07-24 07:20] LABS: BASOPHILS % (AUTO) 0.4 % (0.0-2.0); EOSINOPHILS # (AUTO) 0.1 K/uL (0.0-0.4); HEMATOCRIT 35.5 % (36-54); HEMOGLOBIN 11.9 g/dL (14.0-18.0); LYMPHOCYTES # (AUTO) 1.2 K/uL (1.0-5.5); LYMPHOCYTES % (AUTO) 20.3 % (20.5-51.5); MEAN CORPUSCULAR HEMOGLOBIN 32 pg (27-31); MEAN CORPUSCULAR HGB CONC 34 % (32-36); MEAN CORPUSCULAR VOLUME 94 fL (79.0-98.0); MONOCYTES # (AUTO) 0.5 K/uL (0.0-1.0); MONOCYTES % (AUTO) 8.7 % (1.7-9.3); NEUTROPHILS # (AUTO) 4.3 K/uL (1.8-7.7); NEUTROPHILS % (AUTO) 69.6 % (40.0-70.0); PLATELET COUNT (AUTO) 220 K/uL (130-430); RED BLOOD CELL COUNT(AUTO) 3.79 MIL/uL (4.2-6.2); RED CELL DISTRIBUTION WIDTH 13.9 % (9.0-15.0); WHITE BLOOD COUNT (AUTO) 6.1 K/uL (4.8-10.8)
[2017-07-24] MEDS: TAMSULOSIN HCL 0.4 MG CAP PO SCH (08:23)
[2017-07-24] MEDS: FAMOTIDINE PF 20 MG/2 ML VIAL IVP SCH ×2 (08:23→21:46)
[2017-07-24] MEDS: PANTOPRAZOLE SODIUM 40 MG TAB PO SCH (08:23)
[2017-07-24] MEDS: GABAPENTIN 300 MG CAPSULE PO SCH ×2 (08:23→21:47)
[2017-07-24] MEDS: clonazePAM 0.5 MG TABLET PO SCH ×4 (08:23→21:47)
[2017-07-24 08:58] LABS: CALCIUM 8.9 mg/dL (8.4-11.0); CREATININE 0.52 mg/dL (0.55-1.30); POTASSIUM 3.8 mmol/L (3.5-5.1)
[2017-07-24 09:10] LABS: ALBUMIN 2.7 g/dL (3.4-4.8); TOTAL BILIRUBIN 0.3 mg/dL (0.0-1.0)
[2017-07-24] MEDS: MORPHINE 2 MG/ML INJ. SYRINGE IVP PRN ×2 (12:25→18:37)
[2017-07-24] MEDS: MUPIROCIN 2% TOPICAL OINTMENT 22 GM NS SCH ×2 (13:19→21:47)
[2017-07-24] MEDS: cefTRIAXone 1 GM in D5W 50 ML IV SCH (13:21)
[2017-07-24] MEDS: MIRTAZAPINE 15 MG TABLET PO SCH (17:19)
[2017-07-24] MEDS: QUEtiapine FUMARATE 100 MG TABLET PO SCH (21:48)
[2017-07-25 04:01] VITALS: BP_SYST 98
[2017-07-25] MEDS: DIPHENHYDRAMINE INJ 50 MG/ML VIAL IVP SCH ×4 (04:15→22:42)
[2017-07-25] MEDS: MORPHINE 2 MG/ML INJ. SYRINGE IVP PRN (04:18)
[2017-07-25 07:28] LABS: BASOPHILS % (AUTO) 0.4 % (0.0-2.0); EOSINOPHILS # (AUTO) 0.1 K/uL (0.0-0.4); HEMATOCRIT 34.3 % (36-54); HEMOGLOBIN 11.2 g/dL (14.0-18.0); LYMPHOCYTES % (AUTO) 13.7 % (20.5-51.5); MEAN CORPUSCULAR HEMOGLOBIN 31 pg (27-31); MEAN CORPUSCULAR HGB CONC 33 % (32-36); MEAN CORPUSCULAR VOLUME 96 fL (79.0-98.0); MONOCYTES # (AUTO) 0.4 K/uL (0.0-1.0); MONOCYTES % (AUTO) 5.4 % (1.7-9.3); NEUTROPHILS # (AUTO) 5.9 K/uL (1.8-7.7); NEUTROPHILS % (AUTO) 79.5 % (40.0-70.0); PLATELET COUNT (AUTO) 234 K/uL (130-430); RED BLOOD CELL COUNT(AUTO) 3.58 MIL/uL (4.2-6.2); RED CELL DISTRIBUTION WIDTH 14.2 % (9.0-15.0); WHITE BLOOD COUNT (AUTO) 7.4 K/uL (4.8-10.8)
[2017-07-25 08:00] VITALS: BP_SYST 97
[2017-07-25 08:09] LABS: CALCIUM 8.6 mg/dL (8.4-11.0); CREATININE 0.52 mg/dL (0.55-1.30); POTASSIUM 3.9 mmol/L (3.5-5.1)
[2017-07-25] MEDS ORDERED: DEXTROSE 50% JECT 50 ML DISP.SYRIN IVP PRN (08:30)
[2017-07-25] MEDS ORDERED: DEXTROSE 50% JECT 50 ML DISP.SYRIN ONE (08:57)
[2017-07-25] MEDS: MUPIROCIN 2% TOPICAL OINTMENT 22 GM NS SCH ×2 (09:00→22:40)
[2017-07-25] MEDS: GABAPENTIN 300 MG CAPSULE PO SCH ×2 (09:00→22:41)
[2017-07-25] MEDS: clonazePAM 0.5 MG TABLET PO SCH ×4 (09:00→22:40)
[2017-07-25] MEDS: TAMSULOSIN HCL 0.4 MG CAP PO SCH (09:00)
[2017-07-25] MEDS: PANTOPRAZOLE SODIUM 40 MG TAB PO SCH (09:00)
[2017-07-25] MEDS: FAMOTIDINE PF 20 MG/2 ML VIAL IVP SCH ×2 (09:00→22:42)
[2017-07-25] MEDS: D5LR 1,000 ML IV SCH ×2 (13:02→22:39)
[2017-07-25] MEDS: cefTRIAXone 1 GM in D5W 50 ML IV SCH (13:05)
[2017-07-25] MEDS: MORPHINE 4 MG/ML INJ. SYRINGE IVP PRN ×2 (13:06→20:02)
[2017-07-25 13:31] VITALS: BP_SYST 97
[2017-07-25 16:13] VITALS: BP_SYST 130
[2017-07-25] MEDS: MIRTAZAPINE 15 MG TABLET PO SCH (17:26)
[2017-07-25 19:55] VITALS: BP_SYST 147
[2017-07-25 20:00] VITALS: BP_SYST 147
[2017-07-25] MEDS: QUEtiapine FUMARATE 100 MG TABLET PO SCH (22:41)
[2017-07-26] VITALS (8 sets, daily range): BP systolic 101–130
[2017-07-26] MEDS: DIPHENHYDRAMINE INJ 50 MG/ML VIAL IVP SCH ×4 (04:55→21:04)
[2017-07-26 07:29] LABS: BASOPHILS % (AUTO) 0.4 % (0.0-2.0); EOSINOPHILS # (AUTO) 0.2 K/uL (0.0-0.4); EOSINOPHILS % (AUTO) 3.5 % (0.0-4.0); HEMATOCRIT 33.7 % (36-54); HEMOGLOBIN 11.7 g/dL (14.0-18.0); LYMPHOCYTES # (AUTO) 1.4 K/uL (1.0-5.5); LYMPHOCYTES % (AUTO) 28.3 % (20.5-51.5); MEAN CORPUSCULAR HEMOGLOBIN 32 pg (27-31); MEAN CORPUSCULAR HGB CONC 35 % (32-36); MEAN CORPUSCULAR VOLUME 94 fL (79.0-98.0); MONOCYTES # (AUTO) 0.4 K/uL (0.0-1.0); MONOCYTES % (AUTO) 8.4 % (1.7-9.3); NEUTROPHILS # (AUTO) 2.8 K/uL (1.8-7.7); NEUTROPHILS % (AUTO) 59.4 % (40.0-70.0); PLATELET COUNT (AUTO) 219 K/uL (130-430); RED CELL DISTRIBUTION WIDTH 13.9 % (9.0-15.0); WHITE BLOOD COUNT (AUTO) 4.8 K/uL (4.8-10.8)
[2017-07-26 07:34] LABS: CALCIUM 8.6 mg/dL (8.4-11.0); CREATININE 0.51 mg/dL (0.55-1.30)
[2017-07-26] MEDS: clonazePAM 0.5 MG TABLET PO SCH ×4 (09:00→21:06)
[2017-07-26] MEDS: GABAPENTIN 300 MG CAPSULE PO SCH ×2 (09:00→21:07)
[2017-07-26] MEDS: TAMSULOSIN HCL 0.4 MG CAP PO SCH (09:00)
[2017-07-26] MEDS: PANTOPRAZOLE SODIUM 40 MG TAB PO SCH (09:00)
[2017-07-26] MEDS: FAMOTIDINE PF 20 MG/2 ML VIAL IVP SCH (09:07)
[2017-07-26] MEDS: D5LR 1,000 ML IV SCH (09:07)
[2017-07-26] MEDS: MUPIROCIN 2% TOPICAL OINTMENT 22 GM NS SCH ×2 (09:07→21:05)
[2017-07-26] MEDS ORDERED: POTASSIUM CHLORIDE 40 MEQ, LIDOCAINE JECT 2% PF 100 MG 50 MG in NS 250 ML IV ONE (13:15)
[2017-07-26] MEDS ORDERED: SIMETHICONE 40 MG/0.6 ML ML ONE (13:35)
[2017-07-26] MEDS ORDERED: MIDAZOLAM HCL 5 MG/5 ML VIAL ONE (13:45)
[2017-07-26] MEDS ORDERED: MEPERIDINE HCL/PF 100 MG/ML AMP ONE (13:45)
[2017-07-26] MEDS: cefTRIAXone 1 GM in D5W 50 ML IV SCH (15:48)
[2017-07-26] MEDS: BALSAM PERU/CASTOR OIL 60 GM OINT...G. TP SCH (15:48)
[2017-07-26] MEDS: MIRTAZAPINE 15 MG TABLET PO SCH (18:11)
[2017-07-26] MEDS: MORPHINE 4 MG/ML INJ. SYRINGE IVP PRN (19:35)
[2017-07-26] MEDS: POTASSIUM CHLORIDE 20 MEQ/PKT PACKET PO SCH (21:05)
[2017-07-26] MEDS: QUEtiapine FUMARATE 100 MG TABLET PO SCH (21:07)
[2017-07-27] MEDS: DIPHENHYDRAMINE INJ 50 MG/ML VIAL IVP SCH ×3 (02:56→14:36)
[2017-07-27 03:58] VITALS: BP_SYST 106
[2017-07-27 07:10] LABS: CALCIUM 9.3 mg/dL (8.4-11.0); CREATININE 0.52 mg/dL (0.55-1.30)
[2017-07-27 08:59] VITALS: BP_SYST 111
[2017-07-27] MEDS: TAMSULOSIN HCL 0.4 MG CAP PO SCH (10:42)
[2017-07-27] MEDS: clonazePAM 0.5 MG TABLET PO SCH ×3 (10:42→18:21)
[2017-07-27] MEDS: MUPIROCIN 2% TOPICAL OINTMENT 22 GM NS SCH (10:43)
[2017-07-27] MEDS: PANTOPRAZOLE SODIUM 40 MG TAB PO SCH (10:43)
[2017-07-27] MEDS: BALSAM PERU/CASTOR OIL 60 GM OINT...G. TP SCH (10:43)
[2017-07-27] MEDS: GABAPENTIN 300 MG CAPSULE PO SCH (10:43)
[2017-07-27] MEDS: POTASSIUM CHLORIDE 20 MEQ/PKT PACKET PO SCH (10:50)
[2017-07-27 12:39] VITALS: BP_SYST 106
[2017-07-27 16:30] VITALS: BP_SYST 135
[2017-07-27] MEDS: MIRTAZAPINE 15 MG TABLET PO SCH (18:21)
[2017-07-27 20:19] VITALS: BP_SYST 107
[2017-07-27] MEDS: MORPHINE 4 MG/ML INJ. SYRINGE IVP PRN (20:20)
== END 2017-07-27 21:20 | disposition home health service (06) | DRG 391 ==
LOC: SED 07:46 → STU 10:58 → SMU 07-24 22:07
PROVIDERS: ADMIT Internal Medicine; ATTEND Internal Medicine
PROC: 0DB68ZX Excision of Stomach, Via Natural or Artificial Opening Endoscopic, Diagnostic (ICD-10-PCS; principal; 2017-07-26 14:00)
DX: K29.00 Acute gastritis without bleeding (principal); L89.154 Pressure ulcer of sacral region, stage 4; E44.1 Mild protein-calorie malnutrition; E87.1 Hypo-osmolality and hyponatremia; R13.10 Dysphagia, unspecified; Z93.1 Gastrostomy status; N39.0 Urinary tract infection, site not specified; Z68.1 Body mass index [BMI] 19.9 or less, adult; E16.2 Hypoglycemia, unspecified; F32.9 Major depressive disorder, single episode, unspecified; K21.9 Gastro-esophageal reflux disease without esophagitis; K31.7 Polyp of stomach and duodenum; K80.20 Calculus of gallbladder without cholecystitis without obstruction; F79 Unspecified intellectual disabilities; K44.9 Diaphragmatic hernia without obstruction or gangrene; G80.9 Cerebral palsy, unspecified; Z79.899 Other long term (current) drug therapy; Z88.8 Allergy status to other drugs, medicaments and biological substances; Z93.2 Ileostomy status
CPT/HCPCS: 36415; 43239; 78226; 80048; 80053; 81000-TC; 82150-TC; 82962; 83690-TC; 83735-TC; 85025; 85610-TC; 85730-TC; 87081; 87086; 88305; 88312; 88313; 96374; 96375; 96376; 99285; A4409; A6209; A9537; J0696; J1200; J1956; J2175; J2250; J2270; J2405; J3480; J3490; J7030; J7050; J7060; J7120; Q2037

== ENCOUNTER 2017-10-18 02:39 | Inpatient (IN) | payer OTHER, MEDICAID ==
[~2017-10-18] VITALS: Ht 167.6 cm; Wt 47.6 kg
[~2017-10-18 02:39] MED LIST changes: +ALBU2.5V7 INH; +AMOX-423 PO; +CLON0.5T4 GT; -CLON0.5T4 PO; +CLON1TAB4 GT; +GABA-531 GT; -GABA-531 PO; +IPRA0.2S6 INH; +KLO.5 PO; +LANS30CA10 GT; -LANS30CA10 PO; +LIDP TP; +MAGN400T10 GT; +MIRT30TA GT; -MIRT30TA PO; +MORL GT; +MORP30TA59 PO; +NEU300 GT; +POTA20PA3 PO; -QUET400T PO; +REM15 GT; +SER100 PO; -TAMS0.4C96 PO; +TAPE250T GT; +VEN2 GT
[2017-10-18 02:53] VITALS: BP_SYST 123
[2017-10-18] MEDS ORDERED: NACL 0.9% 1,000 ML IV ONE (03:32)
[2017-10-18] MEDS ORDERED: ONDANSETRON HCL 4 MG/2 ML VIAL IVP ONE (03:45)
[2017-10-18 04:07] LABS: BASOPHILS # (AUTO) 0.4 K/uL (0.0-0.2); BASOPHILS % (AUTO) 3.4 % (0.0-2.0); EOSINOPHILS % (AUTO) 0.2 % (0.0-4.0); HEMATOCRIT 39.3 % (36-54); HEMOGLOBIN 13.1 g/dL (14.0-18.0); LYMPHOCYTES # (AUTO) 0.4 K/uL (1.0-5.5); LYMPHOCYTES % (AUTO) 3.4 % (20.5-51.5); MEAN CORPUSCULAR HEMOGLOBIN 33 pg (27-31); MEAN CORPUSCULAR HGB CONC 33 % (32-36); MEAN CORPUSCULAR VOLUME 99 fL (79.0-98.0); MONOCYTES # (AUTO) 0.4 K/uL (0.0-1.0); NEUTROPHILS # (AUTO) 11.2 K/uL (1.8-7.7); PLATELET COUNT (AUTO) 272 K/uL (130-430); RED BLOOD CELL COUNT(AUTO) 3.98 MIL/uL (4.2-6.2); RED CELL DISTRIBUTION WIDTH 14.5 % (9.0-15.0); WHITE BLOOD COUNT (AUTO) 12.4 K/uL (4.8-10.8)
[2017-10-18 04:09] LABS: CALCIUM 9.4 mg/dL (8.4-11.0); CREATININE 0.43 mg/dL (0.55-1.30)
[2017-10-18 04:12] LABS: INR 1.1 (0.80-1.20); PROTHROMBIN TIME 11.2 SECS (9.5-12.5)
[2017-10-18 04:14] LABS: ALBUMIN 3.2 g/dL (3.4-4.8); TOTAL BILIRUBIN 0.6 mg/dL (0.0-1.0)
[2017-10-18 06:26] LABS: BILIRUBIN,URINE NEGATIVE (NEGATIVE); BLOOD, URINE 3+ (NEGATIVE); CLARITY/URINE CLEAR (CLEAR); COLOR,URINE YELLOW (YELLOW); GLUCOSE,URINE NEGATIVE (NEGATIVE); KETONES,URINE NEGATIVE (NEGATIVE); LEUKOCYTE ESTERASE ,URINE 1+ (NEGATIVE); NITRITE, URINE POSITIVE (NEGATIVE); PROTEIN URINE 2+ (NEGATIVE); UROBILINOGEN,URINE 0.2 (0.2-1.0)
[2017-10-18 06:35] LABS: BACTERIA,URINE MODERATE /HPF (None Seen); RBC,URINE 20-50 /HPF (0-3)
[2017-10-18] MEDS ORDERED: ONDANSETRON HCL 4 MG/2 ML VIAL IVP PRN (07:15)
[2017-10-18] MEDS ORDERED: IBUPROFEN 600 MG TABLET PO PRN (07:15)
[2017-10-18] MEDS ORDERED: LIDOCAINE PATCH 5% 1 EA TP PRN (07:30)
[2017-10-18] MEDS ORDERED: MORPHINE SULFATE 10 MG/5 ML ORAL SOL. UDC GT PRN (07:30)
[2017-10-18] MEDS: NACL 0.9% 1,000 ML IV SCH ×3 (07:40→23:16)
[2017-10-18] MEDS ORDERED: QUEtiapine FUMARATE 100 MG TABLET PO SCH (09:00)
[2017-10-18] MEDS ORDERED: GABAPENTIN 300 MG CAPSULE GT SCH (09:00)
[2017-10-18] MEDS ORDERED: POTASSIUM CHLORIDE 20 MEQ/PKT PACKET PO SCH (09:00)
[2017-10-18] MEDS ORDERED: NON-FORMULARY MEDICATION (Lansoprazole (Prevacid) 30 MG) GT SCH (09:00)
[2017-10-18] MEDS ORDERED: MAGNESIUM OXIDE 400 MG TABLET GT SCH (09:00)
[2017-10-18] MEDS ORDERED: MORPHINE 4 MG/ML INJ. SYRINGE IVP PRN (09:00)
[2017-10-18] MEDS ORDERED: MORPHINE SULFATE 30 MG TABLET.SA PO SCH (09:00)
[2017-10-18] MEDS: PANTOPRAZOLE SODIUM 40 MG/VIAL (PROTONIX) IVP SCH (10:00)
[2017-10-18] MEDS ORDERED: cefTRIAXone 2 GM VIAL ONE (10:15)
[2017-10-18] MEDS ORDERED: ALBUTEROL SULFATE 0.083% 2.5 MG/3 ML VIAL.NEB INH SCH ×2 (13:00)
[2017-10-18] MEDS: clonazePAM 0.5 MG TABLET PO SCH ×2 (14:00→23:15)
[2017-10-18] MEDS: LEVOFLOXACIN 500 MG/D5W 100 ML IV SCH (16:35)
[2017-10-18 16:53] VITALS: BP_SYST 126
[2017-10-18 17:15] VITALS: BP_SYST 129
[2017-10-18 20:00] VITALS: BP_SYST 125
[2017-10-18] MEDS: MORPHINE SULFATE 10 MG/ML VIAL IVP PRN (20:38)
[2017-10-18] MEDS ORDERED: MIRTAZAPINE 15 MG TABLET GT SCH (21:00)
[2017-10-19 00:46] VITALS: BP_SYST 129
[2017-10-19 06:47] LABS: BASOPHILS % (AUTO) 0.1 % (0.0-2.0); EOSINOPHILS % (AUTO) 0.1 % (0.0-4.0); HEMATOCRIT 36.1 % (36-54); HEMOGLOBIN 12.3 g/dL (14.0-18.0); LYMPHOCYTES # (AUTO) 0.6 K/uL (1.0-5.5); LYMPHOCYTES % (AUTO) 5.4 % (20.5-51.5); MEAN CORPUSCULAR HEMOGLOBIN 34 pg (27-31); MEAN CORPUSCULAR HGB CONC 34 % (32-36); MEAN CORPUSCULAR VOLUME 100 fL (79.0-98.0); MONOCYTES # (AUTO) 0.3 K/uL (0.0-1.0); NEUTROPHILS # (AUTO) 9.4 K/uL (1.8-7.7); NEUTROPHILS % (AUTO) 91.4 % (40.0-70.0); PLATELET COUNT (AUTO) 273 K/uL (130-430); RED BLOOD CELL COUNT(AUTO) 3.62 MIL/uL (4.2-6.2); RED CELL DISTRIBUTION WIDTH 14.5 % (9.0-15.0); WHITE BLOOD COUNT (AUTO) 10.3 K/uL (4.8-10.8)
[2017-10-19 07:09] LABS: ALBUMIN 2.8 g/dL (3.4-4.8); CALCIUM 9.3 mg/dL (8.4-11.0); CREATININE 0.53 mg/dL (0.55-1.30); POTASSIUM 3.8 mmol/L (3.5-5.1); TOTAL BILIRUBIN 0.7 mg/dL (0.0-1.0)
[2017-10-19 08:00] VITALS: BP_SYST 146
[2017-10-19] MEDS: LEVOFLOXACIN 500 MG/D5W 100 ML IV SCH (11:11)
[2017-10-19] MEDS: clonazePAM 0.5 MG TABLET PO SCH ×3 (11:11→22:03)
[2017-10-19] MEDS: PANTOPRAZOLE SODIUM 40 MG/VIAL (PROTONIX) IVP SCH (11:11)
[2017-10-19] MEDS: NACL 0.9% 1,000 ML IV SCH (11:12)
[2017-10-19 12:09] VITALS: BP_SYST 127
[2017-10-19] MEDS ORDERED: GASTROGRAFIN 120 ML ONE (15:13)
[2017-10-19] MEDS: MORPHINE SULFATE 10 MG/ML VIAL IVP PRN ×2 (15:30→22:03)
[2017-10-19] MEDS: BALSAM PERU/CASTOR OIL 60 GM OINT...G. TP SCH (18:21)
[2017-10-19 18:28] VITALS: BP_SYST 132
[2017-10-19 20:00] VITALS: BP_SYST 124
[2017-10-20 00:56] VITALS: BP_SYST 141
[2017-10-20] MEDS: NACL 0.9% 1,000 ML IV SCH ×3 (03:23→22:55)
[2017-10-20] MEDS: MORPHINE SULFATE 10 MG/ML VIAL IVP PRN ×4 (03:32→22:20)
[2017-10-20] MEDS: clonazePAM 0.5 MG TABLET PO SCH ×3 (06:58→22:20)
[2017-10-20 07:58] LABS: BASOPHILS % (AUTO) 0.2 % (0.0-2.0); HEMATOCRIT 31.3 % (36-54); HEMOGLOBIN 10.8 g/dL (14.0-18.0); LYMPHOCYTES # (AUTO) 0.6 K/uL (1.0-5.5); LYMPHOCYTES % (AUTO) 7.8 % (20.5-51.5); MEAN CORPUSCULAR HEMOGLOBIN 34 pg (27-31); MEAN CORPUSCULAR HGB CONC 35 % (32-36); MEAN CORPUSCULAR VOLUME 99 fL (79.0-98.0); MONOCYTES # (AUTO) 0.5 K/uL (0.0-1.0); MONOCYTES % (AUTO) 5.7 % (1.7-9.3); NEUTROPHILS % (AUTO) 86.3 % (40.0-70.0); PLATELET COUNT (AUTO) 238 K/uL (130-430); RED BLOOD CELL COUNT(AUTO) 3.15 MIL/uL (4.2-6.2); WHITE BLOOD COUNT (AUTO) 8.1 K/uL (4.8-10.8)
[2017-10-20 08:17] LABS: CALCIUM 8.9 mg/dL (8.4-11.0); CREATININE 0.56 mg/dL (0.55-1.30); POTASSIUM 3.5 mmol/L (3.5-5.1)
[2017-10-20] MEDS: MIDAZOLAM HCL 5 MG/5 ML VIAL ONE ×4 (08:18→08:25)
[2017-10-20] MEDS: fentaNYL CITRATE/PF 100 MCG/2 ML AMP ONE ×3 (08:18→08:22)
[2017-10-20 09:02] VITALS: BP_SYST 126
[2017-10-20] MEDS: LEVOFLOXACIN 500 MG/D5W 100 ML IV SCH (09:21)
[2017-10-20] MEDS: PANTOPRAZOLE SODIUM 40 MG/VIAL (PROTONIX) IVP SCH (09:21)
[2017-10-20 12:14] VITALS: BP_SYST 117
[2017-10-20 17:01] VITALS: BP_SYST 136
[2017-10-20] MEDS: BALSAM PERU/CASTOR OIL 60 GM OINT...G. TP SCH (17:47)
[2017-10-20 20:00] VITALS: BP_SYST 151
[2017-10-20] MEDS ORDERED: CEFTAZIDIME 1 GM in D5W 50 ML IV ONE (22:15)
[2017-10-20] MEDS ORDERED: CEFTAZIDIME 1 GM VIAL ONE (22:43)
[2017-10-21 01:07] VITALS: BP_SYST 144
[2017-10-21] MEDS: MORPHINE SULFATE 10 MG/ML VIAL IVP PRN ×4 (02:35→19:42)
[2017-10-21] MEDS: clonazePAM 0.5 MG TABLET PO SCH ×3 (06:32→22:44)
[2017-10-21 08:00] VITALS: BP_SYST 142
[2017-10-21] MEDS: CEFTAZIDIME 1 GM in D5W 50 ML IV SCH ×2 (10:26→22:45)
[2017-10-21] MEDS: PANTOPRAZOLE SODIUM 40 MG/VIAL (PROTONIX) IVP SCH (10:27)
[2017-10-21 11:42] VITALS: BP_SYST 118
[2017-10-21 15:39] VITALS: BP_SYST 138
[2017-10-21] MEDS: BALSAM PERU/CASTOR OIL 60 GM OINT...G. TP SCH (16:30)
[2017-10-21] MEDS ORDERED: AMIKACIN SULFATE 500 MG in D5W 100 ML IV SCH (19:00)
[2017-10-21] MEDS: NACL 0.9% 1,000 ML IV SCH (23:08)
[2017-10-21] MEDS ORDERED: AMIKACIN SULFATE 1000 MG/4 ML VIAL ONE (23:56)
[2017-10-22] MEDS: MORPHINE SULFATE 10 MG/ML VIAL IVP PRN ×5 (00:38→22:29)
[2017-10-22 00:40] VITALS: BP_SYST 137
[2017-10-22] MEDS: clonazePAM 0.5 MG TABLET PO SCH ×3 (06:18→21:28)
[2017-10-22] MEDS: CEFTAZIDIME 1 GM in D5W 50 ML IV SCH ×2 (09:17→21:29)
[2017-10-22] MEDS: PANTOPRAZOLE SODIUM 40 MG/VIAL (PROTONIX) IVP SCH (09:17)
[2017-10-22 12:53] VITALS: BP_SYST 145
[2017-10-22] MEDS: NACL 0.9% 1,000 ML IV SCH ×2 (14:08→15:08)
[2017-10-22 16:01] LABS: BASOPHILS % (AUTO) 0.4 % (0.0-2.0); EOSINOPHILS % (AUTO) 0.4 % (0.0-4.0); HEMATOCRIT 32.5 % (36-54); LYMPHOCYTES # (AUTO) 0.7 K/uL (1.0-5.5); LYMPHOCYTES % (AUTO) 9.9 % (20.5-51.5); MEAN CORPUSCULAR HEMOGLOBIN 33 pg (27-31); MEAN CORPUSCULAR HGB CONC 34 % (32-36); MEAN CORPUSCULAR VOLUME 99 fL (79.0-98.0); MONOCYTES # (AUTO) 0.5 K/uL (0.0-1.0); MONOCYTES % (AUTO) 6.6 % (1.7-9.3); NEUTROPHILS % (AUTO) 82.7 % (40.0-70.0); PLATELET COUNT (AUTO) 272 K/uL (130-430); RED CELL DISTRIBUTION WIDTH 13.4 % (9.0-15.0); WHITE BLOOD COUNT (AUTO) 7.2 K/uL (4.8-10.8)
[2017-10-22 16:07] LABS: CALCIUM 7.7 mg/dL (8.4-11.0); CREATININE 0.39 mg/dL (0.55-1.30)
[2017-10-22 16:20] VITALS: BP_SYST 144
[2017-10-22] MEDS: BALSAM PERU/CASTOR OIL 60 GM OINT...G. TP SCH (17:00)
[2017-10-22] MEDS ORDERED: POTASSIUM CHLORIDE 40 MEQ, LIDOCAINE JECT 2% PF 100 MG 50 MG in NS 250 ML IV ONE (17:45)
[2017-10-22 20:00] VITALS: BP_SYST 121
[2017-10-22] MEDS: POTASSIUM CHLORIDE 20 MEQ/PKT PACKET PO SCH ×2 (21:00→21:27)
[2017-10-22] MEDS: AMIKACIN SULFATE 500 MG in D5W 100 ML IV SCH (22:28)
[2017-10-22] MEDS ORDERED: KCL 40 mEq in 100 mL (PREMIX) 100 ML IV ONE (23:21)
[2017-10-22] MEDS ORDERED: LIDOCAINE JECT 2% PF 100 MG/5ML SYRINGE ONE (23:25)
[2017-10-23] MEDS: MORPHINE SULFATE 10 MG/ML VIAL IVP PRN (03:57)
[2017-10-23 03:58] VITALS: BP_SYST 121
[2017-10-23] MEDS: clonazePAM 0.5 MG TABLET PO SCH ×3 (05:30→21:32)
[2017-10-23 07:20] LABS: BASOPHILS % (AUTO) 0.3 % (0.0-2.0); EOSINOPHILS # (AUTO) 0.1 K/uL (0.0-0.4); EOSINOPHILS % (AUTO) 1.4 % (0.0-4.0); HEMATOCRIT 35.7 % (36-54); HEMOGLOBIN 12.1 g/dL (14.0-18.0); MEAN CORPUSCULAR HEMOGLOBIN 33 pg (27-31); MEAN CORPUSCULAR HGB CONC 34 % (32-36); MEAN CORPUSCULAR VOLUME 99 fL (79.0-98.0); MONOCYTES # (AUTO) 0.4 K/uL (0.0-1.0); MONOCYTES % (AUTO) 5.7 % (1.7-9.3); NEUTROPHILS # (AUTO) 4.7 K/uL (1.8-7.7); NEUTROPHILS % (AUTO) 76.6 % (40.0-70.0); PLATELET COUNT (AUTO) 271 K/uL (130-430); RED BLOOD CELL COUNT(AUTO) 3.62 MIL/uL (4.2-6.2); RED CELL DISTRIBUTION WIDTH 13.8 % (9.0-15.0); WHITE BLOOD COUNT (AUTO) 6.2 K/uL (4.8-10.8)
[2017-10-23 07:43] LABS: CREATININE 0.49 mg/dL (0.55-1.30); POTASSIUM 3.1 mmol/L (3.5-5.1)
[2017-10-23] MEDS: POTASSIUM CHLORIDE 20 MEQ/PKT PACKET PO SCH ×2 (09:19→21:32)
[2017-10-23] MEDS: CEFTAZIDIME 1 GM in D5W 50 ML IV SCH ×2 (09:19→21:35)
[2017-10-23] MEDS: PANTOPRAZOLE SODIUM 40 MG/VIAL (PROTONIX) IVP SCH (09:19)
[2017-10-23 11:25] VITALS: BP_SYST 134
[2017-10-23 12:19] VITALS: BP_SYST 150
[2017-10-23] MEDS ORDERED: MORPHINE SULFATE 10 MG/5 ML ORAL SOL. UDC GT PRN (13:45)
[2017-10-23] MEDS ORDERED: POTASSIUM CHLORIDE 20 MEQ/PKT PACKET GT ONE (14:00)
[2017-10-23] MEDS: NACL 0.9% 1,000 ML IV SCH (15:00)
[2017-10-23] MEDS: BALSAM PERU/CASTOR OIL 60 GM OINT...G. TP SCH (15:01)
[2017-10-23 15:37] VITALS: BP_SYST 111
[2017-10-23] MEDS: GABAPENTIN 100 MG CAPSULE GT SCH (21:32)
[2017-10-23] MEDS: PANTOPRAZOLE GRANULES PACKET 40 MG GT SCH (21:32)
[2017-10-23] MEDS: MORPHINE SULFATE 15 MG TABLET.SA GT SCH (21:32)
[2017-10-24] MEDS: AMIKACIN SULFATE 500 MG in D5W 100 ML IV SCH (00:37)
[2017-10-24 03:24] VITALS: BP_SYST 122
[2017-10-24] MEDS: clonazePAM 0.5 MG TABLET PO SCH ×2 (05:37→14:28)
[2017-10-24] MEDS: NACL 0.9% 1,000 ML IV SCH (05:37)
[2017-10-24 08:14] LABS: CALCIUM 7.6 mg/dL (8.4-11.0); CREATININE 0.37 mg/dL (0.55-1.30); POTASSIUM 3.7 mmol/L (3.5-5.1)
[2017-10-24 08:15] VITALS: BP_SYST 120
[2017-10-24] MEDS ORDERED: BALS60OI TP (08:30)
[2017-10-24] MEDS: POTASSIUM CHLORIDE 20 MEQ/PKT PACKET PO SCH (09:18)
[2017-10-24] MEDS: CEFTAZIDIME 1 GM in D5W 50 ML IV SCH (09:18)
[2017-10-24] MEDS: GABAPENTIN 100 MG CAPSULE GT SCH (09:18)
[2017-10-24] MEDS: PANTOPRAZOLE GRANULES PACKET 40 MG GT SCH (09:18)
[2017-10-24] MEDS: MORPHINE SULFATE 15 MG TABLET.SA GT SCH (09:19)
[2017-10-24 12:00] VITALS: BP_SYST 105
[2017-10-24 15:41] VITALS: BP_SYST 102
[2017-10-24] MEDS: BALSAM PERU/CASTOR OIL 60 GM OINT...G. TP SCH (16:30)
[2017-10-24 16:46] VITALS: BP_SYST 102
== END 2017-10-24 18:01 | disposition home health service (06) | DRG 388 ==
LOC: SED 02:39 → SMU 07:08
PROVIDERS: ADMIT Internal Medicine; ATTEND Internal Medicine
PROC: 0DB58ZX Excision of Esophagus, Via Natural or Artificial Opening Endoscopic, Diagnostic (ICD-10-PCS; 2017-10-20)
PROC: 0DB68ZX Excision of Stomach, Via Natural or Artificial Opening Endoscopic, Diagnostic (ICD-10-PCS; principal; 2017-10-20 12:00)
DX: K56.609 Unspecified intestinal obstruction, unspecified as to partial versus complete obstruction (principal); G80.0 Spastic quadriplegic cerebral palsy; E44.0 Moderate protein-calorie malnutrition; E87.1 Hypo-osmolality and hyponatremia; F11.20 Opioid dependence, uncomplicated; L89.819 Pressure ulcer of head, unspecified stage; N39.0 Urinary tract infection, site not specified; Z68.1 Body mass index [BMI] 19.9 or less, adult; K56.7 Ileus, unspecified; K31.7 Polyp of stomach and duodenum; N31.9 Neuromuscular dysfunction of bladder, unspecified; R13.10 Dysphagia, unspecified; B96.5 Pseudomonas (aeruginosa) (mallei) (pseudomallei) as the cause of diseases classified elsewhere; F41.1 Generalized anxiety disorder; G89.4 Chronic pain syndrome; J45.909 Unspecified asthma, uncomplicated; K21.9 Gastro-esophageal reflux disease without esophagitis; K29.70 Gastritis, unspecified, without bleeding; K80.20 Calculus of gallbladder without cholecystitis without obstruction; Z16.24 Resistance to multiple antibiotics; K52.9 Noninfective gastroenteritis and colitis, unspecified; R33.9 Retention of urine, unspecified; R13.19 Other dysphagia; K59.00 Constipation, unspecified; E87.6 Hypokalemia; K44.9 Diaphragmatic hernia without obstruction or gangrene; Z22.322 Carrier or suspected carrier of Methicillin resistant Staphylococcus aureus; Z87.01 Personal history of pneumonia (recurrent); Z87.440 Personal history of urinary (tract) infections; Z90.49 Acquired absence of other specified parts of digestive tract; Z93.2 Ileostomy status; Z93.3 Colostomy status; Z88.8 Allergy status to other drugs, medicaments and biological substances; Z79.899 Other long term (current) drug therapy; Z93.1 Gastrostomy status
CPT/HCPCS: 36415; 43239; 71045; 74018; 74250-TC; 76700-TC; 78226; 80048; 80053; 80150; 81000-TC; 82150-TC; 83690-TC; 83735-TC; 85025; 85610-TC; 85730-TC; 87040-TC; 87081; 87086; 87186-TC; 88305; 88312; 88313; 94640; 96365; 96375; 99285; A4409; A5061; A9537; C9113; J0278; J0696; J0713; J1956; J2250; J2270; J2405; J3010; J3480; J7030; J7050; J7060; Q9963

== ENCOUNTER 2018-01-21 11:25 | Emergency (ER) | payer MEDICAID, OTHER ==
[~2018-01-21] VITALS: Ht 172.7 cm; Wt 45.4 kg
[2018-01-21 11:25] VITALS: BP_SYST 133
[~2018-01-21 11:25] MED LIST changes: -AMOX-423 PO; +BALS60OI TP; -CLON0.5T4 GT; -CLON1TAB4 GT; -GABA-531 GT; +GABA-531 PO; -IPRA0.2S6 INH; -MIRT30TA GT; -MORP30TA59 PO; -REM15 GT; -SER100 PO; -TAPE250T GT; -VEN2 GT
[2018-01-21] MEDS ORDERED: NACL 0.9% 1,000 ML IV ONE (11:28)
[2018-01-21] MEDS ORDERED: ONDANSETRON HCL 4 MG/2 ML VIAL IVP ONE (11:30)
[2018-01-21] MEDS ORDERED: BACITRACIN 1 GM OINT TP ONE ×2 (11:58→12:00)
[2018-01-21] MEDS ORDERED: MORPHINE 4 MG/ML INJ. SYRINGE IVP ONE (12:15)
[2018-01-21] MEDS ORDERED: MORPHINE SULFATE 10 MG/ML VIAL ONE (12:20)
[2018-01-21 12:32] LABS: BASOPHILS % (AUTO) 0.5 % (0.0-2.0); EOSINOPHILS # (AUTO) 0.1 K/uL (0.0-0.4); EOSINOPHILS % (AUTO) 1.2 % (0.0-4.0); HEMATOCRIT 41.4 % (36-54); LYMPHOCYTES # (AUTO) 0.6 K/uL (1.0-5.5); LYMPHOCYTES % (AUTO) 10.1 % (20.5-51.5); MEAN CORPUSCULAR HEMOGLOBIN 33 pg (27-31); MEAN CORPUSCULAR HGB CONC 34 % (32-36); MEAN CORPUSCULAR VOLUME 98 fL (79.0-98.0); MONOCYTES # (AUTO) 0.3 K/uL (0.0-1.0); NEUTROPHILS % (AUTO) 83.2 % (40.0-70.0); PLATELET COUNT (AUTO) 288 K/uL (130-430); RED BLOOD CELL COUNT(AUTO) 4.22 MIL/uL (4.2-6.2); RED CELL DISTRIBUTION WIDTH 12.8 % (9.0-15.0)
[2018-01-21 12:42] LABS: CREATININE 0.53 mg/dL (0.55-1.30); POTASSIUM 5.1 mmol/L (3.5-5.1)
[2018-01-21 12:46] LABS: BILIRUBIN,URINE NEGATIVE (NEGATIVE); BLOOD, URINE 1+ (NEGATIVE); CLARITY/URINE HAZY (CLEAR); COLOR,URINE YELLOW (YELLOW); GLUCOSE,URINE NEGATIVE (NEGATIVE); KETONES,URINE NEGATIVE (NEGATIVE); LEUKOCYTE ESTERASE ,URINE NEGATIVE (NEGATIVE); NITRITE, URINE POSITIVE (NEGATIVE); PH,URINE 5.5 (5.0-8.0); PROTEIN URINE NEGATIVE (NEGATIVE); UROBILINOGEN,URINE 0.2 (0.2-1.0)
[2018-01-21 12:47] LABS: ALBUMIN 3.4 g/dL (3.4-4.8); TOTAL BILIRUBIN 0.4 mg/dL (0.0-1.0)
[2018-01-21 12:53] LABS: BACTERIA,URINE MANY /HPF (None Seen); WBC,URINE 0-3 /HPF (0-3)
[2018-01-21] MEDS ORDERED: cefTRIAXone 1 GM in D5W 50 ML IV ONE (13:15)
[2018-01-21] MEDS ORDERED: cefTRIAXone 1 GM VIAL ONE (13:34)
[2018-01-21 14:00] VITALS: BP_SYST 104
== END 2018-01-21 14:00 | disposition home or self-care (01) ==
LOC: SED 11:25
DX: K94.21 Gastrostomy hemorrhage (principal); N39.0 Urinary tract infection, site not specified; J45.909 Unspecified asthma, uncomplicated; K21.9 Gastro-esophageal reflux disease without esophagitis; G80.9 Cerebral palsy, unspecified; Z88.5 Allergy status to narcotic agent; Z79.899 Other long term (current) drug therapy
CPT/HCPCS: 36415; 80053; 81000; 82150; 83605; 83690; 85025; 87040; 87086; 87186; 93005; 96361; 96365; 96375; 99285; J0696; J2270; J2405; J7030; J7060

== ENCOUNTER 2018-03-20 14:39 | Outpatient (CLI) | payer OTHER | END 2018-03-20 19:33 | disposition home or self-care (01) | LOC: SUS 14:39 | PROVIDERS: ATTEND Urology | DX: N39.0 Urinary tract infection, site not specified (principal); Z93.3 Colostomy status | CPT/HCPCS: 76770 ==

== ENCOUNTER 2018-06-02 18:12 | Inpatient (IN) | payer OTHER, MEDICAID ==
[~2018-06-02] VITALS: Ht 172.7 cm; Wt 43.5 kg
[~2018-06-02 18:12] MED LIST changes: -LANS30CA10 GT; +LANS30CA53 GT
[2018-06-02 18:23] VITALS: BP_SYST 112
[2018-06-02] MEDS ORDERED: DIPHENHYDRAMINE INJ 50 MG/ML VIAL IVP ONE (18:45)
[2018-06-02] MEDS ORDERED: MORPHINE 4 MG/ML INJ. SYRINGE IVP ONE (18:45)
[2018-06-02] MEDS ORDERED: PIPERACILLIN/TAZO 3.38 GM in NS 50 ML IV ONE (18:45)
[2018-06-02 19:28] LABS: WHITE BLOOD COUNT (AUTO) 5.4 K/uL (4.8-10.8)
[2018-06-02 19:29] LABS: HEMATOCRIT 37.8 % (36-54); HEMOGLOBIN 12.9 g/dL (14.0-18.0); MEAN CORPUSCULAR HEMOGLOBIN 33 pg (27-31); MEAN CORPUSCULAR HGB CONC 34 % (32-36); MEAN CORPUSCULAR VOLUME 98 fL (79.0-98.0); PLATELET COUNT (AUTO) 245 K/uL (130-430); RED BLOOD CELL COUNT(AUTO) 3.85 MIL/uL (4.2-6.2); RED CELL DISTRIBUTION WIDTH 11.1 % (9.0-15.0)
[2018-06-02 19:30] LABS: BASOPHILS % (AUTO) 1.2 % (0.0-2.0); EOSINOPHILS % (AUTO) 8.6 % (0.0-4.0); LYMPHOCYTES # (AUTO) 0.8 K/uL (1.0-5.5); LYMPHOCYTES % (AUTO) 15.2 % (20.5-51.5); MONOCYTES % (AUTO) 5.7 % (1.7-9.3); NEUTROPHILS # (AUTO) 3.7 K/uL (1.8-7.7); NEUTROPHILS % (AUTO) 69.3 % (40.0-70.0)
[2018-06-02 19:31] LABS: BASOPHILS # (AUTO) 0.1 K/uL (0.0-0.2); EOSINOPHILS # (AUTO) 0.5 K/uL (0.0-0.4); MONOCYTES # (AUTO) 0.3 K/uL (0.0-1.0)
[2018-06-02 19:38] LABS: CALCIUM 8.4 mg/dL (8.4-11.0); CREATININE 0.42 mg/dL (0.55-1.30); POTASSIUM 4.6 mmol/L (3.5-5.1)
[2018-06-02 19:43] LABS: ALBUMIN 3.2 g/dL (3.4-4.8); PROTHROMBIN TIME 10.1 SECS (9.5-12.5); TOTAL BILIRUBIN 0.3 mg/dL (0.0-1.0)
[2018-06-02 21:09] LABS: BILIRUBIN,URINE NEGATIVE (NEGATIVE); BLOOD, URINE 2+ (NEGATIVE); CLARITY/URINE CLEAR (CLEAR); COLOR,URINE YELLOW (YELLOW); GLUCOSE,URINE NEGATIVE (NEGATIVE); KETONES,URINE NEGATIVE (NEGATIVE); LEUKOCYTE ESTERASE ,URINE 3+ (NEGATIVE); NITRITE, URINE NEGATIVE (NEGATIVE); PH,URINE 6.5 (5.0-8.0); PROTEIN URINE NEGATIVE (NEGATIVE); UROBILINOGEN,URINE 0.2 (0.2-1.0)
[2018-06-02 21:22] LABS: BACTERIA,URINE MANY /HPF (None Seen); MUCUS,URINE 1+ /LPF (None Seen); WBC,URINE >100 /HPF (0-3)
[2018-06-02] MEDS ORDERED: MORP15TA60 PO (21:24)
[2018-06-02] MEDS ORDERED: VEN2 PO (21:24)
[2018-06-02] MEDS ORDERED: CYM30 PO (21:24)
[2018-06-02] MEDS ORDERED: LANS15CA14 PO (21:24)
[2018-06-02] MEDS ORDERED: KLO.5 PO (21:24)
[2018-06-02] MEDS ORDERED: GABA-531 PO (21:24)
[2018-06-02] MEDS ORDERED: DIPHENHYDRAMINE INJ 50 MG/ML VIAL ONE (21:45)
[2018-06-02] MEDS ORDERED: MORPHINE 4 MG/ML INJ. SYRINGE ONE (21:45)
[2018-06-02] MEDS ORDERED: PIPERACILLIN/TAZOBACTAM 3.375 GM/VIAL (ZOSYN) IV ONE (21:46)
[2018-06-02] MEDS ORDERED: NACL 0.9% 1,000 ML IV ONE (22:30)
[2018-06-02] MEDS ORDERED: cefTRIAXone 1 GM IVPB PREMIX 50 ML IV ONE (22:45)
[2018-06-02 23:20] VITALS: BP_SYST 98
[2018-06-03] VITALS (9 sets, daily range): BP systolic 84–115
[2018-06-03] MEDS: D5NS 1,000 ML IV SCH ×3 (00:20→21:31)
[2018-06-03] MEDS ORDERED: MORPHINE 4 MG/ML INJ. SYRINGE IVP PRN (02:45)
[2018-06-03] MEDS ORDERED: ONDANSETRON HCL 4 MG/2 ML VIAL IVP PRN (02:45)
[2018-06-03] MEDS ORDERED: MORPHINE 4 MG/ML INJ. SYRINGE ONE (02:54)
[2018-06-03 07:04] LABS: CALCIUM 8.5 mg/dL (8.4-11.0); CREATININE 0.41 mg/dL (0.55-1.30)
[2018-06-03 07:09] LABS: ALBUMIN 2.9 g/dL (3.4-4.8); TOTAL BILIRUBIN 0.4 mg/dL (0.0-1.0)
[2018-06-03] MEDS ORDERED: MORPHINE 2 MG/ML INJ. SYRINGE IVP PRN (07:15)
[2018-06-03] MEDS ORDERED: NACL 0.9% 1,000 ML IV ONE (07:15)
[2018-06-03 07:17] LABS: BASOPHILS % (AUTO) 0.3 % (0.0-2.0); EOSINOPHILS # (AUTO) 0.3 K/uL (0.0-0.4); EOSINOPHILS % (AUTO) 3.7 % (0.0-4.0); HEMATOCRIT 38.6 % (36-54); HEMOGLOBIN 13.3 g/dL (14.0-18.0); LYMPHOCYTES # (AUTO) 1.1 K/uL (1.0-5.5); LYMPHOCYTES % (AUTO) 15.2 % (20.5-51.5); MEAN CORPUSCULAR HEMOGLOBIN 34 pg (27-31); MEAN CORPUSCULAR HGB CONC 35 % (32-36); MEAN CORPUSCULAR VOLUME 99 fL (79.0-98.0); MONOCYTES # (AUTO) 0.5 K/uL (0.0-1.0); NEUTROPHILS # (AUTO) 5.6 K/uL (1.8-7.7); NEUTROPHILS % (AUTO) 74.8 % (40.0-70.0); PLATELET COUNT (AUTO) 244 K/uL (130-430); RED BLOOD CELL COUNT(AUTO) 3.91 MIL/uL (4.2-6.2); RED CELL DISTRIBUTION WIDTH 11.7 % (9.0-15.0); WHITE BLOOD COUNT (AUTO) 7.5 K/uL (4.8-10.8)
[2018-06-03] MEDS ORDERED: MORPHINE 2 MG/ML INJ. SYRINGE ONE (07:41)
[2018-06-03] MEDS ORDERED: GASTROGRAFIN 120 ML ONE (08:09)
[2018-06-03] MEDS: PANTOPRAZOLE SODIUM 40 MG/VIAL (PROTONIX) IVP SCH (08:49)
[2018-06-03] MEDS: metroNIDAZOLE 500 mg/NS 100 ML IV SCH ×3 (08:50→22:55)
[2018-06-03] MEDS: LORazepam 2 MG/ML VIAL IVP PRN ×2 (10:38→18:34)
[2018-06-03] MEDS: ALBUTEROL SULFATE 0.083% 2.5 MG/3 ML VIAL.NEB INH SCH ×2 (15:15→19:24)
[2018-06-03] MEDS ORDERED: ALBUTEROL SULFATE 2 MG TABLET PO SCH (15:15)
[2018-06-03] MEDS ORDERED: MORPHINE SULFATE 10 MG/5 ML ORAL SOL. UDC GT PRN (15:15)
[2018-06-03] MEDS ORDERED: NON-FORMULARY MEDICATION (Lansoprazole (Prevacid) 30 MG) PO SCH (15:15)
[2018-06-03] MEDS ORDERED: LIDOCAINE PATCH 5% 1 EA TP PRN (15:15)
[2018-06-03] MEDS ORDERED: NON-FORMULARY MEDICATION (Lansoprazole (Prevacid) 30 MG) GT SCH (15:15)
[2018-06-03] MEDS: DULoxetine HCL 30 MG CAPSULE.DR (CYMBALTA) GT SCH ×2 (15:15→22:51)
[2018-06-03] MEDS ORDERED: GABAPENTIN 300 MG CAPSULE PO SCH ×2 (15:15)
[2018-06-03] MEDS ORDERED: MORPHINE SULFATE 15 MG TABLET.ER PO SCH (15:15)
[2018-06-03] MEDS ORDERED: clonazePAM 0.5 MG TABLET PO SCH (15:15)
[2018-06-03] MEDS ORDERED: COMMUNICATION ORDER XX ONE (15:30)
[2018-06-03] MEDS ORDERED: clonazePAM 0.5 MG TABLET PO ONE (15:30)
[2018-06-03] MEDS ORDERED: GABAPENTIN 100 MG CAPSULE GT ONE (15:45)
[2018-06-03] MEDS ORDERED: MAGNESIUM OXIDE 400 MG TABLET GT ONE (15:45)
[2018-06-03] MEDS ORDERED: BALSAM PERU/CASTOR OIL 60 GM OINT...G. TP SCH (17:00)
[2018-06-03] MEDS ORDERED: POTASSIUM CHLORIDE 40 MEQ PO SCH (21:00)
[2018-06-03] MEDS: MORPHINE 2 MG/ML INJ. SYRINGE IVP PRN (21:08)
[2018-06-03] MEDS: GABAPENTIN 100 MG CAPSULE GT SCH (22:52)
[2018-06-03] MEDS: clonazePAM 0.5 MG TABLET GT SCH (22:53)
[2018-06-03] MEDS: MAGNESIUM OXIDE 400 MG TABLET GT SCH (22:53)
[2018-06-04 00:04] VITALS: BP_SYST 115
[2018-06-04] MEDS: ALBUTEROL SULFATE 0.083% 2.5 MG/3 ML VIAL.NEB INH SCH ×4 (00:55→19:39)
[2018-06-04 05:00] VITALS: BP_SYST 98
[2018-06-04] MEDS: D5NS 1,000 ML IV SCH (05:14)
[2018-06-04] MEDS: clonazePAM 0.5 MG TABLET GT SCH ×3 (05:32→21:51)
[2018-06-04] MEDS: metroNIDAZOLE 500 mg/NS 100 ML IV SCH ×3 (05:32→21:51)
[2018-06-04 07:12] LABS: BASOPHILS % (AUTO) 0.1 % (0.0-2.0); HEMATOCRIT 32.1 % (36-54); HEMOGLOBIN 11.1 g/dL (14.0-18.0); LYMPHOCYTES # (AUTO) 0.4 K/uL (1.0-5.5); LYMPHOCYTES % (AUTO) 5.3 % (20.5-51.5); MEAN CORPUSCULAR HEMOGLOBIN 34 pg (27-31); MEAN CORPUSCULAR HGB CONC 35 % (32-36); MEAN CORPUSCULAR VOLUME 99 fL (79.0-98.0); MONOCYTES # (AUTO) 0.4 K/uL (0.0-1.0); MONOCYTES % (AUTO) 5.7 % (1.7-9.3); NEUTROPHILS # (AUTO) 6.7 K/uL (1.8-7.7); NEUTROPHILS % (AUTO) 88.9 % (40.0-70.0); PLATELET COUNT (AUTO) 203 K/uL (130-430); RED BLOOD CELL COUNT(AUTO) 3.24 MIL/uL (4.2-6.2); RED CELL DISTRIBUTION WIDTH 11.4 % (9.0-15.0); WHITE BLOOD COUNT (AUTO) 7.5 K/uL (4.8-10.8)
[2018-06-04 07:49] LABS: ALBUMIN 2.3 g/dL (3.4-4.8); CALCIUM 7.8 mg/dL (8.4-11.0); CREATININE 0.56 mg/dL (0.55-1.30); TOTAL BILIRUBIN 0.5 mg/dL (0.0-1.0)
[2018-06-04 08:03] LABS: POTASSIUM 2.1 mmol/L (3.5-5.1)
[2018-06-04 08:12] VITALS: BP_SYST 104
[2018-06-04] MEDS ORDERED: POTASSIUM CHLORIDE 20 MEQ/PKT PACKET PO ONE (08:15)
[2018-06-04] MEDS ORDERED: POTASSIUM CHLORIDE 20 MEQ/PKT PACKET GT ONE (08:15)
[2018-06-04] MEDS: DULoxetine HCL 30 MG CAPSULE.DR (CYMBALTA) GT SCH ×2 (08:42→20:35)
[2018-06-04] MEDS: GABAPENTIN 100 MG CAPSULE GT SCH ×3 (08:42→20:35)
[2018-06-04] MEDS: MAGNESIUM OXIDE 400 MG TABLET GT SCH ×2 (08:42→20:35)
[2018-06-04] MEDS: POTASSIUM CHLORIDE 40 MEQ in D5W 250 ML IV SCH ×2 (08:43→13:51)
[2018-06-04] MEDS: PANTOPRAZOLE SODIUM 40 MG/VIAL (PROTONIX) IVP SCH (08:44)
[2018-06-04] MEDS: MORPHINE 2 MG/ML INJ. SYRINGE IVP PRN ×2 (11:07→16:20)
[2018-06-04] MEDS: cefTRIAXone 1 GM in D5W 50 ML IV SCH (11:07)
[2018-06-04 12:39] VITALS: BP_SYST 105
[2018-06-04 15:05] LABS: CALCIUM 8.1 mg/dL (8.4-11.0); CREATININE 0.49 mg/dL (0.55-1.30); POTASSIUM 3.7 mmol/L (3.5-5.1)
[2018-06-04 16:05] VITALS: BP_SYST 113
[2018-06-04 20:20] VITALS: BP_SYST 113
[2018-06-04] MEDS: MORPHINE SULFATE 10 MG/5 ML ORAL SOL. UDC GT PRN (20:36)
[2018-06-04] MEDS: MORPHINE SULFATE 10 MG/5 ML ORAL SOL. UDC GT SCH (22:00)
[2018-06-05] MEDS: ALBUTEROL SULFATE 0.083% 2.5 MG/3 ML VIAL.NEB INH SCH ×4 (01:00→19:42)
[2018-06-05] MEDS: MORPHINE SULFATE 10 MG/5 ML ORAL SOL. UDC GT PRN ×2 (01:05→08:15)
[2018-06-05] MEDS: LORazepam 2 MG/ML VIAL IM PRN (03:22)
[2018-06-05] MEDS: clonazePAM 0.5 MG TABLET GT SCH (05:16)
[2018-06-05] MEDS: MORPHINE SULFATE 10 MG/5 ML ORAL SOL. UDC GT SCH ×3 (05:17→22:51)
[2018-06-05] MEDS: metroNIDAZOLE 500 mg/NS 100 ML IV SCH ×3 (05:17→22:48)
[2018-06-05 05:20] VITALS: BP_SYST 132
[2018-06-05 08:10] LABS: BASOPHILS % (AUTO) 0.9 % (0.0-2.0); EOSINOPHILS % (AUTO) 0.8 % (0.0-4.0); HEMATOCRIT 31.2 % (36-54); HEMOGLOBIN 10.6 g/dL (14.0-18.0); LYMPHOCYTES # (AUTO) 0.9 K/uL (1.0-5.5); LYMPHOCYTES % (AUTO) 18.4 % (20.5-51.5); MEAN CORPUSCULAR HEMOGLOBIN 34 pg (27-31); MEAN CORPUSCULAR HGB CONC 34 % (32-36); MEAN CORPUSCULAR VOLUME 100 fL (79.0-98.0); MONOCYTES # (AUTO) 0.5 K/uL (0.0-1.0); MONOCYTES % (AUTO) 9.1 % (1.7-9.3); NEUTROPHILS # (AUTO) 3.6 K/uL (1.8-7.7); NEUTROPHILS % (AUTO) 70.8 % (40.0-70.0); PLATELET COUNT (AUTO) 206 K/uL (130-430); RED BLOOD CELL COUNT(AUTO) 3.13 MIL/uL (4.2-6.2)
[2018-06-05] MEDS: PANTOPRAZOLE SODIUM 40 MG/VIAL (PROTONIX) IVP SCH (08:13)
[2018-06-05] MEDS: cefTRIAXone 1 GM in D5W 50 ML IV SCH ×2 (08:13→09:52)
[2018-06-05] MEDS: MAGNESIUM OXIDE 400 MG TABLET GT SCH ×2 (08:14→20:12)
[2018-06-05] MEDS: GABAPENTIN 100 MG CAPSULE GT SCH ×3 (08:14→20:12)
[2018-06-05] MEDS: DULoxetine HCL 30 MG CAPSULE.DR (CYMBALTA) GT SCH ×2 (08:14→20:12)
[2018-06-05 08:22] LABS: ALBUMIN 2.5 g/dL (3.4-4.8); CALCIUM 8.4 mg/dL (8.4-11.0); CREATININE 0.53 mg/dL (0.55-1.30); TOTAL BILIRUBIN 0.3 mg/dL (0.0-1.0)
[2018-06-05 08:30] VITALS: BP_SYST 111
[2018-06-05 12:33] VITALS: BP_SYST 111
[2018-06-05] MEDS: clonazePAM 0.5 MG TABLET PO SCH ×2 (14:07→20:12)
[2018-06-05] MEDS: KCL 20 mEq in 0.45% NS 1000 mL 1,000 ML IV SCH (14:10)
[2018-06-05 16:06] VITALS: BP_SYST 108
[2018-06-05 20:00] VITALS: BP_SYST 127
[2018-06-06] VITALS: BP_SYST 130
[2018-06-06] MEDS: ALBUTEROL SULFATE 0.083% 2.5 MG/3 ML VIAL.NEB INH SCH ×4 (01:00→19:40)
[2018-06-06] MEDS: MORPHINE SULFATE 10 MG/5 ML ORAL SOL. UDC GT PRN ×3 (02:48→18:41)
[2018-06-06] MEDS: MORPHINE SULFATE 10 MG/5 ML ORAL SOL. UDC GT SCH ×4 (06:00→21:10)
[2018-06-06] MEDS: metroNIDAZOLE 500 mg/NS 100 ML IV SCH ×3 (06:35→21:08)
[2018-06-06 07:16] LABS: CALCIUM 8.4 mg/dL (8.4-11.0); CREATININE 0.44 mg/dL (0.55-1.30); POTASSIUM 3.7 mmol/L (3.5-5.1)
[2018-06-06 08:10] VITALS: BP_SYST 127
[2018-06-06] MEDS: PANTOPRAZOLE SODIUM 40 MG/VIAL (PROTONIX) IVP SCH (08:14)
[2018-06-06] MEDS: MAGNESIUM OXIDE 400 MG TABLET GT SCH ×2 (08:14→21:09)
[2018-06-06] MEDS: DULoxetine HCL 30 MG CAPSULE.DR (CYMBALTA) GT SCH ×2 (08:15→21:09)
[2018-06-06] MEDS: clonazePAM 0.5 MG TABLET PO SCH ×3 (08:15→21:09)
[2018-06-06] MEDS: GABAPENTIN 100 MG CAPSULE GT SCH ×3 (08:15→21:09)
[2018-06-06] MEDS: cefTRIAXone 1 GM in D5W 50 ML IV SCH (08:16)
[2018-06-06 12:24] VITALS: BP_SYST 116
[2018-06-06] MEDS: KCL 20 mEq in 0.45% NS 1000 mL 1,000 ML IV SCH (12:25)
[2018-06-06] MEDS: ERTAPENEM SODIUM 1 GM in NS 50 ML IV SCH (12:26)
[2018-06-06 12:57] VITALS: BP_SYST 116
[2018-06-06 16:06] VITALS: BP_SYST 105
[2018-06-06 20:00] VITALS: BP_SYST 111
[2018-06-06] MEDS: LORazepam 2 MG/ML VIAL IM PRN (23:37)
[2018-06-07 00:30] VITALS: BP_SYST 125
[2018-06-07] MEDS: ALBUTEROL SULFATE 0.083% 2.5 MG/3 ML VIAL.NEB INH SCH ×3 (01:00→13:00)
[2018-06-07] MEDS: metroNIDAZOLE 500 mg/NS 100 ML IV SCH ×2 (05:16→14:09)
[2018-06-07] MEDS: MORPHINE SULFATE 10 MG/5 ML ORAL SOL. UDC GT SCH ×2 (05:17→14:10)
[2018-06-07 08:02] VITALS: BP_SYST 103
[2018-06-07 08:08] LABS: AMYLASE 126 U/L (0-100); LIPASE 344 U/L (73-393)
[2018-06-07] MEDS: PANTOPRAZOLE SODIUM 40 MG/VIAL (PROTONIX) IVP SCH (09:28)
[2018-06-07] MEDS: clonazePAM 0.5 MG TABLET PO SCH ×2 (09:28→14:09)
[2018-06-07] MEDS: GABAPENTIN 100 MG CAPSULE GT SCH ×2 (09:28→14:09)
[2018-06-07] MEDS: DULoxetine HCL 30 MG CAPSULE.DR (CYMBALTA) GT SCH (09:28)
[2018-06-07] MEDS: MAGNESIUM OXIDE 400 MG TABLET GT SCH (09:28)
[2018-06-07] MEDS: MORPHINE SULFATE 10 MG/5 ML ORAL SOL. UDC GT PRN ×2 (09:29→17:59)
[2018-06-07 12:00] VITALS: BP_SYST 100
[2018-06-07] MEDS: ERTAPENEM SODIUM 1 GM in NS 50 ML IV SCH (12:04)
[2018-06-07] MEDS: KCL 20 mEq in 0.45% NS 1000 mL 1,000 ML IV SCH (14:09)
[2018-06-07 16:18] VITALS: BP_SYST 98
[2018-06-07 17:17] VITALS: BP_SYST 98
[2018-06-07 20:00] VITALS: BP_SYST 127
== END 2018-06-07 20:15 | disposition home health service (06) | DRG 438 ==
LOC: SED 18:12 → STU 22:40
PROVIDERS: ADMIT Internal Medicine; ATTEND Internal Medicine
DX: K85.90 Acute pancreatitis without necrosis or infection, unspecified (principal); G82.50 Quadriplegia, unspecified; N39.0 Urinary tract infection, site not specified; R47.01 Aphasia; E87.1 Hypo-osmolality and hyponatremia; F11.20 Opioid dependence, uncomplicated; K56.7 Ileus, unspecified; F13.20 Sedative, hypnotic or anxiolytic dependence, uncomplicated; K94.23 Gastrostomy malfunction; J45.909 Unspecified asthma, uncomplicated; E87.6 Hypokalemia; B96.1 Klebsiella pneumoniae [K. pneumoniae] as the cause of diseases classified elsewhere; R13.10 Dysphagia, unspecified; E87.8 Other disorders of electrolyte and fluid balance, not elsewhere classified; M54.9 Dorsalgia, unspecified; Z16.12 Extended spectrum beta lactamase (ESBL) resistance; F41.1 Generalized anxiety disorder; K59.00 Constipation, unspecified; G89.4 Chronic pain syndrome; F32.9 Major depressive disorder, single episode, unspecified; K80.20 Calculus of gallbladder without cholecystitis without obstruction; F79 Unspecified intellectual disabilities; R47.1 Dysarthria and anarthria; K21.9 Gastro-esophageal reflux disease without esophagitis; Y83.3 Surgical operation with formation of external stoma as the cause of abnormal reaction of the patient, or of later complication, without mention of misadventure at the time of the procedure; Y92.238 Other place in hospital as the place of occurrence of the external cause; G40.909 Epilepsy, unspecified, not intractable, without status epilepticus; Z87.440 Personal history of urinary (tract) infections; Z88.6 Allergy status to analgesic agent; Z90.49 Acquired absence of other specified parts of digestive tract
CPT/HCPCS: 36415; 71045; 74241; 78226; 80048; 80053; 81000-TC; 82150-TC; 83605; 83690-TC; 85025; 85610-TC; 87040-TC; 87081; 87086; 87186-TC; 93005; 94640; 96361; 96365; 96375; 99285; A9537; C1751; C9113; J0696; J1200; J1335; J2060; J2270; J2543; J3480; J3490; J7030; J7040; J7042; J7060; J7613; Q9963

== ENCOUNTER 2018-06-09 12:52 | Emergency (ER) | payer OTHER, MEDICAID ==
[~2018-06-09] VITALS: Ht 167.6 cm; Wt 40.8 kg
[~2018-06-09 12:52] MED LIST changes: +CYM30 PO; -GABA-531 PO; -LIDP TP
[2018-06-09 12:56] VITALS: BP_SYST 137
[2018-06-09] MEDS ORDERED: cefTRIAXone 1 GM VIAL IM ONE (13:00)
[2018-06-09] MEDS ORDERED: NACL 0.9% 1,000 ML IV ONE (13:00)
[2018-06-09] MEDS ORDERED: ONDA4TAB5 GT (13:29)
[2018-06-09] MEDS ORDERED: CLON0.5T12 GT (13:29)
[2018-06-09] MEDS ORDERED: CYM30 GT (13:29)
[2018-06-09] MEDS ORDERED: MORP15TA PO (13:29)
[2018-06-09] MEDS ORDERED: LIDOCAINE 1% 10 MG/ML, 20 ML MDV INJ ONE (13:30)
[2018-06-09] MEDS ORDERED: MORPHINE 2 MG/ML INJ. SYRINGE IM ONE (15:45)
[2018-06-09 16:00] VITALS: BP_SYST 107
== END 2018-06-09 15:59 | disposition home or self-care (01) ==
LOC: SED 12:52
DX: Z45.2 Encounter for adjustment and management of vascular access device (principal); N39.0 Urinary tract infection, site not specified; G80.9 Cerebral palsy, unspecified; J45.909 Unspecified asthma, uncomplicated; K21.9 Gastro-esophageal reflux disease without esophagitis; Z88.6 Allergy status to analgesic agent; Z88.5 Allergy status to narcotic agent; Z79.899 Other long term (current) drug therapy
CPT/HCPCS: 96372; 99284; J0696; J2001; J2270

== ENCOUNTER 2019-10-20 20:55 | Emergency (ER) | payer OTHER, MEDICAID ==
[~2019-10-20] VITALS: Ht 157.5 cm; Wt 59.9 kg
[~2019-10-20 20:55] MED LIST changes: +CLON0.5T12 GT; +CYM30 GT; -CYM30 PO; -KLO.5 PO; -MORL GT; +MORP15TA PO; +ONDA4TAB5 GT
--- NOTE | 2019-10-20 21:00 | NUR ---
Placed in room 3 . Placed on laboratory monitor, blood pressure machine and pulse oximeter. To gown for exam. Side rails up. Resumed care.
--- NOTE | 2019-10-20 21:05 | NUR ---
Patient came from home and came to ER because Gtube is displaced. Patient not presenting any signs of acute distress and no trauma noted at gtube site.
--- NOTE | 2019-10-20 21:10 | NUR ---
Sing at bedside. placed 20 gauge gtube insertion. No complication noted. Awaiting for placement confirmation.
[2019-10-20 21:12] VITALS: BP_SYST 144
[2019-10-20] MEDS ORDERED: GASTROGRAFIN 120 ML ONE (21:48)
--- NOTE | 2019-10-20 21:48 | NUR ---
Patient given written and verbal discharge instructions and verbalizes understanding. ER MD discussed with patient the results and treatment provided. Patient in stable condition. ID arm band removed. Rx of given. Patient educated on pain management and to follow up with PMD. Pain Scale 0/10. Opportunity for questions provided and answered. Medication side effect fact sheet provided.
--- NOTE | 2019-10-20 21:49 | NUR ---
Arranging [facility] ambulance service. ETA 30-45 mins.
--- NOTE | 2019-10-20 22:35 | NUR ---
Patient given written and verbal discharge instructions and verbalizes understanding. ER MD discussed with patient the results and treatment provided. Patient in stable condition. ID arm band removed. Patient educated on pain management and to follow up with PMD. Pain Scale 0/10. Opportunity for questions provided and answered. Medication side effect fact sheet provided. Patient taken by ambulance home BLS.
[2019-10-20 22:55] VITALS: BP_SYST 144
== END 2019-10-20 22:25 | disposition home or self-care (01) ==
LOC: SED 20:55
DX: Z43.1 Encounter for attention to gastrostomy (principal); J45.909 Unspecified asthma, uncomplicated; Z88.5 Allergy status to narcotic agent; Z88.6 Allergy status to analgesic agent; Z79.899 Other long term (current) drug therapy
CPT/HCPCS: 43762; 74240; 99284; Q9963

== ENCOUNTER 2019-10-26 23:58 | Inpatient (IN) | payer OTHER, MEDICAID ==
[~2019-10-26] VITALS: Ht 160 cm; Wt 44.0 kg
[2019-10-27] VITALS: BP_SYST 131
--- NOTE | 2019-10-27 00:24 | NUR ---
Pt BIB EMS from home with c/o nausea, vomiting and abdominal pain. Per EMS, pt has history of cerebal palsy. Caregiver at bedside with patient. Pt verbal but not understandable. Pt caregiver states he understands what he says. Per caregiver, pt became nauseated at approximately 8 pm and had 2 episodes of emesis. Pt caregiver states, "he threw up a lot each time." Pt caregiver states 4mg of zofran was given PO at 9pm but pt vomited at 915 pm. Pt caregiver states pt c/o abdominal pain at 10 pm. Pt caregiver states pt states pain 8/10. Pt has colostomy and g-tube in abdomen. No discoloration noted on abdomen upon assessment. Will continue to monitor.
--- NOTE | 2019-10-27 00:24 | NUR ---
Patient to ER bed 2 to gown for evaluation. Side rails up. Report given to Crystal VASQUEZ.
--- NOTE | 2019-10-27 00:26 | NUR ---
ER Dr. Fernandes at bedside examining patient.
[2019-10-27 01:08] LABS: BASOPHILS % (AUTO) 0.5 % (0.0-2.0); EOSINOPHILS % (AUTO) 0.4 % (0.0-4.0); HEMATOCRIT 41.7 % (36-54); HEMOGLOBIN 14.3 g/dL (14.0-18.0); LYMPHOCYTES # (AUTO) 0.8 K/uL (1.0-5.5); LYMPHOCYTES % (AUTO) 8.9 % (20.5-51.5); MEAN CORPUSCULAR HEMOGLOBIN 35 pg (27-31); MEAN CORPUSCULAR HGB CONC 34 % (32-36); MEAN CORPUSCULAR VOLUME 101 fL (79.0-98.0); MONOCYTES # (AUTO) 0.4 K/uL (0.0-1.0); MONOCYTES % (AUTO) 4.1 % (1.7-9.3); NEUTROPHILS # (AUTO) 7.6 K/uL (1.8-7.7); NEUTROPHILS % (AUTO) 86.1 % (40.0-70.0); PLATELET COUNT (AUTO) 205 K/uL (130-430); RED BLOOD CELL COUNT(AUTO) 4.12 MIL/uL (4.2-6.2); RED CELL DISTRIBUTION WIDTH 12.7 % (9.0-15.0); WHITE BLOOD COUNT (AUTO) 8.8 K/uL (4.8-10.8)
[2019-10-27 01:20] LABS: CALCIUM 8.4 mg/dL (8.4-11.0); CREATININE 0.55 mg/dL (0.55-1.30); POTASSIUM 3.8 mmol/L (3.5-5.1)
[2019-10-27 01:26] LABS: ALBUMIN 3.4 g/dL (3.4-4.8); TOTAL BILIRUBIN 0.4 mg/dL (0.0-1.0)
--- NOTE | 2019-10-27 01:55 | NUR ---
# 24 gauge angiocath placed to right index finger. Use of asceptic technique. Opsite placed over site. Blood return noted. Flushed with 10 cc of normal saline. No evidence of infiltration noted. Patient tolerated well.
[2019-10-27] MEDS ORDERED: ONDANSETRON HCL 4 MG/2 ML VIAL IVP ONE (02:00)
[2019-10-27] MEDS ORDERED: MORPHINE 4 MG/ML INJ. SYRINGE IVP ONE (02:30)
--- NOTE | 2019-10-27 02:32 | NUR ---
Indy RN medicated pt per MD orders. Pt vomited approximately 100 mL. Pt cleaned, bedding changed and new gown given. MD Fernandes aware. Will continue to monitor.
--- NOTE | 2019-10-27 02:58 | NUR ---
Pt transported to radiology with graphic technician via gurney in stable condition.
--- NOTE | 2019-10-27 04:02 | NUR ---
Belongings list completed per information from pt sister.
[2019-10-27] MEDS ORDERED: CLON0.5T12 PO (04:13)
[2019-10-27] MEDS ORDERED: LANS15CA14 PO (04:13)
[2019-10-27] MEDS ORDERED: VEN2 PO (04:13)
[2019-10-27] MEDS ORDERED: CYM30 PO (04:13)
[2019-10-27] MEDS ORDERED: MORP15TA60 PO (04:13)
[2019-10-27] MEDS ORDERED: GABA250S2 GT ×2 (04:13)
[2019-10-27] MEDS ORDERED: CLON2TAB11 PO (04:13)
--- NOTE | 2019-10-27 04:14 | NUR ---
Medication reconciliation completed with information provided by family. Any prior medication reconciliation on file was reviewed and corrected.
[2019-10-27] MEDS ORDERED: KCL 20 mEq in D5NS 1000 mL 1,000 ML IV ONE (04:45)
--- NOTE | 2019-10-27 04:55 | NUR ---
Called [facility] for bed placement.
--- NOTE | 2019-10-27 05:00 | NUR ---
Patient will be admitted to [facility]. Admitted to MEDICAL SURGICAL unit. Waiting for bed placement. Belongings list completed. Complete and up to date summary report printed. SBAR report to be given at bedside with opportunity for questions.
--- NOTE | 2019-10-27 05:57 | NUR ---
Transfer to [facility]. IV present no sign or symptom of infiltration.
--- NOTE | 2019-10-27 06:10 | NUR ---
ADMISSION NOTE Received patient from ER via manuel, received report from PEDRO Rojas. Patient admitted with diagnosis of small bowel obstruction. Sister with patient. Patient oriented to hospital routine, call light, toileting and safety-patient is AO3-4, he has garbled speech.
--- NOTE | 2019-10-27 06:16 | NUR ---
CONSULT PAGED CONSULTING MD: DR. FOSTER CONSULTING SPECIALITY: SURGERY SPOKE TO: COLLETTE DIALED: [id number] ORDERED BY: DR. MART
[2019-10-27 06:30] VITALS: BP_SYST 154
[2019-10-27] MEDS: HYDROmorphone 1 MG INJ. 1 MG/ML AMPUL IVP PRN ×6 (06:30→23:03)
[2019-10-27] MEDS: ONDANSETRON HCL 4 MG/2 ML VIAL IVP PRN ×2 (06:30→14:10)
--- NOTE | 2019-10-27 06:30 | NUR ---
Pain medication late entry d/t patient care. Administered pain medication, diluadid for moderate pain as ordered. Administered Zofran for nausea as ordered.
--- NOTE | 2019-10-27 06:35 | NUR ---
Dr. Isaac s/w Dr. Isaac, read CT report, he said keep NPO
--- NOTE | 2019-10-27 07:15 | NUR ---
closing note Endorsed report, patient stable
--- NOTE | 2019-10-27 07:30 | NUR ---
closing note Endorsed report, patient stable
--- NOTE | 2019-10-27 08:00 | NUR ---
PATIENT REACTS TO RN WITH GARCODIE, A/OX4. PATIENT IS AT REST. WITH GTUBE CLAMPED. CALL LIGHT IN PLACE, BED LOCKED AT THE LOWEST POSITION WITH ALARM ON. POC IS EXPLAINED TO SHARMILA, HIS SISTER.
[2019-10-27] MEDS ORDERED: ALBUTEROL SULFATE 0.083% 2.5 MG/3 ML VIAL.NEB INH PRN (08:30)
[2019-10-27 08:56] VITALS: BP_SYST 154
--- NOTE | 2019-10-27 10:40 | NUR ---
PATIENT HAS A MIDLINE INSERTION. TOLERATES WITHOUT DISTRESS.
[2019-10-27] MEDS: PANTOPRAZOLE SODIUM 40 MG/VIAL (PROTONIX) IVP SCH (10:50)
[2019-10-27 12:28] VITALS: BP_SYST 128
[2019-10-27 12:57] LABS: INR 1.1 (0.80-1.20)
--- NOTE | 2019-10-27 13:05 | NUR ---
PATIENT IS TURNED AND REPOSITIONED FOR COMFORT. TOLERATES WITHOUT DISTRESS.
--- NOTE | 2019-10-27 14:10 | NUR ---
PATIENT IS C/O PAIN. 1MG DILAUDID IS GIVEN WITH 4MG OF ZOFRAN IVP
[2019-10-27 16:35] VITALS: BP_SYST 125
--- NOTE | 2019-10-27 18:00 | NUR ---
PATIENT IS C/O ABDOMINAL PAIN. 1MG OF DILAUDID IS GIVEN IVP.
[2019-10-27] MEDS: KCL 20 mEq in D5NS 1000 mL 1,000 ML IV SCH ×2 (18:30→23:13)
--- NOTE | 2019-10-27 19:30 | NUR ---
OPENING NOTES Received patient resting, garbled speech, steam bone press tender at bedside. IVF running to Right upper arm midline, patent, dressings c/d/i. Call light within reach, bed alarm on, bed at lowest position. Will continue to monitor.
[2019-10-27 20:00] VITALS: BP_SYST 131
[2019-10-27] MEDS ORDERED: NS IRRIG SOLN 1000 ML IR ONE (21:50)
[2019-10-27] MEDS ORDERED: SEVOFLURANE 15 MIN GAS INH ONE (21:50)
[2019-10-27] MEDS ORDERED: PROPOFOL 200MG/ 20ML VIAL (DIPRIVAN) IV ONE (21:50)
[2019-10-27] MEDS ORDERED: fentaNYL CITRATE 250 MCG/5 ML AMP IV ONE (21:50)
[2019-10-27] MEDS ORDERED: LR 1,000 ML IV.SOLN IV ONE (21:50)
[2019-10-27] MEDS ORDERED: MIDAZOLAM HCL 5 MG/5 ML VIAL IVP ONE (21:50)
[2019-10-27] MEDS ORDERED: ROCURONIUM BROMIDE 10 MG/ML (ZEMURON) IV ONE (21:50)
[2019-10-27] MEDS ORDERED: BUPIVACAINE /PF 0.25% 30 ML VIAL INJ ONE (21:50)
[2019-10-28] MEDS: ONDANSETRON HCL 4 MG/2 ML VIAL IVP PRN ×2 (01:32→08:23)
[2019-10-28] MEDS: HYDROmorphone 1 MG INJ. 1 MG/ML AMPUL IVP PRN ×5 (01:33→17:32)
--- NOTE | 2019-10-28 01:40 | NUR ---
Patient provided Zofram and Dilaudid PRN after vomiting 130 ml of dark, coffee ground emesis. Patient is resting, no signs of distress observed. Will continue to monitor.
[2019-10-28 01:49] VITALS: BP_SYST 130
--- NOTE | 2019-10-28 04:20 | NUR ---
Patient is provided PRN Dilaudid and no signs of acute respiratory distress observed. will continue to monitor.
--- NOTE | 2019-10-28 06:17 | NUR ---
CLOSING NOTES Patient is resting, HOB elevated, no signs of distress observed. IVF running to SAGRARIO midline, patent, dressings c/d/i. Zofran and Dilaudid PRN provided throughout shift, see eMAR. Gatekeeper by bedside. Call light wtihin reach, bed alarm on, bed at lowest position. Will endorse care to oncoming shift and that patient has had two cases of vomiting during shift.
[2019-10-28 06:42] LABS: BASOPHILS % (AUTO) 0.2 % (0.0-2.0); HEMATOCRIT 35.8 % (36-54); HEMOGLOBIN 12.5 g/dL (14.0-18.0); LYMPHOCYTES # (AUTO) 0.5 K/uL (1.0-5.5); LYMPHOCYTES % (AUTO) 8.8 % (20.5-51.5); MEAN CORPUSCULAR HEMOGLOBIN 35 pg (27-31); MEAN CORPUSCULAR HGB CONC 35 % (32-36); MEAN CORPUSCULAR VOLUME 101 fL (79.0-98.0); MONOCYTES # (AUTO) 0.4 K/uL (0.0-1.0); MONOCYTES % (AUTO) 6.7 % (1.7-9.3); NEUTROPHILS % (AUTO) 84.3 % (40.0-70.0); PLATELET COUNT (AUTO) 196 K/uL (130-430); RED BLOOD CELL COUNT(AUTO) 3.55 MIL/uL (4.2-6.2); RED CELL DISTRIBUTION WIDTH 12.9 % (9.0-15.0)
[2019-10-28 07:00] VITALS: BP_SYST 168
[2019-10-28 07:04] LABS: CALCIUM 8.3 mg/dL (8.4-11.0); CREATININE 0.5 mg/dL (0.55-1.30); POTASSIUM 4.2 mmol/L (3.5-5.1)
--- NOTE | 2019-10-28 07:10 | NUR ---
Nutrition Update Fantasma Scale 14 noted. Pt admitted for SBO Diet: NPO BMI: 17 kg/m2 RD to follow per nutrition care standards.
[2019-10-28 08:00] VITALS: BP_SYST 168
[2019-10-28] MEDS: PANTOPRAZOLE SODIUM 40 MG/VIAL (PROTONIX) IVP SCH (09:16)
[2019-10-28] MEDS: KCL 20 mEq in D5NS 1000 mL 1,000 ML IV SCH (11:19)
[2019-10-28 12:00] VITALS: BP_SYST 186
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
--- NOTE | 2019-10-28 13:34 | NUR ---
CONSULTATION PAGED REASON FOR CONSULTATION:VOMITING WAS CONSULT CALLED?Y PERSON WHO WAS NOTIFIED:MAURICIO CONSULTING PHYSICIAN:PINKY REID CRACKING STILL OPERATOR SPECIALTY:GI CRACKING STILL OPERATOR PHONE NUMBER:[phone] REQUESTING PHYSICIAN:CRISTY JASON
[2019-10-28 16:00] VITALS: BP_SYST 158
[2019-10-28 16:25] VITALS: BP_SYST 140
[2019-10-28] MEDS ORDERED: GASTROGRAFIN 120 ML ONE (16:31)
[2019-10-28] MEDS: LORazepam 2 MG/ML VIAL IVP PRN (17:31)
--- NOTE | 2019-10-28 18:33 | NUR ---
Patient is having a small bowel series, he has been throwing up coffee ground emesis. Last dose of pain meds and ativan was at 5:30pm.
--- NOTE | 2019-10-28 20:43 | NUR ---
seen by dr. anmol patel stated he will do surgery tonoght.
--- NOTE | 2019-10-28 21:30 | NUR ---
pt was taken by advertising intern and dr. goodson to OR, accompanied by sister kayla.
[2019-10-28] MEDS ORDERED: BUPIVACAINE LIPOSOME/PF 266 MG/20 ML VIAL INFIL ONE (21:54)
[2019-10-28] MEDS ORDERED: ONDANSETRON HCL 4 MG/2 ML VIAL IVP PRN (22:45)
[2019-10-28] MEDS ORDERED: fentaNYL CITRATE/PF 100 MCG/2 ML AMP IVP PRN ×2 (22:45)
[2019-10-29] VITALS (24 sets, daily range): BP systolic 106–166
--- NOTE | 2019-10-29 00:30 | NUR ---
TRANSFER OPENING NOTE SBAR REPORT RECEIVED FROM SURGERY RN ABRAHAM. CARE ASSUMED. PT RECEIVED VIA GURNEY FROM SURGERY. PT HAD EXPLORATORY SURGERY TO REMOVE SMALL BOWEL OBSTRUCTION. PT HAS DRESSING TO ABDOMEN. DRESSING CLEAN DRY AND INTACT. PT HAS CLAMPED G-TUBE AND ILEOSTOMY BAG IN PLACE. PT INTUBATED ON VENTILATOR. VENT SETTINGS AC 12, TV 350, FIO2 40%, PEEP 5. LUNG SOUNDS CLEAR. PT ANO X 1. PT SINUS TACHYCARDIA ON MONITOR. NO EDEMA NOTED. PT HAS NORMAL RADIAL AND PEDAL PULSES. PT HAS RIGHT UPPER EXTREMITY MIDLINE SALINE LOCKED. PT INCONTINENT. SKIN INTACT. BED LOCKED IN LOWEST POSITION. SAFETY PRECAUTIONS IN PLACE. CALL LIGHT WITHIN REACH. CAREGIVER AT BEDSIDE. WILL CONTINUE TO MONITOR.
--- NOTE | 2019-10-29 01:22 | NUR ---
PAGED DR. GARCIA [phone] SPOKE WITH TRI
--- NOTE | 2019-10-29 01:27 | NUR ---
DR. JOSE MCADAMS MADE AWARE OF PT ABGS AT THIS TIME. VENT CHANGES RECEIVED AND WILL BE CARRIED OUT ORDERED.
[2019-10-29] MEDS: HYDROmorphone 1 MG INJ. 1 MG/ML AMPUL IVP PRN ×7 (01:30→23:09)
[2019-10-29] MEDS: KCL 20 mEq in D5NS 1000 mL 1,000 ML IV SCH ×3 (01:33→20:21)
--- NOTE | 2019-10-29 02:00 | NUR ---
DIPRIVAN LEXUS BAI RN START DIPRIVAN DRIP @ 5 MCG/KG/MIN. WILL CONTINUE TO MONITOR PT.
--- NOTE | 2019-10-29 02:02 | NUR ---
PAGED DR. GARCIA [phone] SPOKE WITH TRI
--- NOTE | 2019-10-29 02:05 | NUR ---
DR. JOSE MCADAMS MADE AWARE OF PT RESTLESSNESS ON [facility]. VENTILATOR. ORDER RECEIVED FOR SOLOMON ALBERTS. WILL CARRY OUT ORDERED.
[2019-10-29] MEDS ORDERED: PROPOFOL DRIP 100 ML IV PRN (02:15)
--- NOTE | 2019-10-29 02:15 | NUR ---
DIPRIVAN DRIP EMILY BAI RN TITRATE DIPRIVAN DRIP TO 10 MCG/KG/MIN. WILL CONTINUE TO MONITOR PT.
[2019-10-29] MEDS ORDERED: PROPOFOL DRIP 100 ML IV ONE (02:24)
--- NOTE | 2019-10-29 03:00 | NUR ---
DIPRIVAN DRIP EMILY BAI RN TITRATE DIPRIVAN DRIP TO 15 MCG/KG/MIN. WILL CONTINUE TO MONITOR PT.
--- NOTE | 2019-10-29 03:45 | NUR ---
DIPRIVAN DRIP EMILY BAI RN TITRATE DIPRIVAN DRIP TO 20 MCG/KG/MIN. WILL CONTINUE TO MONITOR PT.
--- NOTE | 2019-10-29 04:25 | NUR ---
DIPRIVAN DRIP EMILY BAI RN TITRATE DIPRIVAN DRIP TO 25 MCG/KG/MIN. WILL CONTINUE TO MONITOR PT.
[2019-10-29] MEDS: LORazepam 2 MG/ML VIAL IVP PRN ×3 (04:52→18:03)
[2019-10-29 05:54] LABS: BASOPHILS % (AUTO) 0.1 % (0.0-2.0); HEMATOCRIT 36.5 % (36-54); HEMOGLOBIN 12.3 g/dL (14.0-18.0); LYMPHOCYTES # (AUTO) 0.3 K/uL (1.0-5.5); LYMPHOCYTES % (AUTO) 4.5 % (20.5-51.5); MEAN CORPUSCULAR HEMOGLOBIN 35 pg (27-31); MEAN CORPUSCULAR HGB CONC 34 % (32-36); MEAN CORPUSCULAR VOLUME 103 fL (79.0-98.0); MONOCYTES # (AUTO) 0.4 K/uL (0.0-1.0); MONOCYTES % (AUTO) 4.9 % (1.7-9.3); NEUTROPHILS # (AUTO) 6.5 K/uL (1.8-7.7); NEUTROPHILS % (AUTO) 90.5 % (40.0-70.0); PLATELET COUNT (AUTO) 185 K/uL (130-430); RED BLOOD CELL COUNT(AUTO) 3.56 MIL/uL (4.2-6.2); WHITE BLOOD COUNT (AUTO) 7.2 K/uL (4.8-10.8)
[2019-10-29 06:05] LABS: ALBUMIN 2.7 g/dL (3.4-4.8); CREATININE 0.57 mg/dL (0.55-1.30); TOTAL BILIRUBIN 0.6 mg/dL (0.0-1.0)
--- NOTE | 2019-10-29 07:12 | NUR ---
CLOSING NOTE SBAR REPORT GIVEN TO DEWEY VASQUEZ. CARE ENDORSED.
--- NOTE | 2019-10-29 08:00 | NUR ---
Initial assessment done. Patient is sedated with Propofol at 25 mcg/kg/min. Remains orally intubated. Respiration is even and regular. Scope shows nsr-stach. BP is stable. NGT in place and draining moderate greenish secretions. GT clamped. Ileostomy draining well. Pt is incontinent of urine. Caregiver at bedside. Dr. Sierra was here, update given.
--- NOTE | 2019-10-29 08:05 | NUR ---
Dr. Waller was here. update given. Repositioned to side.
[2019-10-29] MEDS: PANTOPRAZOLE SODIUM 40 MG/VIAL (PROTONIX) IVP SCH (09:09)
[2019-10-29] MEDS ORDERED: POTASSIUM CHLORIDE 40 MEQ in NS 250 ML IV ONE (09:30)
--- NOTE | 2019-10-29 09:30 | NUR ---
Dr. Gupta was here, update given. Place pt on IMV 8 fio2 40 %.
--- NOTE | 2019-10-29 10:25 | NUR ---
Pt put on CPAP by RT. Repositioned to side. Pt is incontinent of urine. Caregiver at bedside.
--- NOTE | 2019-10-29 10:52 | NUR ---
Nutrition Update Fantasma Scale 9 noted. Pt admitted for SBO. Diet: NPO BMI: 17 kg/m2 RD to follow per nutrition care standards.
[2019-10-29] MEDS: PIPERACILLIN/TAZO 3.375/DEX-IS 50 ML IV SCH ×4 (12:00→23:59)
--- NOTE | 2019-10-29 13:45 | NUR ---
Propofol drip discontinued. Pt to be extubated. VSS.
--- NOTE | 2019-10-29 14:15 | NUR ---
Pt extubated by RT per md's order. Placed on 4L/NC. Pt's sister at bedside, plan of care discussed with her.
--- NOTE | 2019-10-29 14:15 | NUR ---
[address] SHAH ORDER. PLACED ON 4L NC. SAT 96% HR104 RR 28. RN AWARE. WILL CONT. MONITORING. Addendum: 10/29/19 at 1732 by Cally Preston RT Amended: Links added.
--- NOTE | 2019-10-29 14:17 | NUR ---
Dietitian Recommendations * Recommend TPN support within 7 days if EN support is not yet indicated * Consider Vital AF 1.2 at 45 ml/hr, Free Water Flush: 150 ml Q6h via GT if/when medically appropriate Provides: 1296 kcal/day, 81 gm protein/day, and 1476 ml free water/day Meets: 99% of estimated caloric needs and 109% of upper end of estimated protein needs LP, RD Please refer to Nutrition Assessment for details. Addendum: 10/29/19 at [address] Amended: Links added.
--- NOTE | 2019-10-29 14:48 | NUR ---
Dr. Gupta was here, update given. O2 at 4l/NC. O2 SAT 97%.
--- NOTE | 2019-10-29 18:50 | NUR ---
Medicated for pain PRN. Repositioned to side. Caregiver in the room. respiration unlabored. remains on 02 at 4l/NC.
--- NOTE | 2019-10-29 19:15 | NUR ---
OPENING NOTE SBAR REPORT RECEIVED FROM DEWEY VASQUEZ. CARE ASSUMED. PT LAYING IN BED ANO X 1. PT ON 2L NASAL CANNULA. PT EXTUBATED TODAY @ 1415. NO SIGNS OR SYMPTOMS OF RESPIRATORY DISTRESS NOTED. LUNG SOUNDS CLEAR. PT SINUS TACHYCARDIA ON MONITOR. PT HAS RIGHT UPPER EXTREMITY MIDLINE RUNNING D5/NS WITH 20MEQ OF POTASSIUM AT 100 ML/HR. NO EDEMA NOTED. PT HAS NG TUBE TO RIGHT NARE CONNECTED TO LOW INTERMITTENT SUCTION. PT HAS ILEOSTOMY BAG WITH STOMA PROTRUDING INTO BAG PINK IN COLOR. GREEN LIQUID STOOL PRESENT IN BAG. PT HAS ABDOMINAL INCISION FROM EXPLORATORY SURGERY 10/28/2019. DRESSING CLEAN DRY AND INTACT. ABDOMEN SOFT NON DISTENDED. BOWEL SOUNDS ACTIVE IN ALL QUADRANTS. PT INCONTINENT. PT HAS CONTRACTURES TO BILATERAL UPPER AND LOWER EXTREMITIES. PETROPHYSICIST AT BEDSIDE. BED LOCKED IN LOWEST POSITION. SAFETY PRECAUTIONS IN PLACE. CALL LIGHT WITHIN REACH. WILL CONTINUE TO MONITOR.
[2019-10-29] MEDS: ALBUTEROL SULFATE 0.083% 2.5 MG/3 ML VIAL.NEB INH SCH (19:54)
[2019-10-29] MEDS ORDERED: clonazePAM 0.5 MG TABLET PO SCH (21:00)
[2019-10-29] MEDS: GABAPENTIN 300 MG CAPSULE PO SCH (23:07)
[2019-10-29] MEDS: clonazePAM 0.5 MG TABLET GT SCH (23:07)
[2019-10-29] MEDS: DULoxetine HCL 30 MG CAPSULE.DR (CYMBALTA) PO SCH (23:08)
[2019-10-29] MEDS: GABAPENTIN 100 MG CAPSULE PO SCH (23:08)
[2019-10-30] VITALS (19 sets, daily range): BP systolic 101–151
[2019-10-30] MEDS: ALBUTEROL SULFATE 0.083% 2.5 MG/3 ML VIAL.NEB INH SCH ×4 (00:53→20:39)
[2019-10-30 05:54] LABS: BASOPHILS % (AUTO) 0.5 % (0.0-2.0); EOSINOPHILS # (AUTO) 0.1 K/uL (0.0-0.4); HEMATOCRIT 32.2 % (36-54); LYMPHOCYTES # (AUTO) 0.6 K/uL (1.0-5.5); MEAN CORPUSCULAR HEMOGLOBIN 35 pg (27-31); MEAN CORPUSCULAR HGB CONC 34 % (32-36); MEAN CORPUSCULAR VOLUME 103 fL (79.0-98.0); MONOCYTES # (AUTO) 0.5 K/uL (0.0-1.0); MONOCYTES % (AUTO) 7.1 % (1.7-9.3); NEUTROPHILS # (AUTO) 5.1 K/uL (1.8-7.7); NEUTROPHILS % (AUTO) 80.4 % (40.0-70.0); PLATELET COUNT (AUTO) 147 K/uL (130-430); RED BLOOD CELL COUNT(AUTO) 3.13 MIL/uL (4.2-6.2); RED CELL DISTRIBUTION WIDTH 13.4 % (9.0-15.0); WHITE BLOOD COUNT (AUTO) 6.3 K/uL (4.8-10.8)
[2019-10-30] MEDS: PIPERACILLIN/TAZO 3.375/DEX-IS 50 ML IV SCH ×4 (06:04→23:48)
[2019-10-30] MEDS: KCL 20 mEq in D5NS 1000 mL 1,000 ML IV SCH (06:04)
[2019-10-30 06:10] LABS: ALBUMIN 2.4 g/dL (3.4-4.8); CALCIUM 7.6 mg/dL (8.4-11.0); CREATININE 0.56 mg/dL (0.55-1.30); POTASSIUM 3.2 mmol/L (3.5-5.1); TOTAL BILIRUBIN 0.7 mg/dL (0.0-1.0)
--- NOTE | 2019-10-30 07:15 | NUR ---
CLOSING NOTE PT SLEEPING. NO SIGNS OR SYMPTOMS OF DISTRESS NOTED.SBAR REPORT GIVEN TO DORYS VASQUEZ. CARE ENDORSED.
--- NOTE | 2019-10-30 07:30 | NUR ---
Received endorsement from lieutenant shift supervisor RN. Pt sleeping currently, equal chest rise and fall on 4L O2 via NC. No signs of pain or acute distress at this time.
[2019-10-30] MEDS: GABAPENTIN 100 MG CAPSULE PO SCH ×3 (08:55→21:41)
[2019-10-30] MEDS: clonazePAM 0.5 MG TABLET PO SCH ×2 (08:55→14:00)
[2019-10-30] MEDS: PANTOPRAZOLE SODIUM 40 MG/VIAL (PROTONIX) IVP SCH (08:55)
[2019-10-30] MEDS: DULoxetine HCL 30 MG CAPSULE.DR (CYMBALTA) PO SCH ×2 (08:55→21:41)
[2019-10-30] MEDS ORDERED: POTASSIUM CHLORIDE 40 MEQ in D5W 250 ML IV ONE (09:45)
--- NOTE | 2019-10-30 10:00 | NUR ---
Pt placed on 2L O2 via NC. Tolerating well. O2 sat 98%.
--- NOTE | 2019-10-30 12:00 | NUR ---
Pt placed on RA, tolerating well. O2 sat 94%.
--- NOTE | 2019-10-30 12:30 | NUR ---
Administered hubert care and linen change. Caregiver at bedside, states pt uses diapers but changes frequently. States understanding about risks of using diapers.
[2019-10-30] MEDS: D5/0.45 NS 1,000 ML IV SCH (12:44)
[2019-10-30] MEDS: LORazepam 2 MG/ML VIAL IVP PRN ×2 (12:54→16:37)
[2019-10-30] MEDS: HYDROmorphone 1 MG INJ. 1 MG/ML AMPUL IVP PRN ×3 (12:55→23:49)
--- NOTE | 2019-10-30 13:06 | NUR ---
Monitoring pt on telemetry status until bed available.
--- NOTE | 2019-10-30 17:00 | NUR ---
Transfer pt to telemetry 122A. Report given to MST nurse. All belongings sent with pt. Pt tolerated well.
--- NOTE | 2019-10-30 17:17 | NUR ---
INITIAL NOTE PT RECEIVED VIA GURNEY ACCOMPANIED BY ICU NURSE DORTHY. SANCHEZ. PT RESTING, NO ACUTE DISTRESS NOTED, PT ON ROOM AIR SATURATING AT 92%. CALL LIGHT WITHIN REACH, BED IN LOW AND LOCKED POSITION WITH BED ALARM ON.
--- NOTE | 2019-10-30 18:59 | NUR ---
CLOSING NOTE PT RESTING, NO ACUTE DISTRESS NOTED, PT ON ROOM AIR TOLERATING WELL. FAMILY AT BEDSIDE. IVF INFUSING WELL. TUBE FEEDING INFUSING. PT TOLERATING WELL. ALL NEEDS MET AT THIS TIME CALL LIGHT WITHIN REACH, BED IN LOW AND LOCKED POSITION WITH BED ALARM ON. WILL CONTINUE TO MONITOR UNTIL PT CARE IS ENDORSED TO METAL POLISHER RN.
--- NOTE | 2019-10-30 20:00 | NUR ---
AWAKE. SPEECH GARBLED. DIRECTOR [employer] AT BEDSIDE. NGT THRU RIGHT NARES IN PLACE. GT FEEDING WITH JEVITY AT 10CC/HR. ILEOSTOMY AT RIGHT LOWER ABDOMEN WITH LIQUID GREENISH STOOL NOTED. SAGRARIO MIDLINE DRSG D/I. LEFT LOWER ABDOMEN WITH BACLOFEN PUMP. EXTREMITIES CONTRACTED. SR ON TELE.
[2019-10-30] MEDS: clonazePAM 0.5 MG TABLET GT SCH (21:41)
[2019-10-30] MEDS: GABAPENTIN 300 MG CAPSULE PO SCH (21:41)
--- NOTE | 2019-10-31 | NUR ---
DILAUDID 1 MG IVP GIVEN PER PT REQUEST. GT FLUSHED WITH 100CC H2O.
[2019-10-31] MEDS: ALBUTEROL SULFATE 0.083% 2.5 MG/3 ML VIAL.NEB INH SCH ×4 (01:00→20:48)
--- NOTE | 2019-10-31 02:00 | NUR ---
DOZES ON AND OFF. NO DISTRESS NOTED. OCCASIONAL MOIST NON-PRODUCTIVE COUGH NOTED.
[2019-10-31] MEDS: D5/0.45 NS 1,000 ML IV SCH ×3 (03:05→23:34)
[2019-10-31] MEDS: HYDROmorphone 1 MG INJ. 1 MG/ML AMPUL IVP PRN ×5 (03:08→21:02)
[2019-10-31 03:13] VITALS: BP_SYST 122
--- NOTE | 2019-10-31 03:15 | NUR ---
DILAUDID 1 MG IVP GIVEN PER PT REQUEST.
[2019-10-31] MEDS: PIPERACILLIN/TAZO 3.375/DEX-IS 50 ML IV SCH ×4 (05:15→23:34)
--- NOTE | 2019-10-31 06:00 | NUR ---
SLEPT INTERMITTENTLY. GT FLUSHED WITH 100CC H2O. REMAINS IN GUARDED CONDITION.
[2019-10-31 06:18] LABS: BASOPHILS % (AUTO) 0.4 % (0.0-2.0); EOSINOPHILS # (AUTO) 0.1 K/uL (0.0-0.4); HEMATOCRIT 33.7 % (36-54); HEMOGLOBIN 11.5 g/dL (14.0-18.0); LYMPHOCYTES # (AUTO) 0.9 K/uL (1.0-5.5); LYMPHOCYTES % (AUTO) 11.9 % (20.5-51.5); MEAN CORPUSCULAR HEMOGLOBIN 35 pg (27-31); MEAN CORPUSCULAR HGB CONC 34 % (32-36); MEAN CORPUSCULAR VOLUME 103 fL (79.0-98.0); MONOCYTES # (AUTO) 0.5 K/uL (0.0-1.0); MONOCYTES % (AUTO) 6.8 % (1.7-9.3); NEUTROPHILS # (AUTO) 5.8 K/uL (1.8-7.7); NEUTROPHILS % (AUTO) 79.9 % (40.0-70.0); PLATELET COUNT (AUTO) 162 K/uL (130-430); RED BLOOD CELL COUNT(AUTO) 3.26 MIL/uL (4.2-6.2); RED CELL DISTRIBUTION WIDTH 13.1 % (9.0-15.0); WHITE BLOOD COUNT (AUTO) 7.2 K/uL (4.8-10.8)
[2019-10-31 06:40] LABS: ALBUMIN 2.3 g/dL (3.4-4.8); CALCIUM 7.6 mg/dL (8.4-11.0); CREATININE 0.56 mg/dL (0.55-1.30); POTASSIUM 3.1 mmol/L (3.5-5.1); TOTAL BILIRUBIN 0.6 mg/dL (0.0-1.0)
--- NOTE | 2019-10-31 07:33 | NUR ---
AM ROUNDS: PATIENT FAST ASLEEP DURING ROUNDS. OX 4L/NC,GOOD SATURATION.MIDLINE DRESSING,CLEAN AND DRY. TUBE FEEDS RUNNING AT 10CC/H ORDERED. QUADRIPLEGIC PATIENT. LEFT UPPER ARM IV SALINE LOCK. CALL LIGHT WITH IN REACH. BED LOCKED AT LOWEST POSITION. CAREGIVER AT THE BEDSIDE. NO NEEDS THIS TIME.
[2019-10-31 08:11] VITALS: BP_SYST 141
[2019-10-31] MEDS: PANTOPRAZOLE SODIUM 40 MG/VIAL (PROTONIX) IVP SCH (08:14)
[2019-10-31] MEDS: GABAPENTIN 100 MG CAPSULE PO SCH ×3 (08:15→21:05)
[2019-10-31] MEDS: DULoxetine HCL 30 MG CAPSULE.DR (CYMBALTA) PO SCH ×2 (08:15→21:05)
[2019-10-31] MEDS: clonazePAM 0.5 MG TABLET PO SCH ×2 (08:15→14:23)
--- NOTE | 2019-10-31 08:15 | NUR ---
PAIN MEDS: C/O CHRONIC BACK PAIN AND DUE IV PAIN MEDS GIVEN PER REQUEST. NO PROBLEM.
--- NOTE | 2019-10-31 09:00 | NUR ---
T F/FLUSHED WITH WATER: NO RESIDUALS PRIOR TO GIVING MEDS .FLUSHED WITH WATER ORDERED. WELL TOLERATED.
--- NOTE | 2019-10-31 12:23 | NUR ---
Pain meds: C/o lower back pain and due iv pain meds given per request.No problem.
--- NOTE | 2019-10-31 13:00 | NUR ---
Rn Rounds: With sister at the bedside. Not in any distress.Tube feeds on going.right upper arm midline intact.Right quadrant,ileostomy in place,with greenish watery stools. Continue to monitor.
[2019-10-31 13:10] VITALS: BP_SYST 139
--- NOTE | 2019-10-31 15:00 | NUR ---
Meds/g tube: No residuals prior to giving medications.Flushed with water after giving medications.Well tolerated.
[2019-10-31 16:20] VITALS: BP_SYST 131
--- NOTE | 2019-10-31 17:19 | NUR ---
Pain Meds: C/o lower back pain and due iv pain meds given per request.No adverse reactions noted.
--- NOTE | 2019-10-31 17:20 | NUR ---
Added Notes: With Baclofen pump at left quadrant area.
--- NOTE | 2019-10-31 18:53 | NUR ---
End of Shift: Dr Merino came and with orders decreased iv fluids to 70cc/h,for k-rider infusion for potassium=3.1.Kept ng tube right nares clamped for now,wait tomorrow if tolerated 30cc/h tube feeds then dc as ordered. Right upper arm midline intact.Call light with in reach. Bed locked at lowest position. Right quadrant ileostomy in place.Mid line dressing clean and dry. Left quadrant Baclofen pump intact.Safety measures rendered. Continue to monitor.
[2019-10-31] MEDS ORDERED: POTASSIUM CHLORIDE 40 MEQ in D5W 250 ML IV ONE (19:00)
[2019-10-31] MEDS ORDERED: POTASSIUM CHLORIDE 20 MEQ/PKT PACKET PO ONE (19:00)
[2019-10-31 20:00] VITALS: BP_SYST 138
--- NOTE | 2019-10-31 20:00 | NUR ---
Pt was received lying in bed fully awake and alert with garbled speech. Caregiver is at the bedside. IVF of D5 1/2 NS is infusing well via SAGRARIO Midline at 70ml/hr. RLQ Ileostomy bag noted with brownish liquid stool. Midline abd dressing is dry with small old blood stain noted on the lower portion. Pt is tolerating GTF of Jevity 1.5 at 20ml/hr. NGT in Rt nare is clamped. LLQ Baclofen pump intact. Call light is with pt and bed alarm is on.
--- NOTE | 2019-10-31 21:02 | NUR ---
Dilaudid 1mg given IV for c/o abdominal pain. IVF is infusing well via SAGRARIO Midline at 70ml/hr.
[2019-10-31] MEDS: clonazePAM 0.5 MG TABLET GT SCH (21:05)
[2019-10-31] MEDS: GABAPENTIN 300 MG CAPSULE PO SCH (21:06)
--- NOTE | 2019-10-31 23:00 | NUR ---
No c/o pain or discomfort. IVF and K+ Darian are infusing well in SAGRARIO. Pt is tolerating GT Feeding well. Fall and safety precautions are in place. Caregiver is at the bedside.
[2019-11-01 00:29] VITALS: BP_SYST 135
[2019-11-01] MEDS: ALBUTEROL SULFATE 0.083% 2.5 MG/3 ML VIAL.NEB INH SCH ×4 (01:00→21:21)
--- NOTE | 2019-11-01 01:00 | NUR ---
Pt is sleeping comfortably in bed. Caregiver is at the bedside. GTF and IVF are infusing well.
[2019-11-01] MEDS: HYDROmorphone 1 MG INJ. 1 MG/ML AMPUL IVP PRN ×6 (02:10→22:06)
--- NOTE | 2019-11-01 02:10 | NUR ---
Dilaudid 1mg was given IV for c/o abdominal pain. IVF is infusing well via SAGRARIO Midline at 70ml/hr. GTF is infusing well at 20ml/hr. Caregiver is at the bedside.
--- NOTE | 2019-11-01 03:34 | NUR ---
Pt is sleeping comfortably in bed. Caregiver is at the bedside. IVF is infusing well in SAGRARIO. Fall and safety precautions are in place. Addendum: 11/01/19 at 0336 by Pooja Banks RN G Tube Feeding is infusing well at 20ml/hr.
--- NOTE | 2019-11-01 04:38 | NUR ---
Swallow Eval Called Called and left a message for Tracy, regrading swallow eval, ordered by Dr. Isaac.
[2019-11-01] MEDS: PIPERACILLIN/TAZO 3.375/DEX-IS 50 ML IV SCH ×3 (05:50→18:16)
--- NOTE | 2019-11-01 05:52 | NUR ---
Dilaudid 1mg was given IV for c/o abdominal pain. IVF is infusing well via SAGRARIO Midline at 70ml/hr. Fall and safety precautions are in place.
--- NOTE | 2019-11-01 05:55 | NUR ---
NGT removed from right nare per MD's order.
[2019-11-01 06:38] LABS: BASOPHILS % (AUTO) 0.4 % (0.0-2.0); EOSINOPHILS # (AUTO) 0.1 K/uL (0.0-0.4); EOSINOPHILS % (AUTO) 1.3 % (0.0-4.0); HEMATOCRIT 34.9 % (36-54); HEMOGLOBIN 11.9 g/dL (14.0-18.0); LYMPHOCYTES # (AUTO) 0.5 K/uL (1.0-5.5); LYMPHOCYTES % (AUTO) 5.8 % (20.5-51.5); MEAN CORPUSCULAR HEMOGLOBIN 35 pg (27-31); MEAN CORPUSCULAR HGB CONC 34 % (32-36); MEAN CORPUSCULAR VOLUME 103 fL (79.0-98.0); MONOCYTES # (AUTO) 0.3 K/uL (0.0-1.0); MONOCYTES % (AUTO) 3.8 % (1.7-9.3); NEUTROPHILS # (AUTO) 7.3 K/uL (1.8-7.7); NEUTROPHILS % (AUTO) 88.7 % (40.0-70.0); PLATELET COUNT (AUTO) 168 K/uL (130-430); RED CELL DISTRIBUTION WIDTH 13.2 % (9.0-15.0); WHITE BLOOD COUNT (AUTO) 8.3 K/uL (4.8-10.8)
[2019-11-01 06:57] LABS: ALBUMIN 2.4 g/dL (3.4-4.8); CALCIUM 7.5 mg/dL (8.4-11.0); CREATININE 0.53 mg/dL (0.55-1.30); POTASSIUM 3.9 mmol/L (3.5-5.1); TOTAL BILIRUBIN 0.7 mg/dL (0.0-1.0)
--- NOTE | 2019-11-01 07:00 | NUR ---
Pt is awake and resting comfortably in bed. All pt's needs were attended to. IVF is infusing well in SAGRARIO. Pt is tolerating GTF well. Will endorse to day shift nurse.
--- NOTE | 2019-11-01 07:30 | NUR ---
OPENING NOTES: RECEIVED PATIENT FROM CARPET REPAIRER NURSE. PATIENT IS AWAKE AND ALERT x3 LAYING DOWN IN BED. FAMILY AT BEDSIDE. PATIENT STATES HE HAS PAIN 4/10. PRN PAIN MEDS WILL BE GIVEN. PATIENT IS TOLERATING OXYGEN AT ROOM AIR WITH NO SIGNS OF DISTRESS OR SHORTNESS OF BREATH. PICC LINE INTACT WITH CLEAN, DRY DRESSING AND RUNNING FLUIDS ORDERED. PATIENT IN STABLE CONDITION. SAFETY, FALL, AND ASPIRATION PRECAUTIONS ARE IN PLACE. BED LOCKED IN LOWEST POSITION WITH CALL LIGHT IN REACH. WILL CONTINUE TO MONITOR PATIENT FOR ANY CHANGES.
[2019-11-01] MEDS: clonazePAM 0.5 MG TABLET PO SCH ×3 (08:07→22:12)
[2019-11-01 08:40] VITALS: BP_SYST 119
[2019-11-01] MEDS: GABAPENTIN 100 MG CAPSULE PO SCH ×3 (08:51→22:11)
[2019-11-01] MEDS: PANTOPRAZOLE SODIUM 40 MG/VIAL (PROTONIX) IVP SCH (08:51)
[2019-11-01] MEDS: DULoxetine HCL 30 MG CAPSULE.DR (CYMBALTA) PO SCH ×2 (08:51→22:13)
[2019-11-01] MEDS: D5/0.45 NS 1,000 ML IV SCH (08:52)
[2019-11-01 10:09] LABS: FOLATE (FOLIC ACID) 12.6 ng/mL (>3.0)
--- NOTE | 2019-11-01 10:20 | NUR ---
RN ROUNDS: PATIENT IS AWAKE AND ALERT x3 LAYING DOWN IN BED. FAMILY AT BEDSIDE. NO SIGNS OF DISTRESS OR SHORTNESS OF BREATH NOTED. PATIENT IN STABLE CONDITION. WILL CONTINUE TO MONITOR PATIENT FOR ANY CHANGES.
--- NOTE | 2019-11-01 12:24 | NUR ---
RN ROUNDS: PATIENT IS AWAKE AND ALERT x3 LAYING DOWN IN BED. PATIENT DENIES ANY PAIN AT THE MOMENT. FAMILY AT BEDSIDE. PATIENT IN STABLE CONDITION. WILL CONTINUE TO MONITOR PATIENT FOR ANY CHANGES.
[2019-11-01 12:42] VITALS: BP_SYST 122
[2019-11-01] MEDS: MORPHINE SULFATE 15 MG TABLET.ER PO SCH ×2 (14:40→22:10)
--- NOTE | 2019-11-01 15:31 | NUR ---
Nutrition F/U RD reviewed pt's current EMR record including diet Hx, physician notes, nursing notes, pertinent labs/meds/procedures, care trends, and care activity. Admission Dx: SBO PMH: quadriplegia, toxic megacolon, s/p colectomy, previous bowel obstruction, osteomyelitis, chronic pain, decubitus ulcer per physician notes Current Diet Order/Nutrition Support: Jevity 1.5 at 10 ml/hr, Free Water Flush: 100ML Q 6H via GT x2 days Pertinent Medical Info: Pt is POD 4 s/p exploratory laparotomy, lysis of adhesions, and repair of serosal tear 10/29/19, and pt was extubated 10/29/19 per EMR; pt pending swallow eval today per bed huddle report Subjective Info: RD received verbal consult from Dr. Merino via voicemail regarding providing a goal rate for TF. RD spoke w/ pt's primary RN who stated that surgeon OK'd for pt to increase to goal rate by 10 ml/hr Q12h. RN stated that Dr. Merino OK'd for pt to increase to Jevity 1.5 at 30 ml/hr earlier today. RD provided RN w/ RD rec. Per EMR, pt has been tolerating TF well; no s/s of intolerance. NEW Estimated Energy Expenditure (kcals/day) 4220-9125 kcal/day (30-35 kcal/kg Adj IBW for surgical healing) Estimated Protein Required (g/day) 59-74 gm/day (1.2-1.5 gm/kg Adj IBW for quadriplegia, surgical healing) Estimated Fluid Required (l/day) 1.3-1.5 L/day (30-35 ml/kg CBW for maintenance) Problem/Etiology/Signs/Symptoms Increased nutritional needs related to metabolic demands as evidenced by estimated nutritional requirements for surgical healing. *ongoing Expected Outcomes/Goals - Monitor provision of nutrition support w/ goal of pt meeting at least 80% of estimated nutritional needs, labs trending WNL, normal GI function, and skin integrity/wt maintenance Dietitian Recommendations * Jevity 1.5 at 45 ml/hr (goal rate), increase by 10 ml Q12h to goal rate, Free Water Flush: 150 ml Q6h via GT Provides: 1620 kcal/day, 69 gm protein/day, and 1421 ml free water/day Meets: 94% of upper end of estimated caloric needs and 93% of upper end of estimated protein needs Follow Up High Risk: F/U in 2-3 days
--- NOTE | 2019-11-01 15:43 | NUR ---
Dietitian Recommendations * Jevity 1.5 at 45 ml/hr (goal rate), increase by 10 ml Q12h to goal rate, Free Water Flush: 150 ml Q6h via GT Provides: 1620 kcal/day, 69 gm protein/day, and 1421 ml free water/day Meets: 94% of upper end of estimated caloric needs and 93% of upper end of estimated protein needs LP, RD Please refer to Nutrition F/U for details.
--- NOTE | 2019-11-01 15:44 | NUR ---
ATTENDING MD DR MART WAS CALLED, RE: SWALLOWING EVAL RESULTS. SPOKE TO ALETA
[2019-11-01] MEDS: 0.45% NACL 1,000 ML IV SCH (15:46)
[2019-11-01 16:00] VITALS: BP_SYST 141
--- NOTE | 2019-11-01 16:06 | NUR ---
ElisabetT. SWALLOW EVAL SWALLOW EVAL COMPLETED. CAREGIVER AT BEDSIDE. PT PRESENTS W/ MOD-SEV OROPHARYNGEAL DYSPHAGIA W/ DISORDERLY BOLUS MANIPULATION/TRANSFER AND ERRATIC TIMELINESS FOR SWALLOW INITIATION. NO S/S OF ASPIRATION ON PUREE AND NECTAR THICK LIQUIDS. DISCUSSED PT'S SWALLOWING STATUS W/ DR. MART. DR. MART STATES THAT THERE DOESN'T SEEM TO BE ANY ACUTE OR NEURO CHANGE IN PT'S CONDITION. PT'S ADMISSION IS FOR SMALL BOWEL OBSTRUCTION. DR. MART AND DISTILLATION OPERATOR HELPER CONCUR THAT PT CAN RETURN HOME W/ SAME FEEDING PLAN. REC: GT FEEDING. OK FOR SMALL AMOUNT OF P.O. (PUREE W/ TSP NECTAR THICK LIQUIDS ) FOR ORAL GRATIFICATION. DR. MART WILL FOLLOW UP WITH SPEAKING W/ PT'S FAMILY. NURSE URI NOTIFIED. G8996 CL G8997 CL G8998 CL NOMS LEVEL 3 Addendum: 11/01/19 at 1627 by Tracy Mauro CLARIFICATION AND EDIT ON SWALLOW EVAL IMPRESSION (1ST PARAGRAPH OF NOTES) PT PRESENTS W/ MOD-SEV OROPHARYNGEAL DYSPHAGIA W/ DISORDERLY BOLUS MANIPULATION/TRANSFER AND ERRATIC TIMELINESS FOR SWALLOW INITIATION WITH SUSPECTED PREMATURE SPILLAGE FOR THIN LIQUIDS. . NO S/S OF ASPIRATION THOUGH RISK IS HIGHER WITH THIN LIQUIDS.
[2019-11-01 16:07] LABS: BILIRUBIN,URINE NEGATIVE (NEGATIVE); BLOOD, URINE 2+ (NEGATIVE); CLARITY/URINE CLEAR (CLEAR); COLOR,URINE YELLOW (YELLOW); GLUCOSE,URINE NEGATIVE (NEGATIVE); KETONES,URINE NEGATIVE (NEGATIVE); NITRITE, URINE NEGATIVE (NEGATIVE); PH,URINE 5.5 (5.0-8.0); PROTEIN URINE 1+ (NEGATIVE); UROBILINOGEN,URINE 0.2 (0.2-1.0)
--- NOTE | 2019-11-01 16:09 | NUR ---
RN ROUNDS: PATIENT IS AWAKE AND ALERT x3 LAYING DOWN IN BED. FAMILY AT BEDSIDE. WAS ABLE TO COLLECT URINE SAMPLE FOR UA. PATIENT IN STABLE CONDITION. WILL CONTINUE TO MONITOR PATIENT FOR ANY CHANGES.
[2019-11-01 16:18] LABS: LEUKOCYTE ESTERASE ,URINE TRACE (NEGATIVE)
[2019-11-01 16:20] LABS: BACTERIA,URINE FEW /HPF (None Seen); MUCUS,URINE None Seen /LPF (None Seen)
--- NOTE | 2019-11-01 18:15 | NUR ---
MD CALLED: SPOKE WITH DR. MART REGARDING PATIENT HAVING HIGH HEART RATE ALL DAY. MD IS AWARE AND STATES HE IS NOT CONCERNED. NO NEW ORDERS GIVEN.
--- NOTE | 2019-11-01 18:45 | NUR ---
CLOSING NOTES: PATIENT IS AWAKE AND ALERT x3 LAYING DOWN IN BED. FAMILY AT BEDSIDE. PATIENT DENIES ANY PAIN AT THE MOMENT. PATIENT IS TOLERATING OXYGEN AT ROOM AIR WITH NO SIGNS OF DISTRESS OR SHORTNESS OF BREATH. PICC LINE INTACT WITH CLEAN, DRY DRESSING AND RUNNING FLUIDS ORDERED. G-TUBE INTACT WITH CLEAN, DRY DRESSING AND RUNNING FEEDING ORDERED. COLOSTOMY BAG INTACT AND DRAINED. PATIENT IN STABLE CONDITION. SAFETY, FALL, AND ASPIRATION PRECAUTIONS REMAINED IN PLACE THROUGHOUT THE SHIFT. BED LOCKED IN LOWEST POSITION WITH CALL LIGHT IN REACH. WILL ENDORSE PATIENT CARE TO ONCOMING PACK PULLER NURSE.
[2019-11-01 20:00] VITALS: BP_SYST 135
--- NOTE | 2019-11-01 20:39 | NUR ---
PAGED PAGED DR. MCGRAW, SPOKE WITH ALETA
--- NOTE | 2019-11-01 21:05 | NUR ---
COMMUNICATION WITH DR.ESPARZA DR. MART HAS CALLED BACK AT THIS TIME, IT WAS COMMUNICATED TO HIM THAT THE PATIENT IS COMPLAINING OF PAIN ONLY 2 HOURS AFTER HIS DILAUDID WAS LAST GIVEN. DR. MART HAS GIVEN ORDERS. HE HAS ALSO ASKED THE NURSE TO GIVE THE PATIENT AND FAMILY EDUCATION ABOUT OPIOID ABUSE AND TOLERANCE, WELL THE RISK AND DANGERS OF NARCOTIC OVERDOSE. ORDERS READ BACK, VERIFIED, AND WILL BE COMMUNICATED TO THE PATIENT AND HIS FAMILY AT BEDSIDE. Addendum: 11/01/19 at 2121 by Lillie Khan RN DR. MART ALSO MADE AWARE OF THE PATIENT'S ELEVATED HR, DR. MART VERBALIZES HE IS ALREADY AWARE, NO NEW ORDERS GIVEN FOR ELEVATED HR.
[2019-11-01] MEDS ORDERED: MORPHINE SULFATE 10 MG/5 ML ORAL SOL. UDC GT PRN (21:15)
[2019-11-01] MEDS ORDERED: HYDROmorphone 2 MG/ML VIAL IVP SCH (21:15)
[2019-11-01] MEDS: GABAPENTIN 300 MG CAPSULE PO SCH (22:00)
[2019-11-01] MEDS: clonazePAM 0.5 MG TABLET GT SCH (22:00)
--- NOTE | 2019-11-01 22:00 | NUR ---
pt recieved awake and alert aand oriented . pt is impaired configoration., pt c/o pain md called one time dilaudid 2mg ordered pt medicated with dilaudid 2mg . pt on tube feeding jevity at 30cc/ hr . pt turned and repositioned pt on sinus rythm
[2019-11-02] VITALS: BP_SYST 125
--- NOTE | 2019-11-02 | NUR ---
pt sleeping , vital sign stable .will continue to monitor pt . pt had colostomy bag putting out good output .
[2019-11-02] MEDS: ALBUTEROL SULFATE 0.083% 2.5 MG/3 ML VIAL.NEB INH SCH ×4 (00:09→19:00)
[2019-11-02] MEDS: PIPERACILLIN/TAZO 3.375/DEX-IS 50 ML IV SCH ×5 (00:43→23:44)
[2019-11-02] MEDS: HYDROmorphone 1 MG INJ. 1 MG/ML AMPUL IVP PRN ×2 (03:47→09:29)
--- NOTE | 2019-11-02 04:00 | NUR ---
pt,s heart ratewent up to 140/min . pt medicated with dilaudid 1mg iv . will monitor pt .
--- NOTE | 2019-11-02 07:30 | NUR ---
OPENING NOTES: RECEIVED PATIENT FROM LAND APPRAISER NURSE. PATIENT IS AWAKE AND ALERT x3 LAYING DOWN IN BED. FAMILY AT BEDSIDE. PATIENT STATES HE HAS PAIN 7/10. PRN PAIN MEDS WILL BE GIVEN. PATIENT IS TOLERATING OXYGEN AT ROOM AIR WITH NO SIGNS OF DISTRESS OR SHORTNESS OF BREATH. PICC LINE INTACT WITH CLEAN, DRY DRESSING AND RUNNING FLUIDS ORDERED. ILEOSTOMY INTACT AND DRAINING. G-TUBE INTACT WITH CLEAN, DRY DRESSING AND RUNNING FEEDING ORDERED. PATIENT IN STABLE CONDITION. SAFETY, FALL, AND ASPIRATION PRECAUTIONS ARE IN PLACE. BED LOCKED IN LOWEST POSITION WITH CALL LIGHT IN REACH. WILL CONTINUE TO MONITOR PATIENT FOR ANY CHANGES.
[2019-11-02 07:54] LABS: BASOPHILS % (AUTO) 0.2 % (0.0-2.0); EOSINOPHILS % (AUTO) 0.6 % (0.0-4.0); HEMATOCRIT 36.1 % (36-54); HEMOGLOBIN 12.3 g/dL (14.0-18.0); LYMPHOCYTES # (AUTO) 0.8 K/uL (1.0-5.5); LYMPHOCYTES % (AUTO) 10.7 % (20.5-51.5); MEAN CORPUSCULAR HEMOGLOBIN 35 pg (27-31); MEAN CORPUSCULAR HGB CONC 34 % (32-36); MEAN CORPUSCULAR VOLUME 102 fL (79.0-98.0); MONOCYTES # (AUTO) 0.4 K/uL (0.0-1.0); MONOCYTES % (AUTO) 6.2 % (1.7-9.3); NEUTROPHILS # (AUTO) 5.8 K/uL (1.8-7.7); NEUTROPHILS % (AUTO) 82.3 % (40.0-70.0); PLATELET COUNT (AUTO) 143 K/uL (130-430); RED BLOOD CELL COUNT(AUTO) 3.54 MIL/uL (4.2-6.2); RED CELL DISTRIBUTION WIDTH 13.1 % (9.0-15.0); WHITE BLOOD COUNT (AUTO) 7.1 K/uL (4.8-10.8)
[2019-11-02 07:58] LABS: CALCIUM 7.4 mg/dL (8.4-11.0); CREATININE 0.63 mg/dL (0.55-1.30); POTASSIUM 3.6 mmol/L (3.5-5.1)
[2019-11-02 08:07] VITALS: BP_SYST 115
[2019-11-02] MEDS: GABAPENTIN 100 MG CAPSULE PO SCH ×3 (09:27→20:40)
[2019-11-02] MEDS: DULoxetine HCL 30 MG CAPSULE.DR (CYMBALTA) PO SCH ×2 (09:28→20:39)
[2019-11-02] MEDS: MORPHINE SULFATE 15 MG TABLET.ER PO SCH ×3 (09:28→20:39)
[2019-11-02] MEDS ORDERED: POTASSIUM CHLORIDE 20 MEQ TAB.PRT.SR GT ONE (09:30)
[2019-11-02] MEDS ORDERED: LANSOPRAZOLE 30 MG CAPSULE.DR GT ONE (09:30)
--- NOTE | 2019-11-02 10:15 | NUR ---
RN ROUNDS: PATIENT IS AWAKE AND ALERT x2 LAYING DOWN IN BED. FAMILY AT BEDSIDE. PATIENT IS STILL COMPLAINING OF PAIN. PATIENT IS TOLERATING OXYGEN AT ROOM AIR. NO SIGNS OF DISTRESS OR SHORTNESS OF BREATH NOTED. PATIENT IN STABLE CONDITION. WILL CONTINUE TO MONITOR PATIENT FOR ANY CHANGES.
[2019-11-02 12:45] VITALS: BP_SYST 121
--- NOTE | 2019-11-02 12:45 | NUR ---
RN ROUNDS: PATIENT IS AWAKE AND ALERT x3 LAYING DOWN IN BED. CAREGIVER AT BEDSIDE. PATIENT IS MOANING AND RESTLESS. PRN PAIN MEDS WILL BE GIVEN. PATIENT IN STABLE CONDITION. WILL CONTINUE TO MONITOR PATIENT FOR ANY CHANGES.
[2019-11-02] MEDS: clonazePAM 0.5 MG TABLET PO SCH (14:19)
[2019-11-02] MEDS: 0.45% NACL 1,000 ML IV SCH (14:19)
--- NOTE | 2019-11-02 14:30 | NUR ---
RN ROUNDS: PATIENT IS ASLEEP LAYING DOWN IN BED. CAREGIVER AT BEDSIDE. NO SIGNS OF DISTRESS OR SHORTNESS OF BREATH NOTED. PATIENT IN STABLE CONDITION. WILL CONTINUE TO MONITOR PATIENT FOR ANY CHANGES.
[2019-11-02 16:19] VITALS: BP_SYST 101
--- NOTE | 2019-11-02 18:44 | NUR ---
CLOSING NOTES: PATIENT IS ASLEEP LAYING DOWN IN BED. CAREGIVER AT BEDSIDE. PATIENT IS TOLERATING OXYGEN AT ROOM AIR WITH NO SIGNS OF DISTRESS OR SHORTNESS OF BREATH. PICC LINE INTACT WITH CLEAN, DRY DRESSING AND RUNNING FLUIDS ORDERED. ILEOSTOMY INTACT AND DRAINING. G-TUBE INTACT WITH CLEAN, DRY DRESSING AND RUNNING FEEDING ORDERED. PATIENT IN STABLE CONDITION. SAFETY, FALL, AND ASPIRATION PRECAUTIONS REMAINED IN PLACE THROUGHOUT THE SHIFT. BED LOCKED IN LOWEST POSITION WITH CALL LIGHT IN REACH. WILL ENDORSE PATIENT CARE FOR ONCOMING WARES SORTER NURSE.
--- NOTE | 2019-11-02 19:22 | NUR ---
OPENING NOTES: RECEIVED CARE OF PT AND SBAR REPORT. PT IS AWAKE AND ALERT x3 LAYING DOWN IN BED. CAREGIVER AT BEDSIDE. PT IS TOLERATING OXYGEN AT ROOM AIR WITH NO SIGNS OF DISTRESS OR SHORTNESS OF BREATH. PICC LINE INTACT WITH CLEAN, DRY DRESSING AND SALINE LOCKED. ILEOSTOMY INTACT AND DRAINING. G-TUBE INTACT WITH CLEAN, DRY DRESSING AND RUNNING FEEDING ORDERED. PATIENT IN STABLE CONDITION. SAFETY, FALL, AND ASPIRATION PRECAUTIONS ARE IN PLACE. BED LOCKED IN LOWEST POSITION WITH CALL LIGHT IN REACH. WILL CONTINUE TO MONITOR PATIENT FOR ANY CHANGES.
[2019-11-02 20:00] VITALS: BP_SYST 104
[2019-11-02] MEDS: GABAPENTIN 300 MG CAPSULE PO SCH (20:39)
[2019-11-02] MEDS: clonazePAM 0.5 MG TABLET GT SCH (20:40)
--- NOTE | 2019-11-02 20:40 | NUR ---
MEDICATION PASS SCHEDULED MEDICATIONS ADMINISTERED ORDERED. PT'S GTUBE IS PATENT AND FLUSHING WELL. NO RESIDUAL NOTED. NO S/S OF DISTRESS. SAFETY AND ASPIRATION PRECAUTIONS MAINTAINED. WILL MONITOR.
--- NOTE | 2019-11-02 22:05 | NUR ---
RN NOTE: PT INCONTINENT OF URINE. PT CLEANED AND REPOSITIONED FOR COMFORT. PT TOLERATED WELL. NO S/S OF DISTRESS. SAFETY AND ASPIRATION PRECAUTIONS MAINTAINED. CAREGIVER REMAINS AT BEDSIDE. WILL MONITOR.
--- NOTE | 2019-11-02 23:44 | NUR ---
ZOSYN SCHEDULED ZOSYN ADMINISTERED. NO S/S OF ADVERSE REACTION NOTED. WILL MONITOR.
[2019-11-03] MEDS: ALBUTEROL SULFATE 0.083% 2.5 MG/3 ML VIAL.NEB INH SCH ×3 (01:00→13:51)
[2019-11-03] MEDS: HYDROmorphone 1 MG INJ. 1 MG/ML AMPUL IVP PRN ×2 (03:58→12:44)
--- NOTE | 2019-11-03 04:00 | NUR ---
PAIN/INCONTINENCE CARE PT GIVEN DILAUDID FOR REPORT OF ABDOMINAL PAIN. PT CLEANED AND REPOSITIONED. PT TOLERATED WELL. NO S/S OF DISTRESS. SAFETY AND ASPIRATION PRECAUTIONS MAINTAINED. WILL MONITOR.
[2019-11-03 04:15] VITALS: BP_SYST 93
[2019-11-03] MEDS: PIPERACILLIN/TAZO 3.375/DEX-IS 50 ML IV SCH ×2 (06:13→11:45)
--- NOTE | 2019-11-03 06:13 | NUR ---
MED PASS SCHEDULED ZOSYN AND LANSOPRAZOLE ADMINISTERED ORDERED. PT TOLERATED WELL. NO S/S OF ADVERSE REACTION NOTED.
--- NOTE | 2019-11-03 06:51 | NUR ---
CLOSING NOTES: PATIENT IS ASLEEP LAYING DOWN IN BED. CAREGIVER AT BEDSIDE. PATIENT IS TOLERATING OXYGEN AT ROOM AIR WITH NO SIGNS OF DISTRESS OR SHORTNESS OF BREATH. PICC LINE INTACT WITH CLEAN, DRY DRESSING, SALINE LOCKED. ILEOSTOMY INTACT AND DRAINING. G-TUBE INTACT WITH CLEAN, DRY DRESSING AND RUNNING FEEDING ORDERED. PATIENT IN STABLE CONDITION. SAFETY, FALL, AND ASPIRATION PRECAUTIONS REMAINED IN PLACE THROUGHOUT THE SHIFT. BED LOCKED IN LOWEST POSITION WITH CALL LIGHT IN REACH. WILL ENDORSE PATIENT CARE FOR ONCOMING DAY SHIFT NURSE.
[2019-11-03] MEDS ORDERED: LANSOPRAZOLE 30 MG CAPSULE.DR GT SCH (07:00)
--- NOTE | 2019-11-03 07:26 | NUR ---
OPENING NOTES: RECEIVED PATIENT FROM PROVIDER RELATIONS REP NURSE. PATIENT IS AWAKE AND ALERT x3 LAYING DOWN IN BED. FAMILY AT BEDSIDE. PATIENT STATES HE HAS PAIN 5/10. PRN PAIN MEDICATION WAS GIVEN BY PROVIDER RELATIONS REP NURSE. PATIENT IS TOLERATING OXYGEN AT ROOM AIR WITH NO SIGNS OF DISTRESS OR SHORTNESS OF BREATH. PICC LINE INTACT WITH CLEAN, DRY DRESSING AND RUNNING FLUIDS ORDERED. ILEOSTOMY INTACT AND DRAINING. G-TUBE INTACT WITH CLEAN, DRY DRESSING AND RUNNING FEEDING ORDERED. PATIENT IN STABLE CONDITION. SAFETY, FALL, AND ASPIRATION PRECAUTIONS ARE IN PLACE. BED LOCKED IN LOWEST POSITION WITH CALL LIGHT IN REACH. WILL CONTINUE TO MONITOR PATIENT FOR ANY CHANGES.
[2019-11-03 08:11] VITALS: BP_SYST 107
[2019-11-03] MEDS: clonazePAM 0.5 MG TABLET PO SCH ×2 (08:21→14:05)
[2019-11-03] MEDS: DULoxetine HCL 30 MG CAPSULE.DR (CYMBALTA) PO SCH (08:21)
[2019-11-03] MEDS: GABAPENTIN 100 MG CAPSULE PO SCH ×2 (08:22→14:05)
[2019-11-03] MEDS: MORPHINE SULFATE 15 MG TABLET.ER PO SCH ×2 (08:22→14:05)
--- NOTE | 2019-11-03 10:21 | NUR ---
RN ROUNDS: PATIENT IS ASLEEP LAYING DOWN IN BED. NO SIGNS OF DISTRESS OR SHORTNESS OF BREATH NOTED. FAMILY AT BEDSIDE. WILL CONTINUE TO MONITOR PATIENT FOR ANY CHANGES.
[2019-11-03] MEDS ORDERED: LEVO250T58 PO (11:23)
--- NOTE | 2019-11-03 12:30 | NUR ---
RN ROUNDS: PATIENT IS ASLEEP LAYING DOWN IN BED. NO SIGNS OF DISTRESS OR SHORTNESS OF BREATH NOTED. PATIENT IN STABLE CONDITION. WILL CONTINUE TO MONITOR PATIENT FOR ANY CHANGES.
[2019-11-03 12:38] VITALS: BP_SYST 101
--- NOTE | 2019-11-03 12:44 | NUR ---
Discharge Planning: Pt has order to DC home. [facility] arranged ambulance transport with [facility] ([phone]); strip picker at 3:00pm. [facility] also faxed order to resume home health to [facility] ([phone] [phone]). Pt has been on service with [facility]. [facility] has updated pt's nurse.
[2019-11-03 14:20] VITALS: BP_SYST 101
--- NOTE | 2019-11-03 14:30 | NUR ---
DISCONTINUED THE PICC LINE. PICC LINE INTACT WITH NO ACTIVE BLEEDING NOTED. GAUZE AND TAPE WRAPPED ON THE ARM. PATIENT TOLERATED IT WELL.
--- NOTE | 2019-11-03 15:00 | NUR ---
D/C Patient: Patient given medication reconciliation form and D/C instructions. Exit Care provided. Patient verbalized understanding. MD discussed with patient the results and treatment provided. Patient picked up by ambulance to be taken home. Patient in stable condition, ID band removed. IV catheter removed, intact and dressing applied, no active bleeding. Rx of Levaquin and Calmoseptine cream given. Patient educated on pain management. All belongings sent with patient.
== END 2019-11-03 15:00 | disposition home health service (06) | DRG 329 ==
LOC: SED 23:58 → SMU 10-27 04:33 → SIC 10-28 23:44 → STU 10-30 17:00
PROVIDERS: ADMIT Internal Medicine; ATTEND Internal Medicine
PROC: 0D9670Z Drainage of Stomach with Drainage Device, Via Natural or Artificial Opening (ICD-10-PCS; principal; 2018-10-27)
PROC: 02HV33Z Insertion of Infusion Device into Superior Vena Cava, Percutaneous Approach (ICD-10-PCS; 2019-10-27)
PROC: B548ZZA Ultrasonography of Superior Vena Cava, Guidance (ICD-10-PCS; 2019-10-27)
PROC: 0DQ80ZZ Repair Small Intestine, Open Approach (ICD-10-PCS; 2019-10-28)
PROC: 0DN80ZZ Release Small Intestine, Open Approach (ICD-10-PCS; 2019-10-28)
DX: K56.699 Other intestinal obstruction unspecified as to partial versus complete obstruction (principal); J69.0 Pneumonitis due to inhalation of food and vomit; J96.00 Acute respiratory failure, unspecified whether with hypoxia or hypercapnia; G82.50 Quadriplegia, unspecified; E43 Unspecified severe protein-calorie malnutrition; F11.20 Opioid dependence, uncomplicated; F13.20 Sedative, hypnotic or anxiolytic dependence, uncomplicated; M46.28 Osteomyelitis of vertebra, sacral and sacrococcygeal region; Z68.1 Body mass index [BMI] 19.9 or less, adult; J98.11 Atelectasis; K56.2 Volvulus; K21.9 Gastro-esophageal reflux disease without esophagitis; F32.9 Major depressive disorder, single episode, unspecified; E87.6 Hypokalemia; F41.1 Generalized anxiety disorder; K66.0 Peritoneal adhesions (postprocedural) (postinfection); R13.10 Dysphagia, unspecified; G89.4 Chronic pain syndrome; K44.9 Diaphragmatic hernia without obstruction or gangrene; Z88.5 Allergy status to narcotic agent; Z88.8 Allergy status to other drugs, medicaments and biological substances; Z93.2 Ileostomy status; Z93.3 Colostomy status; Z93.1 Gastrostomy status; Z90.49 Acquired absence of other specified parts of digestive tract; Z74.01 Bed confinement status; Z79.899 Other long term (current) drug therapy
CPT/HCPCS: 36415; 36600; 71045; 74250-TC; 80048; 80053; 81000-TC; 82150-TC; 82607; 82746; 82803-TC; 83690-TC; 85025; 85610-TC; 85730-TC; 86886; 86900; 86901; 87081; 92610-GN; 93005; 94003; 94640; 94760; 96374; 96375; 99285; A4649; A5061; C1751; C9113; C9290; G0378; J1170; J2060; J2250; J2270; J2405; J2543; J2704; J3010; J3480; J3490; J7050; J7060; J7120; J7613; Q9963

== ENCOUNTER 2020-04-11 18:17 | Inpatient (IN) | payer OTHER, MEDICAID, SELFPAY ==
[~2020-04-11] VITALS: Ht 172.7 cm; Wt 46.3 kg
[~2020-04-11 18:17] MED LIST changes: -ALBU2.5V7 INH; -BALS60OI TP; -CLON0.5T12 GT; +CLON0.5T12 PO; +CLON2TAB11 PO; -CYM30 GT; +CYM30 PO; +GABA250S2 GT; +LANS15CA14 PO; -LANS30CA53 GT; +LEVO250T58 PO; -MAGN400T10 GT; -MORP15TA PO; +MORP15TA60 PO; -NEU300 GT; -ONDA4TAB5 GT; -POTA20PA3 PO; +VEN2 PO
[2020-04-11 18:22] VITALS: BP_SYST 116
--- NOTE | 2020-04-11 19:10 | NUR ---
Narendra garvin in EDM - 04/11/20 at 1950 by SDEDCJM Recieved pt in [facility] [place].Report given to Stephen VASQUEZ.
--- NOTE | 2020-04-11 19:15 | NUR ---
Recieved report from Day shift CN pt in [facility] in the [place].Care endorsed to Stephen VASQUEZ.
--- NOTE | 2020-04-11 20:08 | NUR ---
ER at bedside examining patient.
--- NOTE | 2020-04-11 21:12 | NUR ---
pt has colostomy. bag is full and air emptied.
[2020-04-11 21:18] LABS: BASOPHILS # (AUTO) 0.1 K/uL (0.0-0.2); BASOPHILS % (AUTO) 0.6 % (0.0-2.0); EOSINOPHILS % (AUTO) 0.1 % (0.0-4.0); HEMATOCRIT 39.3 % (36-54); HEMOGLOBIN 13.4 g/dL (14.0-18.0); LYMPHOCYTES # (AUTO) 0.9 K/uL (1.0-5.5); LYMPHOCYTES % (AUTO) 6.8 % (20.5-51.5); MEAN CORPUSCULAR HEMOGLOBIN 34 pg (27-31); MEAN CORPUSCULAR HGB CONC 34 % (32-36); MEAN CORPUSCULAR VOLUME 99 fL (79.0-98.0); MONOCYTES # (AUTO) 0.5 K/uL (0.0-1.0); MONOCYTES % (AUTO) 3.8 % (1.7-9.3); NEUTROPHILS # (AUTO) 11.5 K/uL (1.8-7.7); NEUTROPHILS % (AUTO) 88.7 % (40.0-70.0); PLATELET COUNT (AUTO) 228 K/uL (130-430); RED BLOOD CELL COUNT(AUTO) 3.98 MIL/uL (4.2-6.2)
[2020-04-11 21:27] LABS: CALCIUM 8.2 mg/dL (8.4-11.0); CREATININE 0.45 mg/dL (0.55-1.30); INR 1.1 (0.80-1.20); POTASSIUM 3.9 mmol/L (3.5-5.1); PROTHROMBIN TIME 10.7 SECS (9.5-12.5)
[2020-04-11 21:33] LABS: ALBUMIN 3.2 g/dL (3.4-4.8); TOTAL BILIRUBIN 0.5 mg/dL (0.0-1.0)
[2020-04-11] MEDS ORDERED: LORazepam 2 MG/ML VIAL IM ONE (22:00)
[2020-04-11] MEDS ORDERED: MORPHINE 2 MG/ML INJ. SYRINGE IM ONE (22:30)
[2020-04-11] MEDS ORDERED: DIPHENHYDRAMINE INJ 50 MG/ML VIAL IVP ONE (22:45)
[2020-04-11 23:07] LABS: LACTATE DEHYDROGENASE 198 U/L (85-227)
[2020-04-11 23:08] LABS: C-REACTIVE PROTEIN QUANT < 0.2 mg/dL (0-0.5)
[2020-04-11] MEDS ORDERED: AZITHROMYCIN 500 MG in NS 250 ML IV ONE (23:15)
[2020-04-11] MEDS ORDERED: PIPERACILLIN/TAZO 3.375 GM in NS 50 ML IV ONE (23:15)
--- NOTE | 2020-04-11 23:30 | NUR ---
# 22 gauge angiocath placed to RIGHT HAND. Use of asceptic technique. Opsite placed over site. Blood return noted. Blood for lab drawn from site. Flushed with 10 cc of normal saline. No evidence of infiltration noted. Patient tolerated well.
[2020-04-11] MEDS ORDERED: AZITHROMYCIN 500 MG/VIAL (ZITHROMAX) IV ONE (23:53)
[2020-04-11] MEDS ORDERED: PIPERACILLIN/TAZOBACTAM 3.375 GM/VIAL (ZOSYN) IV ONE (23:53)
--- NOTE | 2020-04-12 01:46 | NUR ---
T/O GIVEN BY DR PANDYA FOR DECADRON 4MG IV NOW.PRIMARY NURSE NOTIFIED.DECADRON 4MG IV WONT LET ME PUT THE ORDER IN THE COMPUTER.SEE MEDS ADMINISTRATION IN INTERVENTION FOR MED DOCUMENTATION.
[2020-04-12] MEDS: NACL 0.9% 1,000 ML IV SCH ×3 (02:00→21:30)
[2020-04-12] MEDS ORDERED: DEXAMETHASONE SOD PHOSPHATE 4 MG/ML VIAL ONE (02:08)
[2020-04-12 02:17] LABS: BILIRUBIN,URINE NEGATIVE (NEGATIVE); BLOOD, URINE 2+ (NEGATIVE); CLARITY/URINE CLEAR (CLEAR); COLOR,URINE YELLOW (YELLOW); GLUCOSE,URINE NEGATIVE (NEGATIVE); KETONES,URINE NEGATIVE (NEGATIVE); LEUKOCYTE ESTERASE ,URINE 3+ (NEGATIVE); NITRITE, URINE POSITIVE (NEGATIVE); PROTEIN URINE NEGATIVE (NEGATIVE); UROBILINOGEN,URINE 0.2 (0.2-1.0)
[2020-04-12 02:25] LABS: BACTERIA,URINE MANY /HPF (None Seen); WBC,URINE 20-50 /HPF (0-3)
--- NOTE | 2020-04-12 02:54 | NUR ---
spoke with sister and care provider, letting them know that pt will be admitted.
[2020-04-12] MEDS ORDERED: MORPHINE 2 MG/ML INJ. SYRINGE IVP ONE (04:15)
[2020-04-12] MEDS ORDERED: DIPHENHYDRAMINE INJ 50 MG/ML VIAL IVP PRN (05:00)
[2020-04-12] MEDS ORDERED: MORPHINE 2 MG/ML INJ. SYRINGE IVP PRN (05:00)
--- NOTE | 2020-04-12 07:00 | NUR ---
morphine sulfate liquid ordered for 0500. medication not available. passed on in report to give when available. pt was given inj IV morphine earlier.
--- NOTE | 2020-04-12 07:24 | NUR ---
report given to oncoming RN. pt in [facility] with side rails up. VSS
--- NOTE | 2020-04-12 08:05 | NUR ---
REPOSTIONED TO RIGHT SIDE LYING & STACEY CARE COMPLETED.
[2020-04-12] MEDS: MORPHINE SULFATE 10 MG/5 ML ORAL SOL. UDC GT SCH ×3 (09:37→21:25)
--- NOTE | 2020-04-12 11:30 | NUR ---
REPOSITIONED SUPINE, PERICARE COMPLETED AND GT FEEDING RESTARTED.
[2020-04-12] MEDS ORDERED: clonazePAM 0.5 MG TABLET PO ONE (14:45)
[2020-04-12] MEDS ORDERED: ALBUTEROL SULFATE 2 MG TABLET PO PRN (14:45)
--- NOTE | 2020-04-12 14:49 | NUR ---
Patient will be admitted to care of DR. PANDYA. Admitted to TELE unit. Will go to room 116B. Belongings list completed. Complete and up to date summary report printed. SBAR report to be given at bedside with opportunity for questions.
--- NOTE | 2020-04-12 14:51 | NUR ---
Transfer to TELE via ACLS protocol. Licensed nurse present. IV present no signs or symptoms of infiltration.
[2020-04-12] MEDS ORDERED: CHOLECALCIFEROL (VITAMIN D3) 2,000 UNIT TABLET PO ONE (15:00)
[2020-04-12] MEDS ORDERED: DULoxetine HCL 30 MG CAPSULE.DR (CYMBALTA) PO ONE (15:00)
[2020-04-12] MEDS ORDERED: MORPHINE SULFATE 15 MG TABLET.ER PO SCH (15:00)
[2020-04-12] MEDS ORDERED: ASCORBIC ACID 500 MG TABLET PO ONE (15:00)
[2020-04-12] MEDS ORDERED: PANTOPRAZOLE SODIUM 40 MG TAB PO ONE (15:00)
[2020-04-12] MEDS ORDERED: PIPERACILLIN/TAZO 3.375/DEX-IS 50 ML IV ONE (15:00)
[2020-04-12] MEDS ORDERED: MAGNESIUM OXIDE 400 MG TABLET PO ONE (15:00)
--- NOTE | 2020-04-12 15:25 | NUR ---
CONSULTATION PAGED REASON FOR CONSULTATION:COVID WAS CONSULT CALLED?Y PERSON WHO WAS NOTIFIED:ROLAND CONSULTING PHYSICIAN:HEAVENLY ARREDONDO (STACY BRAGG LINE HAUL DRIVER) DIRECTOR OF PLANT OPERATIONS SPECIALTY:INFECTIOUS DISEASE DIRECTOR OF PLANT OPERATIONS PHONE NUMBER:[phone] REQUESTING PHYSICIAN:ALEXANDRA BERNARDO
--- NOTE | 2020-04-12 15:35 | NUR ---
Admission: Received from ER on a gurney with the diagnosis of Covid Pneumonia. Patient is alert, with very thick garbled speech. Able to verbalize pain. GT feeding of Jevity at 30 cc/hr via GT. Stoma is clean, no redness, no drainage. Right lower quadrant colostomy with loose greenish stool Oriented to room. Call light within reach. Special droplet/contact isolation precautions initiated for Covid. Test was done in ER with pending results.
[2020-04-12 16:00] VITALS: BP_SYST 96
--- NOTE | 2020-04-12 17:02 | NUR ---
WOUND CARE/PHOTOS Left lateral hip: Area cleansed with normal saline, moisture barrier cream applied, foam dressing placed. Wound bed 100% pink tissue, no drainage, no necrotic tissue. Periwound intact appears to be healed skin. Measures 0.5 cm x 0.4 cm. Sacral: Old healed wound, skin intact. Foam dressing placed for added protection. Photos taken. Pt placed on air mattress. Pt repositioned with pillow support and heels off-loaded, soft, folded blanket placed between pt's legs-they tend to cross over each other. Pt tolerated well. All precautions remain in place.
--- NOTE | 2020-04-12 19:10 | NUR ---
OPENING NOTE: Patient is awake in bed, moaning but is nonverbal. Patient is in pain but has scheduled pain medications. No s/s of acute distress noted. Breathing is even and unlabored. IVF infusing well. IV site is patent without s/s of redness, infiltration, or infection. Patient has Gtube that is connected to Jevity 1.5 at 30mL/hr. Goal is 45mL/hr however MD orders are to advance as tolerated after 12 hours at the rate of 30mL/hr. Patient tolerating well without any residual noted. Will advance as tolerated and carry out orders accordingly. Patient has a colostomy bag. Skin is intact without maceration. Patient on low air loss mattress and attached to SCDs. Bed locked in lowest position, bed alarm on, call light with patient. Patient educated on use and importance of call light. Patient unable to verbalize understanding or demonstrate proper use. Will continue to re-educate and re-orient throughout the shift. No further needs. Will continue to monitor.
--- NOTE | 2020-04-12 19:25 | NUR ---
CLOSING NOTE Pt resting in bed mumbling to himself. No s/s resp distress. Droplet isolation precautions maintained throughout shift. IVF infusing well to RAC at ordered rate with no s/s infiltration to site. Jevity infusing well via g-tube at ordered rate with no residual noted. Aspiration, seizure, skin and safety precautions remain in place.
[2020-04-12 20:00] VITALS: BP_SYST 134
--- NOTE | 2020-04-12 20:49 | NUR ---
PAGED I PAGED DR. ARCHER I SPOKE WITH LEIF GARDUNO [facility] NURSE SUPERVISOR AT THIS MOMENT
--- NOTE | 2020-04-12 21:16 | NUR ---
SECOND PAGE I PAGED DR. SUZI GARDUNO GEODETIC ADVISOR I SPOKE WITH CATHERINE EXCHANGE
[2020-04-12] MEDS: ASCORBIC ACID 500 MG TABLET PO SCH (21:25)
[2020-04-12] MEDS: PANTOPRAZOLE SODIUM 40 MG TAB PO SCH (21:25)
[2020-04-12] MEDS: GABAPENTIN 100 MG CAPSULE PO SCH (21:25)
[2020-04-12] MEDS: DULoxetine HCL 30 MG CAPSULE.DR (CYMBALTA) PO SCH (21:25)
[2020-04-12] MEDS: CHOLECALCIFEROL (VITAMIN D3) 2,000 UNIT TABLET PO SCH (21:25)
[2020-04-12] MEDS: clonazePAM 0.5 MG TABLET PO SCH ×2 (21:25)
[2020-04-12] MEDS: SODIUM CHLORIDE 500 MG TABLET PO SCH (21:25)
[2020-04-12] MEDS: MAGNESIUM OXIDE 400 MG TABLET PO SCH (21:25)
[2020-04-12] MEDS: PIPERACILLIN/TAZO 3.375/DEX-IS 50 ML IV SCH (21:30)
--- NOTE | 2020-04-12 21:45 | NUR ---
SPOKE WITH DR. BOO: Spoke with Dr. Boo regarding negative COVID results. Dr. Boo ordered a second test. Will carry out orders accordingly.
--- NOTE | 2020-04-12 23:16 | NUR ---
CHANGED COLOSTOMY BAG: Changed colostomy bad at this time. Stoma was red and moist. Surrounding skin is intact without maceration. Patient tolerated well without s/s of acute distress noted. Breathing is even and unlabored. Bed locked in lowest position, bed alarm on, call light with patient. No further needs. Will continue to monitor.
[2020-04-13] VITALS: BP_SYST 143
--- NOTE | 2020-04-13 01:23 | NUR ---
ROUNDS: Patient is asleep at this time. Breathing is even and unlabored. Bed locked in lowest position, bed alarm on, call light with patient. No further needs at this time. Will continue to monitor.
[2020-04-13 04:00] VITALS: BP_SYST 126
[2020-04-13] MEDS: PIPERACILLIN/TAZO 3.375/DEX-IS 50 ML IV SCH ×4 (04:00→21:45)
[2020-04-13] MEDS: NACL 0.9% 1,000 ML IV SCH ×2 (04:00→15:12)
[2020-04-13] MEDS: MORPHINE SULFATE 10 MG/5 ML ORAL SOL. UDC GT SCH ×3 (04:30→21:45)
--- NOTE | 2020-04-13 05:30 | NUR ---
EMPTIED COLOSTOMY BAG/STACEY CARE: Stacey care provided at this time. Colostomy bag emptied at this time with 250mL output. Patient tolerated well. No s/s of acute distress noted. Bed locked in lowest position, bed alarm on, call light with patient. No further needs at this time. Will continue to monitor.
--- NOTE | 2020-04-13 06:25 | NUR ---
SECOND COVID TEST COLLECTED/CLOSING NOTE: Patient is awake in bed, moaning but is nonverbal. Patient has scheduled pain medications. Second COVID test collected and taken to lab. Patient tolerated well. No s/s of acute distress noted. Breathing is even and unlabored. IVF infusing well. IV site is patent without s/s of redness, infiltration, or infection. Patient has Gtube that is connected to [email or web address] 1.5 at 30mL/hr. Goal is 45mL/hr however MD orders are to advance 10mL as tolerated after 12 hours at the rate of 30mL/hr. Patient tolerating well without any residual noted. Patient has a colostomy bag. Skin is intact without maceration. Patient on low air loss mattress and attached to SCDs. All fall/safety/isolation precautions maintained thorughout the shift. All needs met throughout the shift. Will continue to monitor until endorsement of care to dayshift nurse.
--- NOTE | 2020-04-13 06:59 | NUR ---
Nutrition Update Fantasma Scale 11 noted. Pt admitted for CIVOD-19/ Pneumonia Diet: Jevity 1.5 at 45ml/hr (goal rate), FWF 150ml Q6H via GT BMI: 15.5 kg/m2 RD to follow per nutrition care standards.
--- NOTE | 2020-04-13 07:30 | NUR ---
OPENING NOTES: RECEIVED PATIENT FROM TOOL MECHANIC NURSE. PATIENT IS AWAKE AND ALERT x1 LAYING DOWN IN BED. PATIENT IS TOLERATING OXYGEN ON ROOM AIR WITH NO SIGNS OF DISTRESS OR SHORTNESS OF BREATH NOTED. IV SITE IS PATENT WITH NO SIGNS OF INFILTRATION NOTED. COLOSTOMY BAG INTACT AND DRAINING. G-TUBE INTACT. FEEDING STOPPED DUE TO PATIENT AWAITING A TEST. PATIENT IN STABLE CONDITION. SAFETY, FALL, ASPIRATION, SEIZURE, CONTACT AND DROPLET PRECAUTIONS ARE IN PLACE. BED LOCKED IN LOWEST POSITION WITH CALL LIGHT IN REACH. WILL CONTINUE TO MONITOR PATIENT FOR ANY CHANGES. Addendum: 04/13/20 at 1236 by Justine Petersen RN ILEOSTOMY BAG INTACT AND DRAINING BY GRAVITY.
[2020-04-13 07:35] LABS: BASOPHILS % (AUTO) 0.2 % (0.0-2.0); HEMOGLOBIN 14.2 g/dL (14.0-18.0); LYMPHOCYTES # (AUTO) 0.4 K/uL (1.0-5.5); LYMPHOCYTES % (AUTO) 3.8 % (20.5-51.5); MEAN CORPUSCULAR HEMOGLOBIN 34 pg (27-31); MEAN CORPUSCULAR HGB CONC 35 % (32-36); MEAN CORPUSCULAR VOLUME 99 fL (79.0-98.0); MONOCYTES # (AUTO) 0.4 K/uL (0.0-1.0); MONOCYTES % (AUTO) 3.6 % (1.7-9.3); NEUTROPHILS # (AUTO) 9.9 K/uL (1.8-7.7); NEUTROPHILS % (AUTO) 92.4 % (40.0-70.0); PLATELET COUNT (AUTO) 215 K/uL (130-430); RED BLOOD CELL COUNT(AUTO) 4.14 MIL/uL (4.2-6.2); RED CELL DISTRIBUTION WIDTH 13.2 % (9.0-15.0); WHITE BLOOD COUNT (AUTO) 10.7 K/uL (4.8-10.8)
[2020-04-13 07:56] LABS: ALBUMIN 2.9 g/dL (3.4-4.8); CALCIUM 8.9 mg/dL (8.4-11.0); CREATININE 0.6 mg/dL (0.55-1.30); POTASSIUM 3.8 mmol/L (3.5-5.1); TOTAL BILIRUBIN 0.8 mg/dL (0.0-1.0)
[2020-04-13 08:00] VITALS: BP_SYST 127
[2020-04-13] MEDS: DULoxetine HCL 30 MG CAPSULE.DR (CYMBALTA) PO SCH ×2 (08:10→21:45)
[2020-04-13] MEDS: MAGNESIUM OXIDE 400 MG TABLET PO SCH ×2 (08:10→21:45)
[2020-04-13] MEDS: PANTOPRAZOLE SODIUM 40 MG TAB PO SCH ×2 (08:10→21:45)
[2020-04-13] MEDS: SODIUM CHLORIDE 500 MG TABLET PO SCH ×2 (08:10→21:45)
[2020-04-13] MEDS: clonazePAM 0.5 MG TABLET PO SCH ×3 (08:10→21:45)
[2020-04-13] MEDS: GABAPENTIN 100 MG CAPSULE PO SCH ×3 (08:10→21:45)
[2020-04-13] MEDS: CHOLECALCIFEROL (VITAMIN D3) 2,000 UNIT TABLET PO SCH (08:11)
[2020-04-13] MEDS: ASCORBIC ACID 500 MG TABLET PO SCH (08:11)
--- NOTE | 2020-04-13 10:15 | NUR ---
RN ROUNDS: PATIENT IS AWAKE LAYING DOWN IN BED. PATIENT IS TOLERATING OXYGEN ON ROOM AIR WITH NO SIGNS OF DISTRESS OR SHORTNESS OF BREATH NOTED. IV SITE IS PATENT WITH NO SIGNS OF INFILTRATION NOTED. PATIENT IN STABLE CONDITION. WILL CONTINUE TO MONITOR PATIENT FOR ANY CHANGES.
[2020-04-13 12:19] VITALS: BP_SYST 146
--- NOTE | 2020-04-13 12:22 | NUR ---
RN ROUNDS: PATIENT IS AWAKE AND ALERT x1 LAYING DOWN IN BED. PATIENT IS TOLERATING OXYGEN ON ROOM AIR WITH NO SIGNS OF DISTRESS OR SHORTNESS OF BREATH NOTED. PATIENT IN STABLE CONDITION. WILL CONTINUE TO MONITOR PATIENT FOR ANY CHANGES.
--- NOTE | 2020-04-13 14:17 | NUR ---
RN ROUNDS: PATIENT IS AWAKE LAYING DOWN IN BED. PATIENT IS TOLERATING OXYGEN ON ROOM AIR WITH NO SIGNS OF DISTRESS OR SHORTNESS OF BREATH NOTED. IV SITE IS PATENT WITH NO SIGNS OF INFILTRATION NOTED. G-TUBE INTACT. FEEDING IS STOPPED DUE TO PATIENT SCHEDULED FOR HIDA SCAN. PATIENT IN STABLE CONDITION. WILL CONTINUE TO MONITOR PATIENT FOR ANY CHANGES.
--- NOTE | 2020-04-13 16:30 | NUR ---
RN ROUNDS: PATIENT IS AWAKE LAYING DOWN IN BED. PATIENT DENIES ANY PAIN AT THE MOMENT. PATIENT INFORMED THAT THEY WILL COME AND DO THE HIDA SCAN TONIGHT. PATIENT IS STILL NPO AND FEEDING IS STOPPED DUE TO PATIENT HAVING THE HIDA SCAN SCHEDULED. PATIENT IS TOLERATING OXYGEN ON ROOM AIR WITH NO SIGNS OF DISTRESS OR SHORTNESS OF BREATH NOTED. IV SITE IS PATENT WITH NO SIGNS OF INFILTRATION NOTED. PATIENT IN STABLE CONDITION. WILL CONTINUE TO MONITOR PATIENT FOR ANY CHANGES.
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
[2020-04-13 16:49] VITALS: BP_SYST 144
--- NOTE | 2020-04-13 18:19 | NUR ---
WOUND EVALUATION: Wound Consult received for a low Fantasma score. Patient received in a Newberg Bed with an IsoFlex DELORES mattress, with low air-loss therapy initiated, awake, alert, limited verbal interaction. Patient is unable to turn in bed independently. Fantasma Score is an 11. Intrinsic factors that delay wound healing: Hypoalbuminemia. Extrinsic factors that delay wound healing: Immobility. Wound Assessment: 1) Sacral-Coccygeal Area: Scar tissue, present on admission. No odor, no drainage. Recommend: Cleanse site with mild soap and water. Pat dry. Apply moisture barrier cream to site. Cover with Sacral foam dressing. Perform site care daily, and as needed for dressing soiling or dislodgment. Apply moisture barrier cream to surrounding areas with scar tissue. 2) Left Lateral Hip near Greater Trochanter: Scar tissue, present on admission. No odor, no drainage. Barrier cream covers site completely. Recommend: Cleanse site with mild soap and water. Pat dry. Put moisture barrier cream onto site. Cover with foam dressing. Perform site care daily, and as needed for dressing soiling or dislodgment. Apply moisture barrier cream to surrounding areas with scar tissue. Also recommend: Reposition patient side to side only every 2 hours with pillow support, and off-load pressure areas with pillows for pressure re-distribution. Offload, elevate and float bilateral heels with 1 pillow under each extremity lengthwise at all times. Perform skin care and monitor skin integrity Q shift. Use moisture barrier cream on buttocks and other moisture susceptible areas QID and as needed for soiling. Maintain patient on a low air-loss mattress.
[2020-04-13] MEDS ORDERED: LORazepam 2 MG/ML VIAL IVP PRN (18:30)
--- NOTE | 2020-04-13 18:47 | NUR ---
CLOSING NOTES: PATIENT IS AWAKE AND ALERT x1 LAYING DOWN IN BED. PATIENT IS TOLERATING OXYGEN ON ROOM AIR WITH NO SIGNS OF DISTRESS OR SHORTNESS OF BREATH NOTED. IV SITE IS PATENT WITH NO SIGNS OF INFILTRATION NOTED AND RUNNING FLUIDS ORDERED. ILEOSTOMY BAG INTACT AND DRAINING. G-TUBE INTACT. FEEDING STOPPED DUE TO PATIENT GETTING A HIDA SCAN DONE. PATIENT IN STABLE CONDITION. SAFETY, FALL, ASPIRATION, SEIZURE, CONTACT AND DROPLET PRECAUTIONS REMAINED IN PLACE THROUGHOUT THE SHIFT. BED LOCKED IN LOWEST POSITION WITH CALL LIGHT IN REACH. WILL ENDORSE PATIENT CARE TO ONCOMING MANAGER TRANSPORT NURSE.
--- NOTE | 2020-04-13 19:30 | NUR ---
OPENING NOTES: RECEIVED CARE OF PT AND SBAR REPORT. PT IS AWAKE AND ALERT x1 LAYING DOWN IN BED. PT IS TOLERATING OXYGEN ON ROOM AIR WITH NO SIGNS OF DISTRESS OR SHORTNESS OF BREATH NOTED. IV SITE IS PATENT WITH NO SIGNS OF INFILTRATION NOTED. COLOSTOMY BAG INTACT AND DRAINING. G-TUBE INTACT. TO RESTART FEEDING AFTER HIDA SCAN IS COMPLETED. PATIENT IN STABLE CONDITION. SAFETY, FALL, ASPIRATION, SEIZURE, CONTACT AND DROPLET PRECAUTIONS ARE IN PLACE. BED LOCKED IN LOWEST POSITION WITH CALL LIGHT IN REACH. WILL CONTINUE TO MONITOR PATIENT FOR ANY CHANGES.
[2020-04-13 21:45] VITALS: BP_SYST 148
--- NOTE | 2020-04-13 21:45 | NUR ---
MEDICATION PASS/INCONTINENCE CARE PT GIVEN SCHEDULED MEDICATIONS ORDERED, MEDICATIONS AND POTENTIAL SIDE EFFECTS EXPLAINED TO PT, PT CONFUSED. G-TUBE IS PATENT AND NO RESIDUAL NOTED. TUBE FEEDING RESTARTED AT THIS TIME AT 40 CC/HR. PT INCONTINENT OF URINE. PT CLEANED AND NEW LINEN AND GOWNS PROVIDED. PT REPOSITIONED FOR COMFORT USING PILLOW SUPPORT. SAFETY, FALL, ASPIRATION, SEIZURE, CONTACT AND DROPLET PRECAUTIONS ARE IN PLACE. WILL MONITOR.
--- NOTE | 2020-04-13 22:50 | NUR ---
RN ROUNDS: PT IS AWAKE AND ALERT x1 LAYING DOWN IN BED. PT IS TOLERATING OXYGEN ON ROOM AIR WITH NO SIGNS OF DISTRESS OR SHORTNESS OF BREATH NOTED. PT IN STABLE CONDITION. IVF IS INFUSING AT ORDERED RATE. TUBE FEEDING IS RUNNING AT 40 CC/HR WITH ASPIRATION PRECAUTIONS NOTED. WILL CONTINUE TO MONITOR PT FOR ANY CHANGES.
[2020-04-14 00:50] VITALS: BP_SYST 146
--- NOTE | 2020-04-14 00:50 | NUR ---
RN ROUNDS: PT IS AWAKE AND ALERT x1 LAYING DOWN IN BED. VSS. PT IS TOLERATING OXYGEN ON ROOM AIR WITH NO SIGNS OF DISTRESS OR SHORTNESS OF BREATH NOTED. PT IN STABLE CONDITION. IVF IS INFUSING AT ORDERED RATE. TUBE FEEDING IS RUNNING AT 40 CC/HR WITH ASPIRATION PRECAUTIONS NOTED. WILL CONTINUE TO MONITOR PT FOR ANY CHANGES.
--- NOTE | 2020-04-14 02:30 | NUR ---
RN ROUNDS: PT IS RESTING IN BED. PT IS TOLERATING OXYGEN ON ROOM AIR WITH NO SIGNS OF DISTRESS OR SHORTNESS OF BREATH NOTED. PT IN STABLE CONDITION. IVF IS INFUSING AT ORDERED RATE. TUBE FEEDING IS RUNNING AT 40 CC/HR WITH ASPIRATION PRECAUTIONS NOTED. WILL CONTINUE TO MONITOR PT FOR ANY CHANGES.
[2020-04-14] MEDS: NACL 0.9% 1,000 ML IV SCH (03:59)
[2020-04-14] MEDS: PIPERACILLIN/TAZO 3.375/DEX-IS 50 ML IV SCH ×3 (03:59→16:00)
[2020-04-14] MEDS: MORPHINE SULFATE 10 MG/5 ML ORAL SOL. UDC GT SCH ×3 (04:00→22:39)
--- NOTE | 2020-04-14 04:00 | NUR ---
SCHEDULED ZOSYN/MORPHINE ADMINISTERED ORDERED. PT INCONTINENT OF URINE. PT CLEANED AND REPOSITIONED FOR COMFORT. PT TOLERATED WELL. SAFETY PRECAUTIONS MAINTAINED. WILL MONITOR.
--- NOTE | 2020-04-14 06:41 | NUR ---
CLOSING NOTE PT IS AWAKE AND ALERT x1 LAYING DOWN IN BED. PT IS TOLERATING OXYGEN ON ROOM AIR WITH NO SIGNS OF DISTRESS OR SHORTNESS OF BREATH NOTED. IV SITE IS PATENT WITH NO SIGNS OF INFILTRATION NOTED. COLOSTOMY BAG INTACT AND DRAINING. G-TUBE INTACT AND FEEDING IS RUNNING AT ORDERED RATE. PATIENT IN STABLE CONDITION. SAFETY, FALL, ASPIRATION, SEIZURE PRECAUTIONS ARE IN PLACE. BED LOCKED IN LOWEST POSITION WITH CALL LIGHT IN REACH. WILL CONTINUE TO MONITOR PT UNTIL PT CARE IS ENDORSED TO DAY SHIFT RN.
[2020-04-14 08:20] VITALS: BP_SYST 138
[2020-04-14] MEDS: clonazePAM 0.5 MG TABLET PO SCH ×3 (10:23→22:38)
[2020-04-14] MEDS: MAGNESIUM OXIDE 400 MG TABLET PO SCH ×2 (10:23→22:38)
[2020-04-14] MEDS: PANTOPRAZOLE SODIUM 40 MG TAB PO SCH ×2 (10:23→22:38)
[2020-04-14] MEDS: SODIUM CHLORIDE 500 MG TABLET PO SCH ×2 (10:23→22:38)
[2020-04-14] MEDS: GABAPENTIN 100 MG CAPSULE PO SCH ×3 (10:23→22:38)
[2020-04-14] MEDS: DULoxetine HCL 30 MG CAPSULE.DR (CYMBALTA) PO SCH ×2 (10:23→22:38)
--- NOTE | 2020-04-14 11:21 | NUR ---
Dietitian Recommendations *Recommend: continuing Jevity 1.5 at 45ml/hr (goal rate), FWF 150ml Q6H via GT Provides: 1620 kcal, 73gm protein and 1385ml free water daily. Meets: 101% of upper end of estimated calorie needs and 79% of upper end of estimated protein needs. Please see Nutritional Assessment for details. INTERMEDIATE, RD
[2020-04-14 11:48] VITALS: BP_SYST 145
[2020-04-14 15:49] VITALS: BP_SYST 135
[2020-04-14] MEDS: ERTAPENEM SODIUM 0.5 GM in NS 50 ML IV SCH (18:53)
--- NOTE | 2020-04-14 19:10 | NUR ---
OPENING NOTE: Patient is awake in bed, moaning but is nonverbal. Patient is in pain but has scheduled pain medications. No s/s of acute distress noted. Breathing is even and unlabored. IVF infusing well. IV site is patent without s/s of redness, infiltration, or infection. Patient has Gtube that is connected to Jevity 1.5 at 45mL/hr. Patient tolerating well with 5mL residual noted. Patient has a ileostomy bag. Skin is intact without maceration. Patient on low air loss mattress and attached to SCDs. Bed locked in lowest position, bed alarm on, call light with patient. Patient educated on use and importance of call light. Patient unable to verbalize understanding or demonstrate proper use. Will continue to re-educate and re-orient throughout the shift. No further needs. Will continue to monitor.
[2020-04-14 20:00] VITALS: BP_SYST 135
--- NOTE | 2020-04-14 23:25 | NUR ---
CHANGED COLOSTOMY BAG: Changed colostomy bag at this time. Stoma was red and moist. Surrounding skin is intact without maceration. Patient tolerated well without s/s of acute distress noted. Breathing is even and unlabored. Bed locked in lowest position, bed alarm on, call light with patient. No further needs. Will continue to monitor.
[2020-04-15 00:32] VITALS: BP_SYST 136
[2020-04-15] MEDS: NACL 0.9% 1,000 ML IV SCH (04:00)
[2020-04-15] MEDS: MORPHINE SULFATE 10 MG/5 ML ORAL SOL. UDC GT SCH ×2 (05:05→13:50)
--- NOTE | 2020-04-15 05:16 | NUR ---
STACEY CARE: Stacey care provided at this time. Patient tolerated well. No s/s of acute distress. Breathing is even and unlabored. All safety precautions in place. Will continue to monitor.
--- NOTE | 2020-04-15 06:25 | NUR ---
CLOSING NOTE: Patient is asleep at this time. No s/s of acute distress noted. Breathing is even and unlabored. IVF infusing well. IV site is patent without s/s of redness, infiltration, or infection. Patient has Gtube that is connected to JevSocialFlow 1.5 at 45mL/hr. Patient tolerating well with 0mL residual noted. Patient has a ileostomy bag. Stoma is red and moist. Skin is intact without maceration. Patient on low air loss mattress and attached to SCDs. Seizure pads in place. All fall/safety/isolation precautions maintained throughout the shift. All needs met throughout the shift. Will continue to monitor until endorsement of care to dayshift nurse.
[2020-04-15 08:00] VITALS: BP_SYST 120
--- NOTE | 2020-04-15 08:00 | NUR ---
awake,confused,afebrile,vss,IVF continue infusing,on TF jevity @45cc/hr via GT.no residual per GT.needs attended,total care provided,continue to monitor pt.
--- NOTE | 2020-04-15 09:19 | NUR ---
Discharge Planning: SHARLA faxed pt referral to [facility], SHARLA to follow up Addendum: 04/15/20 at 1158 by Rosa Art DP SHARLA LM for intake Nefel at [facility] ([phone]), SHARLA sent referral to fax numbers [phone]-[employer], -went through. SHARLA to follow up Addendum: 04/15/20 at 1447 by Rosa Art DP SHARLA spoke to Norma at [facility] [phone] pt care will resume. SHARLA called nurse station nurse is at lunch. SHARLA made [facility] aware to tell nurse to all sister to set up transportation.
[2020-04-15] MEDS: clonazePAM 0.5 MG TABLET PO SCH (09:55)
[2020-04-15] MEDS: GABAPENTIN 100 MG CAPSULE PO SCH ×2 (09:55→15:52)
[2020-04-15] MEDS: SODIUM CHLORIDE 500 MG TABLET PO SCH (09:55)
[2020-04-15] MEDS: PANTOPRAZOLE SODIUM 40 MG TAB PO SCH (09:55)
[2020-04-15] MEDS: DULoxetine HCL 30 MG CAPSULE.DR (CYMBALTA) PO SCH (09:56)
--- NOTE | 2020-04-15 10:00 | NUR ---
pt yelling incomprehensible sounds at times,continue safety precaution,repositioned for comfort,am meds due per GT.
[2020-04-15 11:33] VITALS: BP_SYST 149
--- NOTE | 2020-04-15 12:00 | NUR ---
afebrile,vss,pt resting well in bed,no acute distress noted,hourly rounds made,safety maintained.
[2020-04-15] MEDS: MAGNESIUM OXIDE 400 MG TABLET PO SCH (13:51)
--- NOTE | 2020-04-15 14:00 | NUR ---
condition stable,flushed GT with water,continue morphine 15mg per GT per order.
[2020-04-15 15:26] VITALS: BP_SYST 146
[2020-04-15 16:33] VITALS: BP_SYST 146
--- NOTE | 2020-04-15 16:36 | NUR ---
SET UP AMBULANCE MEDIC-1 FARMER DIVERSIFIED CROPS @6PM
[2020-04-15] MEDS: ERTAPENEM SODIUM 0.5 GM in NS 50 ML IV SCH (17:03)
--- NOTE | 2020-04-15 18:00 | NUR ---
given invanz 0.5g IV per order,no adverse reactions noted,IV site in right antecubital patent and intact,d/c home with [facility] for IV antibiotic per dr order,IV saline locked,GT flushed then clamped,d/c cardiac monitor technician,leaving via [facility] ambulance d/c instruction given and explained to karina hernandez.
--- NOTE | 2020-04-16 10:58 | NUR ---
Prescription: Received call from [facility] requesting IV ABX prescription for the pt. I phoned dr. Hodges asking to provide the IV Invaz prescription per ID. Dr. Hodges is at [facility] at this time but he will write the prescription and fax it to [facility] attn [facility] fax # [phone]. CM will f/u.
--- NOTE | 2020-04-22 15:39 | NUR ---
SS NOTES/DISCHARGE FOLLOW UP CALL: FRUIT CANNER phoned pt's sister @ [phone] who stated patient "looks a lot better" but is having pain and will refer to PCP on 04/28 about it. Pt's home health services with [facility] has resumed on 04/16 and patient does not have questions/concerns on his discharge instructions or medication instructions. Pt's sister also stated they left patient's health binder in the hospital and received a call from Jodie VASQUEZ to last picker in the front end driver, but when they went to pick it up, no one knows about. FRUIT CANNER made calls to warehouse associate, front end driver, unit secretaries but no one knows about it. FRUIT CANNER left a message for security to check lost and found. SS will update family.
== END 2020-04-15 18:00 | disposition home health service (06) | DRG 193 ==
LOC: SED 18:17 → STU 04-12 01:24
PROVIDERS: ADMIT Internal Medicine; ATTEND Internal Medicine
DX: J18.9 Pneumonia, unspecified organism (principal); G82.50 Quadriplegia, unspecified; N39.0 Urinary tract infection, site not specified; E87.1 Hypo-osmolality and hyponatremia; Z16.12 Extended spectrum beta lactamase (ESBL) resistance; K80.00 Calculus of gallbladder with acute cholecystitis without obstruction; K21.9 Gastro-esophageal reflux disease without esophagitis; L89.159 Pressure ulcer of sacral region, unspecified stage; G89.4 Chronic pain syndrome; B96.1 Klebsiella pneumoniae [K. pneumoniae] as the cause of diseases classified elsewhere; N31.9 Neuromuscular dysfunction of bladder, unspecified; F41.9 Anxiety disorder, unspecified; J45.909 Unspecified asthma, uncomplicated; Z87.440 Personal history of urinary (tract) infections; Z87.01 Personal history of pneumonia (recurrent); Z88.6 Allergy status to analgesic agent; Z88.5 Allergy status to narcotic agent; Z93.3 Colostomy status; Z93.1 Gastrostomy status; Z03.818 Encounter for observation for suspected exposure to other biological agents ruled out
CPT/HCPCS: 36415; 36600; 71045; 78226; 80053; 81000-TC; 82550-TC; 82728; 82803-TC; 83605; 83615-TC; 83690-TC; 83880; 84484; 85025; 85384-TC; 85610-TC; 85730-TC; 86140; 87040-TC; 87081; 87086; 87186-TC; 93005; 96365; 96367; 96372; 99291; A9537; G0378; J0456; J1100; J1200; J1335; J2060; J2270; J2543; J7030; U0003-CS

== ENCOUNTER 2020-06-20 17:40 | Inpatient (IN) | payer OTHER, MEDICAID, SELFPAY ==
[~2020-06-20] VITALS: Ht 172.7 cm; Wt 44.5 kg
[~2020-06-20 17:40] MED LIST changes: -LEVO250T58 PO
[2020-06-20 17:42] VITALS: BP_SYST 118
[2020-06-20] MEDS ORDERED: NACL 0.9% 2,000 ML IV ONE (17:53)
[2020-06-20 18:10] LABS: BILIRUBIN,URINE NEGATIVE (NEGATIVE); BLOOD, URINE 2+ (NEGATIVE); CLARITY/URINE CLEAR (CLEAR); COLOR,URINE YELLOW (YELLOW); GLUCOSE,URINE NEGATIVE (NEGATIVE); KETONES,URINE NEGATIVE (NEGATIVE); LEUKOCYTE ESTERASE ,URINE 3+ (NEGATIVE); NITRITE, URINE POSITIVE (NEGATIVE); PROTEIN URINE NEGATIVE (NEGATIVE); UROBILINOGEN,URINE 0.2 (0.2-1.0)
[2020-06-20] MEDS ORDERED: cefTRIAXone 1 GM IVPB PREMIX 50 ML IV ONE (18:15)
[2020-06-20 18:20] LABS: BASOPHILS # (AUTO) 0.1 K/uL (0.0-0.2); BASOPHILS % (AUTO) 0.9 % (0.0-2.0); EOSINOPHILS % (AUTO) 0.1 % (0.0-4.0); HEMATOCRIT 39.7 % (36-54); HEMOGLOBIN 13.6 g/dL (14.0-18.0); LYMPHOCYTES # (AUTO) 0.7 K/uL (1.0-5.5); LYMPHOCYTES % (AUTO) 6.7 % (20.5-51.5); MEAN CORPUSCULAR HEMOGLOBIN 34 pg (27-31); MEAN CORPUSCULAR HGB CONC 34 % (32-36); MEAN CORPUSCULAR VOLUME 100 fL (79.0-98.0); MONOCYTES # (AUTO) 0.5 K/uL (0.0-1.0); MONOCYTES % (AUTO) 4.8 % (1.7-9.3); NEUTROPHILS # (AUTO) 9.1 K/uL (1.8-7.7); NEUTROPHILS % (AUTO) 87.5 % (40.0-70.0); PLATELET COUNT (AUTO) 239 K/uL (130-430); RED BLOOD CELL COUNT(AUTO) 3.98 MIL/uL (4.2-6.2); WHITE BLOOD COUNT (AUTO) 10.4 K/uL (4.8-10.8)
[2020-06-20 18:24] LABS: CALCIUM 8.9 mg/dL (8.4-11.0); CREATININE 0.47 mg/dL (0.55-1.30); POTASSIUM 3.9 mmol/L (3.5-5.1)
[2020-06-20 18:30] LABS: ALBUMIN 3.3 g/dL (3.4-4.8); TOTAL BILIRUBIN 0.5 mg/dL (0.0-1.0)
[2020-06-20 18:36] LABS: BACTERIA,URINE MANY /HPF (None Seen); WBC,URINE 20-50 /HPF (0-3)
[2020-06-20] MEDS ORDERED: NACL 0.9% 1,000 ML IV ONE (19:30)
[2020-06-20] MEDS ORDERED: MORPHINE 4 MG/ML INJ. SYRINGE IVP ONE (20:30)
[2020-06-20] MEDS ORDERED: MORPHINE 4 MG/ML INJ. SYRINGE ONE (20:43)
[2020-06-20] MEDS ORDERED: ALBUTEROL SULFATE 2 MG TABLET PO SCH (21:15)
[2020-06-20 21:56] VITALS: BP_SYST 119
[2020-06-20] MEDS: LANSOPRAZOLE 30 MG CAPSULE.DR PO SCH (22:20)
[2020-06-20] MEDS: MORPHINE SULFATE 15 MG TABLET.ER GT SCH (22:20)
[2020-06-20] MEDS: DULoxetine HCL 30 MG CAPSULE.DR (CYMBALTA) PO SCH (22:21)
[2020-06-21] VITALS: BP_SYST 153
[2020-06-21] MEDS: ONDANSETRON HCL 4 MG/2 ML VIAL IVP PRN ×2 (00:57→19:49)
[2020-06-21] MEDS: MORPHINE 4 MG/ML INJ. SYRINGE IVP PRN ×4 (00:58→19:50)
[2020-06-21] MEDS: LORazepam 2 MG/ML VIAL IVP PRN (02:49)
[2020-06-21 07:44] LABS: BASOPHILS % (AUTO) 0.4 % (0.0-2.0); EOSINOPHILS % (AUTO) 0.1 % (0.0-4.0); HEMATOCRIT 40.7 % (36-54); HEMOGLOBIN 13.9 g/dL (14.0-18.0); LYMPHOCYTES # (AUTO) 0.9 K/uL (1.0-5.5); LYMPHOCYTES % (AUTO) 9.3 % (20.5-51.5); MEAN CORPUSCULAR HEMOGLOBIN 35 pg (27-31); MEAN CORPUSCULAR HGB CONC 34 % (32-36); MEAN CORPUSCULAR VOLUME 101 fL (79.0-98.0); MONOCYTES # (AUTO) 0.5 K/uL (0.0-1.0); MONOCYTES % (AUTO) 5.8 % (1.7-9.3); NEUTROPHILS # (AUTO) 7.8 K/uL (1.8-7.7); NEUTROPHILS % (AUTO) 84.4 % (40.0-70.0); PLATELET COUNT (AUTO) 230 K/uL (130-430); RED BLOOD CELL COUNT(AUTO) 4.02 MIL/uL (4.2-6.2); RED CELL DISTRIBUTION WIDTH 13.2 % (9.0-15.0); WHITE BLOOD COUNT (AUTO) 9.2 K/uL (4.8-10.8)
[2020-06-21 07:45] VITALS: BP_SYST 152
[2020-06-21 08:23] LABS: ANION GAP 0 (5-15); CALCIUM 8.6 mg/dL (8.4-11.0); CHLORIDE 101 mmol/L (98-107); CREATININE 0.55 mg/dL (0.55-1.30); GFR AFRICAN AMERICAN 192 mL/min (>90); GLUCOSE 129 mg/dL (70-99); POTASSIUM 3.8 mmol/L (3.5-5.1); SODIUM SERUM 135 mmol/L (136-145); TOTAL BILIRUBIN 0.3 mg/dL (0.0-1.0); UREA NITROGEN, BLOOD 5 mg/dL (8-21)
[2020-06-21 08:24] LABS: ALANINE AMINOTRANSFERASE 25 U/L (12-78); ALBUMIN 3.1 g/dL (3.4-4.8); ASPARTATE AMINOTRANSFERASE 18 U/L (10-37)
[2020-06-21] MEDS ORDERED: GABAPENTIN 250 MG GT SCH ×2 (09:00→21:00)
[2020-06-21] MEDS: MORPHINE SULFATE 15 MG TABLET.ER GT SCH ×3 (09:07→20:51)
[2020-06-21] MEDS: DULoxetine HCL 30 MG CAPSULE.DR (CYMBALTA) PO SCH ×2 (09:07→20:50)
[2020-06-21] MEDS: clonazePAM 0.5 MG TABLET PO SCH ×3 (09:08→20:50)
[2020-06-21] MEDS: LANSOPRAZOLE 30 MG CAPSULE.DR PO SCH ×2 (09:08→20:51)
[2020-06-21 12:04] VITALS: BP_SYST 159
[2020-06-21 16:20] VITALS: BP_SYST 157
[2020-06-21 20:00] VITALS: BP_SYST 145
[2020-06-22 00:13] VITALS: BP_SYST 136
[2020-06-22] MEDS: MORPHINE 4 MG/ML INJ. SYRINGE IVP PRN ×4 (02:36→18:54)
[2020-06-22 06:00] VITALS: BP_SYST 140
[2020-06-22] MEDS: clonazePAM 0.5 MG TABLET PO SCH ×3 (08:13→21:22)
[2020-06-22] MEDS: LANSOPRAZOLE 30 MG CAPSULE.DR PO SCH ×2 (08:14→21:21)
[2020-06-22] MEDS: MORPHINE SULFATE 15 MG TABLET.ER GT SCH ×3 (08:14→21:29)
[2020-06-22] MEDS: DULoxetine HCL 30 MG CAPSULE.DR (CYMBALTA) PO SCH ×2 (08:14→21:21)
[2020-06-22 08:25] VITALS: BP_SYST 116
[2020-06-22] MEDS ORDERED: GABAPENTIN 300 MG CAPSULE GT ONE (10:45)
[2020-06-22] MEDS ORDERED: CYANOCOBALAMIN 1000 mCg TABLET GT ONE (11:00)
[2020-06-22] MEDS ORDERED: MULTIVIT-MINERALS/FERROUS GLUC 15 ML UDC GT ONE (11:00)
[2020-06-22 12:06] VITALS: BP_SYST 143
[2020-06-22] MEDS: LORazepam 2 MG/ML VIAL IVP PRN (14:23)
[2020-06-22] MEDS: GABAPENTIN 300 MG CAPSULE GT SCH ×2 (14:32→21:22)
[2020-06-22 16:13] VITALS: BP_SYST 103
[2020-06-22 20:00] VITALS: BP_SYST 120
[2020-06-23 00:14] VITALS: BP_SYST 102
[2020-06-23] MEDS: MORPHINE 4 MG/ML INJ. SYRINGE IVP PRN ×2 (01:56→06:07)
[2020-06-23 06:31] LABS: BASOPHILS # (AUTO) 0.1 K/uL (0.0-0.2); BASOPHILS % (AUTO) 1.3 % (0.0-2.0); HEMATOCRIT 35.6 % (36-54); HEMOGLOBIN 12.2 g/dL (14.0-18.0); LYMPHOCYTES # (AUTO) 0.6 K/uL (1.0-5.5); LYMPHOCYTES % (AUTO) 6.6 % (20.5-51.5); MEAN CORPUSCULAR HEMOGLOBIN 35 pg (27-31); MEAN CORPUSCULAR HGB CONC 34 % (32-36); MEAN CORPUSCULAR VOLUME 101 fL (79.0-98.0); MONOCYTES # (AUTO) 0.4 K/uL (0.0-1.0); MONOCYTES % (AUTO) 4.8 % (1.7-9.3); NEUTROPHILS % (AUTO) 87.3 % (40.0-70.0); PLATELET COUNT (AUTO) 213 K/uL (130-430); RED BLOOD CELL COUNT(AUTO) 3.53 MIL/uL (4.2-6.2); RED CELL DISTRIBUTION WIDTH 13.2 % (9.0-15.0); WHITE BLOOD COUNT (AUTO) 9.1 K/uL (4.8-10.8)
[2020-06-23 06:40] LABS: CALCIUM 8.6 mg/dL (8.4-11.0); CREATININE 0.55 mg/dL (0.55-1.30); POTASSIUM 4.2 mmol/L (3.5-5.1)
[2020-06-23 07:31] VITALS: BP_SYST 119
[2020-06-23] MEDS: DULoxetine HCL 30 MG CAPSULE.DR (CYMBALTA) PO SCH ×2 (08:25→21:27)
[2020-06-23] MEDS: clonazePAM 0.5 MG TABLET PO SCH ×3 (08:25→21:27)
[2020-06-23] MEDS: LANSOPRAZOLE 30 MG CAPSULE.DR PO SCH ×2 (08:25→21:28)
[2020-06-23] MEDS: MORPHINE SULFATE 15 MG TABLET.ER GT SCH ×3 (08:25→21:28)
[2020-06-23] MEDS: MULTIVIT-MINERALS/FERROUS GLUC 15 ML UDC GT SCH (08:26)
[2020-06-23] MEDS: GABAPENTIN 300 MG CAPSULE GT SCH ×3 (08:26→21:28)
[2020-06-23] MEDS: CYANOCOBALAMIN 1000 mCg TABLET GT SCH (08:26)
[2020-06-23 12:09] VITALS: BP_SYST 98
[2020-06-23] MEDS ORDERED: PIPERACILLIN/TAZO 3.375/DEX-IS 50 ML IV ONE (15:00)
[2020-06-23 16:13] VITALS: BP_SYST 110
[2020-06-23] MEDS: ERTAPENEM SODIUM 0.5 GM in NS 50 ML IV SCH (18:11)
[2020-06-23 20:00] VITALS: BP_SYST 129
[2020-06-23] MEDS ORDERED: PIPERACILLIN/TAZO 3.375/DEX-IS 50 ML IV SCH (21:00)
[2020-06-24 00:04] VITALS: BP_SYST 113
[2020-06-24] MEDS: MORPHINE 4 MG/ML INJ. SYRINGE IVP PRN (04:39)
[2020-06-24 08:13] VITALS: BP_SYST 128
[2020-06-24] MEDS: CYANOCOBALAMIN 1000 mCg TABLET GT SCH (08:55)
[2020-06-24] MEDS: MORPHINE SULFATE 15 MG TABLET.ER GT SCH ×2 (08:55→14:23)
[2020-06-24] MEDS: DULoxetine HCL 30 MG CAPSULE.DR (CYMBALTA) PO SCH (08:55)
[2020-06-24] MEDS: clonazePAM 0.5 MG TABLET PO SCH ×2 (08:55→14:22)
[2020-06-24] MEDS: LANSOPRAZOLE 30 MG CAPSULE.DR PO SCH (08:55)
[2020-06-24] MEDS: MULTIVIT-MINERALS/FERROUS GLUC 15 ML UDC GT SCH (08:56)
[2020-06-24] MEDS: GABAPENTIN 300 MG CAPSULE GT SCH ×2 (08:56→14:23)
[2020-06-24 12:07] VITALS: BP_SYST 108
[2020-06-24 16:23] VITALS: BP_SYST 122
[2020-06-24] MEDS: ERTAPENEM SODIUM 0.5 GM in NS 50 ML IV SCH (17:41)
[2020-06-24 18:42] VITALS: BP_SYST 122
== END 2020-06-24 19:10 | disposition home health service (06) | DRG 640 ==
LOC: SED 17:40 → STU 19:34
PROVIDERS: ADMIT Internal Medicine; ATTEND Internal Medicine
DX: E86.0 Dehydration (principal); G82.50 Quadriplegia, unspecified; N39.0 Urinary tract infection, site not specified; E44.1 Mild protein-calorie malnutrition; Z16.24 Resistance to multiple antibiotics; Z16.19 Resistance to other specified beta lactam antibiotics; Z68.1 Body mass index [BMI] 19.9 or less, adult; E87.1 Hypo-osmolality and hyponatremia; B96.1 Klebsiella pneumoniae [K. pneumoniae] as the cause of diseases classified elsewhere; N31.9 Neuromuscular dysfunction of bladder, unspecified; J45.909 Unspecified asthma, uncomplicated; K21.9 Gastro-esophageal reflux disease without esophagitis; K80.20 Calculus of gallbladder without cholecystitis without obstruction; R13.10 Dysphagia, unspecified; G89.4 Chronic pain syndrome; F41.9 Anxiety disorder, unspecified; Z20.828 Contact with and (suspected) exposure to other viral communicable diseases; Z88.6 Allergy status to analgesic agent; Z88.5 Allergy status to narcotic agent; Z87.440 Personal history of urinary (tract) infections; Z78.9 Other specified health status
CPT/HCPCS: 36415; 71045; 80048; 80053; 81000-TC; 83605; 85025; 87040-TC; 87086; 87186-TC; 93005; 96361; 96365; 96375; 99291; G0378; J0696; J1335; J2060; J2270; J2405; J2543; J7030

== ENCOUNTER 2020-08-16 20:24 | Inpatient (IN) | payer OTHER, MEDICAID, SELFPAY ==
[~2020-08-16] VITALS: Ht 172.7 cm; Wt 44.5 kg
[~2020-08-16 20:24] MED LIST changes: -CLON0.5T12 PO; +CLON0.5T4 PO
[2020-08-16 20:25] VITALS: BP_SYST 130
--- NOTE | 2020-08-16 20:25 | NUR ---
Placed in room 8 . Placed on monitoring coordinator, blood pressure machine and pulse oximeter. To gown for exam. Side rails up. Report given to PEDRO BISHOP.
[2020-08-16] MEDS ORDERED: NACL 0.9% 1,000 ML IV ONE (20:30)
[2020-08-16] MEDS ORDERED: KETOROLAC TROMETHAMINE 30 MG VIAL IVP ONE (20:30)
--- NOTE | 2020-08-16 20:30 | NUR ---
ER DR. QUIROGA AT THE BEDSIDE EVALUATING PT
--- NOTE | 2020-08-16 20:34 | NUR ---
Medication reconciliation completed with information provided by FAMILY. Any prior medication reconciliation on file was reviewed and corrected.
--- NOTE | 2020-08-16 20:35 | NUR ---
Pt present to ER [facility] for vomiting x today at 430pm. As per family member Yobany, Pt hgas episodes of vomiting, brown colored emesis. Pt has a gtube placement which is where he primarily recieves nutrition. Sometimes is given pureed foods. Pt has hx of cerebral palsy. Pt has colostomy bag, and limbs are contracted. Pt not able to verbalizes pain. Pt has scheduled meds, last medication given was morphine at 6pm.
[2020-08-16 21:46] LABS: EOSINOPHILS # (AUTO) 0.1 K/uL (0.0-0.4); MEAN CORPUSCULAR HGB CONC 35 % (32-36); RED CELL DISTRIBUTION WIDTH 12.9 % (9.0-15.0)
[2020-08-16 21:51] LABS: BASOPHILS # (AUTO) 0.1 K/uL (0.0-0.2); BASOPHILS % (AUTO) 0.8 % (0.0-2.0); EOSINOPHILS % (AUTO) 0.8 % (0.0-4.0); HEMATOCRIT 36.3 % (36-54); HEMOGLOBIN 12.8 g/dL (14.0-18.0); LYMPHOCYTES # (AUTO) 2.3 K/uL (1.0-5.5); LYMPHOCYTES % (AUTO) 30.4 % (20.5-51.5); MEAN CORPUSCULAR HEMOGLOBIN 35 pg (27-31); MEAN CORPUSCULAR VOLUME 99 fL (79.0-98.0); MONOCYTES # (AUTO) 0.5 K/uL (0.0-1.0); MONOCYTES % (AUTO) 6.1 % (1.7-9.3); NEUTROPHILS # (AUTO) 4.6 K/uL (1.8-7.7); NEUTROPHILS % (AUTO) 61.9 % (40.0-70.0); RED BLOOD CELL COUNT(AUTO) 3.68 MIL/uL (4.2-6.2); WHITE BLOOD COUNT (AUTO) 7.5 K/uL (4.8-10.8)
[2020-08-16 22:03] LABS: PLATELET COUNT (AUTO) 268 K/uL (130-430)
--- NOTE | 2020-08-16 22:05 | NUR ---
Pt taken to CT via [facility]. Accompained by Travis VASQUEZ and Rohit
--- NOTE | 2020-08-16 22:28 | NUR ---
swab sent to lab
[2020-08-16] MEDS ORDERED: MORPHINE 4 MG/ML INJ. SYRINGE IVP ONE (23:00)
[2020-08-16 23:10] LABS: CALCIUM 8.2 mg/dL (8.4-11.0); CREATININE 0.39 mg/dL (0.55-1.30); POTASSIUM 4.3 mmol/L (3.5-5.1)
[2020-08-16 23:16] LABS: ALBUMIN 3.1 g/dL (3.4-4.8); TOTAL BILIRUBIN 0.5 mg/dL (0.0-1.0)
--- NOTE | 2020-08-16 23:18 | NUR ---
Pt's family went home, pt family member Moisés will like an update when plan of care to be discharge or admitted has been decided. [phone]
[2020-08-16 23:27] LABS: BILIRUBIN,URINE NEGATIVE (NEGATIVE); CLARITY/URINE CLEAR (CLEAR); COLOR,URINE YELLOW (YELLOW); GLUCOSE,URINE NEGATIVE (NEGATIVE); KETONES,URINE NEGATIVE (NEGATIVE); LEUKOCYTE ESTERASE ,URINE 2+ (NEGATIVE); NITRITE, URINE NEGATIVE (NEGATIVE); PROTEIN URINE NEGATIVE (NEGATIVE); UROBILINOGEN,URINE 0.2 (0.2-1.0)
[2020-08-16 23:28] LABS: BLOOD, URINE TRACE (NEGATIVE)
[2020-08-16 23:40] LABS: BACTERIA,URINE MODERATE /HPF (None Seen)
--- NOTE | 2020-08-17 00:15 | NUR ---
Patient will be admitted to care of Dr Hodges. Admitted to Tele unit. Room not provided by Charge nurse, will call back with room assignment. Belongings list completed. Complete and up to date summary report printed. SBAR report to be given at bedside with opportunity for questions.
--- NOTE | 2020-08-17 00:20 | NUR ---
Pt's family notified, patient will be admitted to [facility]lementary.
[2020-08-17] MEDS ORDERED: ONDANSETRON HCL 4 MG/2 ML VIAL IVP PRN (00:30)
--- NOTE | 2020-08-17 00:48 | NUR ---
ADMIT NOTE Received pt from ER to the floor with a diagnosis of UTI/hyponatremia. Admission process initiated. patient oriented to pain management, safety and call light-pt is mentally challenged.
--- NOTE | 2020-08-17 00:55 | NUR ---
NOTES PATIENT IN BED, AWAKE, CONFUSED, NOT IN DISTRESS, VITALS STABLE. ADMISSION ASSESSMENT DONE AND DOCUMENTED. SEE FLOWSHEET. NEEDS ATTENDED TO. SAFETY AND FALL MEASURES IN PLACED. BED IN LOW AND LOCKED POSITION. BED ALARM ON. WILL CONTINUE TO MONITOR.
[2020-08-17] MEDS: NACL 0.9% 1,000 ML IV SCH ×3 (01:40→23:36)
[2020-08-17 01:53] VITALS: BP_SYST 122
[2020-08-17] MEDS: PIPERACILLIN/TAZO 3.375/DEX-IS 50 ML IV SCH ×5 (01:54→23:36)
[2020-08-17] MEDS: clonazePAM 0.5 MG TABLET PO SCH ×4 (01:54→21:12)
[2020-08-17] MEDS ORDERED: PIPERACILLIN/TAZOBACTAM 3.375 GM/VIAL (ZOSYN) IV ONE (02:08)
--- NOTE | 2020-08-17 04:12 | NUR ---
PATIENT RESTING: Patient resting quietly. No acute distress noted. Vital signs within normal range.
[2020-08-17] MEDS: MORPHINE 2 MG/ML INJ. SYRINGE IVP PRN ×2 (04:35→08:52)
--- NOTE | 2020-08-17 06:50 | NUR ---
CLOSING NOTES PATIENT RESTING AT THIS TIME, NO SIGNS OF PAIN AT THIS TIME, ALL NEEDS ATTENDED TO. SAFETY MEASURES MAINTAINED. WILL ENDORSE TO INCOMING SHIFT NURSE.
--- NOTE | 2020-08-17 07:15 | NUR ---
Nutrition Update Fantasma Scale 13 noted. Pt admitted for UTI, Hyponatremia Diet: NPO BMI: 14.9 kg/m2 RD to follow per nutrition care standards.
--- NOTE | 2020-08-17 08:52 | NUR ---
PAIN. PT MOANING , SPEECH GARBLED, ASSESSED FOR PAIN, TURNED TO A COMFORTABLE POSITION, INCONTINENT OF BLADDER, GOOD PERINEAL HYGIENE GIVEN, LINEN CHANGED, MEDICATED WITH MORPHINE 2 MG IVP FOR COMFORT.
[2020-08-17 11:28] VITALS: BP_SYST 154
[2020-08-17] MEDS ORDERED: clonazePAM 0.5 MG TABLET PO ONE (13:15)
[2020-08-17] MEDS ORDERED: ALBUTEROL SULFATE 2 MG TABLET PO SCH (13:15)
[2020-08-17] MEDS: MORPHINE SULFATE 15 MG TABLET.ER PO SCH ×2 (13:26→21:12)
--- NOTE | 2020-08-17 13:26 | NUR ---
ANXIETY. ASSESSED PT, ASKED FOR SIMPLE QUESTIONS, HE ANSWERED YES AND NO, ASKED IF HE WANTED TO HAVE THE LIGHTS OFF, HE SHOOK HIS HEAD, ASKED FOR HIS FAMILY, HE NODDED HIS HEAD, MEDICATED PT WITH KLONOPIN 0.5 MG FOR COMFORT, PT CONSTANTLY MOANS WITH STAFF SURROUNDING AND TALKING TO HIM.
[2020-08-17] MEDS ORDERED: DULoxetine HCL 30 MG CAPSULE.DR (CYMBALTA) PO ONE (13:30)
[2020-08-17 14:16] LABS: BASOPHILS % (AUTO) 0.4 % (0.0-2.0); HEMATOCRIT 36.3 % (36-54); HEMOGLOBIN 12.7 g/dL (14.0-18.0); LYMPHOCYTES # (AUTO) 0.2 K/uL (1.0-5.5); LYMPHOCYTES % (AUTO) 2.4 % (20.5-51.5); MEAN CORPUSCULAR HEMOGLOBIN 34 pg (27-31); MEAN CORPUSCULAR HGB CONC 35 % (32-36); MEAN CORPUSCULAR VOLUME 97 fL (79.0-98.0); MONOCYTES # (AUTO) 0.3 K/uL (0.0-1.0); MONOCYTES % (AUTO) 3.2 % (1.7-9.3); NEUTROPHILS # (AUTO) 8.3 K/uL (1.8-7.7); PLATELET COUNT (AUTO) 204 K/uL (130-430); RED BLOOD CELL COUNT(AUTO) 3.76 MIL/uL (4.2-6.2); RED CELL DISTRIBUTION WIDTH 12.6 % (9.0-15.0); WHITE BLOOD COUNT (AUTO) 8.9 K/uL (4.8-10.8)
[2020-08-17] MEDS ORDERED: GABAPENTIN 250 MG GT SCH ×2 (15:00→21:00)
[2020-08-17 15:09] LABS: ALBUMIN 2.9 g/dL (3.4-4.8); CALCIUM 7.9 mg/dL (8.4-11.0); POTASSIUM 3.1 mmol/L (3.5-5.1); TOTAL BILIRUBIN 0.9 mg/dL (0.0-1.0)
[2020-08-17 15:35] LABS: CREATININE 0.41 mg/dL (0.55-1.30)
[2020-08-17 15:38] VITALS: BP_SYST 125
--- NOTE | 2020-08-17 15:59 | NUR ---
PAGED PAGED ALEXANDRA BERNARDO AT [phone] SPOKE WITH JEFFREY.
[2020-08-17] MEDS ORDERED: POTASSIUM CHLORIDE 20 MEQ/PKT PACKET PO ONE (16:30)
--- NOTE | 2020-08-17 16:58 | NUR ---
CONSULTATION PAGED/CALLED Reason for Consultation: ABD PAIN Person Who was Notified: YESJESE Consulting Physician: NORMAN Buzzle Buffer Specialty: GASTRO Ordering Physician: MUMTAZ
[2020-08-17] MEDS ORDERED: METOCLOPRAMIDE HCL 10 MG/2 ML VIAL IVP ONE (17:00)
[2020-08-17] MEDS: SUCRALFATE 1 GM/10 ML UDC GT SCH ×2 (17:50→21:11)
[2020-08-17] MEDS: GABAPENTIN 300 MG CAPSULE GT SCH ×2 (17:59→21:12)
[2020-08-17] MEDS ORDERED: GABAPENTIN 300 MG CAPSULE ONE (18:20)
[2020-08-17] MEDS: MORPHINE 4 MG/ML INJ. SYRINGE IVP PRN (18:57)
--- NOTE | 2020-08-17 19:30 | NUR ---
OPENING NOTES RECEIVED REPORT FROM DAY SHIFT RN. PT RESTING IN BED. SIGNS OF AGITATION AND DISTRESS NOTED. IV ON LEFT ANKLE 18G INTACT, IVF RUNNING ORDERED RATE. NO SIGNS OF INFILTRATION NOTED. RLL COLOSTOMY BAG INTACT, LOOSE STOOL NOTED. BED ALARM ON, LOCKED IN LOWEST POSITION. SIDE RAILS UP X3. SAFETY, FALL, AND CONTACT ISOLATION PRECAUTIONS ARE IN PLACE. WILL CONTINUE TO MONITOR.
[2020-08-17 20:00] VITALS: BP_SYST 137
--- NOTE | 2020-08-17 20:00 | NUR ---
RECEIVED INFLUENZA VACCINE WITHIN CURRENT FLU SEASON (07/06/20)
--- NOTE | 2020-08-17 20:30 | NUR ---
RN ROUNDS PT RESTING IN BED, STILL SIGNS OF DISTRESS NOTED. O2 SAT 77%-80%. PT SOUNDS VERY CONGESTED. CALLED RT FOR HELP. RT PROVIDED SUCTION, LARGE AMOUNT OF SPUTUM NOTED. PT IS BREATHING TO O2 VIA NC AT 2L. WILL CONTINUE TO MONITOR O2 SAT. Addendum: 08/18/20 at 0317 by Mery Potter RN ADDING NOTES HEART RATE 135-145 NOTED AT THIS TIME.
[2020-08-17] MEDS: POTASSIUM CHLORIDE 20 MEQ/PKT PACKET PO SCH (21:11)
[2020-08-17] MEDS: LANSOPRAZOLE 30 MG CAPSULE.DR PO SCH (21:11)
[2020-08-17] MEDS: DULoxetine HCL 30 MG CAPSULE.DR (CYMBALTA) PO SCH (21:12)
--- NOTE | 2020-08-17 21:12 | NUR ---
O2 SAT 95% AND HR 91-95 AFTER SUCTION/MEDICATION PASS PT O2 SAT WENT UP TO 95%. HR 91-95. BREATHING EVEN AND UNLABORED TO O2 VIA NC AT 2L. NO S/S OF DISTRESS NOTED AT THIS TIME. SCHEDULED MEDICATIONS ADMINISTERED THROUGH G-TUBE. FLUSHED WELL. FLUSHED WITH STERILE WATER BETWEEN EACH MEDICATIONS. NO RESIDUAL NOTED. PT TOLERATING TO TUBE FEEDING. IVF RUNNING ORDERED RATE. EMPTIED COLOSTOMY BAG, AMOUNT OF 250ML LOOSE STOOL NOTED. BED ALARM ON, LOCKED IN LOWEST POSITION. SAFETY, FALL, ISOLATION, AND ASPIRATION PRECAUTIONS MAINTAINED. WILL CONTINUE TO MONITOR.
[2020-08-17] MEDS: METOCLOPRAMIDE HCL 10 MG/2 ML VIAL IVP SCH (23:36)
--- NOTE | 2020-08-17 23:36 | NUR ---
HUNG ZOSYN HUNG ZOSYN ORDERED RATE. NO S/S OF ADVERSE REACTION NOTED. BREATHING EVEN AND UNLABORED TO O2 VIA NC AT 2L. O2 SAT 95%. NO S/S OF RESPIRATORY DISTRESS NOTED. PT TOLERATING TO TUBE FEEDING AT 30ML/HR. IVF RUNNING ORDERED RATE. NO SIGNS OF INFILTRATION NOTED. BED ALARM ON, LOCKED IN LOWEST POSITION. SIDE RAILS UP X3. SAFETY, FALL, ASPIRATION, AND ISOLATION PRECAUTIONS MAINTAINED. WILL CONTINUE TO MONITOR.
[2020-08-18] VITALS: BP_SYST 113
[2020-08-18] MEDS: MORPHINE 4 MG/ML INJ. SYRINGE IVP PRN (03:45)
[2020-08-18] MEDS: METOCLOPRAMIDE HCL 10 MG/2 ML VIAL IVP SCH ×4 (05:53→23:15)
[2020-08-18] MEDS: PIPERACILLIN/TAZO 3.375/DEX-IS 50 ML IV SCH ×4 (05:53→23:15)
[2020-08-18] MEDS: MORPHINE SULFATE 15 MG TABLET.ER PO SCH ×2 (05:54→14:06)
[2020-08-18] MEDS: SUCRALFATE 1 GM/10 ML UDC GT SCH ×4 (06:02→20:31)
--- NOTE | 2020-08-18 06:54 | NUR ---
CLOSING NOTES PT RESTING IN BED. BREATHING EVEN AND UNLABORED TO O2 VIA NC AT 2L. IV ON LEFT ANKLE 18G INTACT, IVF RUNNING ORDERED RATE. NO SIGNS OF INFILTRATION NOTED. RLQ COLOSTOMY BAG INTACT. BED ALARM ON, LOCKED IN LOWEST POSITION. SIDE RAILS UP X3. SAFETY, FALL, ISOLATION AND ASPIRATION PRECAUTIONS ARE IN PLACE. ALL NEEDS ARE MET THROUGHOUT SHIFT. WILL CONTINUE TO MONITOR UNTIL ENDORSE TO DAY SHIFT RN.
[2020-08-18 07:41] LABS: BASOPHILS % (AUTO) 0.4 % (0.0-2.0); HEMATOCRIT 36.9 % (36-54); HEMOGLOBIN 12.8 g/dL (14.0-18.0); LYMPHOCYTES # (AUTO) 0.6 K/uL (1.0-5.5); LYMPHOCYTES % (AUTO) 6.2 % (20.5-51.5); MEAN CORPUSCULAR HEMOGLOBIN 34 pg (27-31); MEAN CORPUSCULAR HGB CONC 35 % (32-36); MEAN CORPUSCULAR VOLUME 98 fL (79.0-98.0); MONOCYTES # (AUTO) 0.6 K/uL (0.0-1.0); MONOCYTES % (AUTO) 6.6 % (1.7-9.3); NEUTROPHILS # (AUTO) 8.5 K/uL (1.8-7.7); NEUTROPHILS % (AUTO) 86.8 % (40.0-70.0); PLATELET COUNT (AUTO) 210 K/uL (130-430); RED BLOOD CELL COUNT(AUTO) 3.76 MIL/uL (4.2-6.2); RED CELL DISTRIBUTION WIDTH 12.8 % (9.0-15.0); WHITE BLOOD COUNT (AUTO) 9.7 K/uL (4.8-10.8)
[2020-08-18 07:55] LABS: CALCIUM 8.1 mg/dL (8.4-11.0); CREATININE 0.58 mg/dL (0.55-1.30); PHOSPHORUS 2.9 mg/dL (2.7-4.5); POTASSIUM 3.4 mmol/L (3.5-5.1)
[2020-08-18 08:00] VITALS: BP_SYST 119
--- NOTE | 2020-08-18 08:00 | NUR ---
confused,afebrile,vss,on Tube feeding jevity 1.5 runs @ 30cc per hr vai GT.tolerated TF no residual per GT.right abd with ileostomy drains dark liquid stool,total care provided,safety maintained.continue to monitor pt.
[2020-08-18] MEDS: DULoxetine HCL 30 MG CAPSULE.DR (CYMBALTA) PO SCH ×2 (09:45→20:32)
[2020-08-18] MEDS: LANSOPRAZOLE 30 MG CAPSULE.DR PO SCH ×2 (09:45→20:31)
[2020-08-18] MEDS: POTASSIUM CHLORIDE 20 MEQ/PKT PACKET PO SCH ×2 (09:45→20:32)
[2020-08-18] MEDS: clonazePAM 0.5 MG TABLET PO SCH ×3 (09:45→20:31)
[2020-08-18] MEDS: GABAPENTIN 300 MG CAPSULE GT SCH ×4 (09:45→20:31)
--- NOTE | 2020-08-18 10:00 | NUR ---
pt is congested and unable to cough up phlegm,suctioned white yellow moderate sputum orally,keep HOB 45 degress per aspiration precaution.
[2020-08-18 11:31] VITALS: BP_SYST 126
--- NOTE | 2020-08-18 12:00 | NUR ---
sinus tachy hr 110,pt is moaning,said "no" when asking if he is in pain,continue IV fluid infusion,give I antibiotic due incontinent of urine,pericare provided.hourly rounds made,safety maintained.
--- NOTE | 2020-08-18 14:00 | NUR ---
pt constantly moaning,continue and give ms contin 15mg per GT,repositioned for comfort,continue to monitor pt.
--- NOTE | 2020-08-18 15:00 | NUR ---
WOUND EVALUATION: Wound Consult received for a low Fantasma score. Patient received in a Tinnie Bed with an IsoFlex DELORES mattress, with low air-loss therapy initiated, awake, alert, verbally interactive, follows commands. Patient is unable to turn in bed independently. Fantasma Score is an 11. Intrinsic factors that delay wound healing: Hypoalbuminemia, Asthma. Extrinsic factors that delay wound healing: Immobility. Wound Assessment: 1. Sacral-Coccygeal Area: Scar tissue, present on admission. No odor, no drainage. Recommend: Cleanse site with mild soap and water. Pat dry. Apply moisture barrier cream to site. Cover with sacral foam dressing. Perform site care daily, and as needed for dressing soiling or dislodgment. Apply moisture barrier cream to surrounding areas with scar tissue. 2. Right Sacral (Posterior Iliac Crest) Area: Scar tissue, present on admission. No odor, no drainage. Recommend: Cleanse site with mild soap and water. Pat dry. Apply moisture barrier cream to site. Cover with foam dressing. Perform site care daily, and as needed for dressing soiling or dislodgment. 3. Left Hip near Greater Trochanter: Scar tissue, present on admission. Site has abrasion with 100% red tissue. No odor, no drainage. Periwound intact. Surrounding tissue has scar tissue. Site measures 0.4 cm x 0.3 cm. Recommend: Cleanse site with normal saline. Apply moisture barrier cream to periwound. Apply Venelex ointment to wound bed. Cover with foam dressing. Perform site care daily, and as needed for dressing soiling or dislodgment. 4. Right lateral knee: Chronic wound, present on admission. Wound bed is 100% black eschar. No odor, no drainage. Dry, stable. Recommend: Cover site with foam dressings Perform site care daily, and as needed for dressing soiling or dislodgement. Place a pillow lengthwise between knees and ankles while patient is in side lying position, with a pillow underneath leg resting on bed to allow ankle and heel to float at all times. 5. Abdomen: Scar tissue, present on admission. Recommend: No dressing needed. Continue to monitor site every shift. 6. Posterior Parietal Head: Scar tissue, present on admission. No odor, no drainage. Recommend: Cover with foam dressing. Perform site care daily, and as needed for dressing soiling or dislodgment. Also recommend: Reposition patient side to side only every 2 hours with pillow support, and off-load pressure areas with pillows for pressure re-distribution. Offload, elevate and float bilateral heels with 1 pillow under each extremity lengthwise at all times (if legs are crossed over each other, place one pillow lengthwise underneath bottom leg to ensure heel floats and place one pillow in between both legs to relieve the pressure). Perform skin care and monitor skin integrity Q shift. Use moisture barrier cream on buttocks and other moisture susceptible areas QID and as needed for soiling. Maintain patient on a low air-loss mattress.
[2020-08-18] MEDS: NACL 0.9% 1,000 ML IV SCH (15:41)
[2020-08-18] MEDS ORDERED: BALSAM PERU/CASTOR OIL 60 GM OINT...G. TP ONE (15:45)
[2020-08-18] MEDS ORDERED: SODIUM CHLORIDE 500 MG TABLET PO SCH (15:45)
[2020-08-18 15:46] VITALS: BP_SYST 126
--- NOTE | 2020-08-18 16:00 | NUR ---
VSS, CAME AND SEEN PT.DECREASED IV TO 50CC PER HR PER DR ORDER.
[2020-08-18] MEDS: MORPHINE 2 MG/ML INJ. SYRINGE IVP PRN (18:00)
--- NOTE | 2020-08-18 18:00 | NUR ---
PT MOANS AND RESTLESS,NODDING HIS HEAD WHEN ASKING IF HE IS IN PAIN,GIVE MORPHINE 2 MG IV PRN ORDER FOR PAIN R ILEOSTOMY DRAINS DARK YELLOW LIQUID STOOL,BAG EMPTIED,TOTAL CARE PROVIDED,HOURLY ROUNDS MADE,SAFETY MAINTAINED.
[2020-08-18 20:00] VITALS: BP_SYST 120
--- NOTE | 2020-08-18 20:30 | NUR ---
RN ROUNDS/ RT Patient has low 02 saturation, oral pharyngeal suctioning done by respiratory therapist, 02 saturation increased to 95%. Patient placed on 4 Liters NC. Tolerating well. Repositioned for comfort.
[2020-08-18] MEDS: SODIUM CHLORIDE 500 MG TABLET PO SCH (20:32)
--- NOTE | 2020-08-18 21:00 | NUR ---
RN ROUNDS Patient awake, in no distress, due medications administered, crushed and given gtube, no residual noted, aspiration precautions maintained, turned and repositioned with pillow support. Safety measures in place.
[2020-08-18] MEDS: MORPHINE SULFATE 15 MG TABLET.ER GT SCH (23:15)
--- NOTE | 2020-08-18 23:29 | NUR ---
RN ROUNDS Patient sleeping, breathing is even and unlabored, remains on 4L NC, due medications administered, repositioned and turned with pillow support.
--- NOTE | 2020-08-19 01:02 | NUR ---
RN ROUNDS Patient continues to sleep, breathing is even and unlabored, remains on 4L NC, vital signs stable.
[2020-08-19] MEDS: MORPHINE 2 MG/ML INJ. SYRINGE IVP PRN (02:19)
--- NOTE | 2020-08-19 02:26 | NUR ---
RN ROUNDS/PAIN Patient awake, moaning, when asked if in pain, patient nodded his head yes, medicated with morphine 2 mg IVP, patient repositioned and turned with pillow support, aspiration and fall precautions in place.
[2020-08-19 03:17] VITALS: BP_SYST 104
--- NOTE | 2020-08-19 04:14 | NUR ---
RN ROUNDS Patient sleeping, breathing is even and unlabored, remains on 4L NC, vital signs stable. Safety measures in place.
[2020-08-19] MEDS: SUCRALFATE 1 GM/10 ML UDC GT SCH ×4 (04:57→21:23)
[2020-08-19] MEDS: MORPHINE SULFATE 15 MG TABLET.ER GT SCH ×3 (04:58→21:23)
[2020-08-19] MEDS: METOCLOPRAMIDE HCL 10 MG/2 ML VIAL IVP SCH ×2 (04:58→11:55)
[2020-08-19] MEDS: PIPERACILLIN/TAZO 3.375/DEX-IS 50 ML IV SCH ×4 (05:02→23:48)
[2020-08-19 07:08] LABS: BASOPHILS % (AUTO) 0.4 % (0.0-2.0); EOSINOPHILS % (AUTO) 0.1 % (0.0-4.0); HEMATOCRIT 39.7 % (36-54); HEMOGLOBIN 13.6 g/dL (14.0-18.0); LYMPHOCYTES % (AUTO) 12.6 % (20.5-51.5); MEAN CORPUSCULAR HEMOGLOBIN 34 pg (27-31); MEAN CORPUSCULAR HGB CONC 34 % (32-36); MONOCYTES # (AUTO) 0.4 K/uL (0.0-1.0); MONOCYTES % (AUTO) 4.5 % (1.7-9.3); NEUTROPHILS # (AUTO) 6.8 K/uL (1.8-7.7); NEUTROPHILS % (AUTO) 82.4 % (40.0-70.0); PLATELET COUNT (AUTO) 197 K/uL (130-430); RED BLOOD CELL COUNT(AUTO) 3.98 MIL/uL (4.2-6.2); RED CELL DISTRIBUTION WIDTH 13.2 % (9.0-15.0); WHITE BLOOD COUNT (AUTO) 8.2 K/uL (4.8-10.8)
--- NOTE | 2020-08-19 07:18 | NUR ---
RN ROUNDS Patient resting quietly in bed, due medications administered, hygiene care provided, needs attended through out the shift.
[2020-08-19 07:28] LABS: CREATININE 0.54 mg/dL (0.55-1.30); POTASSIUM 4.1 mmol/L (3.5-5.1)
[2020-08-19 07:56] LABS: MEAN CORPUSCULAR VOLUME 100 fL (79.0-98.0)
[2020-08-19 08:00] VITALS: BP_SYST 113
--- NOTE | 2020-08-19 08:00 | NUR ---
awake,confused,resting in bed quietly,vss,on O2 4L/NC,sat 95%,on tube feeding jevity 1.5 @ 30cc per hr via GT,no residual per GT.right abd ileostomy bag drains yellow liquid stool.IVF continue infusing,total care provided.safety maintained.
[2020-08-19] MEDS: LANSOPRAZOLE 30 MG CAPSULE.DR PO SCH ×2 (09:48→21:23)
[2020-08-19] MEDS: POTASSIUM CHLORIDE 20 MEQ/PKT PACKET PO SCH (09:48)
[2020-08-19] MEDS: clonazePAM 0.5 MG TABLET PO SCH ×3 (09:48→22:35)
[2020-08-19] MEDS: DULoxetine HCL 30 MG CAPSULE.DR (CYMBALTA) PO SCH ×2 (09:49→21:23)
[2020-08-19] MEDS: GABAPENTIN 300 MG CAPSULE GT SCH ×4 (09:49→21:23)
[2020-08-19] MEDS: SODIUM CHLORIDE 500 MG TABLET PO SCH ×2 (09:49→21:23)
[2020-08-19] MEDS: BALSAM PERU/CASTOR OIL 60 GM OINT...G. TP SCH (09:51)
--- NOTE | 2020-08-19 10:00 | NUR ---
came and seen pt.updated dr of pt condition.no further order obtained,continue to monitor pt.
[2020-08-19 11:34] VITALS: BP_SYST 129
--- NOTE | 2020-08-19 11:41 | NUR ---
Discharge Planning: DCP faxed pt referral to [facility] (f [phone] p [phone]) DCP to follow up Addendum: 08/19/20 at 1624 by Rosa Art DP DCP followed up with Melissa GUTHRIE (f [phone] p [phone]) resuming care, DCP arrange transportation with [facility] ([phone]) Will Call to home [address] [place] [id number]. DCP gave [facility] Moisés elizabeth caregivers number [phone]. DCP to pat packet to nurse station.
[2020-08-19] MEDS: NACL 0.9% 1,000 ML IV SCH (11:54)
--- NOTE | 2020-08-19 12:00 | NUR ---
afebrile,vss,pt is congested and suctioned thick white phlegm,oral care provided,hourly rounds made,safety maintained.
--- NOTE | 2020-08-19 14:00 | NUR ---
pt moans constantlly and in pain,continue and give ms contin 30 mg po via GT.suctioned orally again to clear airway.keep HOB up 45 degrees per aspiration precaution,pt tolerated TF.no residual.
[2020-08-19 15:51] VITALS: BP_SYST 141
--- NOTE | 2020-08-19 16:00 | NUR ---
came and seen pt.updated of pt condition.orders received and carried out.
--- NOTE | 2020-08-19 16:13 | NUR ---
Dietitian Recommendations *Recommend continue TF Jevity 1.5 at goal rate of 30 ml/hr via GT w/ Prosource BID. FWF 50 ml q6h. - Provides 1200 kcal, 76 g protein, 547 ml free H2O via TF and Prosource BID. Please see Nutrition Assessment for details. EP,RD
--- NOTE | 2020-08-19 16:17 | NUR ---
DC Planning: s/w pt Moisés /cable installation manager: pt is to be dc home today. He stated he is available to receive the pt. He will notify pt's sister Brii via text. (EVIE unable to reach Brii) Addendum: 08/19/20 at 1642 by Nicholas Rodriguez RN >> Call back from Brii, I notified pt is being dc today pending md reeval and giving the final dc order. >> Per dr. Hodges: discharge is pending Urine culture result. I recalled Brii, notified not dc pt today, pending Urine culture.
[2020-08-19] MEDS ORDERED: SUCR1ORA4 GT (16:22)
[2020-08-19] MEDS ORDERED: AMOX250S64 PO (16:22)
[2020-08-19] MEDS ORDERED: SODI1TAB24 PO (16:22)
[2020-08-19] MEDS ORDERED: ONDA4TAB5 GT ×2 (16:22→16:23)
[2020-08-19] MEDS ORDERED: IPRATROPIUM/ALBUTEROL SULFATE 3 ML AMPUL.NEB (DUONEB) INH PRN (16:45)
--- NOTE | 2020-08-19 18:00 | NUR ---
CXR done at bedside,pt tolerated TF.no nausea or vomit,give meds due,needs frequent suctioning, will endorse report to assistant real estate manager staff.
--- NOTE | 2020-08-19 19:30 | NUR ---
Initial Note: Received report from ottoniel RN. Patient is resting in bed. No acute distress. Even, nonlabored respirations on 4L nasal cannula. IV site is patent and intact. Colostomy is draining brown, loose stool. Bed is locked at lowest position. Bed alarm on. Side rails up. Bed alarm on. Call light is with patient. Contact, safety, and fall precautions in place. Will continue with plan of care.
[2020-08-19 20:00] VITALS: BP_SYST 121
[2020-08-19] MEDS: IPRATROPIUM/ALBUTEROL SULFATE 3 ML AMPUL.NEB (DUONEB) INH SCH (20:16)
[2020-08-19] MEDS: POTASSIUM CHLORIDE 20 MEQ/PKT PACKET GT SCH (21:00)
--- NOTE | 2020-08-19 21:30 | NUR ---
Rounds: Patient in bed, resting. No signs of acute distress. Breathing is even, nonlabored on 4L nasal cannula. Call light is with patient. Safety and fall precautions in place. Will continue to monitor.
--- NOTE | 2020-08-19 23:45 | NUR ---
Rounds: Patient in bed, sleeping. No s/s acute distress. Respirations are even, nonlabored on 4L nasal cannula. Call light is with patient. Safety and fall precautions in place. Will continue monitoring.
[2020-08-20 00:38] VITALS: BP_SYST 114
[2020-08-20] MEDS: IPRATROPIUM/ALBUTEROL SULFATE 3 ML AMPUL.NEB (DUONEB) INH SCH ×4 (01:00→20:17)
--- NOTE | 2020-08-20 01:45 | NUR ---
Rounds: Patient is sleeping in bed. Showing no signs of acute distress. Respirations are even, nonlabored on 4L nasal cannula. Call light is with patient. Safety and fall precautions in place. Will continue to monitor.
--- NOTE | 2020-08-20 04:00 | NUR ---
Rounds: Patient is sleeping in bed. No s/s of acute distress. Breathing is even and unlabored. Call light is with patient. Safety and fall precautions in place. Will continue to monitor.
[2020-08-20] MEDS: MORPHINE SULFATE 15 MG TABLET.ER GT SCH ×3 (05:26→23:30)
[2020-08-20] MEDS: PIPERACILLIN/TAZO 3.375/DEX-IS 50 ML IV SCH ×3 (05:27→18:31)
[2020-08-20] MEDS: SUCRALFATE 1 GM/10 ML UDC GT SCH ×4 (06:24→21:16)
--- NOTE | 2020-08-20 06:45 | NUR ---
Closing note: Patient is resting in bed. No acute distress. Even, nonlabored respirations on 4L nasal cannula. IV site is patent and intact. Colostomy is draining brown, loose stool. All needs met. Bed is locked at lowest position. Bed alarm on. Side rails up. Bed alarm on. Call light is with patient. Contact, safety, and fall precautions in place. Will endorse to ottoniel RN.
[2020-08-20 08:09] VITALS: BP_SYST 135
[2020-08-20 08:21] LABS: BASOPHILS % (AUTO) 0.2 % (0.0-2.0); EOSINOPHILS % (AUTO) 0.1 % (0.0-4.0); HEMATOCRIT 36.1 % (36-54); HEMOGLOBIN 12.2 g/dL (14.0-18.0); LYMPHOCYTES # (AUTO) 0.7 K/uL (1.0-5.5); LYMPHOCYTES % (AUTO) 6.1 % (20.5-51.5); MEAN CORPUSCULAR HEMOGLOBIN 34 pg (27-31); MEAN CORPUSCULAR HGB CONC 34 % (32-36); MEAN CORPUSCULAR VOLUME 100 fL (79.0-98.0); MONOCYTES # (AUTO) 0.7 K/uL (0.0-1.0); MONOCYTES % (AUTO) 5.4 % (1.7-9.3); NEUTROPHILS # (AUTO) 10.7 K/uL (1.8-7.7); NEUTROPHILS % (AUTO) 88.2 % (40.0-70.0); PLATELET COUNT (AUTO) 186 K/uL (130-430); RED CELL DISTRIBUTION WIDTH 13.2 % (9.0-15.0); WHITE BLOOD COUNT (AUTO) 12.1 K/uL (4.8-10.8)
[2020-08-20 08:41] LABS: CREATININE 0.55 mg/dL (0.55-1.30); POTASSIUM 3.5 mmol/L (3.5-5.1)
--- NOTE | 2020-08-20 08:49 | NUR ---
CONSULTATION; REASON FOR CONSULT: VINNY SANDERS CONSULTING PHYSICIAN: LORNA ORDERED BY: MUMTAZ SPOKE WITH NILAM FROM ANSWERING SERVICES [phone]
[2020-08-20] MEDS: NACL 0.9% 1,000 ML IV SCH ×2 (09:15→23:30)
[2020-08-20] MEDS: GABAPENTIN 300 MG CAPSULE GT SCH ×4 (09:15→21:16)
[2020-08-20] MEDS: clonazePAM 0.5 MG TABLET PO SCH ×3 (09:16→21:16)
[2020-08-20] MEDS: DULoxetine HCL 30 MG CAPSULE.DR (CYMBALTA) PO SCH ×2 (09:16→21:16)
[2020-08-20] MEDS: LANSOPRAZOLE 30 MG CAPSULE.DR PO SCH ×2 (09:17→21:16)
[2020-08-20] MEDS: SODIUM CHLORIDE 500 MG TABLET PO SCH ×2 (09:17→21:17)
[2020-08-20] MEDS: POTASSIUM CHLORIDE 20 MEQ/PKT PACKET GT SCH ×2 (09:25→21:16)
--- NOTE | 2020-08-20 09:53 | NUR ---
spiking temp when first seen, 101-102, tachy 132-136, HR. attending made aware, new orders written, and ID consult requested.
[2020-08-20] MEDS: AMIKACIN SULFATE 350 MG in D5W 100 ML IV SCH (11:00)
--- NOTE | 2020-08-20 11:00 | NUR ---
RESUME CARE Received report from PEDRO Bond. Patient resting in the bed. No acute distress. On O2 2L/min via NC. Skin warm and dry to touch. IV intact to left foot, no redness, no swelling, patent. On NS at 100ml/hr, infusing well. On COVID-PUI isolation. Safety measure maintained. Call light within reached. Bed locked in low position, padded side rails up, bed alarm on. Will continue to monitor and plan of care.
[2020-08-20 11:05] VITALS: BP_SYST 123
[2020-08-20] MEDS ORDERED: NACL 0.9% 1,000 ML IV ONE (11:45)
--- NOTE | 2020-08-20 12:15 | NUR ---
SEEN AND EXAMINED BY DR. PANDYA [facility] WITH ORDER RECEIVED Reported to Dr. Pandya, patient still with temp 100.6. However, patient allergy to acetaminophen, per Dr. Pandya just cooling measure. Dr. Pandya with order to insert Craig Catheter to collect urine specimen, if urine output>300ml, keep the Craig Catheter.
[2020-08-20] MEDS: BALSAM PERU/CASTOR OIL 60 GM OINT...G. TP SCH (12:52)
--- NOTE | 2020-08-20 13:25 | NUR ---
HOYT CATH: # 16 FR Hoyt catheter with 10 cc bulb inserted with use of sterile technique. Bulb inflated with 10 cc sterile water. Immediate return of 520 cc cloudy yellow urine noted. Bedside drainage bag placed below level of bladder. Urine sample collected and sent to lab. Pt tolerated procedure well. Per Dr. Hodges, urine output >300ml to keep Hoyt cath.
--- NOTE | 2020-08-20 15:35 | NUR ---
ROUND Patient resting in the bed. No acute distress. Continue on O2 via NC. IV intact, HOB elevated. GT intact, continue on GT feeding. IVF infusing well. Isolation maintained. Safety measure maintained. Call light within reached. Bed locked in low position, padded side rails up, bed alarm on. Continue to monitor.
[2020-08-20 15:56] VITALS: BP_SYST 106
--- NOTE | 2020-08-20 16:37 | NUR ---
DC Planning: Pt is PUI and was moved to rm 123B, had elevated temp >101 this am. UA culture is ESBL.
--- NOTE | 2020-08-20 16:50 | NUR ---
ROUND Patient resting in the bed. No acute distress. Continue on O2 via NC. IV intact, IVF infusing well. HOB elevated. GT intact, continue on GT feeding. Isolation maintained. Safety measure maintained. Call light within reached. Bed locked in low position, padded side rails up, bed alarm on. Continue to monitor.
--- NOTE | 2020-08-20 18:55 | NUR ---
CLOSING NOTE Patient resting in the bed. No acute distress. Continue on O2 2l/MIN via NC. IV intact, HOB elevated. GT intact, continue on GT feeding. IVF infusing well. Isolation maintained. All needs met. No seizure activity noted during shift. Temp=99.0 at this time. Safety measure maintained. Call light within reached. Bed locked in low position, padded side rails up, bed alarm on. Will endorse to night nurse.
--- NOTE | 2020-08-20 20:30 | NUR ---
Opening notes Pt awake, alert, non-verbal. VSS, afebrile. No s/s distress noted. IVF infusing at ordered rate NS at 100cc/hr L. foot 18G no s/s infiltration. GT feeding Jevity 1.5 running at 30ml/hr, no residual noted. Water flushes given as ordered. Ileostomy R. abd with dark brown stool noted intact. Call light within reach. Bed low, locked, siderails up x3, alarm on. To monitor.
[2020-08-20 20:40] VITALS: BP_SYST 98
[2020-08-20] MEDS ORDERED: POTASSIUM CHLORIDE 20 MEQ/PKT PACKET ONE (21:02)
--- NOTE | 2020-08-20 23:30 | NUR ---
Rounds Pt awake, no s/s distress noted. VSS, afebrile Temp 98.8. New bottle of GT feeding Jevity hung at same order. IVF infusing at ordered rate no s/s infiltration noted. Call light within reach. Bed low, locked, siderails up x3, alarm on. Will continue to monitor.
[2020-08-21] MEDS: PIPERACILLIN/TAZO 3.375/DEX-IS 50 ML IV SCH ×2 (00:05→06:22)
[2020-08-21 00:06] VITALS: BP_SYST 109
[2020-08-21] MEDS: IPRATROPIUM/ALBUTEROL SULFATE 3 ML AMPUL.NEB (DUONEB) INH SCH ×2 (01:00→20:05)
--- NOTE | 2020-08-21 02:30 | NUR ---
Rounds Pt asleep, respirations even and unlabored. O2 2l on via NC. IVF infusing no s/s infiltration noted. Continuous GT feeding Jevity running at ordered rate. Craig catheter draining to gravity with yellow, cloudy urine. Safety maintained. HOB maintained elevated. Droplet isolation maintained. To monitor.
--- NOTE | 2020-08-21 04:35 | NUR ---
Rounds Pt asleep, respirations even and unlabored. O2 2l on via NC. IVF infusing no s/s infiltration noted. Continuous GT feeding Jevity running at ordered rate. Craig catheter draining to gravity with yellow, cloudy urine. R. colostomy bag intact. Safety maintained. HOB maintained elevated. Droplet isolation maintained. To monitor.
--- NOTE | 2020-08-21 06:10 | NUR ---
Closing notes Pt alert, awake, moaning in pain. Pt medicated with scheduled MS contin. IVF infusing at ordered rate L. foot #18G no s/s infiltration. Pt repositioned with pillow support. L hip and sacral dressing C/D/I. R. ileostomy intact. Craig catheter draining to gravity with yellow cloudy urine. Alexsander heels maintained floated on pillow. SCDs on. Droplet isolation maintained. Bed low, locked, siderails up x3, alarm on. To endorse to AM nurse.
[2020-08-21] MEDS: MORPHINE SULFATE 15 MG TABLET.ER GT SCH ×3 (06:21→21:45)
[2020-08-21] MEDS: SUCRALFATE 1 GM/10 ML UDC GT SCH ×4 (06:22→21:42)
[2020-08-21 07:28] LABS: BASOPHILS % (AUTO) 0.2 % (0.0-2.0); EOSINOPHILS % (AUTO) 0.5 % (0.0-4.0); HEMATOCRIT 31.1 % (36-54); HEMOGLOBIN 10.5 g/dL (14.0-18.0); LYMPHOCYTES # (AUTO) 0.7 K/uL (1.0-5.5); MEAN CORPUSCULAR HEMOGLOBIN 34 pg (27-31); MEAN CORPUSCULAR HGB CONC 34 % (32-36); MEAN CORPUSCULAR VOLUME 102 fL (79.0-98.0); MONOCYTES # (AUTO) 0.8 K/uL (0.0-1.0); NEUTROPHILS # (AUTO) 8.1 K/uL (1.8-7.7); NEUTROPHILS % (AUTO) 84.3 % (40.0-70.0); PLATELET COUNT (AUTO) 171 K/uL (130-430); RED BLOOD CELL COUNT(AUTO) 3.06 MIL/uL (4.2-6.2); RED CELL DISTRIBUTION WIDTH 13.2 % (9.0-15.0); WHITE BLOOD COUNT (AUTO) 9.7 K/uL (4.8-10.8)
[2020-08-21 07:43] LABS: ALBUMIN 1.9 g/dL (3.4-4.8); CALCIUM 7.6 mg/dL (8.4-11.0); CREATININE 0.51 mg/dL (0.55-1.30); POTASSIUM 3.2 mmol/L (3.5-5.1); TOTAL BILIRUBIN 0.4 mg/dL (0.0-1.0)
[2020-08-21 08:02] VITALS: BP_SYST 102
--- NOTE | 2020-08-21 08:02 | NUR ---
INITIAL ROUNDS Received pt awake, moaning, no s/s resp distress. Will check on pain medications for comfort. Pt on Airborne and Droplet isolation precautions for R/O Covid-19. HOB elevated for Aspiration precautions. IVF infusing well to left foot with no s/s infiltration to site. Jevity infusing well via G-tube at 40 ml/hr. Colostomy bag in place to right abd with small amount of stool noted. Craig draining to gravity with yellow urine with sediments noted. Pt on air-loss mattress, pt repositioned with pillow support and heels off-loaded for skin care. Oral care provided. Side Rails up x3, bed alarm on for safety.
[2020-08-21] MEDS: ERTAPENEM SODIUM 1 GM in NS 50 ML IV SCH (09:08)
[2020-08-21] MEDS: NACL 0.9% 1,000 ML IV SCH ×2 (09:08→21:58)
[2020-08-21] MEDS: GABAPENTIN 300 MG CAPSULE GT SCH ×4 (09:14→21:44)
[2020-08-21] MEDS: clonazePAM 0.5 MG TABLET PO SCH ×3 (09:15→21:44)
[2020-08-21] MEDS: SODIUM CHLORIDE 500 MG TABLET PO SCH (09:15)
[2020-08-21] MEDS: DULoxetine HCL 30 MG CAPSULE.DR (CYMBALTA) PO SCH ×2 (09:15→21:44)
[2020-08-21] MEDS: LANSOPRAZOLE 30 MG CAPSULE.DR PO SCH ×2 (09:15→21:00)
[2020-08-21] MEDS ORDERED: POTASSIUM CHLORIDE 20 MEQ/PKT PACKET GT ONE (09:30)
[2020-08-21] MEDS: MORPHINE 2 MG/ML INJ. SYRINGE IVP PRN (09:35)
[2020-08-21] MEDS: BALSAM PERU/CASTOR OIL 60 GM OINT...G. TP SCH (10:15)
--- NOTE | 2020-08-21 10:15 | NUR ---
SACRAL WOUND CARE Dressing to sacral area removed, area cleansed with normal saline,moisture barrier cream applied to area, covered with a foam dressing. Pt repositioned with pillow support and heels off-loaded. Pt tolerated well.
[2020-08-21] MEDS: AMIKACIN SULFATE 350 MG in D5W 100 ML IV SCH (11:49)
[2020-08-21 12:10] VITALS: BP_SYST 120
--- NOTE | 2020-08-21 12:20 | NUR ---
ROUNDS Pt resting quietly with no s/s resp distress,no s/s pain or discomfort. Due medications given. Pt repositioned with pillow support and heels off-loaded for skin care. All precautions remain in place.
--- NOTE | 2020-08-21 14:05 | NUR ---
ROUNDS/COLOSTOMY BAG CHANGED Pt resting in bed, moaning sporadically, no s/s resp distress. Noted pt's colostomy bag leaking, old bag removed, new bag placed. Pt repositioned with pillow support and heels off-loaded for skin care. All precautions remain in place.
[2020-08-21] MEDS: POTASSIUM CHLORIDE 20 MEQ/PKT PACKET GT SCH ×2 (14:12→21:43)
[2020-08-21] MEDS: TAMSULOSIN HCL 0.4 MG CAP PO SCH ×2 (15:06→21:44)
[2020-08-21 16:35] VITALS: BP_SYST 124
--- NOTE | 2020-08-21 16:35 | NUR ---
ISOLATION FOR COVID D/C'D/MD Dr. See here and discontinued Covid-19 isolation precautions due to PCR negative. Pt remains on Contact isolation precautions for MDRO of the urine.
--- NOTE | 2020-08-21 18:54 | NUR ---
CLOSING NOTE Pt resting quietly, no s/s resp distress. Pt on Contact isolation precautions for MDRO of urine. HOB elevated for Aspiration precautions. IVF infusing well to left foot with no s/s infiltration to site. Jevity infusing well via G-tube at 40 ml/hr. Colostomy bag in place to right abd with small amount of stool noted. Craig draining to gravity with yellow urine. Side Rails up x3, bed alarm on for safety. Call light within reach.
[2020-08-21 19:00] VITALS: BP_SYST 130
--- NOTE | 2020-08-21 19:15 | NUR ---
change of shift.pt.presents isolation status;contact;mdro;urine.pt.presents status covid19-.pt.presents general status;cerebral palsy.pt.presents speech status;non-verbal;grunting.pt.presents o2 therapy via nasal cannulae.pt.presents iv access location: lt.foot.intact;patent iv fluids infusing.pt.presents ileostomy:location:abdomen:rlq;intact;patent fecal material present.pt.presents botello cath intact;patent urine content present.general status stable.respiratory slight labored.call light/telephone w/in reach of the pt.
[2020-08-21 20:00] VITALS: BP_SYST 130
--- NOTE | 2020-08-21 20:00 | NUR ---
pt.assessed.v/s assessed values w/in normal limits.note h/r:s.tachycardia.o2-sat%=98%.per flacc pain mgx pt.absent facial grimaces/body posturing.iv access intact;patent iv fluids infusing.botello cath intact;patent urine content present. ileostomy intact;patent fecal material present.pt.assessed for cleanliness.pt.repositioned.i have attended to the oral care/suctioning.general status stable.respiratory status stable; slight labored.call light/telephone placed w/in access of the pt.
[2020-08-21] MEDS ORDERED: POTASSIUM CHLORIDE 20 MEQ/PKT PACKET GT SCH (21:00)
--- NOTE | 2020-08-21 21:00 | NUR ---
2100pmedications administered via g-tube.g-tube assessed intact;patent flushed w/out resistance. g-tube residual assessed minimal:10ml noted.
--- NOTE | 2020-08-21 22:00 | NUR ---
pt.assessed.note h/r;s.tachycardia;maintained.o2-sat%=98%.per flacc pain mgx pt.absent facial grimaces/body posturing. i have attended to the ileostomy;measured/cleared.botello cath intact;patent urine content present.iv access intact;patent iv fluids infusing.pt.assessed for cleanliness.pt.repositioned.call light/telephone placed w/in access of the pt.
[2020-08-22] VITALS: BP_SYST 105
--- NOTE | 2020-08-22 | NUR ---
pt.assessed.v/s assessed values w/in normal limits.note h/r:s.tachycardia.per flacc pain mgx pt.absent facial grimaces/body posturing. i have attended to the oral care/suctioning.i have attended to the botello cath;measured/cleared.i have attended to yht ileostomy;measured/cleared.pt.assessed for cleanliness.pt.repositioned.general status stable.respiratory status slght labored; o2-sat%=98%.call light/telephone placed w/in access of the pt.
[2020-08-22] MEDS: IPRATROPIUM/ALBUTEROL SULFATE 3 ML AMPUL.NEB (DUONEB) INH SCH ×4 (00:34→19:48)
--- NOTE | 2020-08-22 02:00 | NUR ---
pt.assessed.pt.presents quiescent affect;calm,resting.somnolent.o2-sat%=98%.pt.per flacc pain mgx;pt.absent facial grimaces/body posturing.i have attended to the ileostomy;measured/cleared.botello cath intact;patent urine content present.iv access intact;patent iv fluids infusing.pt. assessed for cleanliness.pt.repositioned.general status stable.respiratory status stable;unlabored.call light/telephone placed w/in access of the pt.
--- NOTE | 2020-08-22 02:22 | NUR ---
RECEIVED SBAR REPORT FORM PEDRO DOMINGUEZ.
--- NOTE | 2020-08-22 02:25 | NUR ---
PATIENT IS STABLE AND LAYING IN BED. NO S/S OF RESPIRATORY DISTRESS NOTED. CALL LIGHT IN REACH. PATIENT UNSUCCESSFULLY DEMONSTRATES USAGE OF CALL LIGHT. BED IS LOCKED, ALARMED, AND AT THE LOWEST POSITION. FALL, SAFETY, ASPIRATION, AND RESPIRATORY PRECAUTIONS WILL BE IN PLACE THROUGHOUT THE SHIFT. PLAN OF CARE IS DISCUSSED WITH PATIENT.
--- NOTE | 2020-08-22 04:25 | NUR ---
PATIENT IS STABLE AND LAYING IN BED. PATIENT REPOSITION FOR COMFORT. NO S/S OF RESPIRATORY DISTRESS NOTED. CALL LIGHT IN REACH.
[2020-08-22] MEDS: MORPHINE SULFATE 15 MG TABLET.ER GT SCH ×3 (05:50→21:30)
[2020-08-22] MEDS: SUCRALFATE 1 GM/10 ML UDC GT SCH ×4 (06:12→21:28)
--- NOTE | 2020-08-22 06:35 | NUR ---
CLOSING NOTE PATIENT IS STABLE AND LAYING IN BED. NO S/S OF RESPIRATORY DISTRESS NOTED. CALL LIGHT IN REACH. BED IS LOCKED, ALARMED, AND AT THE LOWEST POSITION. FALL, SAFETY, ASPIRATION, CONTACT, AND RESPIRATORY PRECAUTIONS HAS BEEN IN PLACE THROUGHOUT THE SHIFT. WILL CONTINUE TO MONITOR UNTIL SBAR REPORT IS ENDORSED TO AM NURSE.
[2020-08-22 07:09] LABS: BASOPHILS % (AUTO) 0.3 % (0.0-2.0); EOSINOPHILS # (AUTO) 0.1 K/uL (0.0-0.4); HEMATOCRIT 29.8 % (36-54); HEMOGLOBIN 10.3 g/dL (14.0-18.0); LYMPHOCYTES # (AUTO) 0.9 K/uL (1.0-5.5); MEAN CORPUSCULAR HEMOGLOBIN 35 pg (27-31); MEAN CORPUSCULAR HGB CONC 35 % (32-36); MEAN CORPUSCULAR VOLUME 100 fL (79.0-98.0); MONOCYTES # (AUTO) 0.5 K/uL (0.0-1.0); MONOCYTES % (AUTO) 6.9 % (1.7-9.3); NEUTROPHILS % (AUTO) 79.8 % (40.0-70.0); PLATELET COUNT (AUTO) 205 K/uL (130-430); RED BLOOD CELL COUNT(AUTO) 2.99 MIL/uL (4.2-6.2); RED CELL DISTRIBUTION WIDTH 13.2 % (9.0-15.0); WHITE BLOOD COUNT (AUTO) 7.5 K/uL (4.8-10.8)
[2020-08-22 07:22] LABS: CALCIUM 7.6 mg/dL (8.4-11.0); CREATININE 0.45 mg/dL (0.55-1.30); POTASSIUM 3.4 mmol/L (3.5-5.1)
--- NOTE | 2020-08-22 07:26 | NUR ---
Opening Note patient in bed resting, no signs of distress noted, bed locked and at low position, call light within reach, fall aspiration contact and respiration precautions put in place, will monitor patient for any changes.
[2020-08-22 08:00] VITALS: BP_SYST 105
[2020-08-22 08:46] VITALS: BP_SYST 105
[2020-08-22] MEDS: clonazePAM 0.5 MG TABLET PO SCH ×3 (09:45→21:29)
[2020-08-22] MEDS: TAMSULOSIN HCL 0.4 MG CAP PO SCH ×2 (09:45→21:29)
[2020-08-22] MEDS: LANSOPRAZOLE 30 MG CAPSULE.DR PO SCH ×2 (09:45→21:30)
[2020-08-22] MEDS: GABAPENTIN 300 MG CAPSULE GT SCH ×4 (09:45→21:29)
[2020-08-22] MEDS: DULoxetine HCL 30 MG CAPSULE.DR (CYMBALTA) PO SCH ×2 (09:45→21:30)
[2020-08-22] MEDS: POTASSIUM CHLORIDE 20 MEQ/PKT PACKET GT SCH ×3 (09:46→21:29)
[2020-08-22] MEDS: ERTAPENEM SODIUM 1 GM in NS 50 ML IV SCH (09:46)
[2020-08-22] MEDS: BALSAM PERU/CASTOR OIL 60 GM OINT...G. TP SCH (09:47)
[2020-08-22] MEDS: MORPHINE 2 MG/ML INJ. SYRINGE IVP PRN (09:52)
--- NOTE | 2020-08-22 09:55 | NUR ---
Medications patient in bed resting, administered medications as ordered per MD, patient tolerated well, no G tube residuals, safety measures maintained.
--- NOTE | 2020-08-22 11:00 | NUR ---
CONSULTATION PAGED/CALLED Reason for Consultation: [] URINARY RETENTION Person Who was Notified: [] MARIJA Consulting Physician: [] DR AYALA EGAN Commercial Finance Manager Specialty: [] UROLOGIST Ordering Physician: [] DR PANDYA
[2020-08-22 11:26] VITALS: BP_SYST 117
[2020-08-22] MEDS: AMIKACIN SULFATE 350 MG in D5W 100 ML IV SCH (11:49)
--- NOTE | 2020-08-22 12:50 | NUR ---
DC Planning: faxed IV abx ordered , FS and progress note to [facility] attn Hannah, fax # [phone], tel [phone]. Sister Brii and child care centre director Moisés made aware of tentative discharge pt home today by 5 pm. >> Melissa GUTHRIE /Kaden made aware. Addendum: 08/22/20 at 1415 by Nicholas Rodriguez RN Mac Young/[facility] will delivered IV ABX by 3 pm. She will be arranged the drop off with Moisés/caregiver.
[2020-08-22 12:54] LABS: TOTAL IRON BIND. CAPACITY 175 ug/dL (250-450)
--- NOTE | 2020-08-22 14:02 | NUR ---
CM note: Reactivated [facility] with Aleah, given ETA at 1745. PEDRO Hernandes made aware. Moisés and Brii were notified. Moisés pts caregivers number [phone], [facility] rep. will delivered IV ABX by 3 pm. Moisés will be accepting the pt at home. Addendum: 08/22/20 at 1551 by Nicholas Rodriguez RN >>Medic [facility]: Put on " will call " with Yadira. This due to dr. Hodges gave ordered for urologist cons dt pt has urinary retention. He said pt may dc after seen by the urologist. The md aware the IV abx is ready for the pt at home. will see the pt tomorrow. >> Informed Moisés about the possible delay discharge due to above reason. He will informed Brii/sister, her phone is not in service. Moisés will tell Brii that pt may go home with f/c due to UTI/urine retention. I asked for Brii to call me as well.
[2020-08-22 15:35] VITALS: BP_SYST 109
--- NOTE | 2020-08-22 15:52 | NUR ---
CM note: discussed dcp with Brii: regarding f/c concerns. Brii prefers no f/c to go home but if pt needs it she will accept the pt home as well. I informed her that she can call the pt pcp for the f/c removal order as well. Brii stated she already has the urologist referral from dr. Merino , she will call the md office on Monday to set up the f/u caer. -- Dr Hodges made aware, stated Dr Merino is PCP, HH nurse/pt can call for any order needs. I asked dr. Hodges to include in the dc order : to contact pcp for f/c care and removal order. >> Best number to contact Brii today is # [phone] or to call Moisés the career services assistant. She authorized nursing staff to update/arrange the discharge with Moisés.
[2020-08-22] MEDS ORDERED: BETHANECHOL CHLORIDE 25 MG TABLET (URECHOLINE) PO ONE (16:00)
[2020-08-22] MEDS ORDERED: ERTA1VIA IJ (16:47)
--- NOTE | 2020-08-22 16:58 | NUR ---
PATIENT IS DISCHARGED TO [facility] FOR A PACKAGING MANAGER TIME AT 1830 GOING TO PT'S RESIDENTIAL ADDRESS [address] [place] [address]. SPOKE TO LILIAN. CANCELLED PACKER BOOKING WITH [facility] THAT CANNOT PROVIDE THE DESIRED PACKAGING MANAGER TIME. SPOKE TO FIDEL.
[2020-08-22 17:55] LABS: BILIRUBIN,URINE NEGATIVE (NEGATIVE); BLOOD, URINE 3+ (NEGATIVE); CLARITY/URINE CLEAR (CLEAR); COLOR,URINE YELLOW (YELLOW); GLUCOSE,URINE NEGATIVE (NEGATIVE); KETONES,URINE NEGATIVE (NEGATIVE); LEUKOCYTE ESTERASE ,URINE NEGATIVE (NEGATIVE); NITRITE, URINE NEGATIVE (NEGATIVE); PH,URINE 5.5 (5.0-8.0); PROTEIN URINE 1+ (NEGATIVE); UROBILINOGEN,URINE 0.2 (0.2-1.0)
--- NOTE | 2020-08-22 17:56 | NUR ---
SINCE PT HAS NO HOME IV ACCESS FOR ANTIBIOTICS, [facility] WAS PUT ON WILL CALL. SPOKE TO SHE. A PICC LINE WAS ORDERED BY ATTENDING MD, DR PANDYA.
[2020-08-22 18:13] LABS: BACTERIA,URINE FEW /HPF (None Seen); RBC,URINE 20-50 /HPF (0-3)
--- NOTE | 2020-08-22 18:13 | NUR ---
HOLD DISCHARGE ORDER TRYING TO PUT A NEW IV SITE PRIOR TO DISCHARGE BUT FAILED, PATIENT'S IV ON THE FOOT. NOTIFIED DR PANDYA AND ORDERED PICCLINE TO PATIENT AND HOLD DISCHARGE. PER DR EGAN PATIENT TO KEEP HOYT CATH FOR 3 DAYS THEN DC AND MONITOR FOR URINARY RETENTION. NEW GT MEDS WAS ORDERED. SISTER SHARMILA MADE AWARE THAT DISCHARGE WAS HOLD, SHARMILA GAVE A CONSENT FOR PICCLINE INSERTION.
[2020-08-22 18:53] LABS: PROTHROMBIN TIME 10.6 SECS (9.5-12.5)
--- NOTE | 2020-08-22 19:19 | NUR ---
Closing Note patient in bed resting, discharge to be postponed until PICC line is in place, botello catheter in place draining by gravity, bed locked and at low position, call light within reach, will endorse patient care to oncoming fast food shift supervisor nurse.
--- NOTE | 2020-08-22 19:25 | NUR ---
Late Entry Due to Patient Care: Report received from day shift nurse. Pt was received lying in bed sleeping, but arousable. Pt is non-verbal. No acute distress noted at this time. Oxygen is on at 2L/min per NC. GTF of Jevity 1.5 is infusing well at 50ml/hr with 0ml residual. HOB is elevated 45 degrees to prevent aspiration. Rt abdominal Ileostomy noted with watery brownish stool. Craig Cath to gravity drainage noted with clear yellowish urine. IVF of NS is infusing well at 50ml/hr in left foot without any signs of infiltration. Fall, contact isolation and safety precautions are in place.
[2020-08-22 20:00] VITALS: BP_SYST 127
[2020-08-22] MEDS: NACL 0.9% 1,000 ML IV SCH (20:22)
[2020-08-22] MEDS: BETHANECHOL CHLORIDE 25 MG TABLET (URECHOLINE) PO SCH (21:30)
--- NOTE | 2020-08-22 21:30 | NUR ---
Scheduled HS medications administered. Condition remains stable. IVF and GT Feeding are infusing well.
--- NOTE | 2020-08-22 23:15 | NUR ---
Pt was transferred from Room 123B to Room 119B via bed in stable condition.
--- NOTE | 2020-08-23 01:30 | NUR ---
Sleeping without any distress. IVF and GTF are infusing well.
[2020-08-23] MEDS: IPRATROPIUM/ALBUTEROL SULFATE 3 ML AMPUL.NEB (DUONEB) INH SCH ×3 (01:32→14:19)
[2020-08-23 02:04] VITALS: BP_SYST 107
[2020-08-23] MEDS: MORPHINE 2 MG/ML INJ. SYRINGE IVP PRN (04:33)
--- NOTE | 2020-08-23 04:33 | NUR ---
Morphine 2mg given IV for c/o 6/10 generalized aches. Fall and safety precautions are in place.
[2020-08-23] MEDS: SUCRALFATE 1 GM/10 ML UDC GT SCH (06:15)
[2020-08-23] MEDS: MORPHINE SULFATE 15 MG TABLET.ER GT SCH (06:15)
--- NOTE | 2020-08-23 06:30 | NUR ---
Resting quietly in bed. No respiratory distress noted. IVF and GTF are infusing well. Will endorse to day shift nurse.
[2020-08-23] MEDS ORDERED: TAMS0.4C96 PO (09:28)
[2020-08-23] MEDS: LANSOPRAZOLE 30 MG CAPSULE.DR PO SCH (09:28)
[2020-08-23] MEDS: POTASSIUM CHLORIDE 20 MEQ/PKT PACKET GT SCH (09:28)
[2020-08-23] MEDS ORDERED: Bethanechol Chloride PO (09:28)
[2020-08-23] MEDS: clonazePAM 0.5 MG TABLET PO SCH (09:28)
[2020-08-23] MEDS: BETHANECHOL CHLORIDE 25 MG TABLET (URECHOLINE) PO SCH (09:28)
[2020-08-23] MEDS: DULoxetine HCL 30 MG CAPSULE.DR (CYMBALTA) PO SCH (09:28)
[2020-08-23] MEDS: GABAPENTIN 300 MG CAPSULE GT SCH (09:28)
[2020-08-23] MEDS: TAMSULOSIN HCL 0.4 MG CAP PO SCH (09:28)
[2020-08-23] MEDS: BALSAM PERU/CASTOR OIL 60 GM OINT...G. TP SCH (09:29)
[2020-08-23] MEDS: ERTAPENEM SODIUM 1 GM in NS 50 ML IV SCH (09:29)
[2020-08-23] MEDS ORDERED: IPRA3AMP9 INH (10:27)
--- NOTE | 2020-08-23 11:07 | NUR ---
Pst Specialist: D/C new orders SUPERVISOR VOLUNTEER SERVICES is following up re. D/C for pt. Pt. will be going home. SUPERVISOR VOLUNTEER [employer] spoke to Rn who stated [facility] ambulance has been set up for BLS, . SUPERVISOR VOLUNTEER SERVICES will call the [facility], , fax, and fx. over new orders as well as contact [facility] at [phone] , fax [phone]. At present, pt. is waiting for the Piccline. SUPERVISOR VOLUN[employer] will remain available. Addendum: 08/23/20 at 1237 by Katia Qureshi SUPERVISOR V[employer]TE[employer] Pst Specialist: follow up SUPERVISOR VOLUNTEER [employer] called Aye at [facility] after hours contact, . SUPERVISOR VOLUNTEER [employer] shared that she faxd over new Dr. peters, invanz is now for 10 days not the original 5 days as stated in the newly faxd Dr. peters. Aye stated they will send over the rest of the meds. as the meds have already almas sent over to the pts. home. SUPERVISOR VOLUNTE[employer] contacted Yanci at [facility], same number as above. She did not receive the newly faxd over Dr. peters as she is not in the office. SUPERVISOR VOLUNTEER SERVICES went over the new orders with her and Yanci took notes. She will contact the Rn Rudy Harper who will be going to see pt. tomorrow, Yas. Yanci will also contact the to notify her of dr. peters. SUPERVISOR VOLUNTEER [employer] made her aware of d/c home with HH for iv invanz, PT and botello catheter and piccline care; HH for IV ABT Invanz 1gm IV Daily for 10 days HH to draw CBC, BMP on . Nebulizer machine for home use if pt. does not have one , Doune 3ML QID for 1 month. SUPERVISOR VOLUNTEER [employer] will remian available as needed.
[2020-08-23 12:16] VITALS: BP_SYST 102
[2020-08-23 12:55] VITALS: BP_SYST 102
--- NOTE | 2020-08-25 14:32 | NUR ---
Discharge Follow Up Call: CONTINUOUS VULCANIZING MACHINE OPERATOR phoned sister Elva @[phone] and left a message. CONTINUOUS VULCANIZING MACHINE OPERATOR phoned caregiver Moisés instead. Per Moisés, pt is doing "okay". The family was able to fill prescription but 2, and sister Elva is working on getting those. Patient also has an old nebulizer and Brii is working on getting a new one. Per Russell Curieler has started services on 08/24 and an appointment with specialist has already been made. No further SS call needed at this time.
== END 2020-08-23 14:00 | disposition home health service (06) | DRG 871 ==
LOC: SED 20:24 → STU 08-17 00:17
PROVIDERS: ADMIT Internal Medicine; ATTEND Internal Medicine
DX: A41.9 Sepsis, unspecified organism (principal); J69.0 Pneumonitis due to inhalation of food and vomit; N39.0 Urinary tract infection, site not specified; E44.1 Mild protein-calorie malnutrition; E87.1 Hypo-osmolality and hyponatremia; Z68.1 Body mass index [BMI] 19.9 or less, adult; N12 Tubulo-interstitial nephritis, not specified as acute or chronic; R65.10 Systemic inflammatory response syndrome (SIRS) of non-infectious origin without acute organ dysfunction; G80.9 Cerebral palsy, unspecified; K21.9 Gastro-esophageal reflux disease without esophagitis; K80.20 Calculus of gallbladder without cholecystitis without obstruction; J45.909 Unspecified asthma, uncomplicated; B96.1 Klebsiella pneumoniae [K. pneumoniae] as the cause of diseases classified elsewhere; F41.9 Anxiety disorder, unspecified; K76.89 Other specified diseases of liver; G89.4 Chronic pain syndrome; K44.9 Diaphragmatic hernia without obstruction or gangrene; D64.9 Anemia, unspecified; M41.9 Scoliosis, unspecified; E87.6 Hypokalemia; B96.20 Unspecified Escherichia coli [E. coli] as the cause of diseases classified elsewhere; R13.10 Dysphagia, unspecified; F32.9 Major depressive disorder, single episode, unspecified; N40.1 Benign prostatic hyperplasia with lower urinary tract symptoms; R33.8 Other retention of urine; Z20.828 Contact with and (suspected) exposure to other viral communicable diseases; Z93.2 Ileostomy status; Z87.440 Personal history of urinary (tract) infections; Z93.1 Gastrostomy status; Z93.3 Colostomy status; Z90.49 Acquired absence of other specified parts of digestive tract; Z88.5 Allergy status to narcotic agent; Z88.8 Allergy status to other drugs, medicaments and biological substances
CPT/HCPCS: 36415; 71045; 80048; 80053; 81000-TC; 82150-TC; 83540-TC; 83550-TC; 83605; 83690-TC; 83735-TC; 83880; 84100-TC; 85025; 85610-TC; 85730-TC; 87040-TC; 87070-TC; 87086; 87205-TC; 94640; 94760; 96361; 96374; 96375; 97110-GP; 97530-GP; 99291; A5061; C1751; G0378; J0278; J1335; J1885; J2270; J2543; J2765; J7030; J7060; U0003

== ENCOUNTER 2021-01-10 19:33 | Emergency (ER) | payer OTHER, MEDICAID, SELFPAY ==
[~2021-01-10] VITALS: Ht 167.6 cm; Wt 67.1 kg
[~2021-01-10 19:33] MED LIST changes: +AMOX250S64 PO; +Bethanechol Chloride PO; +ERTA1VIA IJ; +IPRA3AMP9 INH; +ONDA4TAB5 GT; +SODI1TAB24 PO; +SUCR1ORA4 GT; +TAMS0.4C96 PO
--- NOTE | 2021-01-10 19:36 | NUR ---
Patient to ER bed 04 to gown for evaluation. Side rails up.
[2021-01-10 19:37] VITALS: BP_SYST 138
--- NOTE | 2021-01-10 19:37 | NUR ---
Came in ER this 65 year old male brought by ALS paramedics from home, with chief complaints of pulled G-tube an hour ago, History of GERD, ASTHMA, COPD, Cerebral Palsy and QUADRIPLEGIA. initial vital signs taken and recorded, stable
--- NOTE | 2021-01-10 19:45 | NUR ---
Seen and examined by Dr. Madison, ER attending
[2021-01-10] MEDS ORDERED: HALOPERIDOL LACTATE 5 MG/ML VIAL ONE (19:53)
[2021-01-10] MEDS ORDERED: HALOPERIDOL LACTATE 5 MG/ML VIAL IM ONE (20:00)
--- NOTE | 2021-01-10 20:01 | NUR ---
Dr. Madison at bedside re-inserted the G-tube
[2021-01-10] MEDS ORDERED: GASTROGRAFIN 120 ML ONE (20:05)
--- NOTE | 2021-01-10 20:18 | NUR ---
Xray at bedside, G-tube in place as reviewed by Dr. Madison.
--- NOTE | 2021-01-10 20:45 | NUR ---
Patient's Sister signed the discharge in instruction, verbalized understanding, waiting for a Van for transport back home.
--- NOTE | 2021-01-10 21:39 | NUR ---
Patient Sister given written and verbal discharge instructions and verbalizes understanding. ER MD discussed with patient the results and treatment provided. Patient in stable condition. ID arm band removed. . Patient educated on pain management and to follow up with PMD. Pain Scale 0/10. Opportunity for questions provided and answered. Medication side effect fact sheet provided.
[2021-01-10 22:38] VITALS: BP_SYST 122
== END 2021-01-10 22:38 | disposition home or self-care (01) ==
LOC: SED 19:33
DX: K94.23 Gastrostomy malfunction (principal); K21.9 Gastro-esophageal reflux disease without esophagitis; J45.909 Unspecified asthma, uncomplicated; Z88.5 Allergy status to narcotic agent; Z88.6 Allergy status to analgesic agent; Z79.899 Other long term (current) drug therapy
CPT/HCPCS: 43762; 74240; 96372; 99284; J1630; Q9963

== ENCOUNTER 2021-01-11 15:01 | Emergency (ER) | payer OTHER, MEDICAID ==
[~2021-01-11] VITALS: Ht 152.4 cm; Wt 49.9 kg
[2021-01-11 15:20] VITALS: BP_SYST 146
[2021-01-11 16:06] VITALS: BP_SYST 146
== END 2021-01-11 16:06 | disposition home or self-care (01) ==
LOC: SED 15:01
DX: K94.23 Gastrostomy malfunction (principal); J45.909 Unspecified asthma, uncomplicated; K21.9 Gastro-esophageal reflux disease without esophagitis; G80.9 Cerebral palsy, unspecified; Z79.899 Other long term (current) drug therapy; Z88.6 Allergy status to analgesic agent
CPT/HCPCS: 99281

== ENCOUNTER 2021-04-09 21:24 | Inpatient (IN) | payer OTHER, MEDICAID, SELFPAY ==
[~2021-04-09] VITALS: Ht 172.7 cm; Wt 49.4 kg
[2021-04-09 21:27] VITALS: BP_SYST 105
[2021-04-09 22:02] LABS: HEMOGLOBIN 13.2 g/dL (14.0-18.0); MONOCYTES # (AUTO) 0.3 K/uL (0.0-1.0)
[2021-04-09 22:09] LABS: BASOPHILS % (AUTO) 0.1 % (0.0-2.0); EOSINOPHILS % (AUTO) 0.1 % (0.0-4.0); HEMATOCRIT 37.7 % (36-54); LYMPHOCYTES # (AUTO) 0.3 K/uL (1.0-5.5); LYMPHOCYTES % (AUTO) 5.1 % (20.5-51.5); MEAN CORPUSCULAR HEMOGLOBIN 34 pg (27-31); MEAN CORPUSCULAR HGB CONC 35 % (32-36); MEAN CORPUSCULAR VOLUME 97 fL (79.0-98.0); MONOCYTES % (AUTO) 4.7 % (1.7-9.3); RED BLOOD CELL COUNT(AUTO) 3.88 MIL/uL (4.2-6.2); WHITE BLOOD COUNT (AUTO) 6.7 K/uL (4.8-10.8)
[2021-04-09 22:15] LABS: PLATELET COUNT (AUTO) 174 K/uL (130-430)
[2021-04-09 22:16] LABS: CALCIUM 8.3 mg/dL (8.4-11.0); CREATININE 0.67 mg/dL (0.55-1.30); POTASSIUM 3.7 mmol/L (3.5-5.1)
[2021-04-09 22:22] LABS: ALBUMIN 3.2 g/dL (3.4-4.8); TOTAL BILIRUBIN 0.7 mg/dL (0.0-1.0)
[2021-04-09 23:28] LABS: BILIRUBIN,URINE NEGATIVE (NEGATIVE); BLOOD, URINE 2+ (NEGATIVE); CLARITY/URINE CLEAR (CLEAR); COLOR,URINE YELLOW (YELLOW); GLUCOSE,URINE NEGATIVE (NEGATIVE); KETONES,URINE NEGATIVE (NEGATIVE); LEUKOCYTE ESTERASE ,URINE 3+ (NEGATIVE); NITRITE, URINE POSITIVE (NEGATIVE); PH,URINE 6.5 (5.0-8.0); PROTEIN URINE NEGATIVE (NEGATIVE); UROBILINOGEN,URINE 0.2 (0.2-1.0)
[2021-04-09] MEDS ORDERED: NACL 0.9% 1,500 ML IV ONE (23:30)
[2021-04-09 23:37] LABS: BACTERIA,URINE MANY /HPF (None Seen); WBC,URINE 20-50 /HPF (0-3)
[2021-04-09] MEDS ORDERED: cefTRIAXone 1 GM in D5W 50 ML IV ONE (23:45)
[2021-04-10] MEDS ORDERED: NACL 0.9% 1,000 ML IV ONE
[2021-04-10] MEDS ORDERED: IBUPROFEN 400 MG TABLET PO ONE
[2021-04-10] MEDS ORDERED: AZITHROMYCIN 500 MG in NS 250 ML IV ONE ×2
[2021-04-10] MEDS ORDERED: ONDA4TAB5 PO (00:20)
[2021-04-10] MEDS ORDERED: ONDA-8 TL (00:28)
[2021-04-10 00:41] LABS: INR 1.1 (0.80-1.20); PROTHROMBIN TIME 11.6 SECS (9.5-12.5)
[2021-04-10] MEDS ORDERED: MORP15TA GT (00:47)
[2021-04-10] MEDS ORDERED: ONDANSETRON 4 MG ODT TAB PO PRN (01:00)
[2021-04-10] MEDS ORDERED: ALBUTEROL SULFATE 2 MG TABLET PO SCH (01:00)
[2021-04-10] MEDS ORDERED: cefTRIAXone 1 GM VIAL ONE (01:23)
[2021-04-10] MEDS ORDERED: AZITHROMYCIN 500 MG/VIAL (ZITHROMAX) IV ONE (01:32)
[2021-04-10 04:25] VITALS: BP_SYST 118
[2021-04-10] MEDS: LR 1,000 ML IV SCH ×3 (04:59→16:12)
[2021-04-10] MEDS ORDERED: PIPERACILLIN/TAZOBACTAM 3.375 GM/VIAL (ZOSYN) IV ONE (05:57)
[2021-04-10 05:59] VITALS: BP_SYST 112
[2021-04-10] MEDS ORDERED: PIPERACILLIN/TAZO 3.375 GM in NS 50 ML IV SCH ×2 (06:00→12:00)
[2021-04-10] MEDS: IPRATROPIUM/ALBUTEROL SULFATE 3 ML AMPUL.NEB (DUONEB) INH SCH ×5 (06:45→23:35)
[2021-04-10] MEDS ORDERED: NALOXONE HCL 0.4 MG/ML AMP (NARCAN) IVP PRN ×2 (07:30)
[2021-04-10] MEDS ORDERED: MORPHINE 2 MG/ML INJ. SYRINGE IVP ONE (07:30)
[2021-04-10] MEDS ORDERED: PANTOPRAZOLE SODIUM 40 MG/VIAL (PROTONIX) IVP ONE (07:45)
[2021-04-10] MEDS ORDERED: ONDANSETRON HCL 4 MG/2 ML VIAL IVP PRN (07:45)
[2021-04-10 08:00] VITALS: BP_SYST 117
[2021-04-10] MEDS ORDERED: ASPIRIN 81 MG TABLET(ECOTRIN) GT ONE (08:00)
[2021-04-10 08:03] LABS: HEMATOCRIT 34.3 % (36-54); HEMOGLOBIN 11.9 g/dL (14.0-18.0); MEAN CORPUSCULAR HEMOGLOBIN 34 pg (27-31); MEAN CORPUSCULAR HGB CONC 35 % (32-36); MEAN CORPUSCULAR VOLUME 98 fL (79.0-98.0); PLATELET COUNT (AUTO) 169 K/uL (130-430); RED BLOOD CELL COUNT(AUTO) 3.51 MIL/uL (4.2-6.2); RED CELL DISTRIBUTION WIDTH 13.2 % (9.0-15.0)
[2021-04-10 08:12] LABS: WHITE BLOOD COUNT (AUTO) 5.1 K/uL (4.8-10.8)
[2021-04-10 08:13] LABS: CALCIUM 7.5 mg/dL (8.4-11.0); CREATININE 0.78 mg/dL (0.55-1.30); POTASSIUM 3.8 mmol/L (3.5-5.1)
[2021-04-10 08:20] LABS: ALBUMIN 2.4 g/dL (3.4-4.8)
[2021-04-10] MEDS ORDERED: GABAPENTIN 250 MG GT SCH (09:00)
[2021-04-10] MEDS ORDERED: PANTOPRAZOLE SODIUM 40 MG TAB GT SCH (09:00)
[2021-04-10] MEDS ORDERED: LANSOPRAZOLE 30 MG CAPSULE.DR PO SCH (09:00)
[2021-04-10] MEDS: LANSOPRAZOLE 30 MG CAPSULE.DR GT SCH ×2 (09:03→21:31)
[2021-04-10] MEDS: GABAPENTIN 300 MG CAPSULE GT SCH ×4 (09:04→21:31)
[2021-04-10] MEDS: clonazePAM 0.5 MG TABLET PO SCH ×3 (09:04→21:31)
[2021-04-10] MEDS: DULoxetine HCL 30 MG CAPSULE.DR (CYMBALTA) PO SCH ×2 (09:04→21:32)
[2021-04-10] MEDS: MORPHINE SULFATE 15 MG TABLET.ER PO SCH ×3 (09:04→21:32)
[2021-04-10] MEDS: ENOXAPARIN SODIUM 40 MG/0.4 ML SYRINGE SUBCUT SCH (09:07)
[2021-04-10 11:48] LABS: ATYPICAL LYMPHOCYTES % 0 % (0-0); BAND % (MANUAL) 28 % (0-6); BASOPHILS % (MANUAL) 0 % (0-2); EOSINOPHILS % (MANUAL) 0 % (0-7); LYMPHOCYTES % (MANUAL) 13 % (20-46); MONOCYTES % (MANUAL) 8 % (0-11)
[2021-04-10] MEDS: ERTAPENEM SODIUM 1 GM in NS 50 ML IV SCH (12:48)
[2021-04-10 13:53] VITALS: BP_SYST 93
[2021-04-10] MEDS: MORPHINE 2 MG/ML INJ. SYRINGE IVP PRN (14:21)
[2021-04-10 20:30] VITALS: BP_SYST 113
[2021-04-10] MEDS ORDERED: GABAPENTIN GT SCH (21:00)
[2021-04-10] MEDS: MORPHINE SULFATE 10 MG/5 ML ORAL SOL. UDC GT SCH (21:33)
[2021-04-11 00:40] VITALS: BP_SYST 113
[2021-04-11] MEDS: LR 1,000 ML IV SCH (02:59)
[2021-04-11] MEDS: IPRATROPIUM/ALBUTEROL SULFATE 3 ML AMPUL.NEB (DUONEB) INH SCH ×5 (03:31→23:33)
[2021-04-11 06:25] LABS: BASOPHILS % (AUTO) 0.4 % (0.0-2.0); HEMATOCRIT 32.7 % (36-54); HEMOGLOBIN 11.3 g/dL (14.0-18.0); LYMPHOCYTES # (AUTO) 0.4 K/uL (1.0-5.5); LYMPHOCYTES % (AUTO) 4.6 % (20.5-51.5); MEAN CORPUSCULAR HEMOGLOBIN 34 pg (27-31); MEAN CORPUSCULAR HGB CONC 35 % (32-36); MEAN CORPUSCULAR VOLUME 99 fL (79.0-98.0); MONOCYTES # (AUTO) 0.4 K/uL (0.0-1.0); MONOCYTES % (AUTO) 5.4 % (1.7-9.3); NEUTROPHILS # (AUTO) 6.9 K/uL (1.8-7.7); NEUTROPHILS % (AUTO) 89.6 % (40.0-70.0); PLATELET COUNT (AUTO) 177 K/uL (130-430); RED CELL DISTRIBUTION WIDTH 13.4 % (9.0-15.0); WHITE BLOOD COUNT (AUTO) 7.7 K/uL (4.8-10.8)
[2021-04-11 07:27] LABS: ALANINE AMINOTRANSFERASE 19 U/L (12-78); ALBUMIN 2.3 g/dL (3.4-4.8); AMYLASE 87 U/L (0-100); ANION GAP 10 (5-15); ASPARTATE AMINOTRANSFERASE 18 U/L (10-37); CALCIUM 8.3 mg/dL (8.4-11.0); CHLORIDE 108 mmol/L (98-107); GLUCOSE 141 mg/dL (70-99); POTASSIUM 3.8 mmol/L (3.5-5.1); SODIUM SERUM 143 mmol/L (136-145); UREA NITROGEN, BLOOD 8 mg/dL (8-21)
[2021-04-11 07:35] LABS: GFR AFRICAN AMERICAN 173 mL/min (>90)
[2021-04-11 07:36] LABS: TOTAL BILIRUBIN 0.2 mg/dL (0.0-1.0)
[2021-04-11 08:05] LABS: % FREE PSA 16.5 % (.); FREE PSA 0.33 ng/mL
[2021-04-11] MEDS: GABAPENTIN 300 MG CAPSULE GT SCH ×4 (10:00→21:27)
[2021-04-11] MEDS: ASPIRIN 81 MG TABLET(ECOTRIN) GT SCH (10:00)
[2021-04-11] MEDS: DULoxetine HCL 30 MG CAPSULE.DR (CYMBALTA) PO SCH ×2 (10:00→21:26)
[2021-04-11] MEDS: LANSOPRAZOLE 30 MG CAPSULE.DR GT SCH ×2 (10:00→21:35)
[2021-04-11] MEDS: MORPHINE SULFATE 15 MG TABLET.ER PO SCH ×3 (10:01→21:26)
[2021-04-11] MEDS: clonazePAM 0.5 MG TABLET PO SCH ×3 (10:01→21:27)
[2021-04-11] MEDS: ENOXAPARIN SODIUM 40 MG/0.4 ML SYRINGE SUBCUT SCH (10:12)
[2021-04-11 12:00] VITALS: BP_SYST 110
[2021-04-11] MEDS: ERTAPENEM SODIUM 1 GM in NS 50 ML IV SCH (12:15)
[2021-04-11] MEDS: MORPHINE 2 MG/ML INJ. SYRINGE IVP PRN ×2 (12:20→17:53)
[2021-04-11 18:23] VITALS: BP_SYST 139
[2021-04-11 20:30] VITALS: BP_SYST 124
[2021-04-11] MEDS: MORPHINE SULFATE 10 MG/5 ML ORAL SOL. UDC GT SCH (22:01)
[2021-04-12 00:16] VITALS: BP_SYST 124
[2021-04-12] MEDS: IPRATROPIUM/ALBUTEROL SULFATE 3 ML AMPUL.NEB (DUONEB) INH SCH ×6 (03:38→23:10)
[2021-04-12] MEDS: MORPHINE 2 MG/ML INJ. SYRINGE IVP PRN ×2 (04:22→10:42)
[2021-04-12 08:05] LABS: BASOPHILS % (AUTO) 0.6 % (0.0-2.0); EOSINOPHILS # (AUTO) 0.1 K/uL (0.0-0.4); EOSINOPHILS % (AUTO) 1.3 % (0.0-4.0); HEMATOCRIT 32.2 % (36-54); LYMPHOCYTES # (AUTO) 0.7 K/uL (1.0-5.5); LYMPHOCYTES % (AUTO) 8.8 % (20.5-51.5); MEAN CORPUSCULAR HEMOGLOBIN 34 pg (27-31); MEAN CORPUSCULAR HGB CONC 34 % (32-36); MEAN CORPUSCULAR VOLUME 100 fL (79.0-98.0); MONOCYTES # (AUTO) 0.4 K/uL (0.0-1.0); MONOCYTES % (AUTO) 5.5 % (1.7-9.3); NEUTROPHILS # (AUTO) 6.3 K/uL (1.8-7.7); NEUTROPHILS % (AUTO) 83.8 % (40.0-70.0); PLATELET COUNT (AUTO) 190 K/uL (130-430); RED BLOOD CELL COUNT(AUTO) 3.22 MIL/uL (4.2-6.2); RED CELL DISTRIBUTION WIDTH 13.4 % (9.0-15.0); WHITE BLOOD COUNT (AUTO) 7.5 K/uL (4.8-10.8)
[2021-04-12 08:44] LABS: CALCIUM 8.4 mg/dL (8.4-11.0); CREATININE 0.55 mg/dL (0.55-1.30); POTASSIUM 4.3 mmol/L (3.5-5.1)
[2021-04-12] MEDS: clonazePAM 0.5 MG TABLET PO SCH ×3 (09:14→21:29)
[2021-04-12] MEDS: MORPHINE SULFATE 15 MG TABLET.ER PO SCH ×3 (09:14→21:30)
[2021-04-12] MEDS: GABAPENTIN 300 MG CAPSULE GT SCH ×4 (09:14→21:30)
[2021-04-12] MEDS: DULoxetine HCL 30 MG CAPSULE.DR (CYMBALTA) PO SCH ×2 (09:14→21:30)
[2021-04-12] MEDS: LANSOPRAZOLE 30 MG CAPSULE.DR GT SCH ×2 (09:15→21:30)
[2021-04-12] MEDS: ASPIRIN 81 MG TABLET(ECOTRIN) GT SCH (09:15)
[2021-04-12] MEDS: ENOXAPARIN SODIUM 40 MG/0.4 ML SYRINGE SUBCUT SCH (09:30)
[2021-04-12 12:19] VITALS: BP_SYST 119
[2021-04-12] MEDS: ERTAPENEM SODIUM 1 GM in NS 50 ML IV SCH (12:52)
[2021-04-12 16:20] VITALS: BP_SYST 150
[2021-04-12 20:00] VITALS: BP_SYST 145
[2021-04-12] MEDS: MORPHINE SULFATE 10 MG/5 ML ORAL SOL. UDC GT SCH (21:31)
[2021-04-13] VITALS: BP_SYST 152
[2021-04-13] MEDS: MORPHINE 2 MG/ML INJ. SYRINGE IVP PRN ×3 (01:59→17:15)
[2021-04-13] MEDS: IPRATROPIUM/ALBUTEROL SULFATE 3 ML AMPUL.NEB (DUONEB) INH SCH ×3 (05:51→11:40)
[2021-04-13 08:00] VITALS: BP_SYST 116
[2021-04-13] MEDS: GABAPENTIN 300 MG CAPSULE GT SCH ×3 (09:13→18:57)
[2021-04-13] MEDS: DULoxetine HCL 30 MG CAPSULE.DR (CYMBALTA) PO SCH (09:13)
[2021-04-13] MEDS: LANSOPRAZOLE 30 MG CAPSULE.DR GT SCH (09:13)
[2021-04-13] MEDS: ASPIRIN 81 MG TABLET(ECOTRIN) GT SCH (09:13)
[2021-04-13] MEDS: clonazePAM 0.5 MG TABLET PO SCH ×2 (09:14→15:00)
[2021-04-13] MEDS: MORPHINE SULFATE 15 MG TABLET.ER PO SCH ×2 (09:14→15:00)
[2021-04-13] MEDS: ENOXAPARIN SODIUM 40 MG/0.4 ML SYRINGE SUBCUT SCH (09:15)
[2021-04-13] MEDS: ERTAPENEM SODIUM 1 GM in NS 50 ML IV SCH (11:53)
[2021-04-13 12:16] VITALS: BP_SYST 132
[2021-04-13 13:02] VITALS: BP_SYST 132
[2021-04-13 13:25] VITALS: BP_SYST 116
[2021-04-13 17:20] VITALS: BP_SYST 145
== END 2021-04-13 19:25 | disposition home or self-care (01) | DRG 871 ==
LOC: SED 21:24 → STU 23:53
PROVIDERS: ADMIT Internal Medicine; ATTEND Internal Medicine
PROC: 02HV33Z Insertion of Infusion Device into Superior Vena Cava, Percutaneous Approach (ICD-10-PCS; principal; 2021-04-09)
PROC: B548ZZA Ultrasonography of Superior Vena Cava, Guidance (ICD-10-PCS; 2021-04-09)
DX: A41.9 Sepsis, unspecified organism (principal); J18.9 Pneumonia, unspecified organism; G82.50 Quadriplegia, unspecified; R65.21 Severe sepsis with septic shock; N39.0 Urinary tract infection, site not specified; E44.0 Moderate protein-calorie malnutrition; E87.1 Hypo-osmolality and hyponatremia; I24.8 Other forms of acute ischemic heart disease; Z68.1 Body mass index [BMI] 19.9 or less, adult; Z16.12 Extended spectrum beta lactamase (ESBL) resistance; G89.4 Chronic pain syndrome; N31.9 Neuromuscular dysfunction of bladder, unspecified; F41.9 Anxiety disorder, unspecified; F32.9 Major depressive disorder, single episode, unspecified; K80.20 Calculus of gallbladder without cholecystitis without obstruction; M41.9 Scoliosis, unspecified; M54.9 Dorsalgia, unspecified; Z20.822 Contact with and (suspected) exposure to COVID-19; J45.909 Unspecified asthma, uncomplicated; K21.9 Gastro-esophageal reflux disease without esophagitis; D63.8 Anemia in other chronic diseases classified elsewhere; Z88.6 Allergy status to analgesic agent; Z88.8 Allergy status to other drugs, medicaments and biological substances; Z79.899 Other long term (current) drug therapy; Z93.2 Ileostomy status; Z90.49 Acquired absence of other specified parts of digestive tract; Z74.01 Bed confinement status
CPT/HCPCS: 36415; 71045; 80048; 80053; 80061; 81000; 82150; 83605; 84153; 84484; 85007; 85025; 85027; 85610-TC; 87040-TC; 87086; 93005; 93306; 94640; 94760; 96365; 96368; 99285; G0378; J0456; J0696; J1335; J1650; J1956; J2270; J2543

== ENCOUNTER 2021-04-23 15:00 | Emergency (ER) | payer OTHER, MEDICAID ==
[~2021-04-23] VITALS: Ht 172.7 cm; Wt 72.6 kg
[~2021-04-23 15:00] MED LIST changes: -AMOX250S64 PO; -Bethanechol Chloride PO; -ERTA1VIA IJ; +MORP15TA GT; +ONDA-8 TL; -ONDA4TAB5 GT; +ONDA4TAB5 PO; -SODI1TAB24 PO; -SUCR1ORA4 GT; -TAMS0.4C96 PO
[2021-04-23 15:10] VITALS: BP_SYST 108
[2021-04-23 16:31] VITALS: BP_SYST 99
== END 2021-04-23 16:30 | disposition home or self-care (01) ==
LOC: SED 15:00
DX: Z45.2 Encounter for adjustment and management of vascular access device (principal); J45.909 Unspecified asthma, uncomplicated; K21.9 Gastro-esophageal reflux disease without esophagitis; Z88.5 Allergy status to narcotic agent; Z88.6 Allergy status to analgesic agent; Z79.899 Other long term (current) drug therapy
CPT/HCPCS: 99281

== ENCOUNTER 2021-07-31 14:28 | Emergency (ER) | payer OTHER, MEDICAID ==
[~2021-07-31] VITALS: Ht 170.2 cm; Wt 59.9 kg
[2021-07-31 14:35] VITALS: BP_SYST 118
[2021-07-31] MEDS ORDERED: GASTROGRAFIN 120 ML ONE (15:02)
[2021-07-31 16:50] VITALS: BP_SYST 131
== END 2021-07-31 16:50 | disposition home or self-care (01) ==
LOC: SED 14:28
DX: K94.23 Gastrostomy malfunction (principal); K21.9 Gastro-esophageal reflux disease without esophagitis; J45.909 Unspecified asthma, uncomplicated; Z88.5 Allergy status to narcotic agent; Z88.6 Allergy status to analgesic agent; Z79.899 Other long term (current) drug therapy
CPT/HCPCS: 43762; 74240; 99284; Q9963

== ENCOUNTER 2021-08-11 07:42 | Inpatient (IN) | payer OTHER, MEDICAID, SELFPAY ==
[~2021-08-11] VITALS: Ht 170.2 cm; Wt 59.0 kg
[2021-08-11] VITALS (11 sets, daily range): BP systolic 91–156
--- NOTE | 2021-08-11 07:42 | NUR ---
BROUGHT IN BY [facility] AND PLACED IN BED #6, TRIAGED, REPORT GIVEN TO RED
--- NOTE | 2021-08-11 07:45 | NUR ---
Pt alert, nonverbal, and bed bound. Pt has history of cerebral palsy and family reports nausea and vomiting since last night. Pt V/S stable.
--- NOTE | 2021-08-11 07:45 | NUR ---
ER Dr. Diggs at bedside examining patient.
--- NOTE | 2021-08-11 07:50 | NUR ---
Portable X-ray done at bedside.
--- NOTE | 2021-08-11 08:05 | NUR ---
Pt straight cath'd for urine specimen. Urine specimen sent to lab for analysis.
[2021-08-11 08:26] LABS: BILIRUBIN,URINE NEGATIVE (NEGATIVE); BLOOD, URINE 2+ (NEGATIVE); COLOR,URINE YELLOW (YELLOW); GLUCOSE,URINE NEGATIVE (NEGATIVE); KETONES,URINE NEGATIVE (NEGATIVE); LEUKOCYTE ESTERASE ,URINE 2+ (NEGATIVE); NITRITE, URINE NEGATIVE (NEGATIVE); PROTEIN URINE TRACE (NEGATIVE); UROBILINOGEN,URINE 0.2 (0.2-1.0)
--- NOTE | 2021-08-11 08:35 | NUR ---
# 18 gauge angiocath placed to Right IJ by Dr. Diggs. Use of asceptic technique. Opsite placed over site. Blood return noted. Blood for lab drawn from site. Flushed with 10 cc of normal saline. No evidence of infiltration noted. Patient tolerated well.
[2021-08-11 08:41] LABS: CLARITY/URINE HAZY (CLEAR)
[2021-08-11 08:43] LABS: BACTERIA,URINE MODERATE /HPF (None Seen); MUCUS,URINE 1+ /LPF (None Seen); WBC,URINE 50-80 /HPF (0-3)
[2021-08-11 09:04] LABS: CALCIUM 8.8 mg/dL (8.4-11.0); CREATININE 0.56 mg/dL (0.55-1.30); POTASSIUM 3.7 mmol/L (3.5-5.1)
[2021-08-11 09:08] LABS: INR 1.3 (0.80-1.20)
[2021-08-11 09:09] LABS: ALBUMIN 2.9 g/dL (3.4-4.8); TOTAL BILIRUBIN 1.7 mg/dL (0.0-1.0)
[2021-08-11 09:11] LABS: BASOPHILS % (AUTO) 0.2 % (0.0-2.0); HEMATOCRIT 34.4 % (36-54); HEMOGLOBIN 12.1 g/dL (14.0-18.0); LYMPHOCYTES # (AUTO) 0.6 K/uL (1.0-5.5); LYMPHOCYTES % (AUTO) 6.4 % (20.5-51.5); MEAN CORPUSCULAR HEMOGLOBIN 34 pg (27-31); MEAN CORPUSCULAR HGB CONC 35 % (32-36); MEAN CORPUSCULAR VOLUME 97 fL (79.0-98.0); MONOCYTES # (AUTO) 0.3 K/uL (0.0-1.0); NEUTROPHILS # (AUTO) 9.1 K/uL (1.8-7.7); NEUTROPHILS % (AUTO) 90.4 % (40.0-70.0); PLATELET COUNT (AUTO) 244 K/uL (130-430); RED BLOOD CELL COUNT(AUTO) 3.56 MIL/uL (4.2-6.2); RED CELL DISTRIBUTION WIDTH 13.1 % (9.0-15.0)
[2021-08-11] MEDS ORDERED: NACL 0.9% 1,000 ML IV ONE (09:30)
[2021-08-11] MEDS ORDERED: LORazepam 2 MG/ML VIAL IVP ONE (09:30)
--- NOTE | 2021-08-11 09:36 | NUR ---
Admit orders received from Dr. Hodges. Pt to go to Tele. Bed ordered.
[2021-08-11 09:38] LABS: C-REACTIVE PROTEIN QUANT 14.1 mg/dL (0-0.5)
--- NOTE | 2021-08-11 09:40 | NUR ---
Covid swab obtained and sent to lab for analysis.
[2021-08-11] MEDS ORDERED: MORPHINE 4 MG INJ. 4 MG/ML VIAL IVP ONE (09:45)
[2021-08-11] MEDS ORDERED: D5NS 1,000 ML IV SCH (09:45)
[2021-08-11] MEDS ORDERED: ONDANSETRON HCL 4 MG/2 ML VIAL IVP PRN (09:45)
--- NOTE | 2021-08-11 10:44 | NUR ---
Patient will be admitted to care of Dr. Hodges. Admitted to Tele unit. Will go to room 133A. Belongings list completed. Complete and up to date summary report printed. SBAR report to be given at bedside with opportunity for questions.
--- NOTE | 2021-08-11 10:45 | NUR ---
Transfer to Tele via ACLS protocol. Licensed nurse present. IV present no signs or symptoms of infiltration.
--- NOTE | 2021-08-11 11:00 | NUR ---
PATIENT ADMITTED FROM ER VIA GURNEY, ON 2L NASAL CANULA, GASTROTOMY IN PLACE AND DRAINING, G TUBE IN PLACE AND CLAMPED WITH BROWN DRAINAGE AROUND SITE, INTRACTABLE VOMITING, VOMIT IS BROWN IN COLOR, PATIENT SUCTIONED, TOLD BY ER THAT PATIENT WAS STRAIGHT CATHETER IN ER, IV IN R NECK INTACT PATENT RUNNING BOLUS NS FROM ER WILL SWITCH TO D5NS AT 150 PER ORDERS WHEN FINISHED, PATIENT HAS BELS PALSY, IS CONTRACTED, QUADRIPLEGIC, GARBLED SPEECH, UNABLE TO GIVE HISTORY, WILL CALL FAMILY FOR HISTORY. BED IN LOWEST LOCKED POSITION, CALL LIGHT WITHIN REACH, WILL CONTINUE TO MONITOR.
--- NOTE | 2021-08-11 11:30 | NUR ---
PATIENT SATURATION WAS ONLY 85% ON 2L, TRIED TITRATING PATIENT UP BUT SATURATION IS UNCHANGED, SUCTIONED PATIENT ORALLY AND OUTPUT WAS BROWN EMESIS, CALLED RT, CURRENTLY ASSISTING IN SUCTIONING AND TITRATING UP ON OXYGEN.
--- NOTE | 2021-08-11 12:30 | NUR ---
PATIENT IS ON OXIMIZER 12L SATURATING 96%, STILL EXPERIENCING VOMITING, HEART RATE HAS JUMPED UP TO 130 AND PATIENT HAS FEVER OF 100, CALLED DR PANDYA AWAITING CALL BACK.
--- NOTE | 2021-08-11 13:30 | NUR ---
SPOKE WITH DR PANDYA AT BEDSIDE, ASSESSED PATIENT AND ORDER TO TRANSFER TO ICU.
[2021-08-11] MEDS ORDERED: METOCLOPRAMIDE HCL 10 MG/2 ML VIAL IVP ONE (13:45)
[2021-08-11] MEDS ORDERED: methylPREDNISolone SOD SUCC/PF 62.5 MG/ML VIAL IVP ONE ×2 (14:00)
[2021-08-11] MEDS ORDERED: methylPREDNISolone SOD SUCC/PF 62.5 MG/ML VIAL IVP SCH (14:00)
--- NOTE | 2021-08-11 14:00 | NUR ---
PATIENT IS BEING TRANSFERRED TO ICU WITH ASSISTANCE OF RT AND CHARGE NURSE, GIVING FULL REPORT AND FINISHING ADMISSION INTERVENTIONS WITH ASSISTANCE OF THE SISTER WHO IS STATED TO BE NEXT OF KIN IN THE FACE SHEET.
[2021-08-11] MEDS ORDERED: IPRATROPIUM/ALBUTEROL SULFATE 3 ML AMPUL.NEB (DUONEB) INH PRN (14:15)
[2021-08-11] MEDS: IPRATROPIUM/ALBUTEROL SULFATE 3 ML AMPUL.NEB (DUONEB) INH SCH ×3 (14:24→22:55)
[2021-08-11] MEDS ORDERED: GABAPENTIN 250 MG GT SCH (15:00)
[2021-08-11] MEDS ORDERED: MORPHINE SULFATE 15 MG TABLET.ER PO SCH (15:00)
--- NOTE | 2021-08-11 15:00 | NUR ---
Transfer to ICU Assumed care of pt. Unable to obtain IV site, IV lost during transport to ICU, bleeding controlled. Pt arrive with GT and colostomy.
--- NOTE | 2021-08-11 16:30 | NUR ---
Dr. Carroll burdick. Received orders for PICC line. Obtained consent from pt's sister Brii witness by 2nd RN. Brii states pt also has baclofen pump implanted in abdomen.
[2021-08-11] MEDS ORDERED: PANTOPRAZOLE SODIUM 40 MG/VIAL (PROTONIX) IVP ONE (17:30)
[2021-08-11] MEDS: MORPHINE SULFATE 30 MG Immediate Release TABLET GT SCH ×2 (17:56→22:15)
--- NOTE | 2021-08-11 18:43 | NUR ---
Closing Pt still with no IV access, unable to obtain labs or blood cultures prior to administration of IV abx and other IV meds. Dr. Hodges aware, PICC line ordered and consent signed, awaiting PICC line nurse arrival. Craig in place with dark yellow/orange urine draining to gravity. Given morphine via GT per MD order for pain. Emptied 100ml loose liquid from colostomy. Will endorse plan of care to RN.
[2021-08-11] MEDS: DULoxetine HCL 30 MG CAPSULE.DR (CYMBALTA) PO SCH (20:00)
[2021-08-11] MEDS: PIPERACILLIN/TAZO 3.375/DEX-IS 50 ML IV SCH (20:00)
--- NOTE | 2021-08-11 20:51 | NUR ---
PAGED DR. WYLIE [phone] ORDERS SPOKE WITH ALETA
[2021-08-11] MEDS: clonazePAM 0.5 MG TABLET PO SCH ×2 (20:57→21:03)
[2021-08-11] MEDS: ENOXAPARIN SODIUM 40 MG/0.4 ML SYRINGE SUBCUT SCH (20:58)
[2021-08-11] MEDS: GABAPENTIN 300 MG CAPSULE GT SCH (20:58)
[2021-08-11] MEDS ORDERED: GABAPENTIN GT SCH (21:00)
[2021-08-11] MEDS ORDERED: PANTOPRAZOLE SODIUM 40 MG TAB PO SCH (21:00)
[2021-08-11] MEDS: DILTIAZEM HCL 30 MG TABLET GT SCH (21:10)
[2021-08-11] MEDS ORDERED: DILTIAZEM HCL 30 MG TABLET ONE (21:14)
[2021-08-11] MEDS: NACL 0.9% 1,000 ML IV SCH (23:00)
[2021-08-12] VITALS (24 sets, daily range): BP systolic 90–119
[2021-08-12 00:45] LABS: BASOPHILS % (AUTO) 0.2 % (0.0-2.0); LYMPHOCYTES # (AUTO) 0.4 K/uL (1.0-5.5); LYMPHOCYTES % (AUTO) 3.2 % (20.5-51.5); MEAN CORPUSCULAR HEMOGLOBIN 34 pg (27-31); MEAN CORPUSCULAR HGB CONC 35 % (32-36); MEAN CORPUSCULAR VOLUME 98 fL (79.0-98.0); MONOCYTES # (AUTO) 0.3 K/uL (0.0-1.0); MONOCYTES % (AUTO) 2.2 % (1.7-9.3); NEUTROPHILS % (AUTO) 94.4 % (40.0-70.0); PLATELET COUNT (AUTO) 242 K/uL (130-430); RED BLOOD CELL COUNT(AUTO) 3.26 MIL/uL (4.2-6.2); RED CELL DISTRIBUTION WIDTH 13.4 % (9.0-15.0); WHITE BLOOD COUNT (AUTO) 11.6 K/uL (4.8-10.8)
[2021-08-12 00:56] LABS: CALCIUM 7.3 mg/dL (8.4-11.0); CREATININE 0.7 mg/dL (0.55-1.30); POTASSIUM 3.7 mmol/L (3.5-5.1)
[2021-08-12 01:08] LABS: INR 1.6 (0.80-1.20)
[2021-08-12 01:09] LABS: PROTHROMBIN TIME 16.8 SECS (9.5-12.5)
[2021-08-12] MEDS: METOCLOPRAMIDE HCL 10 MG/2 ML VIAL IVP SCH ×4 (01:34→12:00)
[2021-08-12] MEDS: methylPREDNISolone SOD SUCC/PF 62.5 MG/ML VIAL IVP SCH ×4 (01:35→21:15)
[2021-08-12] MEDS: MORPHINE 4 MG INJ. 4 MG/ML VIAL IVP PRN ×3 (01:38→17:11)
--- NOTE | 2021-08-12 02:33 | NUR ---
PAGED DR. PANDYA [phone] ORDERS SPOKE WITH JERO
[2021-08-12] MEDS: NACL 0.9% 1,000 ML IV SCH ×2 (02:45→12:44)
--- NOTE | 2021-08-12 02:50 | NUR ---
PAGED DR. PANDYA. PATIENT IS VERY ANXIOUS & DIAPHORETIC. ST 148 TO 150 BPM. RECEIVED NEW ORDER FROM DR. PANDYA FOR ATIVAN 1 MG Q4HRS IV PRN ANXIETY. TELEPHONE ORDER READ BACK. CONTINUE TO MONITOR THE PATIENT.
[2021-08-12] MEDS ORDERED: LORazepam 2 MG/ML VIAL ONE (02:55)
[2021-08-12] MEDS: IPRATROPIUM/ALBUTEROL SULFATE 3 ML AMPUL.NEB (DUONEB) INH SCH ×6 (03:00→23:15)
[2021-08-12] MEDS ORDERED: LORazepam 2 MG/ML VIAL IVP PRN (03:00)
[2021-08-12] MEDS: PIPERACILLIN/TAZO 3.375/DEX-IS 50 ML IV SCH ×4 (03:25→21:17)
[2021-08-12 06:43] LABS: ALBUMIN 2.3 g/dL (3.4-4.8); CALCIUM 7.3 mg/dL (8.4-11.0); CREATININE 0.75 mg/dL (0.55-1.30); PHOSPHORUS 2.4 mg/dL (2.7-4.5); POTASSIUM 3.4 mmol/L (3.5-5.1); TOTAL BILIRUBIN 0.9 mg/dL (0.0-1.0)
[2021-08-12] MEDS: DILTIAZEM HCL 30 MG TABLET GT SCH ×3 (06:47→21:16)
[2021-08-12] MEDS: MORPHINE SULFATE 30 MG Immediate Release TABLET GT SCH ×3 (06:48→22:15)
[2021-08-12] MEDS: GABAPENTIN 100 MG CAPSULE GT SCH ×3 (07:00→12:43)
[2021-08-12] MEDS: clonazePAM 0.5 MG TABLET PO SCH ×2 (08:09→20:52)
[2021-08-12] MEDS: PANTOPRAZOLE SODIUM 40 MG/VIAL (PROTONIX) IVP SCH ×2 (08:17→20:51)
[2021-08-12 08:21] LABS: HEMATOCRIT 30.2 % (36-54); HEMOGLOBIN 10.5 g/dL (14.0-18.0); MEAN CORPUSCULAR HEMOGLOBIN 34 pg (27-31); MEAN CORPUSCULAR HGB CONC 35 % (32-36); MEAN CORPUSCULAR VOLUME 99 fL (79.0-98.0); PLATELET COUNT (AUTO) 227 K/uL (130-430); RED BLOOD CELL COUNT(AUTO) 3.06 MIL/uL (4.2-6.2); RED CELL DISTRIBUTION WIDTH 13.3 % (9.0-15.0); WHITE BLOOD COUNT (AUTO) 10.4 K/uL (4.8-10.8)
[2021-08-12] MEDS: DULoxetine HCL 30 MG CAPSULE.DR (CYMBALTA) PO SCH ×2 (09:45→20:52)
--- NOTE | 2021-08-12 11:16 | NUR ---
Nutrition Update Fantasma Scale 11 noted. Pt admitted for hyponatremia, intractable vomiting. Diet: Jevity 1.5 at 20 ml/hr, Free Water Flush: 150 via GT BMI: 20.4 kg/m2 RD to follow per nutrition care standards.
[2021-08-12 13:53] LABS: BAND % (MANUAL) 56 % (0-6); BASOPHILS % (MANUAL) 0 % (0-2); EOSINOPHILS % (MANUAL) 0 % (0-7); LYMPHOCYTES % (MANUAL) 1 % (20-46); METAMYELOCYTES % 6 % (0-0); MONOCYTES % (MANUAL) 1 % (0-11)
[2021-08-12] MEDS ORDERED: K PHOS 15 MM in NS 250 ML IV ONE (16:00)
[2021-08-12] MEDS ORDERED: ALBUMIN HUMAN 25% 200 ML IV ONE (16:15)
[2021-08-12] MEDS ORDERED: clonazePAM 0.5 MG TABLET GT ONE (16:15)
--- NOTE | 2021-08-12 16:27 | NUR ---
Called Dr. See with a consult,spoke with Quinn from doctors office
--- NOTE | 2021-08-12 16:28 | NUR ---
Called Dr. Novoa with a consult, spoke with Tia from doctors office
[2021-08-12] MEDS ORDERED: NS 500 ML IV ONE (16:45)
[2021-08-12] MEDS: AZITHROMYCIN 500 MG in NS 250 ML IV SCH ×3 (17:30)
[2021-08-12] MEDS: clonazePAM 0.5 MG TABLET GT SCH (20:51)
[2021-08-12] MEDS: GABAPENTIN 300 MG CAPSULE GT SCH (20:52)
[2021-08-12] MEDS: guaiFENesin ER 600 MG TAB GT SCH (20:53)
[2021-08-12] MEDS: ENOXAPARIN SODIUM 40 MG/0.4 ML SYRINGE SUBCUT SCH (20:53)
[2021-08-12] MEDS: LACTOBACILLUS RHAMNOSUS GG 1 CAP CAPSULE GT SCH (21:17)
--- NOTE | 2021-08-12 22:08 | NUR ---
MD DORIAN HUGHES CRITICAL LAB RESULTS [phone] SPOKE WITH PIPPA
--- NOTE | 2021-08-12 22:40 | NUR ---
Received a call from Lab Dept. Per Shivam, patient's blood culture result is gram positive cocci & cluster. Dr. Adrian made aware with no new orders at this time.
[2021-08-13] VITALS (21 sets, daily range): BP systolic 98–142
[2021-08-13] MEDS: METOCLOPRAMIDE HCL 10 MG/2 ML VIAL IVP SCH ×5 (01:21→18:34)
[2021-08-13] MEDS: PIPERACILLIN/TAZO 3.375/DEX-IS 50 ML IV SCH ×4 (01:22→20:30)
[2021-08-13] MEDS: IPRATROPIUM/ALBUTEROL SULFATE 3 ML AMPUL.NEB (DUONEB) INH SCH ×6 (03:30→22:56)
[2021-08-13] MEDS: DILTIAZEM HCL 30 MG TABLET GT SCH (06:11)
[2021-08-13] MEDS: methylPREDNISolone SOD SUCC/PF 62.5 MG/ML VIAL IVP SCH (06:11)
[2021-08-13] MEDS: MORPHINE SULFATE 30 MG Immediate Release TABLET GT SCH ×3 (06:12→21:48)
[2021-08-13 06:22] LABS: BASOPHILS % (AUTO) 0.1 % (0.0-2.0); HEMATOCRIT 23.8 % (36-54); HEMOGLOBIN 8.2 g/dL (14.0-18.0); LYMPHOCYTES # (AUTO) 0.2 K/uL (1.0-5.5); MEAN CORPUSCULAR HEMOGLOBIN 34 pg (27-31); MEAN CORPUSCULAR HGB CONC 34 % (32-36); MEAN CORPUSCULAR VOLUME 100 fL (79.0-98.0); MONOCYTES # (AUTO) 0.1 K/uL (0.0-1.0); MONOCYTES % (AUTO) 1.6 % (1.7-9.3); NEUTROPHILS # (AUTO) 6.9 K/uL (1.8-7.7); NEUTROPHILS % (AUTO) 95.3 % (40.0-70.0); PLATELET COUNT (AUTO) 161 K/uL (130-430); RED BLOOD CELL COUNT(AUTO) 2.39 MIL/uL (4.2-6.2); RED CELL DISTRIBUTION WIDTH 13.2 % (9.0-15.0); WHITE BLOOD COUNT (AUTO) 7.2 K/uL (4.8-10.8)
[2021-08-13] MEDS: NACL 0.9% 1,000 ML IV SCH (07:55)
[2021-08-13 08:08] LABS: ALBUMIN 2.9 g/dL (3.4-4.8); CALCIUM 8.5 mg/dL (8.4-11.0); CREATININE 0.49 mg/dL (0.55-1.30); PHOSPHORUS 1.9 mg/dL (2.7-4.5); POTASSIUM 3.2 mmol/L (3.5-5.1); TOTAL BILIRUBIN 0.5 mg/dL (0.0-1.0)
[2021-08-13] MEDS: GABAPENTIN 100 MG CAPSULE GT SCH ×3 (08:19→16:42)
[2021-08-13 08:30] LABS: TOTAL IRON BIND. CAPACITY 178 ug/dL (250-450)
[2021-08-13] MEDS: LACTOBACILLUS RHAMNOSUS GG 1 CAP CAPSULE GT SCH ×2 (09:01→21:02)
[2021-08-13] MEDS: PANTOPRAZOLE SODIUM 40 MG/VIAL (PROTONIX) IVP SCH ×2 (09:01→21:05)
[2021-08-13] MEDS: DULoxetine HCL 30 MG CAPSULE.DR (CYMBALTA) PO SCH ×2 (09:01→21:03)
[2021-08-13] MEDS: clonazePAM 0.5 MG TABLET GT SCH ×3 (09:02→21:03)
[2021-08-13] MEDS: guaiFENesin ER 600 MG TAB GT SCH ×2 (09:02→21:03)
[2021-08-13] MEDS ORDERED: *CUBICIN 6 MG/KG Q24H/PHARMACY XX PRN (09:45)
[2021-08-13] MEDS ORDERED: K PHOS 30 MM in NS 250 ML IV ONE (09:45)
[2021-08-13] MEDS: LR 1,000 ML IV SCH ×2 (10:27→20:29)
[2021-08-13] MEDS: SOD FERRIC GLUC COMPLEX/SUC 125 MG in NS 100 ML IV SCH (11:17)
[2021-08-13] MEDS: DAPTOmycin 350 MG in NS 50 ML IV SCH (12:55)
--- NOTE | 2021-08-13 13:40 | NUR ---
Dietitian Recommendations * Recommend continuing Jevity 1.5 at 50 ml/hr, Maldonado BID, Prosource TID, Free Water Flush:150 Q4H via GT Provides: 2160 kcal/day, 127 gm protein/day, and 1812 ml free water/day Meets: 105% of upper end of estimated caloric needs and 108% of upper end of estimated protein needs LP, RD Please refer to Nutrition Assessment for details. Addendum: 08/13/21 at [address] Amended: Links added.
[2021-08-13] MEDS: methylPREDNISolone SOD SUCC 40 MG/ML VIAL IVP SCH ×2 (14:07→21:47)
[2021-08-13] MEDS ORDERED: DILTIAZEM HCL 30 MG TABLET GT ONE (14:15)
[2021-08-13] MEDS ORDERED: GASTROGRAFIN 120 ML ONE (14:39)
[2021-08-13] MEDS: MORPHINE 4 MG INJ. 4 MG/ML VIAL IVP PRN (16:45)
[2021-08-13] MEDS: clonazePAM 0.5 MG TABLET PO SCH (21:02)
[2021-08-13] MEDS: GABAPENTIN 300 MG CAPSULE GT SCH (21:03)
[2021-08-13] MEDS: ENOXAPARIN SODIUM 40 MG/0.4 ML SYRINGE SUBCUT SCH (21:04)
--- NOTE | 2021-08-13 22:49 | NUR ---
Colostomy care Colostomy bag is leaking , stoma is pink periwound intact , colostomy bag changed
[2021-08-14] MEDS: METOCLOPRAMIDE HCL 10 MG/2 ML VIAL IVP SCH ×5 (00:01→23:32)
[2021-08-14 00:41] VITALS: BP_SYST 122
[2021-08-14] MEDS: PIPERACILLIN/TAZO 3.375/DEX-IS 50 ML IV SCH ×4 (02:08→20:07)
[2021-08-14] MEDS: IPRATROPIUM/ALBUTEROL SULFATE 3 ML AMPUL.NEB (DUONEB) INH SCH ×6 (03:15→23:16)
--- NOTE | 2021-08-14 04:12 | NUR ---
Skin care/comfort Perineal care given , skin cream barrier applied , colostomy bag intact no leaking , repositioned bilateral leg contracted kept supported by pillow to avoid friction rub., aspiration precaution head of bed kept semi fowlers.
[2021-08-14] MEDS: GABAPENTIN 100 MG CAPSULE GT SCH ×3 (06:00→16:09)
[2021-08-14] MEDS: methylPREDNISolone SOD SUCC 40 MG/ML VIAL IVP SCH ×2 (06:00→20:38)
[2021-08-14] MEDS: DILTIAZEM HCL 30 MG TABLET GT SCH ×5 (06:00→23:32)
[2021-08-14] MEDS: MORPHINE SULFATE 30 MG Immediate Release TABLET GT SCH ×3 (06:01→22:20)
[2021-08-14] MEDS: LR 1,000 ML IV SCH ×2 (06:02→16:31)
[2021-08-14 07:00] VITALS: BP_SYST 127
[2021-08-14 07:29] LABS: BASOPHILS % (AUTO) 0.1 % (0.0-2.0); HEMATOCRIT 22.6 % (36-54); HEMOGLOBIN 7.7 g/dL (14.0-18.0); LYMPHOCYTES # (AUTO) 0.2 K/uL (1.0-5.5); LYMPHOCYTES % (AUTO) 3.3 % (20.5-51.5); MEAN CORPUSCULAR HEMOGLOBIN 34 pg (27-31); MEAN CORPUSCULAR HGB CONC 34 % (32-36); MEAN CORPUSCULAR VOLUME 100 fL (79.0-98.0); MONOCYTES # (AUTO) 0.2 K/uL (0.0-1.0); MONOCYTES % (AUTO) 2.5 % (1.7-9.3); NEUTROPHILS # (AUTO) 6.9 K/uL (1.8-7.7); NEUTROPHILS % (AUTO) 94.1 % (40.0-70.0); PLATELET COUNT (AUTO) 117 K/uL (130-430); RED BLOOD CELL COUNT(AUTO) 2.26 MIL/uL (4.2-6.2); RED CELL DISTRIBUTION WIDTH 13.4 % (9.0-15.0); WHITE BLOOD COUNT (AUTO) 7.3 K/uL (4.8-10.8)
--- NOTE | 2021-08-14 07:40 | NUR ---
OPENING NOTES: RECEIVED PATIENT FROM HOT DIE PICKER NURSE. PATIENT IS AWAKE, LAYING DOWN IN BED. TOLERATED OXYGEN ON 2L OXIMIZER WITH NO DISTRESS OR SHORTNESS OF BREATH. IV LINE PATENT AND INTACT WITH NO INFILTRATION NOTED. HOYT CATHETER IN PLACE AND DRAINING BY GRAVITY. PATIENT STABLE AT THIS TIME. SAFETY, FALL, SEIZURE, AND ASPIRATION PRECAUTIONS ARE IN PLACE. BED LOCKED IN LOWEST POSITION AND CALL LIGHT IN REACH. WILL CONTINUE TO MONITOR PATIENT FOR ANY CHANGES.
[2021-08-14 08:00] VITALS: BP_SYST 133
[2021-08-14] MEDS: guaiFENesin ER 600 MG TAB GT SCH ×2 (08:49→20:39)
[2021-08-14] MEDS: LACTOBACILLUS RHAMNOSUS GG 1 CAP CAPSULE GT SCH ×2 (08:49→20:39)
[2021-08-14] MEDS: PANTOPRAZOLE SODIUM 40 MG/VIAL (PROTONIX) IVP SCH ×2 (08:49→20:38)
[2021-08-14] MEDS: clonazePAM 0.5 MG TABLET GT SCH ×3 (08:49→20:39)
[2021-08-14] MEDS: DULoxetine HCL 30 MG CAPSULE.DR (CYMBALTA) PO SCH ×2 (08:49→20:39)
[2021-08-14 10:10] LABS: ALBUMIN 2.7 g/dL (3.4-4.8); CALCIUM 8.2 mg/dL (8.4-11.0); CREATININE 0.57 mg/dL (0.55-1.30); PHOSPHORUS 1.8 mg/dL (2.7-4.5); TOTAL BILIRUBIN 0.3 mg/dL (0.0-1.0)
[2021-08-14] MEDS: SOD FERRIC GLUC COMPLEX/SUC 125 MG in NS 100 ML IV SCH (10:31)
[2021-08-14 11:07] LABS: POTASSIUM 2.3 mmol/L (3.5-5.1)
--- NOTE | 2021-08-14 11:19 | NUR ---
HIGH ALERT NOTE: Called Dr. PANDYA back at identified within the medical roster to verify physician authenticity.
[2021-08-14] MEDS ORDERED: POTASSIUM CHLORIDE 20 MEQ/PKT PACKET PO ONE (11:30)
[2021-08-14] MEDS: DAPTOmycin 350 MG in NS 50 ML IV SCH (11:39)
[2021-08-14 13:05] VITALS: BP_SYST 118
[2021-08-14] MEDS ORDERED: K PHOS 30 MM in NS 250 ML IV ONE (16:00)
[2021-08-14] MEDS: EPOETIN ALFA 4,000 UNITS/ML VIAL SUBCUT SCH (16:09)
[2021-08-14] MEDS: NAPH,MB-DB/K PH,MBDB 250 MG TAB GT SCH ×2 (16:09→20:38)
[2021-08-14 18:11] VITALS: BP_SYST 132
--- NOTE | 2021-08-14 18:25 | NUR ---
CLOSING NOTES: PATIENT IS AWAKE, LAYING DOWN IN BED. TOLERATED OXYGEN ON 2L OXIMIZER WITH NO DISTRESS OR SHORTNESS OF BREATH. IV LINE PATENT AND INTACT WITH NO INFILTRATION NOTED. HOYT CATHETER IN PLACE AND DRAINING BY GRAVITY. PATIENT STABLE AT THIS TIME. SAFETY, FALL, SEIZURE, AND ASPIRATION PRECAUTIONS REMAINED IN PLACE. BED LOCKED IN LOWEST POSITION AND CALL LIGHT IN REACH. WILL ENDORSE PATIENT CARE TO ONCOMING NUCLEAR LICENSING ENGINEER NURSE.
[2021-08-14 19:10] LABS: BASOPHILS % (AUTO) 0.1 % (0.0-2.0); HEMATOCRIT 23.6 % (36-54); HEMOGLOBIN 8.1 g/dL (14.0-18.0); LYMPHOCYTES # (AUTO) 0.2 K/uL (1.0-5.5); LYMPHOCYTES % (AUTO) 2.6 % (20.5-51.5); MEAN CORPUSCULAR HEMOGLOBIN 34 pg (27-31); MEAN CORPUSCULAR HGB CONC 34 % (32-36); MEAN CORPUSCULAR VOLUME 99 fL (79.0-98.0); MONOCYTES # (AUTO) 0.3 K/uL (0.0-1.0); MONOCYTES % (AUTO) 3.5 % (1.7-9.3); NEUTROPHILS # (AUTO) 6.8 K/uL (1.8-7.7); NEUTROPHILS % (AUTO) 93.8 % (40.0-70.0); PLATELET COUNT (AUTO) 115 K/uL (130-430); RED BLOOD CELL COUNT(AUTO) 2.38 MIL/uL (4.2-6.2); RED CELL DISTRIBUTION WIDTH 13.5 % (9.0-15.0); WHITE BLOOD COUNT (AUTO) 7.3 K/uL (4.8-10.8)
[2021-08-14 20:00] VITALS: BP_SYST 133
[2021-08-14] MEDS: clonazePAM 0.5 MG TABLET PO SCH (20:39)
[2021-08-14] MEDS: GABAPENTIN 300 MG CAPSULE GT SCH (20:39)
[2021-08-14] MEDS: ENOXAPARIN SODIUM 40 MG/0.4 ML SYRINGE SUBCUT SCH (20:40)
--- NOTE | 2021-08-14 22:00 | NUR ---
Perineal care given , repositioned by staff every 2 hours with pillow support., aspiration precaution, HOB kept semi fowlers,
--- NOTE | 2021-08-15 00:30 | NUR ---
Patient sleeping but arousable , no sign of acute respiratory distress oxygen saturation 99% on 2 L/NC.
[2021-08-15 01:25] VITALS: BP_SYST 125
[2021-08-15] MEDS: PIPERACILLIN/TAZO 3.375/DEX-IS 50 ML IV SCH ×4 (01:27→20:07)
[2021-08-15] MEDS: LR 1,000 ML IV SCH (01:28)
--- NOTE | 2021-08-15 03:31 | NUR ---
Patient repositioned by staff every 2 hours with pillow support.
[2021-08-15] MEDS: IPRATROPIUM/ALBUTEROL SULFATE 3 ML AMPUL.NEB (DUONEB) INH SCH ×6 (03:46→23:24)
[2021-08-15] MEDS: MORPHINE SULFATE 30 MG Immediate Release TABLET GT SCH ×3 (06:06→22:10)
[2021-08-15] MEDS: GABAPENTIN 100 MG CAPSULE GT SCH ×3 (06:06→17:27)
[2021-08-15] MEDS: DILTIAZEM HCL 30 MG TABLET GT SCH ×4 (06:07→23:27)
[2021-08-15] MEDS: METOCLOPRAMIDE HCL 10 MG/2 ML VIAL IVP SCH ×4 (06:07→23:26)
--- NOTE | 2021-08-15 07:30 | NUR ---
OPENING NOTES: RECEIVED PATIENT FROM CONCRETE PAVING SUPERVISOR NURSE. PATIENT IS AWAKE, LAYING DOWN IN BED. TOLERATED OXYGEN ON 2L NASAL CANNULA WITH NO DISTRESS OR SHORTNESS OF BREATH. IV LINE PATENT AND INTACT WITH NO INFILTRATION NOTED. HOYT CATHETER IN PLACE AND DRAINING BY GRAVITY. PATIENT STABLE AT THIS TIME. SAFETY, FALL, SEIZURE, AND ASPIRATION PRECAUTIONS ARE IN PLACE. BED LOCKED IN LOWEST POSITION AND CALL LIGHT IN REACH. WILL CONTINUE TO MONITOR PATIENT FOR ANY CHANGES.
[2021-08-15 08:00] VITALS: BP_SYST 116
[2021-08-15 08:30] LABS: BASOPHILS % (AUTO) 0.2 % (0.0-2.0); EOSINOPHILS % (AUTO) 0.1 % (0.0-4.0); HEMATOCRIT 23.5 % (36-54); LYMPHOCYTES # (AUTO) 0.2 K/uL (1.0-5.5); LYMPHOCYTES % (AUTO) 3.8 % (20.5-51.5); MEAN CORPUSCULAR HEMOGLOBIN 34 pg (27-31); MEAN CORPUSCULAR HGB CONC 34 % (32-36); MEAN CORPUSCULAR VOLUME 100 fL (79.0-98.0); MONOCYTES # (AUTO) 0.3 K/uL (0.0-1.0); MONOCYTES % (AUTO) 5.3 % (1.7-9.3); NEUTROPHILS % (AUTO) 90.6 % (40.0-70.0); PLATELET COUNT (AUTO) 115 K/uL (130-430); RED BLOOD CELL COUNT(AUTO) 2.35 MIL/uL (4.2-6.2); RED CELL DISTRIBUTION WIDTH 13.7 % (9.0-15.0); WHITE BLOOD COUNT (AUTO) 5.5 K/uL (4.8-10.8)
[2021-08-15 08:51] LABS: CALCIUM 8.1 mg/dL (8.4-11.0); CREATININE 0.63 mg/dL (0.55-1.30)
[2021-08-15] MEDS: PANTOPRAZOLE SODIUM 40 MG/VIAL (PROTONIX) IVP SCH (08:55)
[2021-08-15] MEDS: methylPREDNISolone SOD SUCC 40 MG/ML VIAL IVP SCH (08:56)
[2021-08-15] MEDS: DULoxetine HCL 30 MG CAPSULE.DR (CYMBALTA) PO SCH ×2 (08:57→20:59)
[2021-08-15] MEDS: LACTOBACILLUS RHAMNOSUS GG 1 CAP CAPSULE GT SCH ×2 (08:57→20:59)
[2021-08-15] MEDS: clonazePAM 0.5 MG TABLET GT SCH ×3 (08:58→20:59)
[2021-08-15] MEDS: NAPH,MB-DB/K PH,MBDB 250 MG TAB GT SCH ×4 (08:58→20:59)
[2021-08-15] MEDS: guaiFENesin ER 600 MG TAB GT SCH ×2 (08:58→20:59)
[2021-08-15] MEDS: SOD FERRIC GLUC COMPLEX/SUC 125 MG in NS 100 ML IV SCH (10:35)
[2021-08-15 10:51] LABS: POTASSIUM 2.8 mmol/L (3.5-5.1)
--- NOTE | 2021-08-15 11:21 | NUR ---
PAGED PAGED ALEXANDRA BERNARDO AT [phone] SPOKE WITH MAKSIM.
[2021-08-15] MEDS: DAPTOmycin 350 MG in NS 50 ML IV SCH (11:50)
[2021-08-15] MEDS: MORPHINE 4 MG INJ. 4 MG/ML VIAL IVP PRN (11:54)
[2021-08-15 12:00] VITALS: BP_SYST 115
--- NOTE | 2021-08-15 12:34 | NUR ---
HIGH ALERT NOTE: Called Dr. Hodges back at identified within the medical roster to verify physician authenticity.
[2021-08-15] MEDS ORDERED: POTASSIUM CHLORIDE 20 MEQ/PKT PACKET PO ONE (12:45)
[2021-08-15] MEDS ORDERED: K PHOS 30 MM in NS 250 ML IV ONE (14:30)
--- NOTE | 2021-08-15 15:00 | NUR ---
DR. PANDYA ORDERED 1 UNIT OF PACKED RBC. HEMOGLOBIN 8.0
[2021-08-15] MEDS: ERGOCALCIFEROL 8000 UNITS/ML ORAL SOLUTION, 60 ML BOTTLE GT SCH (17:28)
[2021-08-15] MEDS ORDERED: CHOLECALCIFEROL (VITAMIN D3) 2,000 UNIT TABLET PO SCH (18:00)
--- NOTE | 2021-08-15 18:40 | NUR ---
CLOSING NOTES: PATIENT IS AWAKE, LAYING DOWN IN BED. TOLERATED OXYGEN ON 2L NASAL CANNULA WITH NO DISTRESS OR SHORTNESS OF BREATH. IV LINE PATENT AND INTACT WITH NO INFILTRATION NOTED. HOYT CATHETER IN PLACE AND DRAINING BY GRAVITY. PATIENT STABLE AT THIS TIME. SAFETY, FALL, SEIZURE, AND ASPIRATION PRECAUTIONS REMAINED IN PLACE. BED LOCKED IN LOWEST POSITION AND CALL LIGHT IN REACH. WILL ENDORSE PATIENT CARE TO ONCOMING FINISH MOLDER NURSE.
--- NOTE | 2021-08-15 20:00 | NUR ---
BT INITIATION: Consent signed agreeing to administration of blood. Blood has been type and crossmatched. Blood sent from blood bank. Information on unit of blood checked against patient wristband at bedside by two nurses. All information matches. Patient or responsible alliance party informed of potential complications associated with blood transfusion. Informed of possible transfusion reaction symptoms. Aware of need to notify nurse at once of itching, shortness of breath, flushing, feeling of impending doom, or other symptoms not previously present. Vital signs taken within 5 minutes prior to initiation of transfusion. RN will remain with patient for first 15 minutes of transfusion at which time vital signs will be re-assessed. Addendum: 08/15/21 at 2246 by Brii Quintanilla RN Blood transfusion completed with out transfusion reaction , vitals sign stable.
[2021-08-15 20:11] VITALS: BP_SYST 133
[2021-08-15] MEDS: POTASSIUM CHLORIDE 20 MEQ/PKT PACKET PO SCH (20:58)
[2021-08-15] MEDS: GABAPENTIN 300 MG CAPSULE GT SCH (20:59)
[2021-08-15] MEDS: LANSOPRAZOLE 30 MG CAPSULE.DR GT SCH (20:59)
[2021-08-15] MEDS: clonazePAM 0.5 MG TABLET PO SCH (20:59)
[2021-08-15] MEDS ORDERED: PANTOPRAZOLE GRANULES PACKET 40 MG GT SCH (21:00)
[2021-08-15] MEDS: ENOXAPARIN SODIUM 40 MG/0.4 ML SYRINGE SUBCUT SCH (21:00)
[2021-08-16 00:30] VITALS: BP_SYST 121
--- NOTE | 2021-08-16 01:00 | NUR ---
Patient repositioned by staff every 2 hours with pillow support.
[2021-08-16] MEDS: LR 1,000 ML IV SCH (01:15)
[2021-08-16] MEDS: PIPERACILLIN/TAZO 3.375/DEX-IS 50 ML IV SCH ×2 (01:15→09:08)
[2021-08-16] MEDS: IPRATROPIUM/ALBUTEROL SULFATE 3 ML AMPUL.NEB (DUONEB) INH SCH ×6 (03:31→23:37)
[2021-08-16] MEDS: METOCLOPRAMIDE HCL 10 MG/2 ML VIAL IVP SCH ×3 (06:11→17:44)
[2021-08-16] MEDS: MORPHINE SULFATE 30 MG Immediate Release TABLET GT SCH ×3 (06:12→22:31)
[2021-08-16] MEDS: GABAPENTIN 100 MG CAPSULE GT SCH ×3 (06:13→17:06)
[2021-08-16] MEDS: DILTIAZEM HCL 30 MG TABLET GT SCH ×3 (06:50→23:36)
[2021-08-16 06:54] LABS: CALCIUM 7.9 mg/dL (8.4-11.0); CREATININE 0.58 mg/dL (0.55-1.30); PHOSPHORUS 2.7 mg/dL (2.7-4.5); POTASSIUM 3.8 mmol/L (3.5-5.1)
--- NOTE | 2021-08-16 08:00 | NUR ---
OPENING NOTES: PATIENT RESTING IN BED. BREATHING EVEN AND NON LABORED TO O2 AT 2L/NC. IV AND G TUBE INFUSING WELL. HOYT CATHETER SECURED AND DRAINING BY GRAVITY. ILEOSTOMY IN PLACED AND DRAINING WITH WATERY STOOL. BED LOCKED, ALARM ON AND IN LOWEST POSITION. FALL, SAFETY AND ASPIRATION PRECAUTION REINFORCED. CALL LIGHT WITHIN REACH.
[2021-08-16 08:01] VITALS: BP_SYST 128
[2021-08-16 08:36] LABS: BASOPHILS % (AUTO) 0.1 % (0.0-2.0); EOSINOPHILS % (AUTO) 0.4 % (0.0-4.0); HEMATOCRIT 27.9 % (36-54); HEMOGLOBIN 9.4 g/dL (14.0-18.0); LYMPHOCYTES # (AUTO) 0.5 K/uL (1.0-5.5); LYMPHOCYTES % (AUTO) 6.6 % (20.5-51.5); MEAN CORPUSCULAR HEMOGLOBIN 33 pg (27-31); MEAN CORPUSCULAR HGB CONC 34 % (32-36); MEAN CORPUSCULAR VOLUME 98 fL (79.0-98.0); MONOCYTES # (AUTO) 0.4 K/uL (0.0-1.0); MONOCYTES % (AUTO) 4.4 % (1.7-9.3); NEUTROPHILS # (AUTO) 7.2 K/uL (1.8-7.7); NEUTROPHILS % (AUTO) 88.5 % (40.0-70.0); PLATELET COUNT (AUTO) 128 K/uL (130-430); RED BLOOD CELL COUNT(AUTO) 2.83 MIL/uL (4.2-6.2); RED CELL DISTRIBUTION WIDTH 16.4 % (9.0-15.0); WHITE BLOOD COUNT (AUTO) 8.1 K/uL (4.8-10.8)
[2021-08-16] MEDS ORDERED: methylPREDNISolone SOD SUCC 40 MG/ML VIAL IVP SCH (09:00)
[2021-08-16] MEDS: guaiFENesin ER 600 MG TAB GT SCH ×2 (09:07→21:12)
[2021-08-16] MEDS: NAPH,MB-DB/K PH,MBDB 250 MG TAB GT SCH ×4 (09:07→21:12)
[2021-08-16] MEDS: LACTOBACILLUS RHAMNOSUS GG 1 CAP CAPSULE GT SCH ×2 (09:07→21:12)
[2021-08-16] MEDS: LANSOPRAZOLE 30 MG CAPSULE.DR GT SCH ×2 (09:07→21:12)
[2021-08-16] MEDS: DULoxetine HCL 30 MG CAPSULE.DR (CYMBALTA) PO SCH ×2 (09:07→21:12)
[2021-08-16] MEDS: clonazePAM 0.5 MG TABLET GT SCH ×3 (09:07→21:00)
[2021-08-16] MEDS: POTASSIUM CHLORIDE 20 MEQ/PKT PACKET PO SCH ×2 (09:12→21:12)
[2021-08-16] MEDS: ERGOCALCIFEROL 8000 UNITS/ML ORAL SOLUTION, 60 ML BOTTLE GT SCH (09:13)
[2021-08-16] MEDS: SOD FERRIC GLUC COMPLEX/SUC 125 MG in NS 100 ML IV SCH (10:02)
--- NOTE | 2021-08-16 10:46 | NUR ---
Discharge Planning: SHARLA faxed pt referral to [facility] (f [phone] P [phone]) DC planning to resume home health and IV ABX, DENZELP to follow up. Addendum: 08/16/21 at 1558 by Rosa Art DP SHARLA received a call from Delma [phone] at [facility] requesting a DC order with ABX Drug, Dose, Duration so the medication can be ordered. SHARLA made CM aware.
[2021-08-16] MEDS: DAPTOmycin 350 MG in NS 50 ML IV SCH (11:45)
[2021-08-16 12:28] VITALS: BP_SYST 143
[2021-08-16] MEDS ORDERED: CAR30 GT (13:48)
[2021-08-16 14:23] LABS: CALCIUM 8.4 mg/dL (8.4-11.0); CREATININE 0.59 mg/dL (0.55-1.30)
--- NOTE | 2021-08-16 15:07 | NUR ---
DR. ALEJANDRA PAGED: DR. ALEJANDRA PAGED REGARDING THE HOME ANTIBIOTICS.WILL FF UP.
[2021-08-16 16:59] VITALS: BP_SYST 134
[2021-08-16] MEDS: EPOETIN ALFA 4,000 UNITS/ML VIAL SUBCUT SCH (17:44)
--- NOTE | 2021-08-16 17:53 | NUR ---
SPOKE TO DR. ALEJANDRA: SPOKE TO DR. ALEJANDRA REGARDING THE DISCHARGE ORDER FOR ANTIBIOTICS. PER DR. ALEJANDRA MAY DISCHARGE THE PATIENT TOMORROW.
[2021-08-16] MEDS ORDERED: FLU VACC QS2021-22(6MOS UP)/PF 0.5 ML/SYR SYRINGE I.M. ONE (18:15)
--- NOTE | 2021-08-16 18:48 | NUR ---
FLU VACCINE GIVEN: FLU VACCINE GIVEN AT RIGHT DELTOID.
--- NOTE | 2021-08-16 19:02 | NUR ---
CLOSING NOTES: PATIENT RESTING IN BED. HOB ELEVATED. NO S/S OF ACUTE DISTRESS NOTED. IV AND G TUBE INFUSING WELL. HOYT CATHETER SECURED AND DRAINING BY GRAVITY. ILEOSTOMY IN PLACED AND DRAINING WITH WATERY STOOL. BED LOCKED, ALARM ON AND IN LOWEST POSITION. FALL, SAFETY AND ASPIRATION MEASURES PROVIDED.
[2021-08-16 19:55] VITALS: BP_SYST 144
[2021-08-16] MEDS: clonazePAM 0.5 MG TABLET PO SCH (21:11)
[2021-08-16] MEDS: GABAPENTIN 300 MG CAPSULE GT SCH (21:12)
[2021-08-16] MEDS: CEFTAZIDIME 1 GM in D5W 50 ML IV SCH (21:14)
[2021-08-16] MEDS: ENOXAPARIN SODIUM 40 MG/0.4 ML SYRINGE SUBCUT SCH (21:22)
[2021-08-17] VITALS (7 sets, daily range): BP systolic 123–139
[2021-08-17] MEDS: METOCLOPRAMIDE HCL 10 MG/2 ML VIAL IVP SCH ×4 (00:35→17:09)
[2021-08-17] MEDS: IPRATROPIUM/ALBUTEROL SULFATE 3 ML AMPUL.NEB (DUONEB) INH SCH ×4 (05:35→15:37)
[2021-08-17] MEDS: MORPHINE SULFATE 30 MG Immediate Release TABLET GT SCH ×2 (06:17→14:52)
[2021-08-17 06:26] LABS: BASOPHILS % (AUTO) 0.1 % (0.0-2.0); HEMATOCRIT 30.9 % (36-54); HEMOGLOBIN 10.1 g/dL (14.0-18.0); LYMPHOCYTES # (AUTO) 0.8 K/uL (1.0-5.5); LYMPHOCYTES % (AUTO) 9.4 % (20.5-51.5); MEAN CORPUSCULAR HEMOGLOBIN 33 pg (27-31); MEAN CORPUSCULAR HGB CONC 33 % (32-36); MEAN CORPUSCULAR VOLUME 99 fL (79.0-98.0); MONOCYTES # (AUTO) 0.5 K/uL (0.0-1.0); MONOCYTES % (AUTO) 5.9 % (1.7-9.3); NEUTROPHILS # (AUTO) 6.8 K/uL (1.8-7.7); NEUTROPHILS % (AUTO) 84.6 % (40.0-70.0); PLATELET COUNT (AUTO) 134 K/uL (130-430); RED BLOOD CELL COUNT(AUTO) 3.12 MIL/uL (4.2-6.2); RED CELL DISTRIBUTION WIDTH 15.6 % (9.0-15.0)
[2021-08-17] MEDS: GABAPENTIN 100 MG CAPSULE GT SCH ×3 (07:02→17:08)
[2021-08-17] MEDS: DILTIAZEM HCL 30 MG TABLET GT SCH ×2 (07:03→14:54)
--- NOTE | 2021-08-17 07:18 | NUR ---
HANDOFF WITH PEDRO MCGRATH. CAMILO SINCLAIR RN
[2021-08-17 07:48] LABS: CALCIUM 8.2 mg/dL (8.4-11.0); CREATININE 0.53 mg/dL (0.55-1.30); POTASSIUM 3.9 mmol/L (3.5-5.1)
--- NOTE | 2021-08-17 08:22 | NUR ---
OPENING NOTES: PATIENT RESTING IN BED. BREATHING EVEN AND NON LABORED TO O2 AT 2L/NC. IV AND G TUBE INFUSING WELL. HOYT CATHETER SECURED AND DRAINING BY GRAVITY. ILEOSTOMY IN PLACED AND DRAINING WITH WATERY STOOL. ILEOSTOMY BAG EMPTIED. BED LOCKED, ALARM ON AND IN LOWEST POSITION. FALL, SAFETY AND ASPIRATION PRECAUTION REINFORCED. WILL CONTINUE MONITOR PATIENT
[2021-08-17] MEDS: POTASSIUM CHLORIDE 20 MEQ/PKT PACKET PO SCH ×2 (09:16→20:07)
[2021-08-17] MEDS: LANSOPRAZOLE 30 MG CAPSULE.DR GT SCH ×2 (09:16→20:06)
[2021-08-17] MEDS: LACTOBACILLUS RHAMNOSUS GG 1 CAP CAPSULE GT SCH ×2 (09:17→20:06)
[2021-08-17] MEDS: clonazePAM 0.5 MG TABLET GT SCH ×2 (09:17→14:52)
[2021-08-17] MEDS: DULoxetine HCL 30 MG CAPSULE.DR (CYMBALTA) PO SCH ×2 (09:17→20:07)
[2021-08-17] MEDS: guaiFENesin ER 600 MG TAB GT SCH ×2 (09:17→20:06)
[2021-08-17] MEDS: NAPH,MB-DB/K PH,MBDB 250 MG TAB GT SCH ×4 (09:17→20:06)
[2021-08-17] MEDS: CEFTAZIDIME 1 GM in D5W 50 ML IV SCH ×2 (09:21→20:09)
[2021-08-17] MEDS: ERGOCALCIFEROL 8000 UNITS/ML ORAL SOLUTION, 60 ML BOTTLE GT SCH (09:21)
--- NOTE | 2021-08-17 09:38 | NUR ---
RN NOTES: INCONTINENT CARE DONE. DUE MED GIVEN. NO S/S OF ACUTE DISTRESS NOTED. BED LOCKED, ALARM ON AND IN LOWEST POSITION. WILL CONTINUE MONITOR PATIENT.
[2021-08-17] MEDS: SOD FERRIC GLUC COMPLEX/SUC 125 MG in NS 100 ML IV SCH (10:28)
--- NOTE | 2021-08-17 14:45 | NUR ---
DCd BOTELLO: DC botello catheter as per MD's order. Catheter tip intact. Withdrawn 10 ml from the balloon. Patient tolerated well. Will monitor until patient urinates.
--- NOTE | 2021-08-17 17:00 | NUR ---
RN notes: Patient urinated after botello Catheter had been discontinued.
--- NOTE | 2021-08-17 18:27 | NUR ---
TALKED TO SHARMILA (SISTER): TALKED TO THE PATIENT'S SISTER AND INFORMED THAT PATIENT WILL BE DC AT 2100.
--- NOTE | 2021-08-17 18:28 | NUR ---
CLOSING NOTES: PATIENT RESTING IN BED. COLOSTOMY EMPTIED. INCONTINENT CARE DONE. G TUBE FLUSHED. IV YOKO MIDLINE INFUSING WELL. BED LOCKED, ALARM ON AND IN LOWEST POSITION. WILL CONTINUE MONITOR UNTIL ENDORSE TO GOLD ASSAYER RN.
--- NOTE | 2021-08-17 19:25 | NUR ---
CHANGE OF SHIFT; pt. endorsed, being discharge, turkey picker @ 9 pm. no acute distress.
--- NOTE | 2021-08-17 20:00 | NUR ---
NOTES: pt. sister at bedside. pt. non verbal but able to shake head if ask some question. HOB elevated. occ. bouts of cough. 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 IV via left upper arm midline. with ileostomy on rt. side of abdomen. g tube for feeding. pt. contracted. will give due medications including IV antibiotic.
[2021-08-17] MEDS: GABAPENTIN 300 MG CAPSULE GT SCH (20:06)
[2021-08-17] MEDS: clonazePAM 0.5 MG TABLET PO SCH (20:09)
[2021-08-17] MEDS: ENOXAPARIN SODIUM 40 MG/0.4 ML SYRINGE SUBCUT SCH (20:15)
--- NOTE | 2021-08-17 20:30 | NUR ---
NOTES: pt. repositioned and pulled up in bed.
--- NOTE | 2021-08-17 21:30 | NUR ---
NOTES: ambulance not here yet, asked tech to call.
--- NOTE | 2021-08-17 21:48 | NUR ---
[facility] called to check on arrival status. [phone], syeda/w Nico and he said crew is en route and has ETA of [id number]
--- NOTE | 2021-08-17 22:20 | NUR ---
NOTES: 2209 [facility] here, report given, pt. going home with home health. IV antibiotic ordered. pt. has midline catheter on left upper arm, ileostomy and g tube. on room air. VS stable. pt. left @ 2220.
== END 2021-08-17 22:20 | disposition home health service (06) | DRG 871 ==
LOC: SED 07:42 → STU 09:32 → SIC 14:25 → STU 08-13 17:23
PROVIDERS: ADMIT Internal Medicine; ATTEND Internal Medicine
PROC: 0D20XUZ Change Feeding Device in Upper Intestinal Tract, External Approach (ICD-10-PCS; principal; 2021-08-13)
PROC: 30233N1 Transfusion of Nonautologous Red Blood Cells into Peripheral Vein, Percutaneous Approach (ICD-10-PCS; 2021-08-15)
DX: A41.9 Sepsis, unspecified organism (principal); J69.0 Pneumonitis due to inhalation of food and vomit; J96.01 Acute respiratory failure with hypoxia; E43 Unspecified severe protein-calorie malnutrition; J45.901 Unspecified asthma with (acute) exacerbation; N39.0 Urinary tract infection, site not specified; E87.1 Hypo-osmolality and hyponatremia; I24.8 Other forms of acute ischemic heart disease; K94.23 Gastrostomy malfunction; K31.6 Fistula of stomach and duodenum; K21.9 Gastro-esophageal reflux disease without esophagitis; G89.4 Chronic pain syndrome; R13.10 Dysphagia, unspecified; K80.20 Calculus of gallbladder without cholecystitis without obstruction; D63.8 Anemia in other chronic diseases classified elsewhere; Z20.822 Contact with and (suspected) exposure to COVID-19; F32.A Depression, unspecified; F41.9 Anxiety disorder, unspecified; M41.9 Scoliosis, unspecified; G80.9 Cerebral palsy, unspecified; E83.39 Other disorders of phosphorus metabolism; E87.6 Hypokalemia; Z88.6 Allergy status to analgesic agent; Z88.5 Allergy status to narcotic agent; Z88.8 Allergy status to other drugs, medicaments and biological substances; Z79.899 Other long term (current) drug therapy; Z90.49 Acquired absence of other specified parts of digestive tract; Z87.440 Personal history of urinary (tract) infections; Z74.01 Bed confinement status
CPT/HCPCS: 36415; 36600; 71045; 74018; 74240-TC; 80048; 80053; 81000; 82150; 82803-TC; 83540; 83550; 83605; 83690; 83735; 83880; 84100; 84484; 85007; 85025; 85027; 85610-TC; 85730-TC; 86140; 86886; 86900; 86901; 86920; 87040-TC; 87070-TC; 87081; 87086; 87186-TC; 87205-TC; 93005; 94640; 94760; 96361; 96374; 96375; 99285; C9113; G0378; J0456; J0713; J0878; J0885; J1030; J1650; J2060; J2270; J2274; J2405; J2543; J2765; J2916; J2930; J7050; J7060; P9021; Q9963